=== PATIENT | female | born 1950 | race African-American/Black ===

== ENCOUNTER 2020-10-25 10:56 | Emergency (ER) | payer MEDICARE, MEDICAID, SELFPAY ==
[2020-10-25] VITALS (7 sets, daily range): BP systolic 139–184; BP diastolic 58–75; PULSE 72–81; RESP 14–18; TEMP 36.5–36.6; O2SAT 95–100; BMI 31.1; BMI 24.6
--- NOTE | 2020-10-25 | ECG_ITS ---
Test Reason : WEAKNESS Blood Pressure : / mmHG Vent. Rate : 073 BPM Atrial Rate : 073 BPM P-R Int : 150 ms QRS Dur : 092 ms QT Int : 372 ms P-R-T Axes : 080 041 055 degrees QTc Int : 409 ms Normal sinus rhythm Normal ECG When compared with ECG of 15-NOV-2019 16:32, No significant change was found Referred By: Leanne Lira Electronically Signed By:OCTAVIANO MANZO
--- NOTE | 2020-10-25 11:16 | XR_ITS ---
EXAMINATION: XR CHEST CLINICAL INFORMATION: Syncope. COMPARISON: None TECHNIQUE: Frontal view of the chest was obtained. FINDINGS: No significant abnormality is noted involving the heart, lungs, mediastinum, bony thorax or soft tissues. XR/XR chest 1V IMPRESSION: Unremarkable chest exam.
--- NOTE | 2020-10-25 11:16 | CT_ITS ---
EXAMINATION: CT HEAD WITHOUT CONTRAST CLINICAL INFORMATION: Weakness and syncope. COMPARISON: CT brain 11/25/2014 TECHNIQUE: Contiguous axial imaging was performed from the skull base to vertex without intravenous administration of contrast. This CT examination was performed using dose optimization techniques as appropriate, variously including the following: *Automated exposure control *Adjustment of mA and/or kV according to patient size (this includes techniques or standardized protocols for targeted exams where dose is matched to indication/reason for exam; i.e. extremities or head) *Use of iterative reconstruction technique DLP: 07 mGy-cm FINDINGS: There is no evidence of acute intracranial hemorrhage or territorial infarction. No abnormal mass effect or midline shift is seen. Hansen to white matter differentiation is well preserved. No extra-axial fluid collections are identified. The lateral ventricles are symmetrical but enlarged. There is diffuse periventricular hypodensity in both cerebral hemispheres. There is anterior and mid falx calcification seen. The osseous structures and soft tissues are normal. The mastoid air cells and visualized portions of the paranasal sinuses are well aerated. CT/CT head/brain wo con IMPRESSION: No acute intracranial process seen. Moderate cerebral atrophy. No major change from 11/25/2014. Diffuse chronic small vessel ischemic changes in both cerebral hemispheres.
[2020-10-25 11:19] LABS: Glucose, Whole Blood 70 mg/dL (60-115)
--- NOTE | 2020-10-25 11:19 | ED.NEUROSD ---
HPI - Neuro Symptoms/Deficit General Chief Complaint: Stroke Stated Complaint: weakness,unresponsive 10 mins,facial droop Time Seen by Provider: 10/25/20 11:16 History of Present Illness HPI Narrative: Patient is a 70-year-old female with a history of diabetes, multiple UTIs, femur fractures in the past presented today with having an episode of syncope. Patient was sitting in the chair. People at the adult daycare noted her the passed out. Unknown as to what exactly transpired. No coughing or congestion or upper respiratory symptoms no diaphoresis. Patient unable to give detailed history. Only follow simple commands. Patient was unresponsive for about 10 minutes. Subsequently had left-sided facial droop. That has resolved on arrival by EMS. No history of similar septa Aviles the past. Related Data Home Medications Medication Instructions Recorded Confirmed ascorbic acid (vitamin C) [Vitamin 500 mg PO BID 10/25/20 10/25/20 C] atorvastatin 10 mg PO BEDTIME 10/25/20 10/25/20 cholecalciferol (vitamin D3) 25 mcg PO DAILY 10/25/20 10/25/20 cyanocobalamin (vitamin B-12) 1,000 mcg PO DAILY 10/25/20 10/25/20 [Vitamin B-12] ferrous sulfate 325 mg PO BID 10/25/20 10/25/20 insulin aspart U-100 [Novolog See Rx Instructions .ROUTE .COMPLEX 10/25/20 10/25/20 U-100 Insulin aspart] insulin detemir U-100 [Levemir 22 unit SUBCUT DAILY 10/25/20 10/25/20 U-100 Insulin] latanoprost 1 drp OPHTHALMIC (EYE) BEDTIME 10/25/20 10/25/20 lisinopril 40 mg PO BID 10/25/20 10/25/20 sennosides [Jaylin-kate] 1 tab PO BEDTIME PRN 10/25/20 10/25/20 Previous Rx's Medication Instructions Recorded levothyroxine 150 mcg tablet 150 mcg PO QAM #30 cap 09/13/20 Allergies Allergy/AdvReac Type Severity Reaction Status Date / Time No Known Allergies Allergy Verified 08/09/20 09:17 Review of Systems Review of Systems: Unable to obtain review systems secondary to patient's dementia Yes Unobtainable due to mental condition PMFSH Past Medical History Surgical History History of ankle surgery History of hemiarthroplasty of left hip S/P KULDIP-[id number] (total abdominal hysterectomy and bilateral salpingo-oophorectomy) Family History Family History Father Diabetes Hypertension Mother Hypertension Stroke Social History Social History Alcohol intake: never Smoking Status: Never smoker Use of substances other than those prescribed or required for medical reasons: No Advance Directives: No Advance Directives Information Provided: No Physical Exam Vital Signs: Vital Signs: Last Vital Signs Temp 97.9 F 10/25/20 15:44 Pulse 74 10/25/20 15:44 Resp 14 10/25/20 15:44 BP 171/75 H 10/25/20 15:44 Pulse Ox 100 10/25/20 15:44 Body Mass Index 24.6 Appearance: Alert. Oriented X1. No acute distress. Eyes: Pupils equal, round and reactive to light. ENT: Pharynx normal. Neck: Normal inspection. Neck supple. No lymph nodes noted. No crepitus CVS: Normal heart rate and rhythm. Pulses normal. Normal S1 and S2 Respiratory: No respiratory distress. Breath sounds normal. No Wheezing. No rales Abdomen: Soft and nontender. No rigidity. No distention. good BS x4 Skin: Skin warm and dry. Normal skin color. Normal skin turgor. Extremities: No lower extremity edema. Neurovascular intact to all extremities. No Lacerations. No Rash Neuro: Oriented X 1. No motor deficit. No sensory deficit. Moving all extermities. No slurred speech MDM - Neuro Symptoms/Deficit MDM Narrative Medical decision making narrative: On arrival patient became awake alert oriented x2 which is baseline. There is no focal weakness noted. Patient's electrolytes consistent with some mild dehydration. Urine showed no evidence of infection. Chest x-ray was negative for pneumonia. CT scan of the head was negative for bleed. No mass noted. Patient and family offered admission for observation as patient has syncopal episode. Cannot be sure what the etiology of the syncopal episode was. Family wants patient to go home. Patient wants to go home. Understood the risks. Understood that we did not know the details of why she passed out. Should be sent home. Currently in stable condition. Lab Data Result diagrams: 10/25/20 11:56 10/25/20 11:56 Labs: Lab Results 10/25/20 10/25/20 10/25/20 Range/Units 11:09 11:56 11:56 WBC 4.5 L (4.8-10.8) X10*3/uL RBC 4.00 L (4.20-5.50) X10*6/uL Hgb 11.5 L (12.0-16.0) g/dl Hct 37.2 (37-47) % MCV 93.0 (80-98) fL MCH 28.8 (27.0-33.0) pg MCHC 30.9 L (31.0-35.0) g/dl RDW 13.6 (11.0-16.0) % Plt Count 211 (160-400) X10*3/uL MPV 11.1 (9.4-12.3) fL Immature Gran % (Auto) 0.2 (0.0-0.4) % Neut % (Auto) 59.4 (45-73) % Lymph % (Auto) 31.9 (20-40) % [place] % (Auto) 7.1 (2-11) % Eos % (Auto) 0.7 (0-4) % Baso % (Auto) 0.7 (0-2) % Lymph # (Auto) 1.4 (1.2-4.9) X10*3/uL [place] # (Auto) 0.3 (0.1-1.2) X10*3/uL Eos # (Auto) 0.0 (0.0-0.4) X10*3/uL Baso # (Auto) 0.0 (0.0-0.2) X10*3/uL Abs Immat Gran (auto) 0.01 (0.00-0.03) X10*3/uL Absolute Neuts (auto) 2.7 (2.0-8.3) X10*3/uL Absolute Nucleated RBC 0.000 (0.0-0.012) X10*3/uL Nucleated RBC % (auto) 0.0 (0.0-0.2) /100WBC PT (10.8-13.0) SEC INR (0.9-1.1) Sodium 140 (135-145) mmol/L Potassium 4.8 (3.3-5.1) mmol/l Chloride 103 (96-108) mmol/L Carbon Dioxide 30 H (22-29) mmol/L Anion Gap 12 (12-20) BUN 31 H (9-16) mg/dL Creatinine 0.80 (0.5-1.4) mg/dL Estim Creat Clear Calc 79.4 Estimated GFR > 60 POC Glucose 70 (60-115) mg/dL Random Glucose 81 (60-115) mg/dL Calcium 9.1 (8.4-10.2) mg/dL Troponin I High Sens (<3.5-17.0) ng/L Hold Red Top Urine Color Urine Appearance Urine pH (5.0-8.0) Ur Specific [place] (1.005-1.025) Urine Protein (NEG-TRACE) MG/DL Urine Glucose (UA) (NEG) MG/DL Urine Ketones (NEG) MG/DL Urine Blood (NEG) Urine Nitrite (NEG) Ur Leukocyte Esterase (NEG) Urine RBC (0) /HPF Urine WBC (0-4) /HPF Ur Squamous Epith Cells /LPF Urine Bacteria /LPF Urine Mucus /LPF COVID-19 (TAMARA) (Negative) COVID-19 Clin Com 10/25/20 10/25/20 10/25/20 Range/Units 11:56 11:56 13:27 WBC (4.8-10.8) X10*3/uL RBC (4.20-5.50) X10*6/uL Hgb (12.0-16.0) g/dl Hct (37-47) % MCV (80-98) fL MCH (27.0-33.0) pg MCHC (31.0-35.0) g/dl RDW (11.0-16.0) % Plt Count (160-400) X10*3/uL MPV (9.4-12.3) fL Immature Gran % (Auto) (0.0-0.4) % Neut % (Auto) (45-73) % Lymph % (Auto) (20-40) % [place] % (Auto) (2-11) % Eos % (Auto) (0-4) % Baso % (Auto) (0-2) % Lymph # (Auto) (1.2-4.9) X10*3/uL [place] # (Auto) (0.1-1.2) X10*3/uL Eos # (Auto) (0.0-0.4) X10*3/uL Baso # (Auto) (0.0-0.2) X10*3/uL Abs Immat Gran (auto) (0.00-0.03) X10*3/uL Absolute Neuts (auto) (2.0-8.3) X10*3/uL Absolute Nucleated RBC (0.0-0.012) X10*3/uL Nucleated RBC % (auto) (0.0-0.2) /100WBC PT (10.8-13.0) SEC INR (0.9-1.1) Sodium (135-145) mmol/L Potassium (3.3-5.1) mmol/l Chloride (96-108) mmol/L Carbon Dioxide (22-29) mmol/L Anion Gap (12-20) BUN (9-16) mg/dL Creatinine (0.5-1.4) mg/dL Estim Creat Clear Calc Estimated GFR POC Glucose 51 L* (60-115) mg/dL Random Glucose (60-115) mg/dL Calcium (8.4-10.2) mg/dL Troponin I High Sens < 3.5 (<3.5-17.0) ng/L Hold Red Top See Note Urine Color Urine Appearance Urine pH (5.0-8.0) Ur Specific [place] (1.005-1.025) Urine Protein (NEG-TRACE) MG/DL Urine Glucose (UA) (NEG) MG/DL Urine Ketones (NEG) MG/DL Urine Blood (NEG) Urine Nitrite (NEG) Ur Leukocyte Esterase (NEG) Urine RBC (0) /HPF Urine WBC (0-4) /HPF Ur Squamous Epith Cells /LPF Urine Bacteria /LPF Urine Mucus /LPF COVID-19 (T[facility]ARA) (Negative) COVID-19 Clin Com 10/25/20 10/25/20 10/25/20 Range/Units 13:31 13:32 13:46 WBC (4.8-10.8) X10*3/uL RBC (4.20-5.50) X10*6/uL Hgb (12.0-16.0) g/dl Hct (37-47) % MCV (80-98) fL MCH (27.0-33.0) pg MCHC (31.0-35.0) g/dl RDW (11.0-16.0) % Plt Count (160-400) X10*3/uL MPV (9.4-12.3) fL Immature Gran % (Auto) (0.0-0.4) % Neut % (Auto) (45-73) % Lymph % (Auto) (20-40) % [place] % (Auto) (2-11) % Eos % (Auto) (0-4) % Baso % (Auto) (0-2) % Lymph # (Auto) (1.2-4.9) X10*3/uL [place] # (Auto) (0.1-1.2) X10*3/uL Eos # (Auto) (0.0-0.4) X10*3/uL Baso # (Auto) (0.0-0.2) X10*3/uL Abs Immat Gran (auto) (0.00-0.03) X10*3/uL Absolute Neuts (auto) (2.0-8.3) X10*3/uL Absolute Nucleated RBC (0.0-0.012) X10*3/uL Nucleated RBC % (auto) (0.0-0.2) /100WBC PT 11.6 (10.8-13.0) SEC INR 1.0 (0.9-1.1) Sodium (135-145) mmol/L Potassium (3.3-5.1) mmol/l Chloride (96-108) mmol/L Carbon Dioxide (22-29) mmol/L Anion Gap (12-20) BUN (9-16) mg/dL Creatinine (0.5-1.4) mg/dL Estim Creat Clear Calc Estimated GFR POC Glucose (60-115) mg/dL Random Glucose (60-115) mg/dL Calcium (8.4-10.2) mg/dL Troponin I High Sens (<3.5-17.0) ng/L Hold Red Top Urine Color YELLOW Urine Appearance HAZY Urine pH 6.0 (5.0-8.0) Ur Specific [place] 1.020 (1.005-1.025) Urine Protein NEG (NEG-TRACE) MG/DL Urine Glucose (UA) NEG (NEG) MG/DL Urine Ketones NEG (NEG) MG/DL Urine Blood NEG (NEG) Urine Nitrite NEG (NEG) Ur Leukocyte Esterase TRACE H (NEG) Urine RBC 0 (0) /HPF Urine WBC 1-4 (0-4) /HPF Ur Squamous Epith Cells 1+ /LPF Urine Bacteria NONE /LPF Urine Mucus TRACE /LPF COVID-19 (TAMARA) Negative (Negative) COVID-19 Clin Com See Note ECG Data Attestation: I personally reviewed and interpreted this ECG as follows: Interpretation: Sinus heart rate is 75 CO QRS QT within normal limits is no acute ST segment elevation noted. NIH Stroke Scale Internal: Initial- Upon Arrival Level of Consciousness: Alert Level of Consciousness Questions: Answers both questions correctly Level of Consciousness Commands: Performs both tasks correctly Best Gaze: Normal Visual: No visual loss Facial Palsy: Normal Motor Arm (Right): No drift Motor Arm (Left): No drift Motor Leg (Right): No drift Motor Leg (Left): No drift Limb Ataxia: Absent Sensory: Normal Best Language: No aphasia Dysarthia: Normal Extinction and Inattention: No abnormality Score: 0 Discharge Plan Discharge Clinical Impression: Syncope Patient Disposition: Home, Self-Care Instructions: Syncope (ED) Prescriptions: No Action levothyroxine 150 mcg tablet 150 mcg PO QAM Qty: 30 RF: 12 latanoprost 0.005 % drops 1 drp ophthalmic (eye) BEDTIME RF: 0 sennosides [Jaylin-kate] 8.6 mg tablet 1 tab PO BEDTIME PRN (Reason: constipation) RF: 0 cyanocobalamin (vitamin B-12) [Vitamin B-12] 1,000 mcg tablet 1,000 mcg PO DAILY RF: 0 ascorbic acid (vitamin C) [Vitamin C] 500 mg tablet 500 mg PO BID RF: 0 insulin aspart U-100 [Novolog U-100 Insulin aspart] 100 unit/mL solution See Rx Instructions .ROUTE .COMPLEX RF: 0 ferrous sulfate 325 mg (65 mg iron) tablet 325 mg PO BID RF: 0 lisinopril 40 mg tablet 40 mg PO BID RF: 0 Levemir U-100 Insulin 100 unit/mL solution 22 unit subcut DAILY RF: 0 cholecalciferol (vitamin D3) 25 mcg (1,000 unit) tablet 25 mcg PO DAILY RF: 0 atorvastatin 10 mg tablet 10 mg PO BEDTIME RF: 0 Referrals: Edouard Amaro MD [Primary Care Provider] - 2 days
[2020-10-25 12:06] LABS: Basophils Percent Auto 0.7 % (0-2); Eosinophils Percent Auto 0.7 % (0-4); Hematocrit 37.2 % (37-47); Hemoglobin 11.5 g/dl (12.0-16.0); Imm Gran Abs Auto 0.01 X10*3/uL (0.00-0.03); Imm Gran Pct Auto 0.2 % (0.0-0.4); Lymphocytes Absolute Auto 1.4 X10*3/uL (1.2-4.9); Lymphocytes Percent Auto 31.9 % (20-40); Mean Corpuscular HGB Conc 30.9 g/dl (31.0-35.0); Mean Corpuscular Hemoglobin 28.8 pg (27.0-33.0); Mean Platelet Volume 11.1 fL (9.4-12.3); Monocytes Absolute Auto 0.3 X10*3/uL (0.1-1.2); Monocytes Percent Auto 7.1 % (2-11); Neutrophils Absolute Auto 2.7 X10*3/uL (2.0-8.3); Neutrophils Percent Auto 59.4 % (45-73); Platelet Count 211 X10*3/uL (160-400); Red Cell Distribution Width 13.6 % (11.0-16.0); White Blood Count 4.5 X10*3/uL (4.8-10.8)
[2020-10-25 12:08] LABS: MANUAL DIFF FLAG NO
[2020-10-25 12:37] LABS: Anion Gap 12 (12-20); Blood Urea Nitrogen 31 mg/dL (9-16); Calcium 9.1 mg/dL (8.4-10.2); Carbon Dioxide 30 mmol/L (22-29); Chloride 103 mmol/L (96-108); Creatinine Clr Calc Pharmacy 79.4; Estimated Glomerular Filt Rate > 60; Glucose Random 81 mg/dL (60-115); Potassium 4.8 mmol/l (3.3-5.1); Sodium 140 mmol/L (135-145)
[2020-10-25 12:44] LABS: Troponin-I High Sensitivity < 3.5 ng/L (<3.5-17.0)
[2020-10-25 13:47] LABS: Prothrombin Time 11.6 SEC (10.8-13.0)
[2020-10-25 13:49] LABS: Stroke Lab Use COMPLETE
[2020-10-25 13:57] LABS: COVID-19 Test Negative (Negative)
[2020-10-25 14:17] LABS: Glucose, Whole Blood 51 mg/dL (60-115)
[2020-10-25 14:31] LABS: Glucose Urine UA NEG (NEG); Leukocyte Esterase Urine TRACE (NEG); Nitrite Urine NEG (NEG); Urine Blood NEG (NEG); Urine Ketones NEG (NEG); Urine Protein NEG (NEG-TRACE)
[2020-10-25 14:35] LABS: Appearance Urine HAZY; Color Urine YELLOW
[2020-10-25 14:51] LABS: Mucus Urine TRACE /LPF; RBC Urine 0 /HPF (0); Squamous Epithelial Cell Urine 1+ /LPF
[2020-10-25 15:57] LABS: Glucose, Whole Blood 169 mg/dL (60-115)
== END 2020-10-25 17:10 | disposition home or self-care (01) ==
PROVIDERS: Emergency Provider Emergency Medicine Emergency Medical Services; PCP Internal Medicine
DX: R55 Syncope and collapse (principal); Z79.899 Other long term (current) drug therapy; Z20.828 Contact with and (suspected) exposure to other viral communicable diseases
CPT/HCPCS: 36415; 70450; 71045; 80048; 81001; 82947; 84484; 85025; 85610; 87086; 87635; 93005; 99284

== ENCOUNTER 2020-11-12 12:37 | Emergency (ER) | payer MEDICARE, MEDICAID, SELFPAY ==
[2020-11-12 12:50] VITALS: BP 186/81; PULSE 71; RESP 20; TEMP 36.6; O2SAT 100; BMI 27.8
--- NOTE | 2020-11-12 12:55 | XR_ITS ---
EXAMINATION: LEFT FOOT AND LEFT FEMUR. CLINICAL INFORMATION: Fall, pain. COMPARISON: None TECHNIQUE: 3 views left foot. 2 views left femur. FINDINGS: LEFT FOOT: There is no visible acute fracture, dislocation or subluxation. The ankle mortise and subtalar joints are normal. There is dorsal talonavicular spurring. There are 2 radiopaque wires visualized medial and lateral aspect of mid foot region. No lytic or sclerotic process seen. There is a small calcaneal heel spur. Left femur: There is a bipolar left femoral prosthesis with no evidence of prosthetic loosening. No fracture or dislocation seen. Rest of the left femur is grossly unremarkable. XR/XR femur LT 2V IMPRESSION: Degenerative spurring talonavicular joint. No acute fracture or dislocation. 2 thin metallic wires are seen along the soft tissues of medial and lateral midfoot. Bipolar left hip prosthesis without dislocation. No prosthetic loosening seen. No gross bony abnormality.
--- NOTE | 2020-11-12 12:55 | XR_ITS ---
EXAMINATION: LEFT FOOT AND LEFT FEMUR. CLINICAL INFORMATION: Fall, pain. COMPARISON: None TECHNIQUE: 3 views left foot. 2 views left femur. FINDINGS: LEFT FOOT: There is no visible acute fracture, dislocation or subluxation. The ankle mortise and subtalar joints are normal. There is dorsal talonavicular spurring. There are 2 radiopaque wires visualized medial and lateral aspect of mid foot region. No lytic or sclerotic process seen. There is a small calcaneal heel spur. Left femur: There is a bipolar left femoral prosthesis with no evidence of prosthetic loosening. No fracture or dislocation seen. Rest of the left femur is grossly unremarkable. XR/XR foot LT 2V IMPRESSION: Degenerative spurring talonavicular joint. No acute fracture or dislocation. 2 thin metallic wires are seen along the soft tissues of medial and lateral midfoot. Bipolar left hip prosthesis without dislocation. No prosthetic loosening seen. No gross bony abnormality.
--- NOTE | 2020-11-12 13:03 | ED.FALL ---
HPI - Fall General Chief Complaint: Fall Stated Complaint: FALL W/L HIP PAIN Time Seen by Provider: 11/12/20 12:55 Source: family and EMS Mode of arrival: EMS Limitations: no limitations History of Present Illness HPI Narrative: 70 yo female with past medical history of dementia, IDDM, HTN, HLD, hypothyroidism here with left hip/ankle and foot pain s/p fall. Daughter was in the other room and heard a thud. Found patient sitting on her bottom. Patient told her she slipped out of a chair landing on her bottom. Denies hitting her head or LOC. Daughter attempted to get her up and she was unable to bear weight on the left leg. Patient tells me she went to get up and her foot slipped causing her to fall on her bottom. MD complaint: fall Onset (ago): minute(s) Fall from: chair Fall witnessed: no Place fall occurred: home Loss of consciousness: none Prolonged down time: no Symptoms prior to fall: none Context: tripped/slipped Location of injury - extremities: left: thigh Severity: mild Associated symptoms (after fall): denies Related Data Home Medications Medication Instructions Recorded Confirmed atorvastatin 10 mg PO BEDTIME 10/25/20 10/25/20 cholecalciferol (vitamin D3) 25 mcg PO DAILY 10/25/20 10/25/20 cyanocobalamin (vitamin B-12) 1,000 mcg PO DAILY 10/25/20 10/25/20 [Vitamin B-12] ferrous sulfate 325 mg PO BID 10/25/20 10/25/20 insulin aspart U-100 [Novolog See Rx Instructions .ROUTE .COMPLEX 10/25/20 10/25/20 U-100 Insulin aspart] insulin detemir U-100 [Levemir 22 unit SUBCUT DAILY 10/25/20 10/25/20 U-100 Insulin] latanoprost 1 drp OPHTHALMIC (EYE) BEDTIME 10/25/20 10/25/20 lisinopril 40 mg PO BID 10/25/20 10/25/20 sennosides [Jaylin-kate] 1 tab PO BEDTIME PRN 10/25/20 10/25/20 aspirin 81 mg tablet,delayed 81 mg PO DAILY 11/09/20 release Previous Rx's Medication Instructions Recorded levothyroxine 150 mcg tablet 150 mcg PO QAM #30 cap 09/13/20 ascorbic acid (vitamin C) 500 mg 500 mg PO BID #60 cap 10/31/20 tablet Allergies Allergy/AdvReac Type Severity Reaction Status Date / Time No Known Allergies Allergy Verified 11/10/20 01:12 Review of Systems Review of Systems: Yes all other systems are reviewed and are negative Constitutional: Constitutional: Reports no additional constitutional complaints, Denies body ache(s), Denies chills, Denies fever(s), Denies headache(s) and Denies weakness Eyes: Eyes: Reports no additional eye complaints and Denies change in vision ENT: Reports system reviewed and no additional complaints, except as documented, Denies dizziness, Denies headache(s), Denies nasal congestion, Denies nasal discharge and Denies neck pain Cardiovascular: Cardiovascular: Reports no additional cardiovascular complaints, Denies chest pain, Denies leg edema and Denies dyspnea Respiratory: Respiratory: Reports no additional respiratory complaints, Denies cough and Denies dyspnea Gastrointestinal: Gastrointestinal: Reports no additional gastrointestinal complaints, Denies abdominal pain, Denies diarrhea, Denies nausea and Denies vomiting Genitourinary: Genitourinary: Reports no additional female genitourinary complaints and Denies urinary incontinence Musculoskeletal: Musculoskeletal: Reports no additional musculoskeletal complaints, Denies back pain, Reports arthralgias, Reports joint swelling, Denies neck pain, Denies numbness and Denies tingling Integumentary/Breasts: Skin/Breast: Reports system reviewed and no additional complaints, except as docu and Denies rash Neurologic: Reports system reviewed and no additional complaints, except as documented, Denies Abnormal speech present, Denies dizziness, Denies headache(s), Denies numbness, Denies tingling and Denies weakness [facility] Past Medical History Attestation statement: The following information was validated with the patient. Source: old records reviewed and nursing notes reviewed Medical History Dementia Diabetes High cholesterol Hypertension Hypothyroidism Syncope Surgical History History of ankle surgery History of hemiarthroplasty of left hip S/P KULDIP-[id number] (total abdominal hysterectomy and bilateral salpingo-oophorectomy) Family History Family History Father Diabetes Hypertension Mother Hypertension Stroke Social History Social History Alcohol intake: never Smoking Status: Never smoker Advance Directives: No Advance Directives Information Provided: Yes Physical Exam Vital Signs: Vital Signs: Last Vital Signs Temp 97.9 F 11/12/20 12:50 Pulse 68 11/12/20 14:29 Resp 20 11/12/20 12:50 BP 164/78 H 11/12/20 14:29 Pulse Ox 100 11/12/20 12:50 Body Mass Index 27.8 Const: General: cooperative, healthy appearing, comfortable and no acute distress Orientation/consciousness: patient oriented x3 Limitations: no limitations HENMT: Head: Yes normal to inspection Ears: hearing grossly normal bilaterally General nose exam: Normal external nose present Face and sinus: Yes normal facial exam Mouth: Normal oral and palatal mucosa present Throat: Yes posterior oropharynx normal Eyes: General: appearance normal, both eyes and all related structures Pupils: Equal, round and reactive pupils present Neck: Neck: Yes normal visual inspection Chest: Chest palpation & inspection: normal inspection of the chest Resp: Effort & Inspection: normal respiratory effort Auscultation: clear to auscultation bilaterally Cardio: Rate: regular rate Rhythm: regular rhythm Peripheral pulses: Peripheral pulses 2+ throughout GI: Inspection: Yes normal to inspection Palpation (GI): Soft to palpation and nontender Auscultation: normal bowel sounds Back/Spine/Pelvis: Thoracic/Lumbar Spine: thoracic and lumbar spine normal to inspection Skin: General skin exam: no rashes or lesions noted Neuro: General: patient oriented x3, no focal motor deficits and normal sensation to monofilament Cranial nerves: Yes Equal, round and reactive pupils present Cognition (Neuro): normal cognition Speech: No Abnormal speech present Gait exam (Neuro): Normal gait present Motor exam (neuro): 5/5 motor strength present throughout Extrem: Other: Tenderness over mid thigh and lateral left hip, mild. No obvious deformity/rotation or shortening. Tenderness over lateral left ankle and base of 5th metatarsal with mild swelling. No deformity, ecchymosis. Palpable pulses. FROM. General: Yes normal to inspection Course Course Course Narrative: Left hip/thigh/foot/ankle pain s/p mechanical fall at home. No head injury, at baseline per family. 1430-X-rays unremarkable. Likely contusion. Plan for ambulation trial prior to discharge home. Able a ambulate with walker with a steady gait. Reviewed worrisome signs/symptoms with patient and when to return to ED. Comfortable with discharge home. MDM - Fall Medical Records Attestation: I reviewed the patient's medical records. Lab Data Attestation: I reviewed the patient's lab results. Imaging Data femur xray: Attestation: I personally reviewed and interpreted this imaging study as follows: Radiologist's impression: Left femur: There is a bipolar left femoral prosthesis with no evidence of prosthetic loosening. No fracture or dislocation seen. Rest of the left femur is grossly unremarkable. foot xray: Attestation: I personally reviewed and interpreted this imaging study as follows: Radiologist's impression: LEFT FOOT: There is no visible acute fracture, dislocation or subluxation. The ankle mortise and subtalar joints are normal. There is dorsal talonavicular spurring. There are 2 radiopaque wires visualized medial and lateral aspect of mid foot region. No lytic or sclerotic process seen. There is a small calcaneal heel spur. Discharge Plan Discharge Clinical Impression: Contusion Qualifiers: Encounter type: initial encounter Contusion area: hip Laterality: left Qualified Code(s): S70.02XA - Contusion of left hip, initial encounter Patient Disposition: Home, Self-Care Instructions: Contusion in Adults (ED) Additional Instructions: Change positions slowly Use walker at all times Prescriptions: No Action levothyroxine 150 mcg tablet 150 mcg PO QAM Qty: 30 RF: 12 ascorbic acid (vitamin C) [Vitamin C] 500 mg tablet 500 mg PO BID Qty: 60 RF: 5 latanoprost 0.005 % drops 1 drp ophthalmic (eye) BEDTIME RF: 0 sennosides [Jaylin-kate] 8.6 mg tablet 1 tab PO BEDTIME PRN (Reason: constipation) RF: 0 cyanocobalamin (vitamin B-12) [Vitamin B-12] 1,000 mcg tablet 1,000 mcg PO DAILY RF: 0 insulin aspart U-100 [Novolog U-100 Insulin aspart] 100 unit/mL solution See Rx Instructions .ROUTE .COMPLEX RF: 0 ferrous sulfate 325 mg (65 mg iron) tablet 325 mg PO BID RF: 0 lisinopril 40 mg tablet 40 mg PO BID RF: 0 Levemir U-100 Insulin 100 unit/mL solution 22 unit subcut DAILY RF: 0 cholecalciferol (vitamin D3) 25 mcg (1,000 unit) tablet 25 mcg PO DAILY RF: 0 atorvastatin 10 mg tablet 10 mg PO BEDTIME RF: 0 aspirin 81 mg tablet,delayed release (DR/EC) 81 mg PO DAILY RF: 0 Interventions: ED Discharge Assessment Last Done: 11/12/20 15:31
[2020-11-12 14:02] VITALS: BP 189/74; PULSE 67
[2020-11-12 14:29] VITALS: BP 164/78; PULSE 68
--- NOTE | 2020-11-12 15:30 | PC.NURSE ---
patient able to abmbulate household distance with a walker. denied any pain.
== END 2020-11-12 16:09 | disposition home or self-care (01) ==
PROVIDERS: Emergency Provider Emergency Medicine
DX: S70.02XA Contusion of left hip, initial encounter (principal); W07.XXXA Fall from chair, initial encounter; E11.9 Type 2 diabetes mellitus without complications; I10 Essential (primary) hypertension; F03.90 Unspecified dementia, unspecified severity, without behavioral disturbance, psychotic disturbance, mood disturbance, and anxiety; Y93.9 Activity, unspecified; Y92.013 Bedroom of single-family (private) house as the place of occurrence of the external cause; Y99.9 Unspecified external cause status
CPT/HCPCS: 73552; 73620; 99283

== ENCOUNTER → 2020-11-14 09:54 | Outpatient (BNVA) | payer MEDICARE, MEDICAID, SELFPAY | PROVIDERS: PCP Internal Medicine; Visit Provider Internal Medicine Cardiovascular Disease | DX: R55 Syncope and collapse (principal); I95.1 Orthostatic hypotension; I10 Essential (primary) hypertension; E11.9 Type 2 diabetes mellitus without complications | CPT/HCPCS: 99202 ==

== ENCOUNTER → 2020-11-19 08:18 | Outpatient (REF) | payer MEDICARE, MEDICAID, SELFPAY ==
--- NOTE | 2020-11-19 | NM_ITS ---
Myocardial perfusion study Indication: Syncope to evaluate for myocardial ischemia Technique: The patient was brought in for a Lexiscan perfusion study on 11/19/2020. Patient performed low-level exercise and was injected 0.4 mg of Lexiscan intravenously. Within a minute of injection, 25 mCi of sestamibi was given intravenously. Images were obtained using the SPECT gamma camera interlaced with the gating device. Images were obtained in supine position. Resting perfusion study was performed on 11/20/2020. Patient was administered 25 mCi of sestamibi intravenously at rest. Images were then obtained in supine position. Images obtained with and without CT attenuation. Total DLP 129 mGy-cm. Images were processed with the software and compared side to side in short axis, horizontal long axis and vertical long axis views. Findings: Both stress and rest images were performed with comments in side of the body position as patient could not raise her arms The stress perfusion study showed non attenuated images show moderately to severely reduced uptake in the inferolateral as well as moderately reduced uptake in the lateral wall of the LV myocardium. Is also moderately reduced uptake in the basal inferior wall of the LV myocardium. Attenuation corrected images show moderately reduced uptake in the inferolateral and basal lateral as well as basal inferior wall of the LV myocardium.. The gated study shows visually normal LV systolic function with visually estimated LVEF of greater than 50%. LV cavity is normal in size. The gated study shows normal systolic wall thickening and contraction of segments. Resting study shows improved uptake in the inferolateral, basal lateral and basal inferior wall of the LV myocardium.. Gating at rest reveals normal systolic wall motion with visually estimated ejection fraction at greater than 50 %. The findings are consistent with moderate area of moderate to severe intensity inferolateral, basal lateral and inferior wall ischemia.. NM/NM aleksey perf SPECT rest & str Impression: 1. Myocardial perfusion imaging study shows moderate area all moderate intensity basal lateral and inferior and inferolateral ischemia in circumflex territory 2. Gated LVEF is greater than 50% 3. Transient ischemic dilatation not present EKG is nondiagnostic for ischemia
--- NOTE | 2020-11-19 08:23 | CA_ITS ---
Acquisition Time: 2020-11-19 08:29:06 Total Exercise Time: 00:02:00 Test Indications: Syncope Medications: ASA ATORVASTATIN INSULIN LISINOPRIL LEVOTHYROXINE Protocol: LEXISCAN Max HR: 096 BPM 64% of Pred: 149 BPM Max BP: 140/072 mmHG Max Work Load: 1.0 METS Pharmacological stress test with Lexiscan injection, while sitting and kicking her legs, without anginal symptoms, without arrythmia, with normotensive response to injection, with nondiagnostic EKG for ischemia. Nuclear images pending. Test reviewed with Dr Martinez. Referred By: Lucio Stokes Overread By: PREM SLATER
== END ==
LOC: HO.CARD 08:18
PROVIDERS: PCP Internal Medicine; Visit Provider Internal Medicine Cardiovascular Disease
DX: R55 Syncope and collapse (principal); I10 Essential (primary) hypertension; E11.9 Type 2 diabetes mellitus without complications
CPT/HCPCS: 78452; 93017; A9500; J0280; J2785

== ENCOUNTER 2020-12-11 11:05 | Outpatient (REF) | payer MEDICARE, MEDICAID, SELFPAY ==
[2020-12-11 12:08] LABS: Anion Gap 10 (12-20); Blood Urea Nitrogen 21 mg/dL (9-16); Calcium 8.6 mg/dL (8.4-10.2); Carbon Dioxide 32 mmol/L (22-29); Chloride 105 mmol/L (96-108); Estimated Glomerular Filt Rate > 60; Glucose Random 161 mg/dL (60-115); Potassium 4.3 mmol/L (3.3-5.1); Sodium 143 mmol/L (135-145)
== END 2020-12-11 11:06 | disposition home or self-care (01) ==
LOC: HO.LAB 11:05
PROVIDERS: PCP Internal Medicine; Visit Provider Internal Medicine Cardiovascular Disease
DX: I95.1 Orthostatic hypotension (principal); E11.9 Type 2 diabetes mellitus without complications; I10 Essential (primary) hypertension; R55 Syncope and collapse
CPT/HCPCS: 36415; 80048

== ENCOUNTER → 2020-12-12 12:52 | Outpatient (REF) | payer MEDICARE, MEDICAID, SELFPAY ==
--- NOTE | 2020-12-12 12:56 | CA_ITS ---
Transthoracic Echocardiogram Patient (Last, First, Middle): Elsa Preciado, Gender: Female Date of : 1950 Age: 70 Procedure Date: 12/12/2020 Procedure Type: Transthoracic Echocardiogram Location: OP Height: 175.26 cm Weight: 85.73 kg BSA: 2.02 m2 Heart Rate: bpm BP: 143 / 78 mmHg Clinical Science Consultant: ETHEL Spann MD: Lucio Stokes MD Email Campaign Manager: Lucio Stokes MD Symptoms: R55 - Syncope and collapse Study Quality: Fair ECG Rhythm: Sinus Conclusions: - 1. Normal LV systolic function grade 1 diastolic dysfunction 2. Normal cardiac valvular Doppler 3. No pericardial effusion Findings Left Ventricle Normal left ventricular size, thickness, and systolic function. The visually estimated ejection fraction is between 60-65%. Spectral Doppler is indicative of an impaired relaxation filling pattern. E/E prime ratio is <8, consistent with normal filling pressures. Right Ventricle Normal right ventricular cavity size and systolic function. Atria Both atria are normal in size. Aortic Valve There is mild calcification of the aortic valve. There is no aortic valve stenosis. There is no aortic valve regurgitation. Mitral Valve Normal mitral valve structure and function. There is mild mitral annular calcification. There is trace mitral valve regurgitation. There is no mitral valve stenosis. Pulmonic Valve The pulmonic valve was not well visualized. Tricuspid Valve Likely normal tricuspid valve structure and function. Tricuspid regurgitation envelope is inadequate for calculation of right ventricular systolic pressure. Great Vessels All visible segments of the aorta are normal in size. Venous The inferior vena cava is normal in size and collapses greater than 50% with inspiration. Pericardium/Pleural There is no evidence of pericardial effusion. Prior Study Comparison No prior study available for comparison. Measurements 2D Linear Measurements IVSd: 1.05 0.6-0.9/0.6-1.0 cm LVIDd: 3.49 3.9-5.3/4.2-5.9 cm LVIDd Index: 1.73 2.4-3.2/2.2-3.1 cm/m2 LVIDs: 2.39 2.0-3.6 cm LVPWd: 1.06 0.7-1.1 cm Ao Root: 3.30 2.1-3.5 cm LA Diam: 3.30 2.7-3.8/3.0-4.0 cm LAIDs Index: 1.63 1.5-2.3 cm/m2 LV Mass: 138.43 67-162/88-224 g LV Mass Index: 68.53 43-95/49-115 g/m2 LVOT Diam: 2.20 3.0+(-)1.3 cm Mitral Valve MV Pk E: 0.56 MV PK A: 0.96 MV Decel Time: 236.00 E/A: 0.60 E'Lateral: 6.64 E'Medial: 4.79 E/E' Med: 11.60 E/E' Lat: 8.40 PHT: 69.00 MVA PHT: 3.19 Decel Pierce: 2.36 Aortic Valve AoV Pk Cornelius: 1.18 AoV Mn Cornelius: 0.71 AoV VTI: 0.26 AoV Pk Grad: 6.00 Aov Mn Grad: 2.00 MARIA Cont.VTI: 3.01 LVOT LVOT Pk Cornelius: 0.80 LVOT Mn Cornelius: 0.52 LVOT VTI: 0.21 LVOT Pk Grad: 3.00 LVOT Mn Grad: 1.00 LVOT Diam: 2.20 LVOT Area: 3.80 Diastolic Function MV Pk E: 0.56 MV Pk A: 0.96 E/A: 0.60 E'Medial: 4.79 E/E' Med: 11.60 E' Laterial: 6.64 E/E' Lat: 8.40 Great Vessels Aorta Ao Root-2D: 3.30 2.0-3.7 cm Ao Asc: 3.50 2.1-3.4 cm Ao Arch: 2.10 Updated in Other Vendor System with Status of Final Lucio Stokes MD electronically signed on 12/12/2020 3:04:34 PM with status of Final
== END ==
LOC: HO.CARD 12:52
PROVIDERS: Visit Provider Internal Medicine Cardiovascular Disease
DX: I10 Essential (primary) hypertension (principal); I95.1 Orthostatic hypotension
CPT/HCPCS: 93306

== ENCOUNTER → 2020-12-20 10:01 | Outpatient (BNVA) | payer MEDICARE, MEDICAID, SELFPAY | PROVIDERS: PCP Internal Medicine; Visit Provider Nurse Practitioner Family | DX: R55 Syncope and collapse (principal); R94.39 Abnormal result of other cardiovascular function study; I95.1 Orthostatic hypotension; I10 Essential (primary) hypertension | CPT/HCPCS: 99212 ==

== ENCOUNTER → 2021-01-03 09:53 | Outpatient (REF) | payer MEDICARE, MEDICAID, SELFPAY ==
--- NOTE | 2021-01-03 15:30 | ECG_ITS ---
Hook-up date: 2021-01-03 11:00:00 Duration: 11:37:00 Test Indications: Syncope and collapse Medications: 84364 QRS complexes 12 Ventricular ectopics which represent <1 % of total QRS comp. 3 Supraventricular ectopics which represent <1 % of total QRS comp. * Paced QRS complexs which represent % of total QRS comp. VENTRICULAR ECTOPY 12 Isolated 0 Bigeminal Cycles 0 Couplets 0 Runs 0 Beats in Runs * Beats LONGEST at * BPM at :: -- * Beats FASTEST at * BPM at :: -- SUPRAVENTRICULAR ECTOPY 3 Isolated 0 Couplets 0 Runs 0 Beats in Runs * Beats LONGEST at * BPM at :: -- * Beats FASTEST at * BPM at :: -- HEART RATES 64 MIN at 14:34:15 2021-01-03 75 AVG 93 MAX at 20:48:29 2021-01-03 LONGEST RR 0.9280 secs at 14:34:12 2021-01-03 S-T LEVELS Channel 1 - 128 mm at 11:00:00 2021-01-03 - 128 mm at 11:00:00 2021-01-03 Channel 2 - 128 mm at 11:00:00 2021-01-03 - 128 mm at 11:00:00 2021-01-03 Channel 3 - 128 mm at 03:01:91 -- - 128 mm at 03:01:91 Underlying rhythm is sinus; Average ventricular rate 75/min; range 64-93/min; No episodes of tachycardia or bradycardia; Rare supraventricular and ventricular ectopy; Patient did not return diary Referred By: Lucio Stokes Overread By: OCTAVIANO MANZO
== END ==
LOC: HO.CARD 09:53
PROVIDERS: PCP Internal Medicine; Visit Provider Nurse Practitioner Family
DX: R55 Syncope and collapse (principal)
CPT/HCPCS: 93226

== ENCOUNTER → 2021-01-25 10:12 | Outpatient (BNVA) | payer MEDICARE, MEDICAID, SELFPAY | PROVIDERS: PCP Internal Medicine; Visit Provider Nurse Practitioner Family | DX: R55 Syncope and collapse (principal); R94.39 Abnormal result of other cardiovascular function study; I95.1 Orthostatic hypotension; I10 Essential (primary) hypertension; I25.10 Atherosclerotic heart disease of native coronary artery without angina pectoris | CPT/HCPCS: Q3014 ==

== ENCOUNTER → 2021-04-08 14:33 | Outpatient (BNVA) | payer MEDICARE, MEDICAID, SELFPAY | PROVIDERS: PCP Internal Medicine; Referring Provider Internal Medicine; Visit Provider Internal Medicine Cardiovascular Disease | DX: R55 Syncope and collapse (principal); I25.10 Atherosclerotic heart disease of native coronary artery without angina pectoris; Z79.899 Other long term (current) drug therapy | CPT/HCPCS: 99212 ==

== ENCOUNTER 2021-11-13 11:28 | Outpatient (REF) | payer MEDICARE, MEDICAID, SELFPAY ==
[2021-11-13 11:42] LABS: Appearance Urine CLEAR; Color Urine YELLOW; Glucose Urine UA >=1000 MG/DL (NEG); Leukocyte Esterase Urine NEG (NEG); Nitrite Urine NEG (NEG); Specific Gravity - Urine >= 1.030 (1.005-1.025); Urine Blood NEG (NEG); Urine Ketones NEG (NEG); Urine Protein TRACE MG/DL (NEG-TRACE)
[2021-11-13 12:25] LABS: Bacteria Urine TRACE /LPF; RBC Urine 0 /HPF (0); Squamous Epithelial Cell Urine 1+ /LPF; WBC Urine 0-2 /HPF (0-4)
== END 2021-11-13 11:29 | disposition home or self-care (01) ==
LOC: HO.LNP 11:28
PROVIDERS: Visit Provider Internal Medicine
DX: Z13.89 Encounter for screening for other disorder (principal)
CPT/HCPCS: 81001

== ENCOUNTER 2021-11-15 15:14 | Inpatient (IN) | payer MEDICARE, MEDICAID, SELFPAY ==
--- NOTE | ~2021-11-15 | CT_ITS ---
EXAMINATION: CT CHEST WITHOUT CONTRAST CLINICAL INFORMATION: Covid positive with shortness of breath with altered mental status COMPARISON: Chest radiograph earlier today and CT chest dated 11/20/2008 TECHNIQUE: Multidetector volumetric CT imaging of the chest was done. Axial MIP volume rendering provided. Sagittal and coronal reformatted images were obtained. This CT examination was performed using dose optimization techniques as appropriate, variously including the following: *Automated exposure control *Adjustment of mA and/or kV according to patient size (this includes techniques or standardized protocols for targeted exams where dose is matched to indication/reason for exam; i.e. extremities or head) *Use of iterative reconstruction technique DLP: 395 mGy-cm FINDINGS: LUNGS: The lungs are unremarkable with no evidence of inflammation, infiltrates or nodules. Some minimal subpleural reticulation is noted posteriorly in the right lung. MEDIASTINUM: Mild cardiomegaly is present. No mediastinal or hilar lymphadenopathy is seen although without IV contrast diagnosis is limited. Coronary artery calcium is present. PLEURA: There is no pleural effusion. No pleural mass or thickening. AXILLA: No lymphadenopathy. UPPER ABDOMEN: Unremarkable. OSSEOUS STRUCTURES: Mild degenerative changes are present in the spine CT/CT chest wo con IMPRESSION: No acute intrathoracic disease. No findings are seen to suggest Covid pulmonary involvement. Incidental findings as described above Fleischner guidelines were followed.
--- NOTE | ~2021-11-15 | CT_ITS ---
EXAMINATION: CT HEAD WITHOUT CONTRAST CLINICAL INFORMATION: Altered mental status COMPARISON: CT head 10/25/2020 TECHNIQUE: Contiguous axial imaging was performed from the skull base to vertex without intravenous administration of contrast. Coronal and sagittal reformatted images are performed at the CT scanner. [This CT examination was performed using dose optimization techniques as appropriate, variously including the following: *Automated exposure control *Adjustment of mA and/or kV according to patient size (this includes techniques or standardized protocols for targeted exams where dose is matched to indication/reason for exam; i.e. extremities or head) *Use of iterative reconstruction technique] DLP: 662 mGy-cm. FINDINGS: There is no evidence of acute intracranial hemorrhage or territorial infarction. No abnormal mass-effect or midline shift is seen. Hansen to white matter differentiation is well preserved. No extra-axial fluid collections are identified. There is generalized global volume loss. There is moderate prominence of the ventricles and the sulci . There is mild hypodensity of the periventricular white matter due to chronic small vessel ischemic disease. There are vascular calcifications of the internal carotid arteries bilaterally. There is no osseous abnormality. Sinus mucosal thickening in the right frontal sinus. This extends into the right frontal ethmoid sinus. Mucosal thickening with air-fluid levels opacifying the maxillary sinuses bilateral. Small aerosolized mucous at the dependent right sphenoid sinus. CT/CT head/brain wo con IMPRESSION: No acute intracranial pathology.
--- NOTE | ~2021-11-15 | XR_ITS ---
EXAMINATION: XR CHEST CLINICAL INFORMATION: Weakness COMPARISON: Previous chest x-ray September 2020 TECHNIQUE: 2 views of the chest were obtained. FINDINGS: The cardiac and mediastinal contours are stable. The lungs are clear. There is no pleural effusion or pneumothorax. There are degenerative changes of the spine. XR/XR chest 2V IMPRESSION: Unremarkable examination.
[2021-11-15 15:14] VITALS: BP 180/59; BP 181/76; PULSE 47; PULSE 48; RESP 16; O2SAT 99; BMI 27.4
--- NOTE | 2021-11-15 15:45 | PC.NURSE ---
Sister HCP Araceli [phone]
--- NOTE | 2021-11-15 15:47 | PC.NURSE ---
Spoke to sister (HCP) Araceli who states since Thursday AMS including difficulty ambulating, having spaced out episodes and speech is been difficult to understand.
--- NOTE | 2021-11-15 15:54 | ECG_ITS ---
Test Reason : AMS Blood Pressure : / mmHG Vent. Rate : 047 BPM Atrial Rate : 047 BPM P-R Int : 174 ms QRS Dur : 098 ms QT Int : 476 ms P-R-T Axes : 029 037 026 degrees QTc Int : 421 ms Sinus bradycardia normal ecg When compared with ECG of 25-OCT-2020 11:12, Vent. rate has decreased BY 26 BPM Referred By: Poonam Duran Electronically Signed By:Wesley Martinez
--- NOTE | 2021-11-15 17:04 | ED_ITS ---
HPI - Altered Mental Status General Chief Complaint: Altered Mental Status Stated Complaint: AMS (increase confusion from baseline) Time Seen by Provider: 11/15/21 15:44 Source: patient Mode of arrival: EMS Limitations: altered mental status History of Present Illness HPI narrative: Patient is a 71-year-old female with past medical history of hypothyroidism, hypertension, constipation, dementia, diabetes, GERD without esophagitis, hypercholesterolemia, iron deficiency anemia, syncope, vitamin B12 deficiency, vitamin D deficiency. Patient is coming from home, she resides there with Araceli, her sister. There is concern about altered mental status for the past 2 days. The patient has confusion at baseline but they were concerned that her speech is less clear. She has been having difficulty with getting out of bed and moving about the room around the house. In addition, she has been having ?spacing out episodes?. She has a history of urinary tract infections. They brought her to see her primary care provider and she had a urinalysis done this week, which was reportedly negative. On exam, patient is oriented to person and place but not to time. Mostly responding yes and no to questions but seemingly not appropriate responses. MD complaint: altered mental status, confusion and weakness Onset (ago): day(s) Timing confirmed by: family member (sister) Consistency of symptoms: constant Related Data Home Medications Medication Instructions Recorded Confirmed latanoprost 0.005 % eye drops 1 drp OPHTHALMIC (EYE) BEDTIME 10/25/20 04/08/21 aspirin 81 mg tablet,delayed 81 mg PO DAILY 11/09/20 04/08/21 release Previous Rx's Medication Instructions Recorded ascorbic acid (vitamin C) 500 mg 500 mg PO BID #60 cap 10/31/20 tablet (Vitamin C) ferrous sulfate 325 mg (65 mg 325 mg PO BID #60 cap 01/07/21 iron) tablet sennosides 8.6 mg tablet (senna) 8.6 mg PO BEDTIME PRN #30 cap 01/07/21 cholecalciferol (vitamin D3) 25 25 mcg PO DAILY #30 cap 01/18/21 mcg (1,000 unit) tablet cyanocobalamin (vitamin B-12) 1,000 mcg PO DAILY #30 cap 01/23/21 1,000 mcg tablet (Vitamin B-12) carbamide peroxide 6.5 % ear drops 5 drp OTIC (EARS) DAILY 10 Days 02/07/21 (Debrox) #30 ml walker #1 ea 02/28/21 Novolog U-100 Insulin aspart 100 2 - 12 unit (0.02 - 0.12 mL) 03/28/21 unit/mL subcutaneous solution SUBCUT QID #40 cap NS (insulin aspart U-100) insulin detemir U-100 100 unit/mL 22 unit (0.22 mL) SUBCUT DAILY #20 03/28/21 subcutaneous solution (Levemir cap U-100 Insulin) blood sugar diagnostic (Accu-Chek 1 strip MISCELLANEOUS QID #400 06/07/21 Carmen Plus test strp) strip atorvastatin 40 mg tablet 40 mg PO BEDTIME #30 tab 07/15/21 metoprolol succinate 25 mg 25 mg PO DAILY #30 tab 07/15/21 tablet,extended release 24 hr levothyroxine 150 mcg tablet 150 mcg PO QAM #30 tab 10/14/21 insulin syringe-needle U-100 0.3 See Rx Instructions MISCELLANEOUS 11/13/21 mL 30 gauge x 1/2 (BD Insulin QID #120 ea Syringe Ultra-Fine) lisinopril 20 mg tablet 20 mg PO BID #60 cap 11/15/21 Allergies Allergy/AdvReac Type Severity Reaction Status Date / Time No Known Allergies Allergy Verified 02/07/21 09:39 Review of Systems Review of Systems: Obtained minimally from the patient mostly with sister, patient with altered mental status Constitutional: + weakness. No fevers, chills, weight loss Skin: No rash or itching. Cardiovascular: No clutching of the chest, reports of chest pain. No pedal edema Respiratory: No increased work of breathing, cough, or sputum production. Gastrointestinal: No anorexia, vomiting ,constipation or diarrhea. No blood in stool. Genitourinary: Urinary incontinence Musculoskeletal: Decrease in mobility. Hematologic: No bleeding or bruising.. [facility] Past Medical History Attestation statement: The following information was validated with the patient. Source: old records reviewed and obtained from family Medical History Acquired hypothyroidism Benign essential hypertension Constipation Dementia Diabetes Diabetes mellitus GERD without esophagitis High cholesterol Hypertension Hypothyroidism Impacted cerumen of both ears Iron deficiency anemia Overweight (BMI 25.0-29.9) Pure hypercholesterolemia Syncope Vitamin B12 deficiency Vitamin D deficiency Surgical History History of ankle surgery History of hemiarthroplasty of left hip S/P [id number] (total abdominal hysterectomy and bilateral salpingo-oophorectomy) Family History Family History Father Diabetes Hypertension Mother Hypertension Stroke Social History Social History Alcohol intake: never Patient Tobacco Use Status: Tobacco use Unknown Use of substances other than those prescribed or required for medical reasons: No Advance Directives: No Advance Directives Information Provided: Yes Physical Exam Vital Signs: Vital Signs: Last Vital Signs Pulse 47 L 11/15/21 15:14 Resp 16 11/15/21 15:14 BP 180/59 H 11/15/21 15:14 Pulse Ox 99 11/15/21 15:14 BMI result Body Mass Index 27.4 Vital signs have been reviewed and appeared to be correct. Blood pressure elevated 180/59. Bradycardia, 47.? Respiration rate normal. Temperature normal 97.9.? Oxygen saturation normal. Appearance: Alert.?Oriented to person, place but not to time. No acute distress.? Eyes: Pupils equal, round and reactive to light.? ENT: Pharynx normal.?? Neck: Normal inspection.? Neck supple.?? CVS: Heart sounds normal. Sinus Bradycardia, hypertensive.? Pulses normal.?? Respiratory: No respiratory distress.? Lung sounds diminished bilaterally due to inability to follow commands for deep inspiration Abdomen: Soft and non-tender. Normoactive bowel sounds. No pulsatile mass.?? Skin: Skin warm and dry.? Normal skin color.? Normal skin turgor.?? Extremities: No lower extremity edema.? No calf ttp? Neuro: Unable to perform neurological exam is patient is unable to follow commands. Course Course Course Narrative: Patient is a 71-year-old female presenting to the emergency department for evaluation of altered mental status and weakness of 2 day duration. Patient has history of dementia and is confused at baseline, history obtained with the assistance of her sister. CBC, CMP, CPK, troponin, lactic acid, blood cultures, venous blood gas, ammonia, urinalysis via straight cath, chest x-ray, head CT without contrast, and EKG to be obtained. Disposition pending results. Reevaluation(s) Reevaluation #1: Patient noted to be COVID-19 positive, will obtain Chest CT to exclude pneumonia. BUN is elevated at 21 with a normal creatinine 0.8 suspect this is likely due to dehydration. Mildly elevated liver function tests, AST 32 ALT 38. Alkaline phosphatase elevated at 163, noted to be elevated in the past as well. Troponin is negative. Pancytopenia WBC 2.8, RBC 4.11, platelet 140. Mild anemia hemoglobin 11.5 hematocrit 37.5. Lactic acid normal 1.3 Ammonia normal 21. Urinalysis is pending. Patient signed out to Dre SMITH pending CT head and CT chest radiologist impression, and urinalysis for disposition. Time: 17:45 MDM - Altered Mental Status Medical Records Attestation: I reviewed the patient's medical records. Lab Data Attestation: I reviewed the patient's lab results. Result diagrams: 11/15/21 16:59 11/15/21 16:59 Labs: Lab Results 11/15/21 11/15/21 11/15/21 Range/Units 16:58 16:58 16:59 WBC (4.8-10.8) X10*3/uL RBC (4.20-5.50) X10*6/uL Hgb (12.0-16.0) g/dl Hct (37.0-47.0) % MCV (80.0-98.0) fL MCH (27.0-33.0) pg MCHC (31.0-35.0) g/dl RDW (11.0-16.0) % Plt Count (160-400) X10*3/uL MPV (9.4-12.3) fL Immature Gran % (Auto) (0.0-0.4) % Neut % (Auto) (45-73) % Lymph % (Auto) (20-40) % [place] % (Auto) (2-11) % Eos % (Auto) (0-4) % Baso % (Auto) (0-2) % Lymph # (Auto) (1.2-4.9) X10*3/uL [place] # (Auto) (0.1-1.2) X10*3/uL Eos # (Auto) (0.0-0.4) X10*3/uL Baso # (Auto) (0.0-0.2) X10*3/uL Abs Immat Gran (auto) (0.00-0.03) X10*3/uL Absolute Neuts (auto) (2.0-8.3) x10*3/uL Absolute Nucleated RBC (0.0-0.012) X10*3/uL Nucleated RBC % (auto) (0.0-0.2) /100WBC VBG pH (7.32-7.43) VBG pCO2 mmHg VBG pO2 mmHg VBG HCO3 (22-26) mmol/L VBG O2 Saturation % VBG Base Excess mmol/L Sodium 141 (135-145) mmol/L Potassium 3.7 (3.3-5.1) mmol/L Chloride 103 (96-108) mmol/L Carbon Dioxide 32 H (22-29) mmol/L Anion Gap 10 L (12-20) BUN 21 H (9-16) mg/dL Creatinine 0.80 (0.5-1.4) mg/dL Estim Creat Clear Calc 71.3 Estimated GFR > 60 Random Glucose 93 (60-115) mg/dL Lactic Acid 1.3 (0.5-2.0) mmol/L Calcium 8.9 (8.4-10.2) mg/dL Total Bilirubin < 0.2 (0.0-1.0) mg/dL AST 32 H (5-31) U/L ALT 38 H (0-31) U/L Alkaline Phosphatase 163 H (39-117) U/L Ammonia 21 (13-55) umol/L Total Creatine Kinase 125 (26-140) U/L Troponin I High Sens (<3.5-17.0) ng/L Total Protein 7.3 (6.5-8.0) g/dL Albumin 3.5 (3.5-5.0) g/dL Urine Color Urine Appearance Urine pH (5.0-8.0) Ur Specific Raymond (1.005-1.025) Urine Protein (NEG-TRACE) MG/DL Urine Glucose (UA) (NEG) MG/DL Urine Ketones (NEG) MG/DL Urine Blood (NEG) Urine Nitrite (NEG) Ur Leukocyte Esterase (NEG) Urine RBC (0) /HPF Urine WBC (0-4) /HPF Ur Squamous Epith Cells /LPF Urine Bacteria /LPF Urine Mucus /LPF COVID-19 (TAMARA) (Negative) COVID-19 Clin Com 11/15/21 11/15/21 11/15/21 Range/Units 16:59 16:59 16:59 WBC 2.8 L (4.8-10.8) X10*3/uL RBC 4.11 L (4.20-5.50) X10*6/uL Hgb 11.5 L (12.0-16.0) g/dl Hct 37.5 (37.0-47.0) % MCV 91.2 (80.0-98.0) fL MCH 28.0 (27.0-33.0) pg MCHC 30.7 L (31.0-35.0) g/dl RDW 15.2 (11.0-16.0) % Plt Count 140 L (160-400) X10*3/uL MPV 12.2 (9.4-12.3) fL Immature Gran % (Auto) 0.4 (0.0-0.4) % Neut % (Auto) 44.7 L (45-73) % Lymph % (Auto) 47.0 H (20-40) % [place] % (Auto) 6.8 (2-11) % Eos % (Auto) 0.7 (0-4) % Baso % (Auto) 0.4 (0-2) % Lymph # (Auto) 1.3 (1.2-4.9) X10*3/uL [place] # (Auto) 0.2 (0.1-1.2) X10*3/uL Eos # (Auto) 0.0 (0.0-0.4) X10*3/uL Baso # (Auto) 0.0 (0.0-0.2) X10*3/uL Abs Immat Gran (auto) 0.01 (0.00-0.03) X10*3/uL Absolute Neuts (auto) 1.3 L (2.0-8.3) x10*3/uL Absolute Nucleated RBC 0.020 H (0.0-0.012) X10*3/uL Nucleated RBC % (auto) 0.7 H (0.0-0.2) /100WBC VBG pH (7.32-7.43) VBG pCO2 mmHg VBG pO2 mmHg VBG HCO3 (22-26) mmol/L VBG O2 Saturation % VBG Base Excess mmol/L Sodium (135-145) mmol/L Potassium (3.3-5.1) mmol/L Chloride (96-108) mmol/L Carbon Dioxide (22-29) mmol/L Anion Gap (12-20) BUN (9-16) mg/dL Creatinine (0.5-1.4) mg/dL Estim Creat Clear Calc Estimated GFR Random Glucose (60-115) mg/dL Lactic Acid (0.5-2.0) mmol/L Calcium (8.4-10.2) mg/dL Total Bilirubin (0.0-1.0) mg/dL AST (5-31) U/L ALT (0-31) U/L Alkaline Phosphatase (39-117) U/L Ammonia (13-55) umol/L Total Creatine Kinase (26-140) U/L Troponin I High Sens < 3.5 (<3.5-17.0) ng/L Total Protein (6.5-8.0) g/dL Albumin (3.5-5.0) g/dL Urine Color Urine Appearance Urine pH (5.0-8.0) Ur Specific Raymond (1.005-1.025) Urine Protein (NEG-TRACE) MG/DL Urine Glucose (UA) (NEG) MG/DL Urine Ketones (NEG) MG/DL Urine Blood (NEG) Urine Nitrite (NEG) Ur Leukocyte Esterase (NEG) Urine RBC (0) /HPF Urine WBC (0-4) /HPF Ur Squamous Epith Cells /LPF Urine Bacteria /LPF Urine Mucus /LPF COVID-19 (TAMARA) Positive A (Negative) COVID-19 Clin Com See Note 11/15/21 11/15/21 Range/Units 17:06 17:27 WBC (4.8-10.8) X10*3/uL RBC (4.20-5.50) X10*6/uL Hgb (12.0-16.0) g/dl Hct (37.0-47.0) % MCV (80.0-98.0) fL MCH (27.0-33.0) pg MCHC (31.0-35.0) g/dl RDW (11.0-16.0) % Plt Count (160-400) X10*3/uL MPV (9.4-12.3) fL Immature Gran % (Auto) (0.0-0.4) % Neut % (Auto) (45-73) % Lymph % (Auto) (20-40) % [place] % (Auto) (2-11) % Eos % (Auto) (0-4) % Baso % (Auto) (0-2) % Lymph # (Auto) (1.2-4.9) X10*3/uL [place] # (Auto) (0.1-1.2) X10*3/uL Eos # (Auto) (0.0-0.4) X10*3/uL Baso # (Auto) (0.0-0.2) X10*3/uL Abs Immat Gran (auto) (0.00-0.03) X10*3/uL Absolute Neuts (auto) (2.0-8.3) x10*3/uL Absolute Nucleated RBC (0.0-0.012) X10*3/uL Nucleated RBC % (auto) (0.0-0.2) /100WBC VBG pH 7.36 (7.32-7.43) VBG pCO2 64 mmHg VBG pO2 41 mmHg VBG HCO3 36 H (22-26) mmol/L VBG O2 Saturation 62.0 % VBG Base Excess 8.8 mmol/L Sodium (135-145) mmol/L Potassium (3.3-5.1) mmol/L Chloride (96-108) mmol/L Carbon Dioxide (22-29) mmol/L Anion Gap (12-20) BUN (9-16) mg/dL Creatinine (0.5-1.4) mg/dL Estim Creat Clear Calc Estimated GFR Random Glucose (60-115) mg/dL Lactic Acid (0.5-2.0) mmol/L Calcium (8.4-10.2) mg/dL Total Bilirubin (0.0-1.0) mg/dL AST (5-31) U/L ALT (0-31) U/L Alkaline Phosphatase (39-117) U/L Ammonia (13-55) umol/L Total Creatine Kinase (26-140) U/L Troponin I High Sens (<3.5-17.0) ng/L Total Protein (6.5-8.0) g/dL Albumin (3.5-5.0) g/dL Urine Color YELLOW Urine Appearance CLEAR Urine pH 6.0 (5.0-8.0) Ur Specific Raymond 1.025 (1.005-1.025) Urine Protein 1+ H (NEG-TRACE) MG/DL Urine Glucose (UA) >=1000 H (NEG) MG/DL Urine Ketones NEG (NEG) MG/DL Urine Blood NEG (NEG) Urine Nitrite NEG (NEG) Ur Leukocyte Esterase NEG (NEG) Urine RBC 0-2 (0) /HPF Urine WBC 0-2 (0-4) /HPF Ur Squamous Epith Cells TRACE /LPF Urine Bacteria TRACE /LPF Urine Mucus TRACE /LPF COVID-19 (TAMARA) (Negative) COVID-19 Clin Com Imaging Data Chest x-ray: Attestation: I personally reviewed and interpreted this imaging study as follows: Radiologist's impression: IMPRESSION: Unremarkable examination. CT scan - head: Attestation: I personally reviewed and interpreted this imaging study as follows: Radiologist's impression: IMPRESSION: No acute intracranial pathology. Critical Care Time Critical Care Time Critical Care Time: No Discharge Plan Discharge Clinical Impression: COVID-19, Altered mental status Patient Disposition: Still a Patient Prescriptions: No Action ascorbic acid (vitamin C) [Vitamin C] 500 mg tablet 500 mg PO BID Qty: 60 RF: 5 ferrous sulfate 325 mg (65 mg iron) tablet 325 mg PO BID Qty: 60 RF: 11 sennosides [senna] 8.6 mg tablet 8.6 mg PO BEDTIME PRN (Reason: for constipation) Qty: 30 RF: 11 cholecalciferol (vitamin D3) 25 mcg (1,000 unit) tablet 25 mcg PO DAILY Qty: 30 RF: 11 cyanocobalamin (vitamin B-12) [Vitamin B-12] 1,000 mcg tablet 1,000 mcg PO DAILY Qty: 30 RF: 11 (DME) walker Misc See Rx Instructions .ROUTE .MEDSUPPLY Qty: 1 RF: 0 insulin detemir U-100 [Levemir U-100 Insulin] 100 unit/mL solution 22 unit subcut DAILY Qty: 20 RF: 3 insulin aspart U-100 [Novolog U-100 Insulin aspart] 100 unit/mL solution 2 - 12 unit subcut QID Qty: 40 RF: 11 Accu-Chek Carmen Plus test strp Strip 1 strip miscellaneous QID Qty: 400 RF: 3 atorvastatin 40 mg tablet 40 mg PO BEDTIME Qty: 30 RF: 5 metoprolol succinate 25 mg tablet extended release 24 hr 25 mg PO DAILY Qty: 30 RF: 5 levothyroxine 150 mcg tablet 150 mcg PO QAM Qty: 30 RF: 12 insulin syringe-needle U-100 [BD Insulin Syringe Ultra-Fine] 0.3 mL 30 gauge x 1/2 syringe See Rx Instructions miscellaneous QID Qty: 120 RF: 5 lisinopril 20 mg tablet 20 mg PO BID Qty: 60 RF: 3 latanoprost 0.005 % drops 1 drp ophthalmic (eye) BEDTIME RF: 0 aspirin 81 mg tablet,delayed release (DR/EC) 81 mg PO DAILY RF: 0 carbamide peroxide [Debrox] 6.5 % drops 5 drp otic (ears) DAILY 10 Days Qty: 30 RF: 5
[2021-11-15 17:10] LABS: MANUAL DIFF FLAG NO
[2021-11-15 17:11] LABS: Venous Blood Gas Refer to POC result
[2021-11-15 17:12] LABS: VBG Base Excess 8.8 mmol/L; VBG HCO3 36 mmol/L (22-26); VBG pCO2 64 mmHg; VBG pH 7.36 (7.32-7.43); VBG pO2 41 mmHg
[2021-11-15 17:19] LABS: Basophils Percent Auto 0.4 % (0-2); Eosinophils Percent Auto 0.7 % (0-4); Hematocrit 37.5 % (37.0-47.0); Hemoglobin 11.5 g/dl (12.0-16.0); Imm Gran Abs Auto 0.01 X10*3/uL (0.00-0.03); Imm Gran Pct Auto 0.4 % (0.0-0.4); Lymphocytes Absolute Auto 1.3 X10*3/uL (1.2-4.9); Mean Corpuscular HGB Conc 30.7 g/dl (31.0-35.0); Mean Corpuscular Volume 91.2 fL (80.0-98.0); Mean Platelet Volume 12.2 fL (9.4-12.3); Monocytes Absolute Auto 0.2 X10*3/uL (0.1-1.2); Monocytes Percent Auto 6.8 % (2-11); NRBC Pct Auto 0.7 /100WBC (0.0-0.2); Neutrophils Absolute Auto 1.3 x10*3/uL (2.0-8.3); Neutrophils Percent Auto 44.7 % (45-73); Platelet Count 140 X10*3/uL (160-400); Red Blood Count 4.11 X10*6/uL (4.20-5.50); Red Cell Distribution Width 15.2 % (11.0-16.0); White Blood Count 2.8 X10*3/uL (4.8-10.8)
[2021-11-15 17:23] LABS: Lactic Acid 1.3 mmol/L (0.5-2.0)
[2021-11-15 17:25] LABS: Ammonia 21 umol/L (13-55)
[2021-11-15 17:28] LABS: COVID-19 Test Positive (Negative); IDNOW Serial# 55D5AD1C
[2021-11-15 17:30] LABS: Alanine Aminotransferase 38 U/L (0-31); Albumin Level 3.5 g/dL (3.5-5.0); Alkaline Phosphatase 163 U/L (39-117); Anion Gap 10 (12-20); Aspartate Amino Transferase 32 U/L (5-31); Bilirubin Total < 0.2 mg/dL (0.0-1.0); Blood Urea Nitrogen 21 mg/dL (9-16); Calcium 8.9 mg/dL (8.4-10.2); Carbon Dioxide 32 mmol/L (22-29); Chloride 103 mmol/L (96-108); Creatinine Clr Calc Pharmacy 71.3; Estimated Glomerular Filt Rate > 60; Glucose Random 93 mg/dL (60-115); Potassium 3.7 mmol/L (3.3-5.1); Sodium 141 mmol/L (135-145); Total Protein 7.3 g/dL (6.5-8.0)
[2021-11-15 17:34] LABS: Troponin-I High Sensitivity < 3.5 ng/L (<3.5-17.0)
[2021-11-15 17:39] LABS: Appearance Urine CLEAR; Color Urine YELLOW; Glucose Urine UA >=1000 MG/DL (NEG); Leukocyte Esterase Urine NEG (NEG); Nitrite Urine NEG (NEG); Specific Gravity - Urine 1.025 (1.005-1.025); UACC Culture Trigger NO; Urine Blood NEG (NEG); Urine Ketones NEG (NEG); Urine Protein 1+ MG/DL (NEG-TRACE)
[2021-11-15 18:07] LABS: Bacteria Urine TRACE /LPF; Mucus Urine TRACE /LPF; RBC Urine 0-2 /HPF (0); Squamous Epithelial Cell Urine TRACE /LPF; WBC Urine 0-2 /HPF (0-4)
[2021-11-15 20:00] VITALS: BP 177/93; PULSE 50; RESP 11; TEMP 33.2; O2SAT 99
[2021-11-15 20:49] LABS: Free T4 (Free Thyroxine) 1.09 ng/dL (0.71-1.85)
[2021-11-15] MEDS: 0.9 % Sodium Chloride 1,000 ML 999 ML IV ×2 (22:00→23:00)
--- NOTE | 2021-11-15 22:36 | P.HPHOSP_ITS ---
History of Present Illness Date of Service: 11/15/21 Chief Complaint: confusion 71-year-old female with a past medical history of hypertension, hyperlipidemia, diabetes, hypothyroidism, question dementia; sent from home with a chief complaint of confusion. Patient is alert and awake, moves all extremities equally, breathing comfortably, lying on the bed with a Radha Hugger on- any question I asked patient replies i'm good most of the history obtained from the ER staff and pt's HCP- araceli-sister of ptBuzz Charles mentions that since last Thursday patient has been more confused than her baseline. Intermittently she does not respond to the questions but alert and awake. Today she ate her lunch but minimal trying to talk to her she is still only appeared to be frozen and not answering the questions. Subsequently sent to the hospital for further evaluation. Denies patient having any nausea vomiting diarrhea. Denies patient having any urinary complaints. Denies patient complaining of any chest pain or palpitations. Denies any cough or sputum production. Review of all other systems is limited. ER course: Per ER team patient's exam was benign; no obvious signs of infection, chest x- ray negative urinalysis negative. But noted to have COVID-19 positive. On vitals patient noted to have hypothermia to 91? F; EKG showed no acute findings. Patient was placed on Radha Hugger with gradual improvement in temperature to 93.6. Admitted to the hospital for further management. [facility] Medical History Acquired hypothyroidism Benign essential hypertension Constipation Dementia Diabetes Diabetes mellitus GERD without esophagitis High cholesterol Hypertension Hypothyroidism Impacted cerumen of both ears Iron deficiency anemia Overweight (BMI 25.0-29.9) Pure hypercholesterolemia Syncope Vitamin B12 deficiency Vitamin D deficiency Family History Father Diabetes Hypertension Mother Hypertension Stroke Pertinent family history: as above Surgical History History of ankle surgery History of hemiarthroplasty of left hip S/P [id number] (total abdominal hysterectomy and bilateral salpingo-oophorectomy) Social History Alcohol intake: never Patient Tobacco Use Status: Tobacco use Unknown Use of substances other than those prescribed or required for medical reasons: No Advance Directives: No Advance Directives Information Provided: Yes Meds Allergies Allergy/AdvReac Type Severity Reaction Status Date / Time No Known Allergies Allergy Verified 02/07/21 09:39 Active Medications: Current Medications Acetaminophen (Acetaminophen 325 Mg Tablet) 650 mg PO Q6H PRN PRN Reason: Pain, Mild (Pain Scale 1-3) Dextrose (Dextrose 50 % 25 Gm/50 Ml Syringe) 25 gm IVPUSH Q15M PRN; Protocol PRN Reason: per Hypoglycemia Standing Ord. Enoxaparin Sodium (Enoxaparin Sodium 40 Mg/0.4 Ml Syringe) 40 mg SUBCUT Q24H GINA Glucose (Glucose Gel 15 Gm Gel..Gram.) 15 gm PO Q15M PRN; Protocol PRN Reason: per Hypoglycemia Standing Ord. Insulin Human Lispro (Insulin Lispro 100 Unit/Ml 3 Ml Vial) 0 unit SUBCUT QIDACHS GINA; Protocol Melatonin (Melatonin 3 Mg Tablet) 6 mg PO BEDTIME PRN PRN Reason: Insomnia Morphine Sulfate (Morphine Sulfate 4 Mg/Ml Cartridge) 4 mg IVPUSH Q4H PRN; Protocol PRN Reason: Pain, Severe (Pain Scale 7-10) Senna (Sennosides 8.6 Mg Tablet) 17.2 mg PO BEDTIME PRN PRN Reason: Constipation Sodium Chloride (0.9 % Sodium Chloride Flush 3 Ml Syringe) 3 ml IVFLUSH QSHIFT GINA Home Medications Medication Instructions Recorded Confirmed Last Taken Type latanoprost 0.005 1 drp OPHTHALMIC 10/25/20 11/15/21 10/25/20 History % eye drops (EYE) BEDTIME carbamide 5 drp OTIC 11/15/21 11/15/21 Unknown History peroxide 6.5 % (EARS) DAILY ear drops (Ear Drops (carbamide peroxide)) insulin detemir 22 unit SUBCUT 11/15/21 11/15/21 Unknown History U-100 100 unit/mL DAILY subcutaneous solution (Levemir U-100 Insulin) Physical Exam Verdana 4l Vital Signs and Narrative: Verdana 4d Verdana 4d Vital Signs: Verdana 4d Verdana 4Bd Last Vital Signs Verdana 4d Trombone Sl[employer] Assembler New 4d Trombone Slide Assembler New 4d Temp 91.7 F L 11/15/21 20:00 Trombone Slide Assembler New 4d Pulse 50 11/15/21 20:00 Trombone Slide Assemblerezra Rosario 4d Resp 11 L 11/15/21 20:00 BP 177/93 H 11/15/21 20:00 Pulse Ox 99 11/15/21 20:00 BMI result Body Mass Index 27.4 Gen: Appears be in no acute distress HEENT: NCAT, Moist mucosa. Pulmonary: Vesicular breath sounds, fair air entry CVS: Normal S1-S2 Abdomen: BS+, Soft, Nontender Extremities: Warm well perfused Neuro: Alert and awake. grossly nonfocal. Oriented times 1-2 Results Labs CBC and Chem 7: 11/15/21 16:59 11/15/21 16:59 Labs: Laboratory Results - last 24 hr 11/15/21 11/15/21 11/15/21 16:58 16:58 16:59 MCV MCH MCHC RDW Plt Count MPV Immature Gran % (Auto) Neut % (Auto) Lymph % (Auto) Dixie % (Auto) Eos % (Auto) Baso % (Auto) Lymph # (Auto) Dixie # (Auto) Eos # (Auto) Baso # (Auto) Abs Immat Gran (auto) Absolute Neuts (auto) Absolute Nucleated RBC Nucleated RBC % (auto) VBG pH VBG pCO2 VBG pO2 VBG HCO3 VBG O2 Saturation VBG Base Excess Anion Gap 10 L Estim Creat Clear Calc 71.3 Estimated GFR > 60 Random Glucose 93 Lactic Acid 1.3 Calcium 8.9 Total Bilirubin < 0.2 AST 32 H ALT 38 H Alkaline Phosphatase 163 H Ammonia 21 Total Creatine Kinase 125 Troponin I High Sens Total Protein 7.3 Albumin 3.5 TSH 1.10 Free T4 1.09 Urine Color Urine Appearance Urine pH Ur Specific [place] Urine Protein Urine Glucose (UA) Urine Ketones Urine Blood Urine Nitrite Ur Leukocyte Esterase Urine RBC Urine WBC Ur Squamous Epith Cells Urine Bacteria Urine Mucus COVID-19 (TAMARA) COVID-19 Clin Com 11/15/21 11/15/21 11/15/21 16:59 16:59 16:59 MCV 91.2 MCH 28.0 MCHC 30.7 L RDW 15.2 Plt Count 140 L MPV 12.2 Immature Gran % (Auto) 0.4 Neut % (Auto) 44.7 L Lymph % (Auto) 47.0 H Dixie % (Auto) 6.8 Eos % (Auto) 0.7 Baso % (Auto) 0.4 Lymph # (Auto) 1.3 Dixie # (Auto) 0.2 Eos # (Auto) 0.0 Baso # (Auto) 0.0 Abs Immat Gran (auto) 0.01 Absolute Neuts (auto) 1.3 L Absolute Nucleated RBC 0.020 H Nucleated RBC % (auto) 0.7 H VBG pH VBG pCO2 VBG pO2 VBG HCO3 VBG O2 Saturation VBG Base Excess Anion Gap Estim Creat Clear Calc Estimated GFR Random Glucose Lactic Acid Calcium Total Bilirubin AST ALT Alkaline Phosphatase Ammonia Total Creatine Kinase Troponin I High Sens < 3.5 Total Protein Albumin TSH Free T4 Urine Color Urine Appearance Urine pH Ur Specific [place] Urine Protein Urine Glucose (UA) Urine Ketones Urine Blood Urine Nitrite Ur Leukocyte Esterase Urine RBC Urine WBC Ur Squamous Epith Cells Urine Bacteria Urine Mucus COVID-19 (TAMARA) Positive A COVID-19 Clin Com See Note 11/15/21 11/15/21 17:06 17:27 MCV MCH MCHC RDW Plt Count MPV Immature Gran % (Auto) Neut % (Auto) Lymph % (Auto) Dixie % (Auto) Eos % (Auto) Baso % (Auto) Lymph # (Auto) Dixie # (Auto) Eos # (Auto) Baso # (Auto) Abs Immat Gran (auto) Absolute Neuts (auto) Absolute Nucleated RBC Nucleated RBC % (auto) VBG pH 7.36 VBG pCO2 64 VBG pO2 41 VBG HCO3 36 H VBG O2 Saturation 62.0 VBG Base Excess 8.8 Anion Gap Estim Creat Clear Calc Estimated GFR Random Glucose Lactic Acid Calcium Total Bilirubin AST ALT Alkaline Phosphatase Ammonia Total Creatine Kinase Troponin I High Sens Total Protein Albumin TSH Free T4 Urine Color YELLOW Urine Appearance CLEAR Urine pH 6.0 Ur Specific [place] 1.025 Urine Protein 1+ H Urine Glucose (UA) >=1000 H Urine Ketones NEG Urine Blood NEG Urine Nitrite NEG Ur Leukocyte Esterase NEG Urine RBC 0-2 Urine WBC 0-2 Ur Squamous Epith Cells TRACE Urine Bacteria TRACE Urine Mucus TRACE COVID-19 (TAMARA) COVID-19 Clin Com Imaging Radiologist's Impressions: Impressions Chest X-Ray 11/15/21 16:13 IMPRESSION: Unremarkable examination. Head CT 11/15/21 17:56 IMPRESSION: No acute intracranial pathology. Chest CT 11/15/21 19:38 IMPRESSION: No acute intrathoracic disease. No findings are seen to suggest Covid pulmonary involvement. Incidental findings as described above Fleischner guidelines were followed. Assessment and Plan (1) COVID-19: Status: Acute (2) Altered mental status: Status: Acute (3) Hypothermia: Status: Acute (4) Diabetes mellitus: Status: Acute 71-year-old female with a past medical history of hypertension, hyperlipidemia, diabetes, hypothyroidism, dementia; sent from home with a chief complaint of confusion. Altered mental status: pt has baseline dementia; bute more confused than baseline per family. Likely toxic metabolic encephalopathy. Labs essentially benign. CT head negative; Chest x-ray negative. Urinalysis negative. COVID-19 positive. Supportive care. Dysphagia screen. COVID-19 positive: Chest x-ray showed no acute findings. Patient saturating well on room air. Supportive care. Covid vaccination: january 2021. J&J vaccine. Hypothermia: Unclear etiology. Patient on Radha Hugger. Patient temperature currently improved from 91-93.6 f. Will continue Radha Hugger. History of diabetes: Insulin sliding scale. History of hypertension /hyperlipidemia: Continue home medications. For all other chronic conditions, home medications will be continued once med rec is done. DVT prophylaxis: Lovenox Code status: Full code. confirmed with Sister Araceli, QUINTON. Quality Stroke Does the patient have a stroke diagnosis?: No VTE Prior VTE?: No VTE Risk Level:: Medical - moderate - high VTE Device Contraindication: Treatment Not Indicated VTE Drug Contraindication: N/A - Med Ordered
--- NOTE | 2021-11-15 22:48 | PC.NURSE ---
Patient placed on bear hugger due to rectal temperature of 90.7. [employer] notified on patient's core temp and bear hugger and warm fluid via rapid infuser. Patient also had a temperature sensing way catheter placed to monitor core temperature. Current temp on patient is 93.8
[2021-11-16] VITALS (10 sets, daily range): BP systolic 119–147; BP diastolic 44–63; PULSE 57–78; RESP 10–14; TEMP 35.7–37.6; O2SAT 97–100
[2021-11-16 03:03] LABS: Glucose, Whole Blood 68 mg/dL (60-115)
--- NOTE | 2021-11-16 03:54 | PC.NURSE ---
Patient's core temp after fluids and bear hugger is 98.7. Patient's blood sugar 68 and patient given pudding and gingerrale. Blood sugar to be rechecked.
--- NOTE | 2021-11-16 03:59 | PC.NURSE ---
The patient was talking and interacting with this staff member. Patient wont open her eyes but will answer questions.
[2021-11-16 04:35] LABS: Glucose, Whole Blood 126 mg/dL (60-115)
[2021-11-16 07:17] LABS: Hematocrit 33.4 % (37.0-47.0); Hemoglobin 10.3 g/dl (12.0-16.0); Mean Corpuscular HGB Conc 30.8 g/dl (31.0-35.0); Mean Corpuscular Hemoglobin 27.9 pg (27.0-33.0); Mean Corpuscular Volume 90.5 fL (80.0-98.0); Mean Platelet Volume 12.6 fL (9.4-12.3); NRBC Pct Auto 0.8 /100WBC (0.0-0.2); Platelet Count 120 X10*3/uL (160-400); Red Blood Count 3.69 X10*6/uL (4.20-5.50)
[2021-11-16 07:32] LABS: Anion Gap 9 (12-20); Blood Urea Nitrogen 20 mg/dL (9-16); Calcium 8.1 mg/dL (8.4-10.2); Carbon Dioxide 30 mmol/L (22-29); Chloride 106 mmol/L (96-108); Creatinine Clr Calc Pharmacy 64.9; Estimated Glomerular Filt Rate > 60; Glucose Random 144 mg/dL (60-115); Sodium 141 mmol/L (135-145)
--- NOTE | 2021-11-16 07:36 | PHA.MEDREC ---
Pharmacy Consult ? Medication Reconciliation RN completed med rec, pharmacy reviewed
[2021-11-16 07:40] LABS: Glucose, Whole Blood 133 mg/dL (60-115)
[2021-11-16 07:52] LABS: WBC ABN SCTR FOR CBC 1
[2021-11-16 08:10] LABS: Band Neutrophils Percent 6 % (3-5); Lymphocytes Percent Manual 24 % (20-40); Monocytes Percent Manual 13 % (2-11); Neutrophils Percent Manual 57 % (45-73); Nucleated Red Blood Cells 2 /100WBC (0-0)
[2021-11-16 08:12] LABS: Hypochromasia 1+ (5-14) /OIF; Ovalocytes 1+ (5-14) /OIF; RBC Morphology NOTED
[2021-11-16 08:13] LABS: Platelet Estimate DECREASED (NORMAL); Platelet Morphology Comment NORMAL; Schistocytes 1+ (0-2) /OIF
[2021-11-16 08:23] LABS: Lymphocytes Absolute Manual 0.9 X10*3/uL (1.2-4.9); Monocytes Absolute Manual 0.5 X10*3/uL (0.1-1.2); Neutrophils Absolute Manual 2.4 X10*3/uL (2.0-8.3); White Blood Count 3.8 X10*3/uL (4.8-10.8)
[2021-11-16] MEDS: Ascorbic Acid 500 MG TABLET PO ×2 (08:38→21:42)
[2021-11-16] MEDS: Levothyroxine Sodium 150 MCG TABLET PO (08:38)
[2021-11-16] MEDS: Ferrous Sulfate 324 MG TABLET.DR PO ×2 (08:38→21:43)
[2021-11-16] MEDS: Metoprolol Succinate ER 25 MG TAB.ER.24H PO (08:38)
[2021-11-16] MEDS: 0.9 % Sodium Chloride Flush 3 ML SYRINGE IVFLUSH ×2 (08:39→16:17)
[2021-11-16 10:04] LABS: Cortisol Random 4.8 ug/dL
--- NOTE | 2021-11-16 11:49 | P.PNIM_ITS ---
Subjective Subjective Date of Service: 11/16/21 Interval History: cc: hypothermia interval history: feels fine, poor insight Cardiovascular Cardiovascular: Reports no additional cardiovascular complaints Respiratory Respiratory: Reports no additional respiratory complaints Physical Exam Vital Signs: Vital Signs: Last Vital Signs Temp 97.7 F 11/16/21 10:41 Pulse 60 11/16/21 10:41 Resp 10 L 11/16/21 10:41 BP 147/63 H 11/16/21 10:41 Pulse Ox 100 11/16/21 10:41 BMI result Body Mass Index 27.4 General: Alert, oriented to name only Resp: CTA bilateral, no accessory muscles used CVS: S1,S2,RRR GI: soft, non tender, non distended Neuro: motor grossly intact, alert Psych: appropriate affect, impaired insight Objective Data Active Medications Acetaminophen (Acetaminophen 325 Mg Tablet) 650 mg PO Q6H PRN PRN Reason: Pain, Mild (Pain Scale 1-3) Ascorbic Acid (Ascorbic Acid 500 Mg Tablet) 500 mg PO BID [facility] Last Admin: 11/16/21 08:38 Dose: 500 mg Documented by: JEFFREY Atorvastatin Calcium (Atorvastatin Calcium 40 Mg Tablet) 40 mg PO BEDTIME [facility] Dextrose (Dextrose 50 % 25 Gm/50 Ml Syringe) 25 gm IVPUSH Q15M PRN; Protocol PRN Reason: per Hypoglycemia Standing Ord. Enoxaparin Sodium (Enoxaparin Sodium 40 Mg/0.4 Ml Syringe) 40 mg SUBCUT Q24H [facility] Last Admin: 11/15/21 23:56 Dose: Not Given Documented by: BRIAN Non-Admin Reason: Patient Refused Ferrous Sulfate (Ferrous Sulfate 324 Mg Lauren.) 324 mg PO BID [facility] Last Admin: 11/16/21 08:38 Dose: 324 mg Documented by: JEFFREY Glucose (Glucose Gel 15 Gm Gel..Gram.) 15 gm PO Q15M PRN; Protocol PRN Reason: per Hypoglycemia Standing Ord. Insulin Human Lispro (Insulin Lispro 100 Unit/Ml 3 Ml Vial) 0 unit SUBCUT QIDACHS [facility]; Protocol Last Admin: 11/16/21 07:48 Dose: Not Given Documented by: JEFFREY Non-Admin Reason: No Insulin Coverage Latanoprost (Latanoprost 0.005 % Ophth Sharon 2.5 Ml Drops) 1 drop EYE-BOTH BEDTIME [facility] Levothyroxine Sodium (Levothyroxine Sodium 150 Mcg Tablet) 150 mcg PO DAILY@0600 [facility] Last Admin: 11/16/21 08:38 Dose: 150 mcg Documented by: JEFFREY Melatonin (Melatonin 3 Mg Tablet) 6 mg PO BEDTIME PRN PRN Reason: Insomnia Metoprolol Succinate (Metoprolol Succinate Er 25 Mg Tab.Er.24h) 25 mg PO DAILY [facility]; Protocol Last Admin: 11/16/21 08:38 Dose: 25 mg Documented by: JEFFREY Morphine Sulfate (Morphine Sulfate 4 Mg/Ml Cartridge) 4 mg IVPUSH Q4H PRN; Protocol PRN Reason: Pain, Severe (Pain Scale 7-10) Senna (Sennosides 8.6 Mg Tablet) 17.2 mg PO BEDTIME PRN PRN Reason: Constipation Senna (Sennosides 8.6 Mg Tablet) 8.6 mg PO BEDTIME PRN PRN Reason: for constipation Sodium Chloride (0.9 % Sodium Chloride Flush 3 Ml Syringe) 3 ml IVFLUSH QSHIFT [facility] Last Admin: 11/16/21 08:39 Dose: 3 ml Documented by: JEFFREY Labs CBC & Chem 7: 11/16/21 06:55 11/16/21 06:55 Labs: Laboratory Results - last 24 hr 11/15/21 11/15/21 11/15/21 16:58 16:58 16:59 MCV MCH MCHC RDW Plt Count MPV Immature Gran % (Auto) Neut % (Auto) Lymph % (Auto) Tillman % (Auto) Eos % (Auto) Baso % (Auto) Lymph # (Auto) Tillman # (Auto) Eos # (Auto) Baso # (Auto) Abs Immat Gran (auto) Absolute Neuts (auto) Absolute Nucleated RBC Nucleated RBC % (auto) Neutrophils % (Manual) Band Neutrophils % Lymphocytes % (Manual) Monocytes % (Manual) Abs Neuts (Manual) Lymphocytes # (Manual) Monocytes # (Manual) Nucleated RBCs Platelet Estimate Plt Morphology Comment RBC Morphology Hypochromasia Ovalocytes Schistocytes VBG pH VBG pCO2 VBG pO2 VBG HCO3 VBG O2 Saturation VBG Base Excess Anion Gap 10 L Estim Creat Clear Calc 71.3 Estimated GFR > 60 POC Glucose Random Glucose 93 Lactic Acid 1.3 Calcium 8.9 Total Bilirubin < 0.2 AST 32 H ALT 38 H Alkaline Phosphatase 163 H Ammonia 21 Total Creatine Kinase 125 Troponin I High Sens Total Protein 7.3 Albumin 3.5 TSH 1.10 Free T4 1.09 Random Cortisol Urine Color Urine Appearance Urine pH Ur Specific [place] Urine Protein Urine Glucose (UA) Urine Ketones Urine Blood Urine Nitrite Ur Leukocyte Esterase Urine RBC Urine WBC Ur Squamous Epith Cells Urine Bacteria Urine Mucus COVID-19 (TAMARA) COVID-19 True Pivot 11/15/21 11/15/21 11/15/21 16:59 16:59 16:59 MCV 91.2 MCH 28.0 MCHC 30.7 L RDW 15.2 Plt Count 140 L MPV 12.2 Immature Gran % (Auto) 0.4 Neut % (Auto) 44.7 L Lymph % (Auto) 47.0 H Tillman % (Auto) 6.8 Eos % (Auto) 0.7 Baso % (Auto) 0.4 Lymph # (Auto) 1.3 Tillman # (Auto) 0.2 Eos # (Auto) 0.0 Baso # (Auto) 0.0 Abs Immat Gran (auto) 0.01 Absolute Neuts (auto) 1.3 L Absolute Nucleated RBC 0.020 H Nucleated RBC % (auto) 0.7 H Neutrophils % (Manual) Band Neutrophils % Lymphocytes % (Manual) Monocytes % (Manual) Abs Neuts (Manual) Lymphocytes # (Manual) Monocytes # (Manual) Nucleated RBCs Platelet Estimate Plt Morphology Comment RBC Morphology Hypochromasia Ovalocytes Schistocytes VBG pH VBG pCO2 VBG pO2 VBG HCO3 VBG O2 Saturation VBG Base Excess Anion Gap Estim Creat Clear Calc Estimated GFR POC Glucose Random Glucose Lactic Acid Calcium Total Bilirubin AST ALT Alkaline Phosphatase Ammonia Total Creatine Kinase Troponin I High Sens < 3.5 Total Protein Albumin TSH Free T4 Random Cortisol Urine Color Urine Appearance Urine pH Ur Specific [place] Urine Protein Urine Glucose (UA) Urine Ketones Urine Blood Urine Nitrite Ur Leukocyte Esterase Urine RBC Urine WBC Ur Squamous Epith Cells Urine Bacteria Urine Mucus COVID-19 (TAMARA) Positive A COVID-19 [facility] Com See Note 11/15/21 11/15/21 11/16/21 17:06 17:27 02:58 MCV MCH MCHC RDW Plt Count MPV Immature Gran % (Auto) Neut % (Auto) Lymph % (Auto) Tillman % (Auto) Eos % (Auto) Baso % (Auto) Lymph # (Auto) Tillman # (Auto) Eos # (Auto) Baso # (Auto) Abs Immat Gran (auto) Absolute Neuts (auto) Absolute Nucleated RBC Nucleated RBC % (auto) Neutrophils % (Manual) Band Neutrophils % Lymphocytes % (Manual) Monocytes % (Manual) Abs Neuts (Manual) Lymphocytes # (Manual) Monocytes # (Manual) Nucleated RBCs Platelet Estimate Plt Morphology Comment RBC Morphology Hypochromasia Ovalocytes Schistocytes VBG pH 7.36 VBG pCO2 64 VBG pO2 41 VBG HCO3 36 H VBG O2 Saturation 62.0 VBG Base Excess 8.8 Anion Gap Estim Creat Clear Calc Estimated GFR POC Glucose 68 Random Glucose Lactic Acid Calcium Total Bilirubin AST ALT Alkaline Phosphatase Ammonia Total Creatine Kinase Troponin I High Sens Total Protein Albumin TSH Free T4 Random Cortisol Urine Color YELLOW Urine Appearance CLEAR Urine pH 6.0 Ur Specific [place] 1.025 Urine Protein 1+ H Urine Glucose (UA) >=1000 H Urine Ketones NEG Urine Blood NEG Urine Nitrite NEG Ur Leukocyte Esterase NEG Urine RBC 0-2 Urine WBC 0-2 Ur Squamous Epith Cells TRACE Urine Bacteria TRACE Urine Mucus TRACE COVID-19 (TAMARA) COVID-19 Clin Com 11/16/21 11/16/21 11/16/21 04:30 06:55 06:55 MCV 90.5 MCH 27.9 MCHC 30.8 L RDW 15.0 Plt Count 120 L MPV 12.6 H Immature Gran % (Auto) Cancelled Neut % (Auto) Cancelled Lymph % (Auto) Cancelled Tillman % (Auto) Cancelled Eos % (Auto) Cancelled Baso % (Auto) Cancelled Lymph # (Auto) Cancelled Tillman # (Auto) Cancelled Eos # (Auto) Cancelled Baso # (Auto) Cancelled Abs Immat Gran (auto) Cancelled Absolute Neuts (auto) Cancelled Absolute Nucleated RBC 0.030 H Nucleated RBC % (auto) 0.8 H Neutrophils % (Manual) 57 Band Neutrophils % 6 H Lymphocytes % (Manual) 24 Monocytes % (Manual) 13 H Abs Neuts (Manual) 2.4 Lymphocytes # (Manual) 0.9 L Monocytes # (Manual) 0.5 Nucleated RBCs 2 H Platelet Estimate DECREASED Plt Morphology Comment NORMAL RBC Morphology NOTED Hypochromasia 1+ (5-14) Ovalocytes 1+ (5-14) Schistocytes 1+ (0-2) VBG pH VBG pCO2 VBG pO2 VBG HCO3 VBG O2 Saturation VBG Base Excess Anion Gap 9 L Estim Creat Clear Calc 64.9 Estimated GFR > 60 POC Glucose 126 H Random Glucose 144 H Lactic Acid Calcium 8.1 L D Total Bilirubin AST ALT Alkaline Phosphatase Ammonia Total Creatine Kinase Troponin I High Sens Total Protein Albumin TSH Free T4 Random Cortisol Urine Color Urine Appearance Urine pH Ur Specific [place] Urine Protein Urine Glucose (UA) Urine Ketones Urine Blood Urine Nitrite Ur Leukocyte Esterase Urine RBC Urine WBC Ur Squamous Epith Cells Urine Bacteria Urine Mucus COVID-19 (TAMARA) COVID-19 Clin Com 11/16/21 11/16/21 06:55 07:33 MCV MCH MCHC RDW Plt Count MPV Immature Gran % (Auto) Neut % (Auto) Lymph % (Auto) Tillman % (Auto) Eos % (Auto) Baso % (Auto) Lymph # (Auto) Tillman # (Auto) Eos # (Auto) Baso # (Auto) Abs Immat Gran (auto) Absolute Neuts (auto) Absolute Nucleated RBC Nucleated RBC % (auto) Neutrophils % (Manual) Band Neutrophils % Lymphocytes % (Manual) Monocytes % (Manual) Abs Neuts (Manual) Lymphocytes # (Manual) Monocytes # (Manual) Nucleated RBCs Platelet Estimate Plt Morphology Comment RBC Morphology Hypochromasia Ovalocytes Schistocytes VBG pH VBG pCO2 VBG pO2 VBG HCO3 VBG O2 Saturation VBG Base Excess Anion Gap Estim Creat Clear Calc Estimated GFR POC Glucose 133 H Random Glucose Lactic Acid Calcium Total Bilirubin AST ALT Alkaline Phosphatase Ammonia Total Creatine Kinase Troponin I High Sens Total Protein Albumin TSH Free T4 Random Cortisol 4.8 Urine Color Urine Appearance Urine pH Ur Specific [place] Urine Protein Urine Glucose (UA) Urine Ketones Urine Blood Urine Nitrite Ur Leukocyte Esterase Urine RBC Urine WBC Ur Squamous Epith Cells Urine Bacteria Urine Mucus COVID-19 (TAMARA) COVID-19 Clin Com Assessment and Plan (1) COVID-19: Status: Acute Assessment and Plan: 71-year-old female with a past medical history of hypertension, hyperlipidemia, diabetes, hypothyroidism, dementia; sent from home with a chief complaint of confusion.? Metabolic encephalopathy pt has baseline dementia; bute more confused than baseline per family. Likely toxic metabolic encephalopathy.? Labs essentially benign.? CT head negative; Chest x-ray negative.? Urinalysis negative.? COVID-19 positive.? Supportive care.? Dysphagia screen. hypothermia ? due to covid resolved, monitor, check cortisol covid no hypoxia, monitor insulin hypothyroid synthroid DVT prophylaxis:? Lovenox Code status:? Full code. confirmed with Sister Araceli, HCP. Quality Stroke Does the patient have a stroke diagnosis?: No VTE Prior VTE?: No VTE Risk Level:: Medical - moderate - high VTE Device Contraindication: Treatment Not Indicated VTE Drug Contraindication: N/A - Med Ordered
--- NOTE | 2021-11-16 12:41 | MHC.CM.PN ---
Pt pleasantly confused: call placed to sister and HCP, Araceli with whom pt resides. Pt has 24/ care provided by family and attends a day program 2x weekly. She has no barriers to care: uses a walker and is able to complete her ADL's with minimal set up. HCP on file: [facility] x3: MD Dr. Amaro. IMM on in chart. D/C plan is for a return to home with family support and transport.
[2021-11-16 12:48] LABS: Glucose, Whole Blood 163 mg/dL (60-115)
[2021-11-16] MEDS: Insulin Lispro 100 UNIT/ML 3 ML VIAL SUBCUT (13:02)
--- NOTE | 2021-11-16 15:01 | PC.NURSE ---
[facility], report to Kaylah KEARNEY.
[2021-11-16 18:04] LABS: Glucose, Whole Blood 68 mg/dL (60-115)
--- NOTE | 2021-11-16 20:04 | PC.NURSE ---
Assumed care of pt at 1900. Pt resting in bed, in NAD, call light at hand, denies needs. Attached to equipment monitor phototypesetting. Awaiting inpatient bed assignment
[2021-11-16] MEDS: Atorvastatin Calcium 40 MG TABLET PO (21:43)
[2021-11-16] MEDS: Melatonin 3 MG TABLET 6 MG PO (21:43)
--- NOTE | 2021-11-16 21:51 | PC.NURSE ---
Pt noted to be attempting to get OOB, bed alarm dysfunctional, pt not redirecatble. Camera placed in room for continuous observation
[2021-11-17 00:13] VITALS: BP 129/71; PULSE 67; RESP 14; O2SAT 100
[2021-11-17] MEDS: Enoxaparin Sodium 40 MG/0.4 ML SYRINGE SUBCUT (00:14)
[2021-11-17 07:00] VITALS: BP 119/77; PULSE 70; RESP 14; O2SAT 97
--- NOTE | 2021-11-17 07:45 | PC.NURSE ---
pt has dementia, is very confused and continues to pull off lead wires, pt is being observed via camera room for safety
[2021-11-17 08:01] LABS: Glucose, Whole Blood 121 mg/dL (60-115)
[2021-11-17 08:01] LABS: Glucose, Whole Blood 145 mg/dL (60-115)
[2021-11-17 09:27] VITALS: BP 131/53; PULSE 66; RESP 17; TEMP 36.3; O2SAT 98
[2021-11-17 09:29] LABS: Glucose, Whole Blood 324 mg/dL (60-115)
[2021-11-17] MEDS: Ferrous Sulfate 324 MG TABLET.DR PO (09:53)
[2021-11-17] MEDS: Ascorbic Acid 500 MG TABLET PO (09:53)
[2021-11-17] MEDS: Levothyroxine Sodium 150 MCG TABLET PO (09:53)
[2021-11-17] MEDS: Metoprolol Succinate ER 25 MG TAB.ER.24H PO (09:55)
[2021-11-17] MEDS: Insulin Lispro 100 UNIT/ML 3 ML VIAL SUBCUT (10:00)
--- NOTE | 2021-11-17 11:18 | P.DS_ITS ---
DS: Providers Provider Date of Service: 11/17/21 Date of admission: 11/15/21 22:31 Primary care physician: Unknown Physician DS: Diagnosis Discharge Diagnosis (1) COVID-19: Status: Acute DS: Summary Hospital Course Hospital Course: from hpi: 71-year-old female with a past medical history of hypertension, hyperlipidemia, diabetes, hypothyroidism, question dementia; sent from home with a chief complaint of confusion.? Patient is alert and awake, moves all extremities equally, breathing comfortably, lying on the bed with a Radha Hugger on- any question I asked patient? replies i'm good ?most of the history obtained from the ER staff and pt's HCP- araceli-sister of juni carrion. ?Araceli mentions that since last Thursday patient has been more confused than her baseline.? Intermittently she does not respond to the questions but alert and awake.? Today she ate her lunch but minimal trying to talk to her she is still only appeared to be frozen and not answering the questions.? Subsequently sent to the hospital for further evaluation.? Denies patient having any nausea vomit ing diarrhea.? Denies patient having any urinary complaints. ? Denies patient complaining of any chest pain or palpitations.? Denies any cough or sputum production.? Review of all other systems is limited.? ER course: Per ER team patient's exam was benign; no obvious signs of infection, chest x- ray negative urinalysis negative.? But noted to have COVID-19 positive.? On vitals patient noted to have hypothermia to 91? F; EKG showed no acute findings.? Patient was placed on Radha Hugger with gradual improvement in temperature to 93.6.? Admitted to the hospital for further management. hospital course: Patient was admitted for metabolic encephalopathy due to hypothermia due to COVID. She was treated with a warmer and temperature returned to normal and is now maintaining without the warmer Cortisol level was normal Cultures negative Patient's mental status returned to baseline she never required oxygen therapy and is saturating 97% on room air she will be discharged back home with sister. Time Spent with Patient Time attestation: Total time spent providing and/or coordinating discharge services: Discharge coordination time: Greater than 30 minutes Quality: Stroke Does the patient have a stroke diagnosis?: No Physical Exam Vital Signs: Vital Signs: Last Vital Signs Temp 97.4 F 11/17/21 09:27 Pulse 66 11/17/21 09:27 Resp 17 11/17/21 09:27 BP 131/53 L 11/17/21 09:27 Pulse Ox 98 11/17/21 09:27 BMI result Body Mass Index 27.4 General: Alert, oriented to name only Resp:? CTA bilateral, no accessory muscles used CVS: S1,S2,RRR GI: soft, non tender, non distended Neuro:? motor grossly intact, alert Psych: appropriate affect, impaired insight? DS: Data Data Completed and Pending Labs on day of discharge: Laboratory Results - last 24 hr 11/16/21 11/16/21 11/16/21 12:41 17:54 18:59 POC Glucose 163 H 68 121 H 11/16/21 11/17/21 21:35 09:15 POC Glucose 145 H 324 H Preliminary micro results at discharge 11/15/21 16:57 Blood Culture - Preliminary Blood - Venous No growth after 24 hours. 11/15/21 16:55 Blood Culture - Preliminary Blood - Venous No growth after 24 hours. Discharge Plan Discharge Patient Disposition: Home, Self-Care Discharge Diagnosis: covid Referrals: Physician,Unknown J [Primary Care Provider] - 1 Week Discharge Medications: Continued ascorbic acid (vitamin C) [Vitamin C] 500 mg tablet 500 mg PO BID Qty: 60 RF: 5 ferrous sulfate 325 mg (65 mg iron) tablet 325 mg PO BID Qty: 60 RF: 11 sennosides [senna] 8.6 mg tablet 8.6 mg PO BEDTIME PRN (Reason: for constipation) Qty: 30 RF: 11 cholecalciferol (vitamin D3) 25 mcg (1,000 unit) tablet 25 mcg PO DAILY Qty: 30 RF: 11 cyanocobalamin (vitamin B-12) [Vitamin B-12] 1,000 mcg tablet 1,000 mcg PO DAILY Qty: 30 RF: 11 (KP) linsey Misc See Rx Instructions .ROUTE .MEDSUPPLY Qty: 1 RF: 0 insulin aspart U-100 [Novolog U-100 Insulin aspart] 100 unit/mL solution 2 - 12 unit subcut QID Qty: 40 RF: 11 atorvastatin 40 mg tablet 40 mg PO BEDTIME Qty: 30 RF: 5 metoprolol succinate 25 mg tablet extended release 24 hr 25 mg PO DAILY Qty: 30 RF: 5 levothyroxine 150 mcg tablet 150 mcg PO QAM Qty: 30 RF: 12 insulin syringe-needle U-100 [BD Insulin Syringe Ultra-Fine] 0.3 mL 30 gauge x 1/2 syringe See Rx Instructions miscellaneous QID Qty: 120 RF: 5 lisinopril 20 mg tablet 20 mg PO BID Qty: 60 RF: 3 latanoprost 0.005 % drops 1 drp ophthalmic (eye) BEDTIME RF: 0 Ear Drops (carbamide peroxide) 6.5 % drops 5 drp otic (ears) DAILY RF: 0 Levemir U-100 Insulin 100 unit/mL solution 22 unit subcut DAILY RF: 0 Discharge Orders: Discharge Order (Routine); Ordered 11/17/21 Ordered By: Apolinar Watkins Diet: advance to usual diet Activity on Discharge: As tolerated Stand Alone Forms: Patient Portal Discharge page Care Plan Goals: recovery Health Concerns: covid Plan of Treatment: no specific treatemnt, monitor for worsneing symptoms - aletered mentals status, hypothermia, low oxygen Assessment: see above
--- NOTE | 2021-11-17 11:41 | MHC.CM.PN ---
CM SPOKE TO PTS SISTER, ROSIO [phone], WHO REPORTS SHE IS AWARE THE PT WAS DISCHARGING TODAY BUT WAS UNABLE TO COME PICK HER UP. SHE REPORTS HER NIECE HAS AGREED TO PROVIDE TRANSPORTATION FOR PT HOWEVER WILL NOT BE ABLE TO GET HERE FOR A WHILE SHE IS WITH HER SON AT HIS [employer]AME SHE REPORTS THE PT WAS BROUGHT IN WEARING HER PAJAMAS SO SHE IS PACKING SOME CLOTHES FOR HER NIECE TO BRING FOR THE PT TO WEAR HOME SHE WAS INSTRUCTED TO HAVE HER NIECE BRING THE CLOTHES TO THE MAIN LOBBY SO THAT THEY CAN CALL THE FLOOR WHEN SHE ARRIVES PT WILL DC HOME TODAY WITH RESUMPTION OF FAMILY CARE FAMILY WILL TRANSPORT
== END 2021-11-17 15:38 | disposition home or self-care (01) | DRG 177 ==
LOC: HO.ED 23:37 → HO.EDOVER 23:42
PROVIDERS: Nurse Practitioner Family; Physician Assistant; Admitting Provider Hospitalist; Emergency Provider Emergency Medicine Emergency Medical Services; Visit Provider Internal Medicine
DX: U07.1 COVID-19 (principal); G93.41 Metabolic encephalopathy; F03.90 Unspecified dementia, unspecified severity, without behavioral disturbance, psychotic disturbance, mood disturbance, and anxiety; E03.9 Hypothyroidism, unspecified; E78.5 Hyperlipidemia, unspecified; K59.00 Constipation, unspecified; R68.0 Hypothermia, not associated with low environmental temperature; K21.9 Gastro-esophageal reflux disease without esophagitis; E11.9 Type 2 diabetes mellitus without complications; Z96.642 Presence of left artificial hip joint; Z79.4 Long term (current) use of insulin; Z79.890 Hormone replacement therapy; Z79.899 Other long term (current) drug therapy
CPT/HCPCS: 36415; 70450; 71046; 71250; 80048; 80053; 81001; 82140; 82533; 82550; 82803; 82947; 83605; 84439; 84443; 84484; 85007; 85025; 85027; 87040; 87635; 93005; 96360; 99285; J1650

== ENCOUNTER 2021-12-11 02:16 | Inpatient (IN) | payer MEDICARE, MEDICAID, SELFPAY ==
[2021-12-11] VITALS (65 sets, daily range): BP systolic 66–199; BP diastolic 30–131; PULSE 44–111; RESP 7–16; TEMP 28.5–37.3; O2SAT 64–100; BMI 30.7; BMI 30.4
--- NOTE | 2021-12-11 | EEG_ITS ---
This is a 16-channel EEG with an EKG lead. Background EEG rhythm is low amplitude slow with normal background not noted and occasional theta to delta range activity. No definite sharp waves or spikes or asymmetry noted. Cardiac lead did not reveal any significant abnormality. IMPRESSION: Generalized slowing with no seizure-type activity on this EEG. MD JAY Coyle/AMIE / [phone]
--- NOTE | ~2021-12-11 | CT_ITS ---
EXAMINATION: CT CHEST WITHOUT CONTRAST CLINICAL INFORMATION: Left lung atelectasis. Question pneumonia. COMPARISON: X-ray 12/11/2021. CT chest 11/15/2021 TECHNIQUE: Multidetector volumetric CT imaging of the chest was done. Axial MIP volume rendering provided. Sagittal and coronal reformatted images were obtained. This CT examination was performed using dose optimization techniques as appropriate, variously including the following: *Automated exposure control *Adjustment of mA and/or kV according to patient size (this includes techniques or standardized protocols for targeted exams where dose is matched to indication/reason for exam; i.e. extremities or head) *Use of iterative reconstruction technique DLP: 350 mGy-cm FINDINGS: LUNGS: Trachea and central airway are patent. Airspace opacities in the posterior aspect of bilateral lungs, with reticular interstitial prominence in the posterior aspect of bilateral lungs. No dense consolidation is otherwise seen. MEDIASTINUM: Stable mild cardiomegaly. No pericardial effusion. Evaluation of the mediastinum is limited without intravenous contrast. No obvious mediastinal or hilar lymphadenopathy seen. Subcentimeter short axis mediastinal lymph nodes. Coronary artery calcification present. Normal caliber aorta. Scattered atherosclerotic vascular calcification.. PLEURA: Probable small bilateral pleural effusions. No pneumothorax. AXILLA: No axillary lymphadenopathy. UPPER ABDOMEN: Unremarkable. OSSEOUS STRUCTURES: Mild degenerative changes in the spine. CT/CT chest wo con IMPRESSION: Airspace opacities along the posterior aspect of bilateral lungs, which could relate to atelectasis, infectious/inflammatory process, sequela of aspiration in the appropriate clinical circumstance. Probable small bilateral pleural effusions. Fleischner guidelines were followed.
--- NOTE | ~2021-12-11 | CT_ITS ---
EXAMINATION: CT HEAD WITHOUT CONTRAST CLINICAL INFORMATION: New onset seizures COMPARISON: 11/15/2021 TECHNIQUE: Contiguous axial imaging was performed from the skull base to vertex without intravenous administration of contrast. This CT examination was performed using dose optimization techniques as appropriate, variously including the following: *Automated exposure control *Adjustment of mA and/or kV according to patient size (this includes techniques or standardized protocols for targeted exams where dose is matched to indication/reason for exam; i.e. extremities or head) *Use of iterative reconstruction technique DLP: 684 mGy-cm FINDINGS: There is no evidence of acute intracranial hemorrhage or territorial infarction. No abnormal mass effect or midline shift is seen. Hansen to white matter differentiation is well preserved. No extra-axial fluid collections are identified. Mild generalized brain parenchymal volume loss. No disproportionate ventriculomegaly suggesting complicated hydrocephalus. Mild patchy subcortical and periventricular white matter low-attenuation changes redemonstrated, statistically related to chronic white matter small vessel ischemic disease. Old bilateral cerebellar infarcts. The osseous structures and soft tissues are normal. Secretions present within the bilateral maxillary sinuses. Mastoid air cells are clear. CT/CT head/brain wo con IMPRESSION: No acute intracranial pathology. No intracranial mass. Chronic findings as above.
--- NOTE | ~2021-12-11 | XR_ITS ---
EXAMINATION: XR CHEST CLINICAL INFORMATION: Line placement COMPARISON: December 11, 2021 and November 15, 2021 TECHNIQUE: AP portable view of the chest was obtained. FINDINGS: A left subclavian central venous catheter is seen with tip at the region of the caval atrial junction. No pneumothorax is evident. No significant pleural effusion. The cardiopericardial silhouette appears to be mildly enlarged. No evidence of pulmonary edema. There is some mild right lower lobe disease likely related to atelectasis. No definite confluent pneumonitis identified. XR/XR chest 1V IMPRESSION: Left subclavian central venous catheter in place with tip at the caval atrial junction and no pneumothorax.
--- NOTE | ~2021-12-11 | MR_ITS ---
MRI OF THE BRAIN WITHOUT IV CONTRAST INDICATION: Seizures. COMPARISON: Head CT 12/11/2021. TECHNIQUE: Multiplanar multisequence MR imaging of the brain was obtained without IV contrast. FINDINGS: Partially nondiagnostic MRI of the brain secondary to significant motion artifact. There is global cerebral volume loss and there is moderate chronic microangiopathy. There is no hydrocephalus, extra-axial surface collection, or herniation. Nondiagnostic assessment of the residual temporal lobes. The major flow voids at the skull base are preserved. There is no acute infarct on diffusion-weighted imaging. There is no intracranial hemorrhage on the gradient recalled echo acquisition. The cerebellar tonsils are normally positioned. Bandlike T2 signal changes, volume loss, and chronic hemosiderin staining within the cerebellar hemispheres bilaterally. The craniocervical junction is normal. Osseous marrow signal intensity is homogenous. The visualized soft tissues are unremarkable. Sinus mucosal disease. MR/MR head/brain wo con IMPRESSION: - This is a very limited and partially nondiagnostic MRI of the brain secondary to significant motion artifact. There is global cerebral volume loss and there is moderate chronic microangiopathy. Given the reported history of seizure, a repeat study with sedation would be helpful in further assessment given the significant limitations of this exam. - Bandlike T2 signal changes, volume loss, and chronic hemosiderin staining within the cerebellar hemispheres bilaterally.
--- NOTE | ~2021-12-11 | XR_ITS ---
EXAMINATION: XR CHEST CLINICAL INFORMATION: Altered mental status COMPARISON: 11/15/2021 TECHNIQUE: Frontal view of the chest was obtained. FINDINGS: Low lung volumes and portable technique exaggerate prominence of bronchovascular markings. No parenchymal consolidation. Left basilar subsegmental atelectasis. No pleural effusion. No pneumothorax. Cardiomediastinal silhouette and pulmonary vascularity are within normal limits. Aorta atherosclerotic. No acute osseous abnormalities. XR/XR chest 1V IMPRESSION: No acute findings.
[2021-12-11] MEDS: LORazepam 2 MG/ML VIAL 4 MG IM (02:25)
--- NOTE | 2021-12-11 02:28 | ECG_ITS ---
Test Reason : TRAUMA Blood Pressure : / mmHG Vent. Rate : 048 BPM Atrial Rate : 048 BPM P-R Int : 182 ms QRS Dur : 118 ms QT Int : 542 ms P-R-T Axes : 074 055 -12 degrees QTc Int : 484 ms Sinus bradycardia with occasional Premature ventricular complexes Minimal voltage criteria for LVH, may be normal variant ( Fabian product ) Nonspecific ST abnormality Abnormal QRS-T angle, consider primary T wave abnormality Abnormal ECG When compared with ECG of 15-NOV-2021 19:05, Premature ventricular complexes are now Present Referred By: Jessie Martinez Electronically Signed By:JEREL NANCE MD
[2021-12-11 02:32] LABS: Glucose, Whole Blood 313 mg/dL (60-115)
[2021-12-11 03:29] LABS: Hemoglobin 11.8 g/dl (12.0-16.0); Mean Corpuscular HGB Conc 30.2 g/dl (31.0-35.0); Mean Corpuscular Hemoglobin 27.9 pg (27.0-33.0); Mean Corpuscular Volume 92.4 fL (80.0-98.0); Mean Platelet Volume 11.6 fL (9.4-12.3); NRBC Pct Auto 0.9 /100WBC (0.0-0.2); Platelet Count 147 X10*3/uL (160-400); Red Blood Count 4.23 X10*6/uL (4.20-5.50); Red Cell Distribution Width 16.1 % (11.0-16.0); WBC ABN SCTR FOR CBC 1
[2021-12-11] MEDS: 0.9 % Sodium Chloride 1,000 ML 999 ML IVCONT (03:30)
[2021-12-11 03:31] LABS: Hematocrit 39.1 % (37.0-47.0); White Blood Count 4.3 X10*3/uL (4.8-10.8)
--- NOTE | 2021-12-11 03:32 | ED_ITS ---
HPI - General Adult General Chief complaint: Altered Mental Status Stated complaint: Unresponsive Time Seen by Provider: 12/11/21 02:27 Source: EMS Mode of arrival: EMS Limitations: altered mental status History of Present Illness HPI narrative: Patient comes to the emergency room unresponsive. Patient was last seen by patient's family within normal limits around 23:30. When patient arrived to the emergency room, and was being bagged. According to EMS, the patient's oxygen saturation was in the low 90s. Family suspects that patient had a seizure. Reviewing patient's notes, the patient was discharged on November 17, patient was diagnosed with COVID, hypothermia, encephalopathy, and it was noted that shania murray has had multiple intermittent staring episodes. On arrival to the emergency room, patient had a seizure, 4 mg of IM Ativan were given. Patient has no history of seizures. Also, on arrival to ED, patient's rectal temperature could not be obtained due to severe hypothermia, patient's temperatu re with a Armstrong catheter showed temperature of 85.6F Related Data Home Medications Medication Instructions Recorded Confirmed latanoprost 0.005 % eye drops 1 drp OPHTHALMIC (EYE) BEDTIME 10/25/20 11/15/21 carbamide peroxide 6.5 % ear drops 5 drp OTIC (EARS) DAILY 11/15/21 11/15/21 (Ear Drops (carbamide peroxide)) insulin detemir U-100 100 unit/mL 22 unit SUBCUT DAILY 11/15/21 11/15/21 subcutaneous solution (Levemir U-100 Insulin) Previous Rx's Medication Instructions Recorded ascorbic acid (vitamin C) 500 mg 500 mg PO BID #60 cap 10/31/20 tablet (Vitamin C) ferrous sulfate 325 mg (65 mg 325 mg PO BID #60 cap 01/07/21 iron) tablet sennosides 8.6 mg tablet (senna) 8.6 mg PO BEDTIME PRN #30 cap 01/07/21 cholecalciferol (vitamin D3) 25 25 mcg PO DAILY #30 cap 01/18/21 mcg (1,000 unit) tablet cyanocobalamin (vitamin B-12) 1,000 mcg PO DAILY #30 cap 01/23/21 1,000 mcg tablet (Vitamin B-12) linsey #1 ea 02/28/21 Novolog U-100 Insulin aspart 100 2 - 12 unit (0.02 - 0.12 mL) 03/28/21 unit/mL subcutaneous solution SUBCUT QID #40 cap NS (insulin aspart U-100) atorvastatin 40 mg tablet 40 mg PO BEDTIME #30 tab 07/15/21 metoprolol succinate 25 mg 25 mg PO DAILY #30 tab 07/15/21 tablet,extended release 24 hr levothyroxine 150 mcg tablet 150 mcg PO QAM #30 tab 10/14/21 insulin syringe-needle U-100 0.3 See Rx Instructions MISCELLANEOUS 11/13/21 mL 30 gauge x 1/2 (BD Insulin QID #120 ea Syringe Ultra-Fine) lisinopril 20 mg tablet 20 mg PO BID #60 cap 11/15/21 Allergies Allergy/AdvReac Type Severity Reaction Status Date / Time No Known Allergies Allergy Verified 02/07/21 09:39 Review of Systems Review of Systems: Yes Unobtainable due to mental condition PMFSH Past Medical History Medical History Acquired hypothyroidism Benign essential hypertension Constipation Dementia Diabetes Diabetes mellitus GERD without esophagitis High cholesterol Hypertension Hypothyroidism Impacted cerumen of both ears Iron deficiency anemia Overweight (BMI 25.0-29.9) Pure hypercholesterolemia Syncope Vitamin B12 deficiency Vitamin D deficiency Surgical History History of ankle surgery History of hemiarthroplasty of left hip S/P [id number] (total abdominal hysterectomy and bilateral salpingo-oophorectomy) Family History Family History Father Diabetes Hypertension Mother Hypertension Stroke Social History Social History Alcohol intake: never Patient Tobacco Use Status: Tobacco use Unknown Advance Directives: No service: No Current occupational status: disabled Physical Exam ED Vital Signs: Vital Signs - 24 hr 12/11/21 03:28 12/11/21 03:33 12/11/21 03:38 Temperature 86.5 F L 86.5 F L 86.5 F L Pulse Rate 46 L 49 L 47 L Respiratory Rate 12 10 L 9 L Blood Pressure 141/60 H 161/68 H 135/64 Pulse Oximetry 100 100 100 12/11/21 03:43 12/11/21 03:48 12/11/21 03:53 Temperature 86.5 F L 86.7 F L 86.7 F L Pulse Rate 48 L 50 49 L Respiratory Rate 8 L 10 L 9 L Blood Pressure 132/57 L 134/62 122/54 L Pulse Oximetry 100 100 100 12/11/21 03:58 12/11/21 04:03 12/11/21 04:08 Temperature 86.7 F L 86.7 F L 86.9 F L Pulse Rate 49 L 49 L 50 Respiratory Rate 9 L 8 L 8 L Blood Pressure 133/58 L 115/61 124/51 L Pulse Oximetry 100 100 100 12/11/21 04:13 12/11/21 04:18 12/11/21 04:23 Temperature 86.9 F L 86.9 F L 86.9 F L Pulse Rate 51 50 49 L Respiratory Rate 9 L 9 L 9 L Blood Pressure 118/47 L 101/48 L 95/49 L Pulse Oximetry 100 98 99 12/11/21 04:48 12/11/21 04:53 12/11/21 05:04 Temperature 87.3 F L 87.3 F L 87.4 F L Pulse Rate 49 L 50 52 Respiratory Rate 9 L 10 L 11 L Blood Pressure 90/42 L 102/49 L 100/45 L Pulse Oximetry 96 97 97 12/11/21 05:14 12/11/21 05:17 12/11/21 05:21 Temperature 87.4 F L 87.4 F L 87.6 F L Pulse Rate 52 51 53 Respiratory Rate 10 L 10 L 11 L Blood Pressure 85/40 L 85/47 L 94/47 L Pulse Oximetry 96 97 96 12/11/21 05:27 12/11/21 05:32 12/11/21 05:37 Temperature 87.8 F L 87.8 F L 87.8 F L Pulse Rate 52 52 52 Respiratory Rate 10 L 10 L 10 L Blood Pressure 91/45 L 96/45 L 90/45 L Pulse Oximetry 96 96 96 12/11/21 05:42 12/11/21 05:47 Temperature 88.0 F L 88.0 F L Pulse Rate 52 52 Respiratory Rate 10 L 10 L Blood Pressure 86/43 L 90/44 L Pulse Oximetry 96 96 BMI result Body Mass Index 30.7 Const Other: Appearance: Somnolent. Seems confused, likely postictal Eyes: Pupils equal, round and reactive to light. ENT: Pharynx normal. Neck: Normal inspection. Neck supple. No lymph nodes noted. No crepitus CVS: Normal heart rate and rhythm. Pulses normal. Normal S1 and S2 Respiratory: No respiratory distress. Breath sounds normal. No Wheezing. No rales Abdomen: Soft and nontender. No rigidity. No distention. Skin: Skin warm and dry. Normal skin color. Normal skin turgor. Extremities: Skin is Very cold to touch Neuro: Unable to participate in cranial nerve evaluation, patient postictal Course Course Course Narrative: I attempted inserting a central line in the right IJ and also in the left IJ. However, I got good blood return and bilaterally but in both sides, the guidewire could not be advanced. Patient's nurses were able to get access in the patient's hand. Central line was attempted mostly for access, patient has a size 22 catheter in the right index finger On arrival to the emergency room, patient started waking up, moving all extremities, trying to sit up. Shortly after she developed a seizure which she received 4 mg IM Ativan Patient has had previous episodes of severe hypothermia, but never this low. Patient is known to have history of hypothyroidism, patient received 100 mg of hydrocortisone IV, labs pending. Patient is also getting warmed with a Radha Hugger, warm packs, and warmed IV fluids 03:45 patient's white blood cell count is 4.3, at baseline since September of 2020 chemistry pending, lactic acid pending. At this time, sepsis is not suspected. Patient has had multiple episodes of hypothermia in the past. Head CT pending Patient's blood pressure dropped to 85 systolic which occurred after having 4 mg of Ativan. At this time, blood pressure dropped likely secondary to medications rather than sepsis. At this time, patient has no clear source of infection. Patient has had hypothermia in the past. Lactic acid elevation is secondary to multiple seizures, sepsis not suspected. CTA shows no acute findings, only chronic changes. Chest x-rays show no acute pathologies. UA shows no signs of UTI TSH is elevated, FT4 is decreased. Although the TSH and free T4 levels are not impressive, patient has most symptoms of myxedema coma. Patient is lethargic, hypothermic, hypertension, bradycardic. Pt given 100 mcg IV levothyroxine . So far patient has had to low blood pressures, patient given 1 dose of 0.5 mg of phenylephrine. Hypotension likely secondary to a combination of medications and hypothyroidism. Sepsis not suspected I discussed the patient with Dr. Moore, patient is being admitted to intensive care unit Medical Decision Making Lab Data Result diagrams: 12/11/21 03:22 12/11/21 06:07 Labs: Lab Results 12/11/21 12/11/21 12/11/21 Range/Units 02:18 03:22 03:22 WBC 4.3 L (4.8-10.8) X10*3/uL RBC 4.23 (4.20-5.50) X10*6/uL Hgb 11.8 L (12.0-16.0) g/dl Hct 39.1 (37.0-47.0) % MCV 92.4 (80.0-98.0) fL MCH 27.9 (27.0-33.0) pg MCHC 30.2 L (31.0-35.0) g/dl RDW 16.1 H (11.0-16.0) % Plt Count 147 L (160-400) X10*3/uL MPV 11.6 (9.4-12.3) fL Immature Gran % (Auto) Cancelled Neut % (Auto) Cancelled Lymph % (Auto) Cancelled Haakon % (Auto) Cancelled Eos % (Auto) Cancelled Baso % (Auto) Cancelled Lymph # (Auto) Cancelled Haakon # (Auto) Cancelled Eos # (Auto) Cancelled Baso # (Auto) Cancelled Abs Immat Gran (auto) Cancelled Absolute Neuts (auto) Cancelled Absolute Nucleated RBC 0.040 H (0.0-0.012) X10*3/uL Nucleated RBC % (auto) 0.9 H (0.0-0.2) /100WBC Neutrophils % (Manual) 45 (45-73) % Band Neutrophils % 3 (3-5) % Lymphocytes % (Manual) 43 H (20-40) % Monocytes % (Manual) 7 (2-11) % Eosinophils % (Manual) 1 (0-4) % Metamyelocytes % 1 % Abs Neuts (Manual) 2.1 (2.0-8.3) X10*3/uL Lymphocytes # (Manual) 1.8 (1.2-4.9) X10*3/uL Monocytes # (Manual) 0.3 (0.1-1.2) X10*3/uL Nucleated RBCs 3 H (0-0) /100WBC Smudge Cells PRESENT Toxic Vacuolation PRESENT Platelet Estimate SLIGHTLY DECREASED (NORMAL) Plt Morphology Comment NORMAL RBC Morphology NOTED Laura Cells 2+ (3-5) /OIF Acanthocytes (Spur) 2+ (3-5) /OIF PT 10.3 (9.9-13.0) SEC INR 0.9 (0.9-1.1) VBG pH (7.32-7.43) VBG pCO2 mmHg VBG pO2 mmHg VBG HCO3 (22-26) mmol/L VBG O2 Saturation % VBG Base Excess mmol/L Sodium (135-145) mmol/L Potassium (3.3-5.1) mmol/L Chloride (96-108) mmol/L Carbon Dioxide (22-29) mmol/L Anion Gap (12-20) BUN (9-16) mg/dL Creatinine (0.5-1.4) mg/dL Estim Creat Clear Calc Estimated GFR POC Glucose 313 H (60-115) mg/dL Random Glucose (60-115) mg/dL Lactic Acid (0.5-2.0) mmol/L Calcium (8.4-10.2) mg/dL Magnesium (1.6-2.6) mg/dL Total Bilirubin (0.0-1.0) mg/dL Direct Bilirubin (0.0-0.5) mg/dL AST (5-31) U/L ALT (0-31) U/L Alkaline Phosphatase (39-117) U/L Ammonia (13-55) umol/L Total Creatine Kinase (26-140) U/L Troponin I High Sens (<3.5-17.0) ng/L Total Protein (6.5-8.0) g/dL Albumin (3.5-5.0) g/dL TSH (0.32-4.0) uIU/mL Free T4 (0.71-1.85) ng/dL Urine Color Urine Appearance Urine pH (5.0-8.0) Ur Specific Canvas (1.005-1.025) Urine Protein (NEG-TRACE) MG/DL Urine Glucose (UA) (NEG) MG/DL Urine Ketones (NEG) MG/DL Urine Blood (NEG) Urine Nitrite (NEG) Ur Leukocyte Esterase (NEG) Urine RBC (0) /HPF Urine WBC (0-4) /HPF Ur Squamous Epith Cells /LPF Urine Bacteria /LPF Urine Mucus /LPF Urine Opiates Screen (Not Detect) Urine Fentanyl Screen (Not Detect) Ur Barbiturates Screen (Not Detect) Ur Phencyclidine Scrn (Not Detect) Ur Amphetamines Screen (Not Detect) U Benzodiazepines Scrn (Not Detect) Urine Cocaine Screen (Not Detect) U Marijuana (THC) Screen (Not Detect) Ethyl Alcohol mg/dL Acetone, Qual (Negative) COVID-19 (TAMARA) (Negative) COVID-19 Clin Com 12/11/21 12/11/21 12/11/21 Range/Units 03:22 03:22 03:22 WBC (4.8-10.8) X10*3/uL RBC (4.20-5.50) X10*6/uL Hgb (12.0-16.0) g/dl Hct (37.0-47.0) % MCV (80.0-98.0) fL MCH (27.0-33.0) pg MCHC (31.0-35.0) g/dl RDW (11.0-16.0) % Plt Count (160-400) X10*3/uL MPV (9.4-12.3) fL Immature Gran % (Auto) Neut % (Auto) Lymph % (Auto) Haakon % (Auto) Eos % (Auto) Baso % (Auto) Lymph # (Auto) Haakon # (Auto) Eos # (Auto) Baso # (Auto) Abs Immat Gran (auto) Absolute Neuts (auto) Absolute Nucleated RBC (0.0-0.012) X10*3/uL Nucleated RBC % (auto) (0.0-0.2) /100WBC Neutrophils % (Manual) (45-73) % Band Neutrophils % (3-5) % Lymphocytes % (Manual) (20-40) % Monocytes % (Manual) (2-11) % Eosinophils % (Manual) (0-4) % Metamyelocytes % % Abs Neuts (Manual) (2.0-8.3) X10*3/uL Lymphocytes # (Manual) (1.2-4.9) X10*3/uL Monocytes # (Manual) (0.1-1.2) X10*3/uL Nucleated RBCs (0-0) /100WBC Smudge Cells Toxic Vacuolation Platelet Estimate (NORMAL) Plt Morphology Comment RBC Morphology Warner Cells /OIF Acanthocytes (Spur) /OIF PT (9.9-13.0) SEC INR (0.9-1.1) VBG pH (7.32-7.43) VBG pCO2 mmHg VBG pO2 mmHg VBG HCO3 (22-26) mmol/L VBG O2 Saturation % VBG Base Excess mmol/L Sodium 137 (135-145) mmol/L Potassium 4.2 (3.3-5.1) mmol/L Chloride 102 (96-108) mmol/L Carbon Dioxide 21 L (22-29) mmol/L Anion Gap 18 (12-20) BUN 31 H D (9-16) mg/dL Creatinine 1.04 (0.5-1.4) mg/dL Estim Creat Clear Calc 54.1 Estimated GFR 52 POC Glucose (60-115) mg/dL Random Glucose 345 H (60-115) mg/dL Lactic Acid (0.5-2.0) mmol/L Calcium 8.5 (8.4-10.2) mg/dL Magnesium 2.1 (1.6-2.6) mg/dL Total Bilirubin < 0.2 (0.0-1.0) mg/dL Direct Bilirubin < 0.2 (0.0-0.5) mg/dL AST 50 H D (5-31) U/L ALT 66 H (0-31) U/L Alkaline Phosphatase 255 H D (39-117) U/L Ammonia 44 (13-55) umol/L Total Creatine Kinase (26-140) U/L Troponin I High Sens < 3.5 (<3.5-17.0) ng/L Total Protein 6.7 (6.5-8.0) g/dL Albumin 3.3 L (3.5-5.0) g/dL TSH 9.16 H (0.32-4.0) uIU/mL Free T4 0.65 L (0.71-1.85) ng/dL Urine Color Urine Appearance Urine pH (5.0-8.0) Ur Specific Canvas (1.005-1.025) Urine Protein (NEG-TRACE) MG/DL Urine Glucose (UA) (NEG) MG/DL Urine Ketones (NEG) MG/DL Urine Blood (NEG) Urine Nitrite (NEG) Ur Leukocyte Esterase (NEG) Urine RBC (0) /HPF Urine WBC (0-4) /HPF Ur Squamous Epith Cells /LPF Urine Bacteria /LPF Urine Mucus /LPF Urine Opiates Screen (Not Detect) Urine Fentanyl Screen (Not Detect) Ur Barbiturates Screen (Not Detect) Ur Phencyclidine Scrn (Not Detect) Ur Amphetamines Screen (Not Detect) U Benzodiazepines Scrn (Not Detect) Urine Cocaine Screen (Not Detect) U Marijuana (THC) Screen (Not Detect) Ethyl Alcohol mg/dL Acetone, Qual (Negative) COVID-19 (TAMARA) (Negative) COVID-19 Clin Com 12/11/21 12/11/21 12/11/21 Range/Units 03:22 03:22 03:32 WBC (4.8-10.8) X10*3/uL RBC (4.20-5.50) X10*6/uL Hgb (12.0-16.0) g/dl Hct (37.0-47.0) % MCV (80.0-98.0) fL MCH (27.0-33.0) pg MCHC (31.0-35.0) g/dl RDW (11.0-16.0) % Plt Count (160-400) X10*3/uL MPV (9.4-12.3) fL Immature Gran % (Auto) Neut % (Auto) Lymph % (Auto) Haakon % (Auto) Eos % (Auto) Baso % (Auto) Lymph # (Auto) Haakon # (Auto) Eos # (Auto) Baso # (Auto) Abs Immat Gran (auto) Absolute Neuts (auto) Absolute Nucleated RBC (0.0-0.012) X10*3/uL Nucleated RBC % (auto) (0.0-0.2) /100WBC Neutrophils % (Manual) (45-73) % Band Neutrophils % (3-5) % Lymphocytes % (Manual) (20-40) % Monocytes % (Manual) (2-11) % Eosinophils % (Manual) (0-4) % Metamyelocytes % % Abs Neuts (Manual) (2.0-8.3) X10*3/uL Lymphocytes # (Manual) (1.2-4.9) X10*3/uL Monocytes # (Manual) (0.1-1.2) X10*3/uL Nucleated RBCs (0-0) /100WBC Smudge Cells Toxic Vacuolation Platelet Estimate (NORMAL) Plt Morphology Comment RBC Morphology Warner Cells /OIF Acanthocytes (Spur) /OIF PT (9.9-13.0) SEC INR (0.9-1.1) VBG pH (7.32-7.43) VBG pCO2 mmHg VBG pO2 mmHg VBG HCO3 (22-26) mmol/L VBG O2 Saturation % VBG Base Excess mmol/L Sodium (135-145) mmol/L Potassium (3.3-5.1) mmol/L Chloride (96-108) mmol/L Carbon Dioxide (22-29) mmol/L Anion Gap (12-20) BUN (9-16) mg/dL Creatinine (0.5-1.4) mg/dL Estim Creat Clear Calc Estimated GFR POC Glucose (60-115) mg/dL Random Glucose (60-115) mg/dL Lactic Acid (0.5-2.0) mmol/L Calcium (8.4-10.2) mg/dL Magnesium (1.6-2.6) mg/dL Total Bilirubin (0.0-1.0) mg/dL Direct Bilirubin (0.0-0.5) mg/dL AST (5-31) U/L ALT (0-31) U/L Alkaline Phosphatase (39-117) U/L Ammonia (13-55) umol/L Total Creatine Kinase 198 H D (26-140) U/L Troponin I High Sens (<3.5-17.0) ng/L Total Protein (6.5-8.0) g/dL Albumin (3.5-5.0) g/dL TSH (0.32-4.0) uIU/mL Free T4 (0.71-1.85) ng/dL Urine Color Urine Appearance Urine pH (5.0-8.0) Ur Specific Canvas (1.005-1.025) Urine Protein (NEG-TRACE) MG/DL Urine Glucose (UA) (NEG) MG/DL Urine Ketones (NEG) MG/DL Urine Blood (NEG) Urine Nitrite (NEG) Ur Leukocyte Esterase (NEG) Urine RBC (0) /HPF Urine WBC (0-4) /HPF Ur Squamous Epith Cells /LPF Urine Bacteria /LPF Urine Mucus /LPF Urine Opiates Screen (Not Detect) Urine Fentanyl Screen (Not Detect) Ur Barbiturates Screen (Not Detect) Ur Phencyclidine Scrn (Not Detect) Ur Amphetamines Screen (Not Detect) U Benzodiazepines Scrn (Not Detect) Urine Cocaine Screen (Not Detect) U Marijuana (THC) Screen (Not Detect) Ethyl Alcohol < 10 mg/dL Acetone, Qual Negative (Negative) COVID-19 (TAMARA) Positive A (Negative) COVID-19 Clin Com See Note 12/11/21 12/11/21 12/11/21 Range/Units 03:33 03:33 04:53 WBC (4.8-10.8) X10*3/uL RBC (4.20-5.50) X10*6/uL Hgb (12.0-16.0) g/dl Hct (37.0-47.0) % MCV (80.0-98.0) fL MCH (27.0-33.0) pg MCHC (31.0-35.0) g/dl RDW (11.0-16.0) % Plt Count (160-400) X10*3/uL MPV (9.4-12.3) fL Immature Gran % (Auto) Neut % (Auto) Lymph % (Auto) Haakon % (Auto) Eos % (Auto) Baso % (Auto) Lymph # (Auto) Haakon # (Auto) Eos # (Auto) Baso # (Auto) Abs Immat Gran (auto) Absolute Neuts (auto) Absolute Nucleated RBC (0.0-0.012) X10*3/uL Nucleated RBC % (auto) (0.0-0.2) /100WBC Neutrophils % (Manual) (45-73) % Band Neutrophils % (3-5) % Lymphocytes % (Manual) (20-40) % Monocytes % (Manual) (2-11) % Eosinophils % (Manual) (0-4) % Metamyelocytes % % Abs Neuts (Manual) (2.0-8.3) X10*3/uL Lymphocytes # (Manual) (1.2-4.9) X10*3/uL Monocytes # (Manual) (0.1-1.2) X10*3/uL Nucleated RBCs (0-0) /100WBC Smudge Cells Toxic Vacuolation Platelet Estimate (NORMAL) Plt Morphology Comment RBC Morphology Laura Cells /OIF Acanthocytes (Spur) /OIF PT (9.9-13.0) SEC INR (0.9-1.1) VBG pH 7.24 L (7.32-7.43) VBG pCO2 41 mmHg VBG pO2 123 mmHg VBG HCO3 18 L (22-26) mmol/L VBG O2 Saturation 97.0 % VBG Base Excess -8.7 mmol/L Sodium (135-145) mmol/L Potassium (3.3-5.1) mmol/L Chloride (96-108) mmol/L Carbon Dioxide (22-29) mmol/L Anion Gap (12-20) BUN (9-16) mg/dL Creatinine (0.5-1.4) mg/dL Estim Creat Clear Calc Estimated GFR POC Glucose (60-115) mg/dL Random Glucose (60-115) mg/dL Lactic Acid 8.7 H* (0.5-2.0) mmol/L Calcium (8.4-10.2) mg/dL Magnesium (1.6-2.6) mg/dL Total Bilirubin (0.0-1.0) mg/dL Direct Bilirubin (0.0-0.5) mg/dL AST (5-31) U/L ALT (0-31) U/L Alkaline Phosphatase (39-117) U/L Ammonia (13-55) umol/L Total Creatine Kinase (26-140) U/L Troponin I High Sens (<3.5-17.0) ng/L Total Protein (6.5-8.0) g/dL Albumin (3.5-5.0) g/dL TSH (0.32-4.0) uIU/mL Free T4 (0.71-1.85) ng/dL Urine Color YELLOW Urine Appearance HAZY Urine pH 5.0 (5.0-8.0) Ur Specific Canvas >= 1.030 H (1.005-1.025) Urine Protein 1+ H (NEG-TRACE) MG/DL Urine Glucose (UA) >=1000 H (NEG) MG/DL Urine Ketones 5 (NEG) MG/DL Urine Blood 3+ H (NEG) Urine Nitrite NEG (NEG) Ur Leukocyte Esterase NEG (NEG) Urine RBC 5-9 H (0) /HPF Urine WBC 0 (0-4) /HPF Ur Squamous Epith Cells 2+ /LPF Urine Bacteria NONE /LPF Urine Mucus 2+ /LPF Urine Opiates Screen (Not Detect) Urine Fentanyl Screen (Not Detect) Ur Barbiturates Screen (Not Detect) Ur Phencyclidine Scrn (Not Detect) Ur Amphetamines Screen (Not Detect) U Benzodiazepines Scrn (Not Detect) Urine Cocaine Screen (Not Detect) U Marijuana (THC) Screen (Not Detect) Ethyl Alcohol mg/dL Acetone, Qual (Negative) COVID-19 (TAAMRA) (Negative) COVID-19 Clin Com 12/11/21 Range/Units 04:53 WBC (4.8-10.8) X10*3/uL RBC (4.20-5.50) X10*6/uL Hgb (12.0-16.0) g/dl Hct (37.0-47.0) % MCV (80.0-98.0) fL MCH (27.0-33.0) pg MCHC (31.0-35.0) g/dl RDW (11.0-16.0) % Plt Count (160-400) X10*3/uL MPV (9.4-12.3) fL Immature Gran % (Auto) Neut % (Auto) Lymph % (Auto) Haakon % (Auto) Eos % (Auto) Baso % (Auto) Lymph # (Auto) Haakon # (Auto) Eos # (Auto) Baso # (Auto) Abs Immat Gran (auto) Absolute Neuts (auto) Absolute Nucleated RBC (0.0-0.012) X10*3/uL Nucleated RBC % (auto) (0.0-0.2) /100WBC Neutrophils % (Manual) (45-73) % Band Neutrophils % (3-5) % Lymphocytes % (Manual) (20-40) % Monocytes % (Manual) (2-11) % Eosinophils % (Manual) (0-4) % Metamyelocytes % % Abs Neuts (Manual) (2.0-8.3) X10*3/uL Lymphocytes # (Manual) (1.2-4.9) X10*3/uL Monocytes # (Manual) (0.1-1.2) X10*3/uL Nucleated RBCs (0-0) /100WBC Smudge Cells Toxic Vacuolation Platelet Estimate (NORMAL) Plt Morphology Comment RBC Morphology Laura Cells /OIF Acanthocytes (Spur) /OIF PT (9.9-13.0) SEC INR (0.9-1.1) VBG pH (7.32-7.43) VBG pCO2 mmHg VBG pO2 mmHg VBG HCO3 (22-26) mmol/L VBG O2 Saturation % VBG Base Excess mmol/L Sodium (135-145) mmol/L Potassium (3.3-5.1) mmol/L Chloride (96-108) mmol/L Carbon Dioxide (22-29) mmol/L Anion Gap (12-20) BUN (9-16) mg/dL Creatinine (0.5-1.4) mg/dL Estim Creat Clear Calc Estimated GFR POC Glucose (60-115) mg/dL Random Glucose (60-115) mg/dL Lactic Acid (0.5-2.0) mmol/L Calcium (8.4-10.2) mg/dL Magnesium (1.6-2.6) mg/dL Total Bilirubin (0.0-1.0) mg/dL Direct Bilirubin (0.0-0.5) mg/dL AST (5-31) U/L ALT (0-31) U/L Alkaline Phosphatase (39-117) U/L Ammonia (13-55) umol/L Total Creatine Kinase (26-140) U/L Troponin I High Sens (<3.5-17.0) ng/L Total Protein (6.5-8.0) g/dL Albumin (3.5-5.0) g/dL TSH (0.32-4.0) uIU/mL Free T4 (0.71-1.85) ng/dL Urine Color Urine Appearance Urine pH (5.0-8.0) Ur Specific Canvas (1.005-1.025) Urine Protein (NEG-TRACE) MG/DL Urine Glucose (UA) (NEG) MG/DL Urine Ketones (NEG) MG/DL Urine Blood (NEG) Urine Nitrite (NEG) Ur Leukocyte Esterase (NEG) Urine RBC (0) /HPF Urine WBC (0-4) /HPF Ur Squamous Epith Cells /LPF Urine Bacteria /LPF Urine Mucus /LPF Urine Opiates Screen Not Detected (Not Detect) Urine Fentanyl Screen Not Detected (Not Detect) Ur Barbiturates Screen Not Detected (Not Detect) Ur Phencyclidine Scrn Not Detected (Not Detect) Ur Amphetamines Screen Not Detected (Not Detect) U Benzodiazepines Scrn Not Detected (Not Detect) Urine Cocaine Screen Not Detected (Not Detect) U Marijuana (THC) Screen Not Detected (Not Detect) Ethyl Alcohol mg/dL Acetone, Qual (Negative) COVID-19 (TAMARA) (Negative) COVID-19 Clin Com Imaging Data Head CT: Radiologist's impression: FINDINGS: There is no evidence of acute intracranial hemorrhage or territorial infarction. No abnormal mass effect or midline shift is seen. Hansen to white matter differentiation is well preserved. No extra-axial fluid collections are identified. Mild generalized brain parenchymal volume loss. No disproportionate ventriculomegaly suggesting complicated hydrocephalus. Mild patchy subcortical and periventricular white matter low-attenuation changes redemonstrated, statistically related to chronic white matter small vessel ischemic disease. Old bilateral cerebellar infarcts. The osseous structures and soft tissues are normal. Secretions present within the bilateral maxillary sinuses. Mastoid air cells are clear. ? CT/CT head/brain wo con IMPRESSION: No acute intracranial pathology. No intracranial mass. Chronic findings as above. Critical Care Time Critical Care Time Critical Care Time: Yes Total Critical Care Time: 90 Attestation: 90 minutes were spent in direct patient care, stabilization, consults Discharge Plan Discharge Clinical Impression: Encephalopathy, Hypothyroidism, New onset seizure Patient Disposition: Admitted As Inpatient
[2021-12-11 03:33] LABS: Ammonia 44 umol/L (13-55)
[2021-12-11 03:35] LABS: INTERNATIONAL NORM RATIO 0.9 (0.9-1.1); Prothrombin Time 10.3 SEC (9.9-13.0)
[2021-12-11 03:41] LABS: Venous Blood Gas Refer to POC result
[2021-12-11 03:43] LABS: Acetone, serum QL Negative (Negative)
[2021-12-11 03:43] LABS: VBG Base Excess -8.7 mmol/L; VBG HCO3 18 mmol/L (22-26); VBG pCO2 41 mmHg; VBG pH 7.24 (7.32-7.43); VBG pO2 123 mmHg
[2021-12-11 03:48] LABS: COVID-19 Test Positive (Negative)
[2021-12-11 03:48] LABS: Ethanol < 10 mg/dL
[2021-12-11 03:48] LABS: Lactic Acid 8.7 mmol/L (0.5-2.0)
[2021-12-11 03:50] LABS: Troponin-I High Sensitivity < 3.5 ng/L (<3.5-17.0)
[2021-12-11] MEDS: Hydrocortisone Sod Succ/PF 100 MG VIAL IVPUSH (03:53)
[2021-12-11] MEDS: levETIRAcetam in NaCl (iso-os) 1,500 MG/100 ML PIGGYBACK 400 MG IV (03:53)
[2021-12-11 03:54] LABS: Alanine Aminotransferase 66 U/L (0-31); Albumin Level 3.3 g/dL (3.5-5.0); Alkaline Phosphatase 255 U/L (39-117); Anion Gap 18 (12-20); Aspartate Amino Transferase 50 U/L (5-31); Bilirubin Direct < 0.2 mg/dL (0.0-0.5); Bilirubin Total < 0.2 mg/dL (0.0-1.0); Blood Urea Nitrogen 31 mg/dL (9-16); Calcium 8.5 mg/dL (8.4-10.2); Carbon Dioxide 21 mmol/L (22-29); Chloride 102 mmol/L (96-108); Creatinine Clr Calc Pharmacy 54.1; Estimated Glomerular Filt Rate 52; Glucose Random 345 mg/dL (60-115); Magnesium 2.1 mg/dL (1.6-2.6); Potassium 4.2 mmol/L (3.3-5.1); Sodium 137 mmol/L (135-145); Total Protein 6.7 g/dL (6.5-8.0)
[2021-12-11 04:02] LABS: Acanthocytes 2+ (3-5) /OIF; Band Neutrophils Percent 3 % (3-5); Burr Cells 2+ (3-5) /OIF; Eosinophils Percent Manual 1 % (0-4); Lymphocytes Absolute Manual 1.8 X10*3/uL (1.2-4.9); Lymphocytes Percent Manual 43 % (20-40); Metamyelocytes Percent 1 %; Monocytes Absolute Manual 0.3 X10*3/uL (0.1-1.2); Monocytes Percent Manual 7 % (2-11); Neutrophils Absolute Manual 2.1 X10*3/uL (2.0-8.3); Neutrophils Percent Manual 45 % (45-73); Nucleated Red Blood Cells 3 /100WBC (0-0); Platelet Estimate SLIGHTLY DECREASED (NORMAL); Platelet Morphology Comment NORMAL; RBC Morphology NOTED
[2021-12-11 04:03] LABS: Smudge Cells PRESENT; Toxic Vacuolation PRESENT
[2021-12-11 04:12] LABS: TSH reflex Free T4 9.16 uIU/mL (0.32-4.0)
[2021-12-11] MEDS: 0.9 % Sodium Chloride 1,000 ML 999 ML IV ×2 (04:16→05:35)
[2021-12-11 04:45] LABS: Free T4 (Free Thyroxine) 0.65 ng/dL (0.71-1.85)
[2021-12-11 04:59] LABS: Appearance Urine HAZY; Color Urine YELLOW; Glucose Urine UA >=1000 MG/DL (NEG); Leukocyte Esterase Urine NEG (NEG); Nitrite Urine NEG (NEG); Specific Gravity - Urine >= 1.030 (1.005-1.025); UACC Culture Trigger NO; Urine Blood 3+ (NEG); Urine Ketones 5 MG/DL (NEG); Urine Protein 1+ MG/DL (NEG-TRACE)
[2021-12-11 05:04] LABS: Mucus Urine 2+ /LPF; Squamous Epithelial Cell Urine 2+ /LPF
[2021-12-11 05:05] LABS: WBC Urine 0 /HPF (0-4)
[2021-12-11 05:13] LABS: Amphetamine Screen Urine Not Detected (Not Detect); Barbiturates, Urine Not Detected (Not Detect); Benzodiazepines Screen Urine Not Detected (Not Detect); Cannabinoid Screen Urine Not Detected (Not Detect); Cocaine Screen Urine Not Detected (Not Detect); Fentanyl, urine Not Detected (Not Detect); Opiate Screen Urine Not Detected (Not Detect); Phencyclidine Screen Urine Not Detected (Not Detect)
--- NOTE | 2021-12-11 05:22 | PC.NURSE ---
This RN assumed care upon patient arrival at 214. Patient unresponsive, being bagged at that time. At 222, patient had seizure, nonrebreather applied at 15L given 4mg IM Ativan at 225. Armstrong inserted at 232. 22g IV in right index finger. At the time of writing this note, patient received 3L of NS. Sister at bedside. Medicated per DEC.
[2021-12-11 05:33] LABS: Reflex Lactate? Lactic Acid Added
[2021-12-11] MEDS: Phenylephrine HCL 10 MG/ML VIAL IVPUSH (05:54)
[2021-12-11] MEDS: Levothyroxine Sodium 100 MCG/5 ML VIAL 200 MCG IVPUSH ×2 (06:11→08:06)
[2021-12-11 06:29] LABS: Anion Gap 11 (12-20); Blood Urea Nitrogen 29 mg/dL (9-16); Calcium 7.5 mg/dL (8.4-10.2); Carbon Dioxide 22 mmol/L (22-29); Chloride 108 mmol/L (96-108); Estimated Glomerular Filt Rate > 60; Glucose Random 307 mg/dL (60-115); Sodium 137 mmol/L (135-145)
--- NOTE | 2021-12-11 06:35 | HE.PHANOTE ---
Addendum entered by Delroy Davis RPh 12/11/21 08:02: Discussed with Dr Moore and Stacey in ICU. Dose changed to 200mcg for total dose of 400mcg Original Note: RE LEVOTHYROXINE DOSE Called ICU environmental permitting specialist Manjit recommending total loading dose of 200-400mcg for myxedema coma. Patient received 200 mcg in ED already. Per Manjit, he wants total dose of 500 mcg due to severe presentation. Thanks Delroy Davis
--- NOTE | 2021-12-11 06:41 | P.HPCC_ITS ---
History of Present Illness Date of Service: 12/11/21 Attending physician on admission: Francisco Moore Chief Complaint: Encephalopathy, seizures, myxedema, LYNNE HPI: ?71-year-old female with underlying history of hypertension, diabetes, iron deficiency, vitamin-D deficiency, hyperlipidemia, hypothyroid, dementia, obesity, syncopal episodes, vitamin B12 deficiency; diagnosed with COVID-19 infection on November 17. Patient was found unresponsive by family members, last seen well around 11 30 last night.? Patient was given respiratory support via Ambu bagged by EMS even though her O2 sat was in the 90s.? It was reported family suspect the patient might have had a seizure. ?Given her intermittent staring episodes but no reported tonic-clonic activity was noted by them. ?In the ER the patient did have a seizure and she was given 4 mg Ativan x1 and Keppra. ?Her workup reveal overall stable vital signs however the patient was significantly hypothermic with Armstrong catheter temperature of 85.6.? Rectal temperature could not be obtained. Laboratory data showed a white count 4.3, H&H of 11.8 and 39.1 respectively, platelets 147, the CBC differential does show 3% band neutrophils, Smudge Cells and Toxic Vacuolation. Blood gas shows pH of 7.24 with pCO2 41, HC03 of 18.? Chemistry shows no electrolyte abnormality however there is a BUN of 29 creatinine 0.84, glucose 313, lactic acid 8.7, normal anion gap and there is no acetone noted.? Ammonia 44. ?TSH 9.16 with a free T4 of 0.65. Apparently patient got treated with 2.5 L of IV fluids, at even, initial dose of 200 mg of IV levothyroxine. ?So far no antibiotics were given as there is no evidence of underlying infection unless it is an occult process; patient's blood pressure is stable. ROS:? Unable to obtain Past Medical History:? As above Past Surgical History: Ankle surgery Left hip cee arthroplasty Total abdominal hysterectomy and salpingo-oophorectomy Family history:? Noncontributory Social History:? unknown, code is full. CODE STATUS: FULL CODE Allergies: NKDA Home Medications: See Med Rec PHYSICAL EXAM: VS: ?Blood pressure 161/68, heart rate 49, respirations 10, O2 sat 100% on an aerosol mask, temperature 86.5 General:? Alert unable to determine orientation. ?Following minor basic commands Skin:? Intact, no lesions, edema, erythema, clubbing or cyanosis.? No ulcers. HEENT:? Head is normocephalic, atraumatic, pupils equal round reactive to light accommodation bilaterally.? Extraocular movements appear intact.? Buccal mucosa is dry, Neck is supple without lymphadenopathy. Cardiac:? bradycardic, Clear S1-S2, no murmurs rubs or gallops. Pulmonary:? Clear to auscultation, no wheezes, rales or rhonchi. Abdomen:? Protuberant, positive bowel sounds in all 4 quadrants.? Soft, nontender, no rebound or guarding.? Musculoskeletal:? Moving all 4 extremities upon request a major joints, there is no crepitus or tenderness.? The strength is 5/5 bilaterally and throughout all 4 extremities.? There is no leg edema , no calf tenderness , no leg asymmetry.? Gait not assessed at this point. Neurologic:? As above, otherwise nonfocal Vascular:? 2+ pulses upper and lower extremities distally. SIGNIFICANT LABORATORY DATA:? As above REVIEW OF IMAGES: ? Chest x-ray no acute findings Head CT FINDINGS: There is no evidence of acute intracranial hemorrhage or territorial infarction. No abnormal mass effect or midline shift is seen. Hansen to white matter differentiation is well preserved. No extra-axial fluid collections are identified. Mild generalized brain parenchymal volume loss. No disproportionate ventriculomegaly suggesting complicated hydrocephalus. Mild patchy subcortical and periventricular white matter low-attenuation changes redemonstrated, statistically related to chronic white matter small vessel ischemic disease. Old bilateral cerebellar infarcts. The osseous structures and soft tissues are normal. Secretions present within the bilateral maxillary sinuses. Mastoid air cells are clear. ? IMPRESSION: No acute intracranial pathology. No intracranial mass. Chronic findings as above. EKG REVIEW: ?Sinus bradycardia with PVCs, 48 beats per minute, there is no ST elevations or depressions, my 9 ST segment changes in the anterior lateral leads are likely due to the bradycardia. ?QTC 484.? Left axis.? No comparison. ? ? ASSESSMENT AND PLAN: 1. Severe metabolic encephalopathy likely due to mixedema coma 2. Profound hypothyroidism likely myxedema coma 3. Seizure activity of unknown etiology, unlikely but possible related to myxedema, underlying infection ( so far no evidence of and drug related issues, hypocalcemia, hyponatremia, brain lesions, stroke or trauma) 4. Hypothermia 5. Bradycardia likely due to hypothermia 6. Suspected underlying occult infection and SIRS 7. Lactic acidosis likely due seizures, tissue hypoxia and all the above including mild renal failure, will R/o Sepsis and occult infection 8. Uncontrolled diabetes mellitus type 2 9. Hypoalbuminemia 10. Leukopenia and thrombocytopenia of unknown etiology rule out infectious process 11. Subacute COVID 19 infection without evidence of respiratory distress or compromise 12. Acute kidney injury with BUN to creatinine ratio of 35 13. Pseudo hypocalcemia with corrected calcium level of 8.86 14. Mild hypoalbuminemia Even though the patient is hemodynamically stable, she appears very ill and has multiple acute processes, the patient will be transferred to the ICU, seizure precautions, start IV thyroid, place her on a Radha Hugger and placement assistant warm fluid, monitor heart rate, will order CT of the chest to rule out underlying pneumonia particularly given the atelectasis noted on the left lung, repeat labs including lactic acid, insulin sliding scale. will make sure that the patient gets broad-spectrum antibiotics like vancomycin and Zosyn, will need a central line. Patient may need vasopressors as I suspect that her blood pressure will decrease quickly as she gets really warmed and her temperature increases GI PROPHYLAXIS:? IV ppi DVT PROPHYLAXIS:? Lovenox subQ Critical care time used for critical evaluation of this patient, diagnosis, treatment and coordination of care, review her records and documentation TOTAL CRITICAL CARE TIME 120 MIN . Patient's care was discussed in detail with Dr. Moore.? He is aware of all the above as well as the plan of care for this patient, will came in to place a central line and evaluate the patient. Chronic findings as above. [facility] Past Medical History Medical History Acquired hypothyroidism Benign essential hypertension Constipation Dementia Diabetes Diabetes mellitus GERD without esophagitis High cholesterol Hypertension Hypothyroidism Impacted cerumen of both ears Iron deficiency anemia Overweight (BMI 25.0-29.9) Pure hypercholesterolemia Syncope Vitamin B12 deficiency Vitamin D deficiency Family History Family History Father Diabetes Hypertension Mother Hypertension Stroke Surgical History Surgical History History of ankle surgery History of hemiarthroplasty of left hip S/P [id number] (total abdominal hysterectomy and bilateral salpingo-oophorectomy) Social History Social History Household Members: Family Housing: House Do you presently have visiting nurse or other home services: No Alcohol intake: never Patient Tobacco Use Status: Tobacco use Unknown Use of substances other than those prescribed or required for medical reasons: No Advance Directives: No Recently lost weight without trying: No Eating poorly because of decreased appetite: No Nutrition Risks: On aspiration precautions Patient : No : No Poor oral hygiene: No service: No Current occupational status: disabled [employer] Allergies Allergy/AdvReac Type Severity Reaction Status Date / Time No Known Allergies Allergy Verified 02/07/21 09:39 Active Medications: Current Medications Dextrose (Dextrose 50 % 25 Gm/50 Ml Syringe) 25 gm IVPUSH Q30M PRN PRN Reason: Nursing Actions in Insulin Infusion Protocol Dextrose (Dextrose 50 % 25 Gm/50 Ml Syringe) 25 gm IVPUSH Q15M PRN; Protocol PRN Reason: per Hypoglycemia Standing Ord. Enoxaparin Sodium (Enoxaparin Sodium 40 Mg/0.4 Ml Syringe) 40 mg SUBCUT DAILY ONE Stop: 12/11/21 09:01 Glucose (Glucose Gel 15 Gm Gel..Gram.) 15 gm PO Q15M PRN; Protocol PRN Reason: per Hypoglycemia Standing Ord. Sodium Chloride (Ns) 1,000 mls @ 999 mls/hr IV .Q1H1M GINA Stop: 12/11/21 06:45 Last Admin: 12/11/21 05:35 Dose: 999 mls/hr Documented by: Insulin Human Regular (Myxredlin) 100 unit in 100 mls @ 0 mls/hr IVCONT .Q0M GINA; Protocol Insulin Human Lispro (Insulin Lispro 100 Unit/Ml 3 Ml Vial) 0 unit SUBCUT Q6H [facility]; Protocol Pantoprazole Sodium (Pantoprazole Sodium 40 Mg/10 Ml Vial) 40 mg IVPUSH DAILY@0630 [facility] Home Medications Medication Instructions Recorded Confirmed Last Taken Type latanoprost 0.005 % eye drops 1 drp OPHTHALMIC (EYE) BEDTIME 10/25/20 12/11/21 10/25/20 History insulin detemir U-100 100 unit/mL 22 unit SUBCUT DAILY 11/15/21 12/11/21 Unknown History subcutaneous solution (Levemir U-100 Insulin) Physical Exam Vital Signs: Vital Signs: Last Vital Signs Temp 88.0 F L 12/11/21 05:47 Pulse 52 12/11/21 05:47 Resp 10 L 12/11/21 05:47 BP 90/44 L 12/11/21 05:47 Pulse Ox 96 12/11/21 05:47 BMI result Body Mass Index 30.7 Results Labs CBC and Chem 7: 12/11/21 15:25 12/11/21 09:05 Labs: Laboratory Results - last 24 hr 12/11/21 12/11/21 12/11/21 02:18 03:22 03:22 MCV 92.4 MCH 27.9 MCHC 30.2 L RDW 16.1 H Plt Count 147 L MPV 11.6 Immature Gran % (Auto) Cancelled Neut % (Auto) Cancelled Lymph % (Auto) Cancelled [place] % (Auto) Cancelled Eos % (Auto) Cancelled Baso % (Auto) Cancelled Lymph # (Auto) Cancelled [place] # (Auto) Cancelled Eos # (Auto) Cancelled Baso # (Auto) Cancelled Abs Immat Gran (auto) Cancelled Absolute Neuts (auto) Cancelled Absolute Nucleated RBC 0.040 H Nucleated RBC % (auto) 0.9 H Neutrophils % (Manual) 45 Band Neutrophils % 3 Lymphocytes % (Manual) 43 H Monocytes % (Manual) 7 Eosinophils % (Manual) 1 Metamyelocytes % 1 Abs Neuts (Manual) 2.1 Lymphocytes # (Manual) 1.8 Monocytes # (Manual) 0.3 Nucleated RBCs 3 H Smudge Cells PRESENT Toxic Vacuolation PRESENT Platelet Estimate SLIGHTLY DECREASED Plt Morphology Comment NORMAL RBC Morphology NOTED [place] Cells 2+ (3-5) Acanthocytes (Spur) 2+ (3-5) PT 10.3 INR 0.9 VBG pH VBG pCO2 VBG pO2 VBG HCO3 VBG O2 Saturation VBG Base Excess Anion Gap Estim Creat Clear Calc Estimated GFR POC Glucose 313 H Random Glucose Lactic Acid Calcium Magnesium Total Bilirubin Direct Bilirubin AST ALT Alkaline Phosphatase Ammonia Total Creatine Kinase Total Protein Albumin TSH Free T4 Urine Color Urine Appearance Urine pH Ur Specific [place] Urine Protein Urine Glucose (UA) Urine Ketones Urine Blood Urine Nitrite Ur Leukocyte Esterase Urine RBC Urine WBC Ur Squamous Epith Cells Urine Bacteria Urine Mucus Urine Opiates Screen Urine Fentanyl Screen Ur Barbiturates Screen Ur Phencyclidine Scrn Ur Amphetamines Screen U Benzodiazepines Scrn Urine Cocaine Screen U Marijuana (THC) Screen Ethyl Alcohol Acetone, Qual COVID-19 (TAMARA) COVID-19 [facility] 12/11/21 12/11/21 12/11/21 03:22 03:22 03:22 MCV MCH MCHC RDW Plt Count MPV Immature Gran % (Auto) Neut % (Auto) Lymph % (Auto) [place] % (Auto) Eos % (Auto) Baso % (Auto) Lymph # (Auto) [place] # (Auto) Eos # (Auto) Baso # (Auto) Abs Immat Gran (auto) Absolute Neuts (auto) Absolute Nucleated RBC Nucleated RBC % (auto) Neutrophils % (Manual) Band Neutrophils % Lymphocytes % (Manual) Monocytes % (Manual) Eosinophils % (Manual) Metamyelocytes % Abs Neuts (Manual) Lymphocytes # (Manual) Monocytes # (Manual) Nucleated RBCs Smudge Cells Toxic Vacuolation Platelet Estimate Plt Morphology Comment RBC Morphology [place] Cells Acanthocytes (Spur) PT INR VBG pH VBG pCO2 VBG pO2 VBG HCO3 VBG O2 Saturation VBG Base Excess Anion Gap 18 Estim Creat Clear Calc 54.1 Estimated GFR 52 POC Glucose Random Glucose 345 H Lactic Acid Calcium 8.5 Magnesium 2.1 Total Bilirubin < 0.2 Direct Bilirubin < 0.2 AST 50 H D ALT 66 H Alkaline Phosphatase 255 H D Ammonia 44 Total Creatine Kinase Total Protein 6.7 Albumin 3.3 L TSH 9.16 H Free T4 0.65 L Urine Color Urine Appearance Urine pH Ur Specific [place] Urine Protein Urine Glucose (UA) Urine Ketones Urine Blood Urine Nitrite Ur Leukocyte Esterase Urine RBC Urine WBC Ur Squamous Epith Cells Urine Bacteria Urine Mucus Urine Opiates Screen Urine Fentanyl Screen Ur Barbiturates Screen Ur Phencyclidine Scrn Ur Amphetamines Screen U Benzodiazepines Scrn Urine Cocaine Screen U Marijuana (THC) Screen Ethyl Alcohol < 10 Acetone, Qual COVID-19 (TAMARA) COVID-19 [place] Com 12/11/21 12/11/21 12/11/21 03:22 03:32 03:33 MCV MCH MCHC RDW Plt Count MPV Immature Gran % (Auto) Neut % (Auto) Lymph % (Auto) [place] % (Auto) Eos % (Auto) Baso % (Auto) Lymph # (Auto) [place] # (Auto) Eos # (Auto) Baso # (Auto) Abs Immat Gran (auto) Absolute Neuts (auto) Absolute Nucleated RBC Nucleated RBC % (auto) Neutrophils % (Manual) Band Neutrophils % Lymphocytes % (Manual) Monocytes % (Manual) Eosinophils % (Manual) Metamyelocytes % Abs Neuts (Manual) Lymphocytes # (Manual) Monocytes # (Manual) Nucleated RBCs Smudge Cells Toxic Vacuolation Platelet Estimate Plt Morphology Comment RBC Morphology [place] Cells Acanthocytes (Spur) PT INR VBG pH VBG pCO2 VBG pO2 VBG HCO3 VBG O2 Saturation VBG Base Excess Anion Gap Estim Creat Clear Calc Estimated GFR POC Glucose Random Glucose Lactic Acid 8.7 H* Calcium Magnesium Total Bilirubin Direct Bilirubin AST ALT Alkaline Phosphatase Ammonia Total Creatine Kinase 198 H D Total Protein Albumin TSH Free T4 Urine Color Urine Appearance Urine pH Ur Specific [place] Urine Protein Urine Glucose (UA) Urine Ketones Urine Blood Urine Nitrite Ur Leukocyte Esterase Urine RBC Urine WBC Ur Squamous Epith Cells Urine Bacteria Urine Mucus Urine Opiates Screen Urine Fentanyl Screen Ur Barbiturates Screen Ur Phencyclidine Scrn Ur Amphetamines Screen U Benzodiazepines Scrn Urine Cocaine Screen U Marijuana (THC) Screen Ethyl Alcohol Acetone, Qual Negative COVID-19 (TAMARA) Positive A COVID-19 Clin Com See Note 12/11/21 12/11/21 12/11/21 03:33 04:53 04:53 MCV MCH MCHC RDW Plt Count MPV Immature Gran % (Auto) Neut % (Auto) Lymph % (Auto) [place] % (Auto) Eos % (Auto) Baso % (Auto) Lymph # (Auto) [place] # (Auto) Eos # (Auto) Baso # (Auto) Abs Immat Gran (auto) Absolute Neuts (auto) Absolute Nucleated RBC Nucleated RBC % (auto) Neutrophils % (Manual) Band Neutrophils % Lymphocytes % (Manual) Monocytes % (Manual) Eosinophils % (Manual) Metamyelocytes % Abs Neuts (Manual) Lymphocytes # (Manual) Monocytes # (Manual) Nucleated RBCs Smudge Cells Toxic Vacuolation Platelet Estimate Plt Morphology Comment RBC Morphology [place] Cells Acanthocytes (Spur) PT INR VBG pH 7.24 L VBG pCO2 41 VBG pO2 123 VBG HCO3 18 L VBG O2 Saturation 97.0 VBG Base Excess -8.7 Anion Gap Estim Creat Clear Calc Estimated GFR POC Glucose Random Glucose Lactic Acid Calcium Magnesium Total Bilirubin Direct Bilirubin AST ALT Alkaline Phosphatase Ammonia Total Creatine Kinase Total Protein Albumin TSH Free T4 Urine Color YELLOW Urine Appearance HAZY Urine pH 5.0 Ur Specific [place] >= 1.030 H Urine Protein 1+ H Urine Glucose (UA) >=1000 H Urine Ketones 5 Urine Blood 3+ H Urine Nitrite NEG Ur Leukocyte Esterase NEG Urine RBC 5-9 H Urine WBC 0 Ur Squamous Epith Cells 2+ Urine Bacteria NONE Urine Mucus 2+ Urine Opiates Screen Not Detected Urine Fentanyl Screen Not Detected Ur Barbiturates Screen Not Detected Ur Phencyclidine Scrn Not Detected Ur Amphetamines Screen Not Detected U Benzodiazepines Scrn Not Detected Urine Cocaine Screen Not Detected U Marijuana (THC) Screen Not Detected Ethyl Alcohol Acetone, Qual COVID-19 (TAMARA) COVID-19 [place] Com 12/11/21 12/11/21 06:07 06:07 MCV MCH MCHC RDW Plt Count MPV Immature Gran % (Auto) Neut % (Auto) Lymph % (Auto) [place] % (Auto) Eos % (Auto) Baso % (Auto) Lymph # (Auto) [place] # (Auto) Eos # (Auto) Baso # (Auto) Abs Immat Gran (auto) Absolute Neuts (auto) Absolute Nucleated RBC Nucleated RBC % (auto) Neutrophils % (Manual) Band Neutrophils % Lymphocytes % (Manual) Monocytes % (Manual) Eosinophils % (Manual) Metamyelocytes % Abs Neuts (Manual) Lymphocytes # (Manual) Monocytes # (Manual) Nucleated RBCs Smudge Cells Toxic Vacuolation Platelet Estimate Plt Morphology Comment RBC Morphology [place] Cells Acanthocytes (Spur) PT INR VBG pH VBG pCO2 VBG pO2 VBG HCO3 VBG O2 Saturation VBG Base Excess Anion Gap 11 L Estim Creat Clear Calc 67.0 Estimated GFR > 60 POC Glucose Random Glucose 307 H Lactic Acid 4.0 H* Calcium 7.5 L D Magnesium Total Bilirubin Direct Bilirubin AST ALT Alkaline Phosphatase Ammonia Total Creatine Kinase Total Protein Albumin TSH Free T4 Urine Color Urine Appearance Urine pH Ur Specific [place] Urine Protein Urine Glucose (UA) Urine Ketones Urine Blood Urine Nitrite Ur Leukocyte Esterase Urine RBC Urine WBC Ur Squamous Epith Cells Urine Bacteria Urine Mucus Urine Opiates Screen Urine Fentanyl Screen Ur Barbiturates Screen Ur Phencyclidine Scrn Ur Amphetamines Screen U Benzodiazepines Scrn Urine Cocaine Screen U Marijuana (THC) Screen Ethyl Alcohol Acetone, Qual COVID-19 (TAMARA) COVID-19 Clin Com Imaging Radiologist's Impressions: Impressions Chest X-Ray 12/11/21 04:20 IMPRESSION: No acute findings. Head CT 12/11/21 04:40
[2021-12-11 07:45] LABS: Glucose, Whole Blood 264 mg/dL (60-115)
[2021-12-11] MEDS: Insulin Lispro 100 UNIT/ML 3 ML VIAL SUBCUT (07:55)
[2021-12-11] MEDS: Pantoprazole Sodium 40 MG/10 ML VIAL IVPUSH ×2 (07:55→07:56)
[2021-12-11] MEDS: Piperacillin Sodium/Tazobactam 4.5 GM in 0.9 % Sodium Chloride 100 ML IV ×3 (08:06→21:03)
[2021-12-11 08:10] LABS: Reflex Lactate? Lactic Acid Added
[2021-12-11] MEDS: vancomycin HCL 1,250 MG in 0.9 % Sodium Chloride 250 ML 166.67 MG IV (08:45)
[2021-12-11] MEDS: Enoxaparin Sodium 40 MG/0.4 ML SYRINGE SUBCUT (08:46)
--- NOTE | 2021-12-11 09:06 | W.PM.CCHP ---
Procedures Date of Service Date of Service: 12/11/21 Central Line Placement Left SC: Central Line Comments: PROCEDURE:? Insertion left subclavian central venous line. INDICATION:? Shock, lack of IV adequate access. ANESTHESIA:? Local. PROCEDURE:? Vascular ultrasound was used to examine the left side.? A medium sized compressible infraclavic left subclavian vein was noted.? Vascular ultrasound in the supraclavic fossa failed to find an adequate vein. The left subclavian, supraclavicular, and left neck areas were widely prepped and draped in full sterile fashion.?? The infraclavic subclavian vein was located by US.? Local anesthesia was applied to the entrance site with the US probe oriented longitudinally.? Cannulation of the vein was attempted 4 times under direct ultrasound guidance.? Despite the needle seeming to enter the vein, no blood was aspirated.? That approach was abandoned.? Local anesthesia was applied to the more medial and cranial traditional non-ultrasound guided entrance site for subclavian cannulation.? The subclavian vein was cannulated on the 1st pass of the 18 gauge thin wall.? The wire was threaded without incident.? A 7 [place] by 20 cm triple-lumen catheter was advanced into the vein up to about 18 cm via the Seldinger technique without incident.? There was good blood return x3.? The catheter was sutured x3 and a Biopatch and dry sterile dressing were applied. Postop chest x-ray showed the line in perfect position with no pneumothorax.? The patient tolerated the procedure well w no complications. Consent for Procedure: Emergent-no informed consent obtained
[2021-12-11 09:13] LABS: VBG Base Excess -3.7 mmol/L; VBG HCO3 22 mmol/L (22-26); VBG pCO2 47 mmHg; VBG pH 7.28 (7.32-7.43); VBG pO2 49 mmHg
--- NOTE | 2021-12-11 09:22 | PHA.PROG ---
Admission Date/Time: December 11, 2021 05:51 Indication: Bacteremia Weight in k.74 kg Adjusted body weight in Kg: [place] body weight in Kg: Obesity Dosing Indication % IBW: Serum Creatinine - Last 168 Hours 12/11/21 12/11/21 03:22 06:07 Creatinine 1.04 0.84 Estimated CrCl and GFR - Last 168 Hours 12/11/21 12/11/21 03:22 06:07 Estim Creat Clear Calc 54.1 67.0 Estimated GFR 52 > 60 Vancomycin Loading Dose: 1250 mg x 1 Current Vancomycin Dosing Regimen: 1250 mg q24h Vancomycin Monitoring using AUC goal of 400 - 600 range with trough as surrogate marker: Predicted AUC of 488 and Trough of 12.6 with a 8% toxicity. Date and Time for next Vancomycin Level to be drawn: 12/13 @ 0700 Pharmacist Comments on Vancomycin Plan: Patients renal function is good, will continue to monitor the trend. Based on AUC model, Patient will be within goal after 36 hours. Vancomycin dosing will take advantage of [employer] as a clinical decision support tool that uses Bayesian modeling to calculate individual patient's pharmacokinetic parameters and forecast the patient's drug concentration time course with the target goal AUC 24 range of 400 - 600 mg/L/hr.
[2021-12-11 09:47] LABS: Mean Corpuscular HGB Conc 30.8 g/dl (31.0-35.0); Mean Corpuscular Hemoglobin 27.9 pg (27.0-33.0); Mean Corpuscular Volume 90.5 fL (80.0-98.0); Mean Platelet Volume 12.8 fL (9.4-12.3); NRBC Pct Auto 0.6 /100WBC (0.0-0.2); Platelet Count 115 X10*3/uL (160-400); Red Blood Count 3.05 X10*6/uL (4.20-5.50); Red Cell Distribution Width 15.9 % (11.0-16.0); White Blood Count 3.1 X10*3/uL (4.8-10.8)
[2021-12-11 09:57] LABS: Anion Gap 7 (12-20); Blood Urea Nitrogen 27 mg/dL (9-16); Calcium 6.9 mg/dL (8.4-10.2); Carbon Dioxide 25 mmol/L (22-29); Chloride 111 mmol/L (96-108); Creatinine Clr Calc Pharmacy 74.7; Estimated Glomerular Filt Rate > 60; Glucose Random 257 mg/dL (60-115); Potassium 3.9 mmol/L (3.3-5.1); Sodium 139 mmol/L (135-145)
[2021-12-11 10:04] LABS: Hematocrit 27.6 % (37.0-47.0); Hemoglobin 8.5 g/dl (12.0-16.0)
--- NOTE | 2021-12-11 10:50 | HE.PHANOTE ---
Verified patient weight with ICU nurse on 12/11/21. Patient weight reported as 85.74kg, which was used for all weight base medications.
[2021-12-11] MEDS: Atropine Sulfate 1 MG/10 ML SYRINGE 0.5 MG IVPUSH ×2 (10:55→11:02)
[2021-12-11 11:19] LABS: Cancel Lactic Acid Canceled
[2021-12-11] MEDS: DOPamine HCL/D5W 400 MG/250 ML PLAST..BAG 16.08 MG IVCONT (11:22)
[2021-12-11 12:37] LABS: Glucose, Whole Blood 131 mg/dL (60-115)
--- NOTE | 2021-12-11 12:45 | P.PNCC_ITS ---
Subjective Subjective Date of Service: 12/11/21 Interval History: Mrs. Preciado was admitted to ICU this morning with seizures, hypothermia, hypothyroidism, and neutropenia. Etiology of seizures not clear.? She was treated with Ativan and Keppra in the ED. Etiology of the hypothermia not clear.? She is definitely hypothyroid, and has a history of hypothyroidism for which she is on Synthroid.? She is also neutropenic. We?ve treated her with intravenous thyroid.? We did blood cultures and started her on empiric antibiotics, pending cultures. In the ICU, HR was 50s, she was hypotensive in the 60s, Temp in the high 80?s.? She is breathing easy on room air, Sat 98%.? Unresponsive.? Grimaces to pain.? Occ moves her extrem spontaneously. My bedside ECHO:? ECHOCARDIOGRAM for hemodynamic monitoring:? Image quality:? Good.? Findings: 1. At least mild LVH, indra the septum. 2. LV cavity size is normal, with normal contractility and no RWMA.? EF at least 60-70%. 3. RV normal size and fxn. 4. Normal AV with no AI. 5. Normal MV, w trace MR by color garth. 6. Normal TV, with trace TR by color garth.? No CWD jet 7. IVC about 1.6cm, with minimal insp collapse.? Estimated CVP therefore 10cm.? RVSP indeterminate. HR no response to atropine.? Started dopamine, and got her HR above 80, but BP still low, so added Levophed. By 2pm, temp up to 96.8.? She?s on Dopam 7.5ug, and Levophed 0.5ug.? Last BP 127/49. EEG is done, results pending.? For now my plan is MRI tomorrow if she doesn?t wake up.? (She could be postictal now, +/- effects of the Ativan.? Examined her at the bedside w Dr. Flower. Critical care time:? 45 min. Critical Care Time (minutes): 45 Physical Exam Vital Signs: Vital Signs: Last Vital Signs Temp 94.1 F L 12/11/21 12:00 Pulse 77 12/11/21 12:00 Resp 10 L 12/11/21 12:00 BP 147/65 H 12/11/21 12:43 Pulse Ox 98 02/16/22 12:00 BMI result Body Mass Index 30.4 Objective Data Labs CBC & Chem 7: 12/11/21 09:05 12/11/21 09:05 Labs: Laboratory Results - last 24 hr 12/11/21 12/11/21 12/11/21 02:18 03:22 03:22 WBC 4.3 L RBC 4.23 Hgb 11.8 L Hct 39.1 MCV 92.4 MCH 27.9 MCHC 30.2 L RDW 16.1 H Plt Count 147 L MPV 11.6 Immature Gran % (Auto) Cancelled Neut % (Auto) Cancelled Lymph % (Auto) Cancelled Roberts % (Auto) Cancelled Eos % (Auto) Cancelled Baso % (Auto) Cancelled Lymph # (Auto) Cancelled Roberts # (Auto) Cancelled Eos # (Auto) Cancelled Baso # (Auto) Cancelled Abs Immat Gran (auto) Cancelled Absolute Neuts (auto) Cancelled Absolute Nucleated RBC 0.040 H Nucleated RBC % (auto) 0.9 H Neutrophils % (Manual) 45 Band Neutrophils % 3 Lymphocytes % (Manual) 43 H Monocytes % (Manual) 7 Eosinophils % (Manual) 1 Metamyelocytes % 1 Abs Neuts (Manual) 2.1 Lymphocytes # (Manual) 1.8 Monocytes # (Manual) 0.3 Nucleated RBCs 3 H Smudge Cells PRESENT Toxic Vacuolation PRESENT Platelet Estimate SLIGHTLY DECREASED Plt Morphology Comment NORMAL RBC Morphology NOTED Warner Cells 2+ (3-5) Acanthocytes (Spur) 2+ (3-5) PT 10.3 INR 0.9 VBG pH VBG pCO2 VBG pO2 VBG HCO3 VBG O2 Saturation VBG Base Excess Sodium Potassium Chloride Carbon Dioxide Anion Gap BUN Creatinine Estim Creat Clear Calc Estimated GFR POC Glucose 313 H Random Glucose Lactic Acid Lactic Acid F/U @ 2Hr Calcium Magnesium Total Bilirubin Direct Bilirubin AST ALT Alkaline Phosphatase Ammonia Total Creatine Kinase Troponin I High Sens Total Protein Albumin TSH Free T4 Urine Color Urine Appearance Urine pH Ur Specific [place] Urine Protein Urine Glucose (UA) Urine Ketones Urine Blood Urine Nitrite Ur Leukocyte Esterase Urine RBC Urine WBC Ur Squamous Epith Cells Urine Bacteria Urine Mucus Ur Random Sodium Urine Opiates Screen Urine Fentanyl Screen Ur Barbiturates Screen Ur Phencyclidine Scrn Ur Amphetamines Screen U Benzodiazepines Scrn Urine Cocaine Screen U Marijuana (THC) Screen Ethyl Alcohol Acetone, Qual COVID-19 (TAMARA) COVID-19 Innovacene 12/11/21 12/11/21 12/11/21 03:22 03:22 03:22 WBC RBC Hgb Hct MCV MCH MCHC RDW Plt Count MPV Immature Gran % (Auto) Neut % (Auto) Lymph % (Auto) Roberts % (Auto) Eos % (Auto) Baso % (Auto) Lymph # (Auto) Roberts # (Auto) Eos # (Auto) Baso # (Auto) Abs Immat Gran (auto) Absolute Neuts (auto) Absolute Nucleated RBC Nucleated RBC % (auto) Neutrophils % (Manual) Band Neutrophils % Lymphocytes % (Manual) Monocytes % (Manual) Eosinophils % (Manual) Metamyelocytes % Abs Neuts (Manual) Lymphocytes # (Manual) Monocytes # (Manual) Nucleated RBCs Smudge Cells Toxic Vacuolation Platelet Estimate Plt Morphology Comment RBC Morphology [place] Cells Acanthocytes (Spur) PT INR VBG pH VBG pCO2 VBG pO2 VBG HCO3 VBG O2 Saturation VBG Base Excess Sodium 137 Potassium 4.2 Chloride 102 Carbon Dioxide 21 L Anion Gap 18 BUN 31 H D Creatinine 1.04 Estim Creat Clear Calc 54.1 Estimated GFR 52 POC Glucose Random Glucose 345 H Lactic Acid Lactic Acid F/U @ 2Hr Calcium 8.5 Magnesium 2.1 Total Bilirubin < 0.2 Direct Bilirubin < 0.2 AST 50 H D ALT 66 H Alkaline Phosphatase 255 H D Ammonia 44 Total Creatine Kinase Troponin I High Sens < 3.5 Total Protein 6.7 Albumin 3.3 L TSH 9.16 H Free T4 0.65 L Urine Color Urine Appearance Urine pH Ur Specific [place] Urine Protein Urine Glucose (UA) Urine Ketones Urine Blood Urine Nitrite Ur Leukocyte Esterase Urine RBC Urine WBC Ur Squamous Epith Cells Urine Bacteria Urine Mucus Ur Random Sodium Urine Opiates Screen Urine Fentanyl Screen Ur Barbiturates Screen Ur Phencyclidine Scrn Ur Amphetamines Screen U Benzodiazepines Scrn Urine Cocaine Screen U Marijuana (THC) Screen Ethyl Alcohol Acetone, Qual COVID-19 (TAMARA) COVID-19 Innovacene 12/11/21 12/11/21 02 03:22 03:22 03:32 WBC RBC Hgb Hct MCV MCH MCHC RDW Plt Count MPV Immature Gran % (Auto) Neut % (Auto) Lymph % (Auto) Roberts % (Auto) Eos % (Auto) Baso % (Auto) Lymph # (Auto) Roberts # (Auto) Eos # (Auto) Baso # (Auto) Abs Immat Gran (auto) Absolute Neuts (auto) Absolute Nucleated RBC Nucleated RBC % (auto) Neutrophils % (Manual) Band Neutrophils % Lymphocytes % (Manual) Monocytes % (Manual) Eosinophils % (Manual) Metamyelocytes % Abs Neuts (Manual) Lymphocytes # (Manual) Monocytes # (Manual) Nucleated RBCs Smudge Cells Toxic Vacuolation Platelet Estimate Plt Morphology Comment RBC Morphology [place] Cells Acanthocytes (Spur) PT INR VBG pH VBG pCO2 VBG pO2 VBG HCO3 VBG O2 Saturation VBG Base Excess Sodium Potassium Chloride Carbon Dioxide Anion Gap BUN Creatinine Estim Creat Clear Calc Estimated GFR POC Glucose Random Glucose Lactic Acid Lactic Acid F/U @ 2Hr Calcium Magnesium Total Bilirubin Direct Bilirubin AST ALT Alkaline Phosphatase Ammonia Total Creatine Kinase 198 H D Troponin I High Sens Total Protein Albumin TSH Free T4 Urine Color Urine Appearance Urine pH Ur Specific [place] Urine Protein Urine Glucose (UA) Urine Ketones Urine Blood Urine Nitrite Ur Leukocyte Esterase Urine RBC Urine WBC Ur Squamous Epith Cells Urine Bacteria Urine Mucus Ur Random Sodium Urine Opiates Screen Urine Fentanyl Screen Ur Barbiturates Screen Ur Phencyclidine Scrn Ur Amphetamines Screen U Benzodiazepines Scrn Urine Cocaine Screen U Marijuana (THC) Screen Ethyl Alcohol < 10 Acetone, Qual Negative COVID-19 (TAMARA) Positive A COVID-19 Clin Com See Note 12/11/21 12/11/21 12/11/21 03:33 03:33 04:53 WBC RBC Hgb Hct MCV MCH MCHC RDW Plt Count MPV Immature Gran % (Auto) Neut % (Auto) Lymph % (Auto) Roberts % (Auto) Eos % (Auto) Baso % (Auto) Lymph # (Auto) Roberts # (Auto) Eos # (Auto) Baso # (Auto) Abs Immat Gran (auto) Absolute Neuts (auto) Absolute Nucleated RBC Nucleated RBC % (auto) Neutrophils % (Manual) Band Neutrophils % Lymphocytes % (Manual) Monocytes % (Manual) Eosinophils % (Manual) Metamyelocytes % Abs Neuts (Manual) Lymphocytes # (Manual) Monocytes # (Manual) Nucleated RBCs Smudge Cells Toxic Vacuolation Platelet Estimate Plt Morphology Comment RBC Morphology [place] Cells Acanthocytes (Spur) PT INR VBG pH 7.24 L VBG pCO2 41 VBG pO2 123 VBG HCO3 18 L VBG O2 Saturation 97.0 VBG Base Excess -8.7 Sodium Potassium Chloride Carbon Dioxide Anion Gap BUN Creatinine Estim Creat Clear Calc Estimated GFR POC Glucose Random Glucose Lactic Acid 8.7 H* Lactic Acid F/U @ 2Hr Calcium Magnesium Total Bilirubin Direct Bilirubin AST ALT Alkaline Phosphatase Ammonia Total Creatine Kinase Troponin I High Sens Total Protein Albumin TSH Free T4 Urine Color YELLOW Urine Appearance HAZY Urine pH 5.0 Ur Specific [place] >= 1.030 H Urine Protein 1+ H Urine Glucose (UA) >=1000 H Urine Ketones 5 Urine Blood 3+ H Urine Nitrite NEG Ur Leukocyte Esterase NEG Urine RBC 5-9 H Urine WBC 0 Ur Squamous Epith Cells 2+ Urine Bacteria NONE Urine Mucus 2+ Ur Random Sodium Urine Opiates Screen Urine Fentanyl Screen Ur Barbiturates Screen Ur Phencyclidine Scrn Ur Amphetamines Screen U Benzodiazepines Scrn Urine Cocaine Screen U Marijuana (THC) Screen Ethyl Alcohol Acetone, Qual COVID-19 (TAMARA) COVID-19 Clin Com 12/11/21 12/11/21 12/11/21 04:53 06:07 06:07 WBC RBC Hgb Hct MCV MCH MCHC RDW Plt Count MPV Immature Gran % (Auto) Neut % (Auto) Lymph % (Auto) Roberts % (Auto) Eos % (Auto) Baso % (Auto) Lymph # (Auto) Roberts # (Auto) Eos # (Auto) Baso # (Auto) Abs Immat Gran (auto) Absolute Neuts (auto) Absolute Nucleated RBC Nucleated RBC % (auto) Neutrophils % (Manual) Band Neutrophils % Lymphocytes % (Manual) Monocytes % (Manual) Eosinophils % (Manual) Metamyelocytes % Abs Neuts (Manual) Lymphocytes # (Manual) Monocytes # (Manual) Nucleated RBCs Smudge Cells Toxic Vacuolation Platelet Estimate Plt Morphology Comment RBC Morphology [place] Cells Acanthocytes (Spur) PT INR VBG pH VBG pCO2 VBG pO2 VBG HCO3 VBG O2 Saturation VBG Base Excess Sodium 137 Potassium 4.0 Chloride 108 Carbon Dioxide 22 Anion Gap 11 L BUN 29 H Creatinine 0.84 Estim Creat Clear Calc 67.0 Estimated GFR > 60 POC Glucose Random Glucose 307 H Lactic Acid 4.0 H* Lactic Acid F/U @ 2Hr Calcium 7.5 L D Magnesium Total Bilirubin Direct Bilirubin AST ALT Alkaline Phosphatase Ammonia Total Creatine Kinase Troponin I High Sens Total Protein Albumin TSH Free T4 Urine Color Urine Appearance Urine pH Ur Specific [place] Urine Protein Urine Glucose (UA) Urine Ketones Urine Blood Urine Nitrite Ur Leukocyte Esterase Urine RBC Urine WBC Ur Squamous Epith Cells Urine Bacteria Urine Mucus Ur Random Sodium Urine Opiates Screen Not Detected Urine Fentanyl Screen Not Detected Ur Barbiturates Screen Not Detected Ur Phencyclidine Scrn Not Detected Ur Amphetamines Screen Not Detected U Benzodiazepines Scrn Not Detected Urine Cocaine Screen Not Detected U Marijuana (THC) Screen Not Detected Ethyl Alcohol Acetone, Qual COVID-19 (TAMARA) COVID-19 Clin Com 12/11/21 12/11/21 12/11/21 07:40 09:05 09:05 WBC 3.1 L RBC 3.05 L D Hgb 8.5 L D Hct 27.6 L D MCV 90.5 MCH 27.9 MCHC 30.8 L RDW 15.9 Plt Count 115 L MPV 12.8 H Immature Gran % (Auto) Neut % (Auto) Lymph % (Auto) Roberts % (Auto) Eos % (Auto) Baso % (Auto) Lymph # (Auto) Roberts # (Auto) Eos # (Auto) Baso # (Auto) Abs Immat Gran (auto) Absolute Neuts (auto) Absolute Nucleated RBC 0.020 H Nucleated RBC % (auto) 0.6 H Neutrophils % (Manual) Band Neutrophils % Lymphocytes % (Manual) Monocytes % (Manual) Eosinophils % (Manual) Metamyelocytes % Abs Neuts (Manual) Lymphocytes # (Manual) Monocytes # (Manual) Nucleated RBCs Smudge Cells Toxic Vacuolation Platelet Estimate Plt Morphology Comment RBC Morphology [place] Cells Acanthocytes (Spur) PT INR VBG pH VBG pCO2 VBG pO2 VBG HCO3 VBG O2 Saturation VBG Base Excess Sodium 139 Potassium 3.9 Chloride 111 H Carbon Dioxide 25 Anion Gap 7 L BUN 27 H Creatinine 0.75 Estim Creat Clear Calc 74.7 Estimated GFR > 60 POC Glucose 264 H Random Glucose 257 H Lactic Acid Lactic Acid F/U @ 2Hr Calcium 6.9 L D Magnesium Total Bilirubin Direct Bilirubin AST ALT Alkaline Phosphatase Ammonia Total Creatine Kinase Troponin I High Sens Total Protein Albumin TSH Free T4 Urine Color Urine Appearance Urine pH Ur Specific [place] Urine Protein Urine Glucose (UA) Urine Ketones Urine Blood Urine Nitrite Ur Leukocyte Esterase Urine RBC Urine WBC Ur Squamous Epith Cells Urine Bacteria Urine Mucus Ur Random Sodium Urine Opiates Screen Urine Fentanyl Screen Ur Barbiturates Screen Ur Phencyclidine Scrn Ur Amphetamines Screen U Benzodiazepines Scrn Urine Cocaine Screen U Marijuana (THC) Screen Ethyl Alcohol Acetone, Qual COVID-19 (TAMARA) COVID-19 Clin Com 12/11/21 12/11/21 12/11/21 09:05 09:06 10:13 WBC RBC Hgb Hct MCV MCH MCHC RDW Plt Count MPV Immature Gran % (Auto) Neut % (Auto) Lymph % (Auto) Roberts % (Auto) Eos % (Auto) Baso % (Auto) Lymph # (Auto) Roberts # (Auto) Eos # (Auto) Baso # (Auto) Abs Immat Gran (auto) Absolute Neuts (auto) Absolute Nucleated RBC Nucleated RBC % (auto) Neutrophils % (Manual) Band Neutrophils % Lymphocytes % (Manual) Monocytes % (Manual) Eosinophils % (Manual) Metamyelocytes % Abs Neuts (Manual) Lymphocytes # (Manual) Monocytes # (Manual) Nucleated RBCs Smudge Cells Toxic Vacuolation Platelet Estimate Plt Morphology Comment RBC Morphology [place] Cells Acanthocytes (Spur) PT INR VBG pH 7.28 L VBG pCO2 47 VBG pO2 49 VBG HCO3 22 VBG O2 Saturation 71.0 VBG Base Excess -3.7 Sodium Potassium Chloride Carbon Dioxide Anion Gap BUN Creatinine Estim Creat Clear Calc Estimated GFR POC Glucose Random Glucose Lactic Acid Lactic Acid F/U @ 2Hr Cancelled Calcium Magnesium Total Bilirubin Direct Bilirubin AST ALT Alkaline Phosphatase Ammonia Total Creatine Kinase Troponin I High Sens Total Protein Albumin TSH Free T4 Urine Color Urine Appearance Urine pH Ur Specific [place] Urine Protein Urine Glucose (UA) Urine Ketones Urine Blood Urine Nitrite Ur Leukocyte Esterase Urine RBC Urine WBC Ur Squamous Epith Cells Urine Bacteria Urine Mucus Ur Random Sodium 94.0 Urine Opiates Screen Urine Fentanyl Screen Ur Barbiturates Screen Ur Phencyclidine Scrn Ur Amphetamines Screen U Benzodiazepines Scrn Urine Cocaine Screen U Marijuana (THC) Screen Ethyl Alcohol Acetone, Qual COVID-19 (TAMARA) COVID-19 Clin Com 12/11/21 12:33 WBC RBC Hgb Hct MCV MCH MCHC RDW Plt Count MPV Immature Gran % (Auto) Neut % (Auto) Lymph % (Auto) Roberts % (Auto) Eos % (Auto) Baso % (Auto) Lymph # (Auto) Roberts # (Auto) Eos # (Auto) Baso # (Auto) Abs Immat Gran (auto) Absolute Neuts (auto) Absolute Nucleated RBC Nucleated RBC % (auto) Neutrophils % (Manual) Band Neutrophils % Lymphocytes % (Manual) Monocytes % (Manual) Eosinophils % (Manual) Metamyelocytes % Abs Neuts (Manual) Lymphocytes # (Manual) Monocytes # (Manual) Nucleated RBCs Smudge Cells Toxic Vacuolation Platelet Estimate Plt Morphology Comment RBC Morphology [place] Cells Acanthocytes (Spur) PT INR VBG pH VBG pCO2 VBG pO2 VBG HCO3 VBG O2 Saturation VBG Base Excess Sodium Potassium Chloride Carbon Dioxide Anion Gap BUN Creatinine Estim Creat Clear Calc Estimated GFR POC Glucose 131 H Random Glucose Lactic Acid Lactic Acid F/U @ 2Hr Calcium Magnesium Total Bilirubin Direct Bilirubin AST ALT Alkaline Phosphatase Ammonia Total Creatine Kinase Troponin I High Sens Total Protein Albumin TSH Free T4 Urine Color Urine Appearance Urine pH Ur Specific [place] Urine Protein Urine Glucose (UA) Urine Ketones Urine Blood Urine Nitrite Ur Leukocyte Esterase Urine RBC Urine WBC Ur Squamous Epith Cells Urine Bacteria Urine Mucus Ur Random Sodium Urine Opiates Screen Urine Fentanyl Screen Ur Barbiturates Screen Ur Phencyclidine Scrn Ur Amphetamines Screen U Benzodiazepines Scrn Urine Cocaine Screen U Marijuana (THC) Screen Ethyl Alcohol Acetone, Qual COVID-19 (TAMARA) COVID-19 Clin Com Quality Stroke Does the patient have a stroke diagnosis?: No VTE Prior VTE?: No VTE Risk Level:: Medical - moderate - high VTE Device Contraindication: N/A - Device Ordered VTE Drug Contraindication: N/A - Med Ordered Critical Care Time Critical Care Time (minutes): 60
--- NOTE | 2021-12-11 12:54 | MHC.CM.PN ---
Pt in ICU and unable to participate in CM assessment d/t medical condition: information obtained from phone call to sister Araceli. Per Araceli, pt resides with her and her other sister, Carla who provide 18/05 care. Pt uses a walker and attends an adult day program which her sisters transport her to. Pt has been VAXed x2 but had breakthrough COVID recently (October 2021). Araceli states pt will return to home when she is medically stable. VNA services offered but declined at this time by Araceli. Transportation will be provided by Araceli or Carla. IMM and HCP in chart. CM to follow.
[2021-12-11 13:39] LABS: Cortisol Random 14.4 ug/dL
--- NOTE | 2021-12-11 13:40 | PM.NEUROCN ---
History of Present Illness Data of Consult Service Date: 12/11/21 Primary Care Provider: Unknown Physician HPI Reason for consult: Seizure this 71 years old woman who was brought to hospital after she was found unresponsive and apparently had a seizure-like episode in emergency room and was treated with Keppra. I saw her in emergency room when she was somewhat sedated. She had received 4 mg of lorazepam this morning. In emergency room she was hypothermic and a seizure was treated with lorazepam after which Keppra was given. Review of Systems Review of Systems: Could not be done [facility] Past Medical History Medical History Acquired hypothyroidism Benign essential hypertension Constipation Dementia Diabetes Diabetes mellitus GERD without esophagitis High cholesterol Hypertension Hypothyroidism Impacted cerumen of both ears Iron deficiency anemia Overweight (BMI 25.0-29.9) Pure hypercholesterolemia Syncope Vitamin B12 deficiency Vitamin D deficiency Family History Family History Father Diabetes Hypertension Mother Hypertension Stroke Surgical History Surgical History History of ankle surgery History of hemiarthroplasty of left hip S/P [id number] (total abdominal hysterectomy and bilateral salpingo-oophorectomy) Social History Social History Household Members: Family Housing: House Do you presently have visiting nurse or other home services: No Alcohol intake: never Patient Tobacco Use Status: Tobacco use Unknown Use of substances other than those prescribed or required for medical reasons: No Advance Directives: No Recently lost weight without trying: No Eating poorly because of decreased appetite: No Nutrition Risks: On aspiration precautions Patient : No : No Poor oral hygiene: No service: No Current occupational status: disabled Meds Allergies Allergy/AdvReac Type Severity Reaction Status Date / Time No Known Allergies Allergy Verified 02/07/21 09:39 Active Medications: Current Medications Atropine Sulfate (Atropine Sulfate 1 Mg/10 Ml Syringe) 0.5 mg IVPUSH ONCE PRN PRN Reason: HR < 70 Last Admin: 12/11/21 11:02 Dose: 0.5 mg Documented by: Piperacillin Sod/Tazobactam (Sod 4.5 gm/ Sodium Chloride) 100 mls @ 200 mls/hr IV Q6H GINA Vancomycin HCl 1,250 mg/ (Sodium Chloride) 250 mls @ 166.667 mls/hr IV Q24H [facility]INA Norepinephrine Bitartrate (Levophed) 8 mg in 250 mls @ 0 mls/hr IVCONT .Q0M GINA; Protocol Last Titration: 12/11/21 11:23 Dose: 0 mcg/kg/min, 0 mls/hr Documented by: Dopamine HCl/Dextrose () 400 mg in 250 mls @ 0 mls/hr IVCONT .Q0M PRN; Protocol PRN Reason: HR < 70 Last Titration: 12/11/21 12:50 Dose: 7.5 mcg/kg/min, 24.11 mls/hr Documented by: Levetiracetam 750 mg/ Sodium (Chloride) 107.5 mls @ 430 mls/hr IV Q12H GINA Insulin Human Lispro (Insulin Lispro 100 Unit/Ml 3 Ml Vial) 0 unit SUBCUT Q6H [facility]; Protocol Last Admin: 12/11/21 12:34 Dose: Not Given Documented by: Levothyroxine Sodium (Levothyroxine Sodium 50 Mcg Tablet) 150 mcg PO DAILY@0600 [facility] Pantoprazole Sodium (Pantoprazole Sodium 40 Mg/10 Ml Vial) 40 mg IVPUSH DAILY@0630 [facility] Last Admin: 12/11/21 07:56 Dose: 40 mg Documented by: Pharmacy Consult (Consult Rx Vancomycin Dosing) 1 each MISCELLANE DAILY PRN PRN Reason: Consult order Home Medications Medication Instructions Recorded Confirmed Last Taken Type latanoprost 0.005 % eye drops 1 drp OPHTHALMIC (EYE) BEDTIME 10/25/20 12/11/21 10/25/20 History insulin detemir U-100 100 unit/mL 22 unit SUBCUT DAILY 11/15/21 12/11/21 Unknown History subcutaneous solution (Levemir U-100 Insulin) Physical Exam Vital Signs: Vital Signs: Last Vital Signs Temp 95.5 F L 12/11/21 13:00 Pulse 98 12/11/21 13:00 Resp 10 L 12/11/21 13:00 BP 114/54 L 12/11/21 13:00 Pulse Ox 97 12/11/21 13:00 BMI result Body Mass Index 30.4 Neuro: Other: Not responsive to verbal stimuli and barely to painful stimuli. She was resisting eye opening. There was no eye deviation or jerking. There was no body jerking or tremor. Face was symmetrical. There was no abnormal body posturing. Deep tendon reflexes are absent with flat plantars. Results Labs CBC & Chem 7: 12/11/21 09:05 12/11/21 09:05 Labs: Short CBC 12/11/21 12/11/21 Range/Units 03:22 09:05 WBC 4.3 L 3.1 L (4.8-10.8) X10*3/uL Hgb 11.8 L 8.5 L D (12.0-16.0) g/dl Hct 39.1 27.6 L D (37.0-47.0) % Plt Count 147 L 115 L (160-400) X10*3/uL BMP 12/11/21 12/11/21 12/11/21 03:22 06:07 09:05 Sodium 137 137 139 Potassium 4.2 4.0 3.9 Chloride 102 108 111 H Carbon Dioxide 21 L 22 25 BUN 31 H D 29 H 27 H Creatinine 1.04 0.84 0.75 Calcium 8.5 7.5 L D 6.9 L D Cardiac Enzymes 12/11/21 Range/Units 03:22 Total Creatine Kinase 198 H D (26-140) U/L Liver Function 12/11/21 Range/Units 03:22 Total Bilirubin < 0.2 (0.0-1.0) mg/dL Direct Bilirubin < 0.2 (0.0-0.5) mg/dL AST 50 H D (5-31) U/L ALT 66 H (0-31) U/L Alkaline Phosphatase 255 H D (39-117) U/L Albumin 3.3 L (3.5-5.0) g/dL Urine 12/11/21 Range/Units 04:53 Urine Color YELLOW Urine Appearance HAZY Urine pH 5.0 (5.0-8.0) Ur Specific [place] >= 1.030 H (1.005-1.025) Urine Protein 1+ H (NEG-TRACE) MG/DL Urine Glucose (UA) >=1000 H (NEG) MG/DL Noncontrast head CT revealed moderately severe atrophy and moderately severe microvascular ischemic changes. An EEG did not reveal any epileptic tendency. It was generally very slow. Assessment and Plan (1) New onset seizure: Status: Acute 71 years old woman with new onset of seizure disorder based upon description in emergency room. At this time she was sedated and unable to provide any history. Her EEG did not reveal any epileptic tendency. CT scan of brain did not reveal any acute lesion. At this time my recommendation is to avoid further sedation, and continue levetiracetam 500 mg twice a day Procedures Date of Service Date of Service: 12/11/21
[2021-12-11 15:48] LABS: Lactic Acid 1.1 mmol/L (0.5-2.0)
[2021-12-11 15:52] LABS: Lactate Dehydrogenase 276 U/L (122-220); Phosphorus 3.2 mg/dL (2.7-4.5)
[2021-12-11 16:02] LABS: Hematocrit 33.8 % (37.0-47.0); Hemoglobin 10.8 g/dl (12.0-16.0); Mean Corpuscular Hemoglobin 28.2 pg (27.0-33.0); Mean Corpuscular Volume 88.3 fL (80.0-98.0); Platelet Count 193 X10*3/uL (160-400); Red Blood Count 3.83 X10*6/uL (4.20-5.50); Red Cell Distribution Width 16.3 % (11.0-16.0); White Blood Count 5.7 X10*3/uL (4.8-10.8)
[2021-12-11 16:03] LABS: Mean Platelet Volume 12.6 fL (9.4-12.3); NRBC Pct Auto 0.7 /100WBC (0.0-0.2)
[2021-12-11 16:14] LABS: Ferritin 488 ng/mL (10-250)
[2021-12-11] MEDS: levETIRAcetam 750 MG in 0.9 % Sodium Chloride 100 ML 430 MG IV (16:20)
[2021-12-11 16:23] LABS: Procalcitonin 0.03 ng/mL
[2021-12-11 17:02] LABS: D Dimer High Sensitivity 511 NG/ML
--- NOTE | 2021-12-11 17:32 | PC.NURSE ---
ADMISSION FROM ED AT START OF SHIFT. HAS REMAINED LETHARGIC THE ENTIRE SHIFT. SNORING. MINIMAL RESPONSE TO DEEP PAIN. TLC TO LEFT SUBCLAVIAN PLACED BY MD. CORE TEMP AT START OF SHIFT 89.6*F. REMAINS ON BEAR HUGGER - CURRENT CORE TEMP 98.1. BEAR HUGGER ON LOW SETTING AT THIS TIME. ATROPINE 1MG (TOTAL) ADMINISTERED FOR HR 50S. NO RESPONSE. STARTED ON DOPAMINE GTT FOR TARGET HR > 70 PER MD. SEE EMAR. LEVOPHED GTT STARTED FOR SBP 70S. SEE EMAR. DOPPLAR USED FOR PULSES - FAINT. DIEGO OUTPUT WNL. BM X 1. BATHED, Q2HR REPO, PILLOWS UTILIZED. FAMILY UPDATED THROUGHOUT SHIFT.
[2021-12-11 18:00] LABS: Glucose, Whole Blood 96 mg/dL (60-115)
[2021-12-11] MEDS: DOPamine HCL/D5W 400 MG/250 ML PLAST..BAG 24.11 MG IVCONT (21:03)
[2021-12-12] VITALS (31 sets, daily range): BP systolic 74–180; BP diastolic 29–102; PULSE 57–112; RESP 6–20; TEMP 35.9–37.4; O2SAT 95–99; BMI 30.4
[2021-12-12 00:17] LABS: Glucose, Whole Blood 119 mg/dL (60-115)
[2021-12-12] MEDS: Piperacillin Sodium/Tazobactam 4.5 GM in 0.9 % Sodium Chloride 100 ML IV ×2 (02:10→07:13)
[2021-12-12] MEDS: levETIRAcetam 750 MG in 0.9 % Sodium Chloride 100 ML 430 MG IV (03:52)
--- NOTE | 2021-12-12 04:20 | PC.NURSE ---
CARE ASSUMED 23:15...INITIALY LETHARGIC....NON-VERBAL...WITHDREW EXTREMETIES TO PAIN AND OCCASSIONAL SPONTANEOUS WEAK MOVEMENT OF EXTREMETIES BUT NOT TO COMMAND..RESPIRATIONS EASY..NO DISTRESS ON ROOM AIR..NSR..NO ECTOPY...WARMING BLANKET REMAINS OFF...DOPAMINE DRIP TITRATED TO MAINTAIN HR >70..LEVOPHED DRIP FOR BP PER DEC..DIEGO DRAINING YELLOW URINE..PIPE OR STEAM FITTER FURNACE INSTALLER MENTATION OVERNIGHT...REPOSITIONED IN BED Q2H..STATED SAMI AFTER POSITIONING...WEAKLY MOVING EXTREMETIES SPONTANEOUSLY...STATED NO WHEN QUESTIONED IF HAVING PAIN.
[2021-12-12] MEDS: DOPamine HCL/D5W 400 MG/250 ML PLAST..BAG 22.51 MG IVCONT (04:56)
[2021-12-12] MEDS: Levothyroxine Sodium 100 MCG/5 ML VIAL IVPUSH (05:02)
[2021-12-12] MEDS: Pantoprazole Sodium 40 MG/10 ML VIAL IVPUSH (05:02)
[2021-12-12 05:33] LABS: MANUAL DIFF FLAG NO
[2021-12-12 05:38] LABS: Eosinophils Percent Auto 0.1 % (0-4); Hematocrit 30.9 % (37.0-47.0); Hemoglobin 9.7 g/dl (12.0-16.0); Imm Gran Abs Auto 0.02 X10*3/uL (0.00-0.03); Imm Gran Pct Auto 0.3 % (0.0-0.4); Lymphocytes Percent Auto 14.3 % (20-40); Mean Corpuscular HGB Conc 31.4 g/dl (31.0-35.0); Mean Corpuscular Hemoglobin 27.7 pg (27.0-33.0); Mean Corpuscular Volume 88.3 fL (80.0-98.0); Mean Platelet Volume 12.3 fL (9.4-12.3); Monocytes Absolute Auto 0.6 X10*3/uL (0.1-1.2); Monocytes Percent Auto 9.1 % (2-11); Neutrophils Absolute Auto 5.1 x10*3/uL (2.0-8.3); Neutrophils Percent Auto 76.2 % (45-73); Platelet Count 146 X10*3/uL (160-400); Red Cell Distribution Width 16.5 % (11.0-16.0); White Blood Count 6.7 X10*3/uL (4.8-10.8)
[2021-12-12 05:58] LABS: Alanine Aminotransferase 49 U/L (0-31); Albumin Level 2.8 g/dL (3.5-5.0); Alkaline Phosphatase 113 U/L (39-117); Anion Gap 11 (12-20); Aspartate Amino Transferase 38 U/L (5-31); Bilirubin Total 0.4 mg/dL (0.0-1.0); Blood Urea Nitrogen 23 mg/dL (9-16); C Reactive Protein 3.44 mg/dL (< or = 0.50); Calcium 7.5 mg/dL (8.4-10.2); Carbon Dioxide 26 mmol/L (22-29); Chloride 111 mmol/L (96-108); Creatinine Clr Calc Pharmacy 46.6; Estimated Glomerular Filt Rate 44; Glucose Random 144 mg/dL (60-115); Potassium 3.9 mmol/L (3.3-5.1); Sodium 144 mmol/L (135-145); Total Protein 5.7 g/dL (6.5-8.0)
[2021-12-12 07:09] LABS: Glucose, Whole Blood 123 mg/dL (60-115)
[2021-12-12] MEDS: vancomycin HCL 750 MG in 0.9 % Sodium Chloride 250 ML 265 MG IV (08:53)
[2021-12-12] MEDS: Hydrocortisone Sod Succ/PF 100 MG VIAL IVPUSH (14:59)
[2021-12-12] MEDS: Albumin Human 25 % 100 ML 200 ML IV ×2 (15:02→15:54)
[2021-12-12] MEDS: levETIRAcetam in NaCl (iso-os) 500 MG/100 ML PIGGYBACK 400 MG IV (15:03)
--- NOTE | 2021-12-12 16:28 | PM.CCPN ---
Subjective Subjective Date of Service: 12/12/21 Interval History: Mrs. Preciado was admitted to ICU yesterday morning with seizures, hypothermia, hypothyroidism, and neutropenia. 71-year-old female with underlying history of hypertension, diabetes, hyperlipidemia, hypothyroid, dementia, obesity, syncopal episodes, iron deficiency, vitamin-D deficiency, and vitamin B12 deficiency.? The patient lives at home with her sister Araceli. The patient was brought to the hospital on November 15 after 2 days of confusion.? In the ED, vital signs were normal, breathing easy with sat 99% on room air, but her temperature was 91 degrees. ?She tested COVID positive.? She was pancytopenic.? She was admitted to Medicine for further workup and management.? Ultimately, her mental status returned to normal with just supportive care.? She was discharged back home on November 17. Found unresponsive at home early Dec 11.? Family thought she might have had a seizures.? EMS was called.? SpO2 low 90?s at the scene.? She was BIBA, with ambu-bag ventilation ongoing for unclear reasons. On arrival to the ED, the patient started waking up, moving all extrems, trying to sit up.? Vital signs were notable for marked hypothermia and marked bradycardia, with heart rate down to 46. ?Rectal temp unobtainable.? Digital way cath temp was 85.6?? Shortly after, she had a witnessed generalized sz.? She was given 4 mg Ativan x1, Keppra, and HC 100mg.? A few hours later, her room air Sat was 98-99%. Labs notable for pancytopenia (unchanged), BuN/creat 31/1.0, gluc 345, mild transaminase elevation, albumin 3.3, TSH 9.1, free T4 0.65.? Random cortisol was 14.? The patient was given fluids, empiric antibiotics, intravenous thyroid, and admitted to ICU. In the ICU, while she was being warmed, she initially required dopamine to get her heart rate into the 70s, and low-dose Levophed to maintain her blood pressure.? Echo was fairly normal, as noted in my note from yesterday.? Empiric antibiotics were continued for 24 hours, and then stopped today after the cultures were negative.? She slept all day yesterday, and started waking up this morning.? EEG yesterday showed no sz focus. This afternoon, the patient is sluggish, but easily arousable.? She is able to tell me that she is at [facility].? She is able to tell me that she lives with her sister Araceli.? HR 68, SR.? BP 116/50 off all meds.? Temp normothermic today.? Breathing easy with Sat 99% on room air.? No JVD at 30?.? No signif edema.? On neuro testing, she?s a bit slow, but motor exam seems to be very slightly week c/w age, with no focality.? She does have a noticeable right facial droop that I did not see yesterday.? Tongue protrudes in the midline, and other housing property manager are grossly intact. LABORATORY DATA:? Below. IMPRESSION: 1. Baseline dementia.? Accord to family, she needs help with ADLs and walks with a walker.? She feeds herself. 2. Hypothyroidism.? Notably, her TSH at last admission on Nov 15 was 1.1.? Unclear what happened in the intervening three weeks. 3. Hypothermia.? Presumably due to hypothyroidism, bec no other source found.? She?s not septic.? But if so, why was she hypothermic at the last admission, when her TSH was normal? 4. Neuro:? Etiology of seizure is unclear.? EEG negative.? The fact that it took her about 24 hrs to wake up after the sz and after 4mg Ativan is not all that surprising, given that she has a bad brain to start with.? Not clear if the right facial droop is a new finding.? We?ll do an MRI to further define her anatomy. 5. Pancytopenia.? Etiology unclear.? Blood cultures negative.? Looking back in her records, she?s had intermittent neutropenia dating back to 2013. 6. DM.? SS insulin. Stable for transfer to [facility] [place] Will sign out to hospitalists. Time: [id number]. Critical Care Time (minutes): 0 Physical Exam Vital Signs: Vital Signs: Last Vital Signs Temp 96.8 F 12/12/21 15:55 Pulse 68 12/12/21 15:55 Resp 13 12/12/21 15:55 BP 137/60 12/12/21 16:01 Pulse Ox 99 12/12/21 15:55 BMI result Body Mass Index 30.4 Objective Data Labs CBC & Chem 7: 12/12/21 05:20 12/12/21 05:20 Labs: Laboratory Results - last 24 hr 12/11/21 12/11/21 12/12/21 15:25 17:53 00:01 WBC RBC Hgb Hct MCV MCH MCHC RDW Plt Count MPV Immature Gran % (Auto) Neut % (Auto) Lymph % (Auto) [place] % (Auto) Eos % (Auto) Baso % (Auto) Lymph # (Auto) [place] # (Auto) Eos # (Auto) Baso # (Auto) Abs Immat Gran (auto) Absolute Neuts (auto) Absolute Nucleated RBC Nucleated RBC % (auto) D-Dimer High Sensitivty 511 Sodium Potassium Chloride Carbon Dioxide Anion Gap BUN Creatinine Estim Creat Clear Calc Estimated GFR POC Glucose 96 119 H Random Glucose Calcium Total Bilirubin AST ALT Alkaline Phosphatase C-Reactive Protein Total Protein Albumin 12/12/21 12/12/21 12/12/21 05:20 05:20 05:23 WBC 6.7 RBC 3.50 L Hgb 9.7 L Hct 30.9 L MCV 88.3 MCH 27.7 MCHC 31.4 RDW 16.5 H Plt Count 146 L MPV 12.3 Immature Gran % (Auto) 0.3 Neut % (Auto) 76.2 H Lymph % (Auto) 14.3 L Ell[place] % (Auto) 9.1 Eos % (Auto) 0.1 Baso % (Auto) 0.0 Lymph # (Auto) 1.0 L Ell[place] # (Auto) 0.6 Eos # (Auto) 0.0 Baso # (Auto) 0.0 Abs Immat Gran (auto) 0.02 Absolute Neuts (auto) 5.1 Absolute Nucleated RBC 0.070 H Nucleated RBC % (auto) 1.0 H D-Dimer High Sensitivty Sodium 144 Potassium 3.9 Chloride 111 H Carbon Dioxide 26 Anion Gap 11 L BUN 23 H Creatinine 1.20 Estim Creat Clear Calc 46.6 Estimated GFR 44 POC Glucose 123 H Random Glucose 144 H Calcium 7.5 L D Total Bilirubin 0.4 AST 38 H ALT 49 H Alkaline Phosphatase 113 D C-Reactive Protein 3.44 H Total Protein 5.7 L Albumin 2.8 L Microbiology Microbiology Results: Microbiology 12/11/21 03:36 Blood - Venous Blood Culture - Preliminary No growth after 24 hours. 12/11/21 03:36 Blood - Venous Blood Culture - Preliminary No growth after 24 hours. Quality Stroke Does the patient have a stroke diagnosis?: No VTE Prior VTE?: No VTE Risk Level:: Medical - moderate - high VTE Device Contraindication: N/A - Device Ordered VTE Drug Contraindication: N/A - Med Ordered
[2021-12-12 17:57] LABS: Glucose, Whole Blood 127 mg/dL (60-115)
[2021-12-12 17:57] LABS: Glucose, Whole Blood 120 mg/dL (60-115)
--- NOTE | 2021-12-12 22:16 | P.EN_ITS ---
Event Note Date of Service: 12/12/21 Event Note: Patient is doing well, patient is doing well, but it signs are stable as follows blood pressure 111/75, heart rate 75, respirations 16, temperature 97.5 degrees, O2 sat 97% room air. No further seizure activity. ?Please refer to full note done by Dr. Moore for de tailed in-hospital course. Patient had an MRI this evening. MRI IMPRESSION: - This is a very limited and partially nondiagnostic MRI of the brain secondary to significant motion artifact. There is global cerebral volume loss and there is moderate chronic microangiopathy. Given the reported history of seizure, a repeat study with sedation would be helpful in further assessment given the significant limitations of this exam. ? - Bandlike T2 signal changes, volume loss, and chronic hemosiderin staining within the cerebellar hemispheres bilaterally. Patient is stable, she is more than adequate to be transferred to next level of care (telemetry) case was discussed in detail with Dr. Moore who agrees. [id number] case sign out to the hospitalist Dr. Lane, Who is aware that further evaluation with neurology as necessary
[2021-12-13] VITALS (10 sets, daily range): BP systolic 114–147; BP diastolic 50–67; PULSE 60–89; RESP 12–20; TEMP 36.1–36.7; O2SAT 94–100; BMI 31.1
[2021-12-13 00:51] LABS: Glucose, Whole Blood 159 mg/dL (60-115)
[2021-12-13] MEDS: levETIRAcetam in NaCl (iso-os) 500 MG/100 ML PIGGYBACK 400 MG IV ×2 (04:06→16:16)
[2021-12-13] MEDS: Levothyroxine Sodium 100 MCG/5 ML VIAL 75 MCG IVPUSH (05:48)
[2021-12-13 05:51] LABS: Eosinophils Percent Auto 0.5 % (0-4); Hematocrit 24.4 % (37.0-47.0); Hemoglobin 7.7 g/dl (12.0-16.0); Imm Gran Abs Auto 0.01 X10*3/uL (0.00-0.03); Imm Gran Pct Auto 0.2 % (0.0-0.4); Lymphocytes Absolute Auto 1.5 X10*3/uL (1.2-4.9); Lymphocytes Percent Auto 27.6 % (20-40); Mean Corpuscular HGB Conc 31.6 g/dl (31.0-35.0); Mean Corpuscular Hemoglobin 28.5 pg (27.0-33.0); Mean Corpuscular Volume 90.4 fL (80.0-98.0); Mean Platelet Volume 12.6 fL (9.4-12.3); Monocytes Absolute Auto 0.5 X10*3/uL (0.1-1.2); Monocytes Percent Auto 8.6 % (2-11); NRBC Pct Auto 0.9 /100WBC (0.0-0.2); Neutrophils Absolute Auto 3.5 x10*3/uL (2.0-8.3); Neutrophils Percent Auto 63.1 % (45-73); Red Cell Distribution Width 17.1 % (11.0-16.0); White Blood Count 5.5 X10*3/uL (4.8-10.8)
[2021-12-13 05:58] LABS: MANUAL DIFF FLAG SCAN; Platelet Count 86 X10*3/uL (160-400)
[2021-12-13 06:09] LABS: Anion Gap 10 (12-20); Blood Urea Nitrogen 17 mg/dL (9-16); Carbon Dioxide 26 mmol/L (22-29); Chloride 111 mmol/L (96-108); Creatinine Clr Calc Pharmacy 57.8; Estimated Glomerular Filt Rate 56; Glucose Random 173 mg/dL (60-115); Magnesium 1.9 mg/dL (1.6-2.6); Phosphorus 2.9 mg/dL (2.7-4.5); Potassium 3.5 mmol/L (3.3-5.1); Sodium 143 mmol/L (135-145)
[2021-12-13 06:23] LABS: SLIDE REVIEW VERIFIED
[2021-12-13 08:53] LABS: Estimated Average Glucose 189 mg/dL; Hemoglobin A1c % 8.2 %
[2021-12-13 09:06] LABS: Procalcitonin 0.07 ng/mL
--- NOTE | 2021-12-13 10:14 | MHC.SL.SWA ---
Speech Pathologist Impression: Oral Phase Dysphagia Risk of Aspiration Due to: Neurological Condition Dysphasia Diet Status: Upgrade Liquid Consistency and Strategies for Safe Swallow: Liquid Intake Recommendation: Thin Liquid Intake Strategies: Small Sips Solid Food Consistency: Dietary Recommendations: Pureed (NDD1) Additional Modifications to Solid Foods: Oral Medication Intake: Whole with Puree Compensatory Strategies and Precautions to be Taken for Safe Swallow: Sitting Upright (90 deg) Liquids from Cup Small Bites and Sips Rate of Ingestion Change Supervision While Eating and Drinking for Safe Swallow: Total Assistance Foods to Avoid: dry sticky hard to chew items Swallowing Recommended Treatments: Recommendation for Speech: Inpatient Speech Therapy Comment: to be followed for toleration and upgrade to mechanical soft/ground Frequency/Duration: while in the hospital Date Range for Service Req: Timeline to reassess: Financial Services Education Consultant Clinican/Clinical Fellow: No Supervisory Statement: I have reviewed and agree with the student/clinical fellow's documentation: N/A Speech Language Pathologist: Ayana Ch M.A., CCC-ERP PM
[2021-12-13 11:14] LABS: Glucose, Whole Blood 157 mg/dL (60-115)
[2021-12-13 12:15] LABS: Iron 63 mcg/dL (30-160); Lactate Dehydrogenase 210 U/L (122-220); Percent Iron Saturation 38 % (15-50); Total Iron Binding Capacity 167 mcg/dL (228-428); Unsaturated Iron Binding 104 ug/dL
[2021-12-13 12:32] LABS: Retic HGB Equivalent 31.9 pg (30.0-35.0); Reticulocyte Percent 1.6 % (0.5-1.8); Reticulocytes Absolute 0.044 X10*6/uL (0.026-0.095); SCAN SMEAR FLAG 1
[2021-12-13 12:34] LABS: Ferritin 354 ng/mL (10-250)
[2021-12-13] MEDS: Insulin Lispro 100 UNIT/ML 3 ML VIAL SUBCUT ×3 (13:12→20:41)
[2021-12-13 13:25] LABS: Folate 4.7 ng/mL (> or = 4.0); Vitamin B12 > 2000 pg/mL (200-900)
--- NOTE | 2021-12-13 15:44 | MHC.CM.PN ---
Female 71 DX Encephalopathy She was transfered from ICU this am. DP home with 18/05 family assist. Sister Araceli will provide transportation home.
--- NOTE | 2021-12-13 16:09 | PC.NURSE ---
way removed at 1600. dtv#1 at [address].
[2021-12-13 16:16] LABS: Glucose, Whole Blood 195 mg/dL (60-115)
--- NOTE | 2021-12-13 16:31 | HO.PM.IMPN ---
Subjective Subjective Date of Service: 12/13/21 Interval History: Feels well. No complaints. Mildly confused which is her baseline. Normotheric. Seen by TICKET CHOPPER ASSEMBLER, recommended pureed solids. Review of Systems Review of Systems: Yes all other systems are reviewed and are negative Physical Exam Vital Signs: Vital Signs: Last Vital Signs Temp 98.0 F 12/13/21 15:26 Pulse 60 12/13/21 15:26 Resp 20 12/13/21 15:26 BP 132/58 L 12/13/21 15:26 Pulse Ox 100 12/13/21 15:26 BMI result Body Mass Index 31.1 Gen: in no acute distress HEENT: sclera anicteric, moist mucus membranes Neck: supple Lungs: clear to auscultation bilaterally Heart: regular rate and rhythm, no murmurs Abd: soft, non-tender, non-distended, obese Ext: no edema Skin: warm/well-perfused Neuro: alert and oriented to self, ?mild R facial droop Psych: appropriate affect Objective Data Active Medications Atorvastatin Calcium (Atorvastatin Calcium 40 Mg Tablet) 40 mg PO BEDTIME [facility] Cyanocobalamin (Cyanocobalamin (Vitamin B-12) 1,000 Mcg Tablet) 1,000 mcg PO DAILY [facility] Levetiracetam (Keppra) 500 mg in 100 mls @ 400 mls/hr IV Q12H [facility] Last Admin: 12/13/21 16:16 Dose: 400 mls/hr Documented by: LEXII Insulin Human Lispro (Insulin Lispro 100 Unit/Ml 3 Ml Vial) 0 unit SUBCUT QIDACHS [facility]; Protocol Latanoprost (Latanoprost 0.005 % Ophth Sharon 2.5 Ml Drops) 1 drop EYE-BOTH BEDTIME [facility] Levothyroxine Sodium (Levothyroxine Sodium 150 Mcg Tablet) 150 mcg PO QAM [facility] Metoprolol Succinate (Metoprolol Succinate Er 25 Mg Tab.Er.24h) 25 mg PO DAILY [facility]; Protocol Non-Formulary Medication (Ferrous Sulfate) 325 mg PO BID [facility] Pharmacy Consult (Consult Rx Vancomycin Dosing) 1 each MISCELLANE DAILY PRN PRN Reason: Consult order Senna (Sennosides 8.6 Mg Tablet) 8.6 mg PO BEDTIME PRN PRN Reason: for constipation Vitamin D (Cholecalciferol (Vitamin D3) 25 Mcg Tablet) 25 mcg PO DAILY [facility] Labs CBC & Chem 7: 12/13/21 05:25 12/13/21 05:25 Labs: Laboratory Results - last 24 hr 12/12/21 12/12/21 12/13/21 12:03 17:51 00:48 MCV MCH MCHC RDW Plt Count MPV Immature Gran % (Auto) Neut % (Auto) Lymph % (Auto) [place] % (Auto) Eos % (Auto) Baso % (Auto) Lymph # (Auto) [place] # (Auto) Eos # (Auto) Baso # (Auto) Abs Immat Gran (auto) Absolute Neuts (auto) Absolute Nucleated RBC Nucleated RBC % (auto) Smear Tech's Comments Absolute Retic Percent Retic Immature Retic Fraction Retic Hgb Equivalent Anion Gap Estim Creat Clear Calc Estimated GFR POC Glucose 120 H 127 H 159 H Random Glucose Estimat Average Glucose Hemoglobin A1c % Calcium Phosphorus Magnesium Iron TIBC % Saturation Unsat Iron Binding Ferritin Lactate Dehydrogenase Vitamin B12 Folate Procalcitonin 12/13/21 12/13/21 12/13/21 05:25 05:25 05:25 MCV 90.4 MCH 28.5 MCHC 31.6 RDW 17.1 H Plt Count 86 L D MPV 12.6 H Immature Gran % (Auto) 0.2 Neut % (Auto) 63.1 Lymph % (Auto) 27.6 [place]pkins % (Auto) 8.6 Eos % (Auto) 0.5 Baso % (Auto) 0.0 Lymph # (Auto) 1.5 [place]kins # (Auto) 0.5 Eos # (Auto) 0.0 Baso # (Auto) 0.0 Abs Immat Gran (auto) 0.01 Absolute Neuts (auto) 3.5 Absolute Nucleated RBC 0.050 H Nucleated RBC % (auto) 0.9 H Smear Tech's Comments VERIFIED Absolute Retic 0.044 Percent Retic 1.6 Immature Retic Fraction 9.0 Retic Hgb Equivalent 31.9 Anion Gap 10 L Estim Creat Clear Calc 57.8 Estimated GFR 56 POC Glucose Random Glucose 173 H Estimat Average Glucose Hemoglobin A1c % Calcium 8.0 L D Phosphorus 2.9 Magnesium 1.9 Iron 63 TIBC 167 L % Saturation 38 Unsat Iron Binding 104 Ferritin 354 H Lactate Dehydrogenase 210 Vitamin B12 Folate Procalcitonin 0.07 12/13/21 12/13/21 12/13/21 05:25 05:25 11:10 MCV MCH MCHC RDW Plt Count MPV Immature Gran % (Auto) Neut % (Auto) Lymph % (Auto) [place] % (Auto) Eos % (Auto) Baso % (Auto) Lymph # (Auto) [place] # (Auto) Eos # (Auto) Baso # (Auto) Abs Immat Gran (auto) Absolute Neuts (auto) Absolute Nucleated RBC Nucleated RBC % (auto) Smear Tech's Comments Absolute Retic Percent Retic Immature Retic Fraction Retic Hgb Equivalent Anion Gap Estim Creat Clear Calc Estimated GFR POC Glucose 157 H Random Glucose Estimat Average Glucose 189 Hemoglobin A1c % 8.2 Calcium Phosphorus Magnesium Iron TIBC % Saturation Unsat Iron Binding Ferritin Lactate Dehydrogenase Vitamin B12 > 2000 H Folate 4.7 Procalcitonin 12/13/21 16:12 MCV MCH MCHC RDW Plt Count MPV Immature Gran % (Auto) Neut % (Auto) Lymph % (Auto) [place] % (Auto) Eos % (Auto) Baso % (Auto) Lymph # (Auto) [place] # (Auto) Eos # (Auto) Baso # (Auto) Abs Immat Gran (auto) Absolute Neuts (auto) Absolute Nucleated RBC Nucleated RBC % (auto) Smear Tech's Comments Absolute Retic Percent Retic Immature Retic Fraction Retic Hgb Equivalent Anion Gap Estim Creat Clear Calc Estimated GFR POC Glucose 195 H Random Glucose Estimat Average Glucose Hemoglobin A1c % Calcium Phosphorus Magnesium Iron TIBC % Saturation Unsat Iron Binding Ferritin Lactate Dehydrogenase Vitamin B12 Folate Procalcitonin Impressions Brain MRI 12/12/21 19:25 IMPRESSION: - This is a very limited and partially nondiagnostic MRI of the brain secondary to significant motion artifact. There is global cerebral volume loss and there is moderate chronic microangiopathy. Given the reported history of seizure, a repeat study with sedation would be helpful in further assessment given the significant limitations of this exam. - Bandlike T2 signal changes, volume loss, and chronic hemosiderin staining within the cerebellar hemispheres bilaterally. Microbiology Microbiology Results: Microbiology 12/11/21 03:36 Blood Culture - Preliminary Blood - Venous No growth after 48 hours. 12/11/21 03:36 Blood Culture - Preliminary Blood - Venous No growth after 48 hours. Assessment and Plan (1) Encephalopathy: Status: Acute (2) Hypothyroidism: Status: Acute (3) New onset seizure: Status: Acute Plan hospital d#3 71yo F with HTN, HLD, DM2, hypothyroidism, dementia, obesity, C[place], vit D deficiency, B12 deficiency admitted 11/15-11/17/21 with hypothermia, Covid-19 infection treated supportively found unreponsive at home 12/11, presented hypothermic + bradycardic and had witnessed generalized seizure admitted to ICU for pressor support- dopamine for bradycardia, norepi for hypotension got empiric antibiotics- stopped after cultures negative stepped down to [facility] 12/12/21 # new-onset sz - EEG negative. Mehran. Neuro consulted. discuss repeating MRI? # hypothermia - unclear cause- ?Covid-19. ?hypothyroidism- though was also hypothermic prior admission when TSH was normal. # hypothyroidism - IV->PO LT4 # HTN - metoprolol; resume lisinopril if needed # HLD - atorvastatin # DM2, A1c 8.2 - correction-dose lispro # pancytopenia - mild- check LDH, ELANA, HIV. ?Covid-19 # CARR[place] - iron replacement # vit D deficiency - D3 replacement # vit B12 deficiency - B12 replacement # VTE ppx - SCDs # dispo - PT eval done, LTC recommended Quality Stroke Does the patient have a stroke diagnosis?: No VTE Prior VTE?: No VTE Risk Level:: Medical - moderate - high VTE Device Contraindication: N/A - Device Ordered VTE Drug Contraindication: N/A - Med Ordered
[2021-12-13 20:11] LABS: Glucose, Whole Blood 222 mg/dL (60-115)
[2021-12-13] MEDS: Atorvastatin Calcium 40 MG TABLET PO (20:41)
[2021-12-13] MEDS: Ferrous Sulfate 324 MG TABLET.DR PO (20:41)
[2021-12-14] VITALS (7 sets, daily range): BP systolic 137–172; BP diastolic 52–87; PULSE 49–80; RESP 16–20; TEMP 35.4–36.9; O2SAT 98–100
[2021-12-14] MEDS: levETIRAcetam in NaCl (iso-os) 500 MG/100 ML PIGGYBACK 400 MG IV ×2 (03:45→16:38)
[2021-12-14] MEDS: Levothyroxine Sodium 150 MCG TABLET PO (06:21)
[2021-12-14 07:15] LABS: Anion Gap 12 (12-20); Blood Urea Nitrogen 23 mg/dL (9-16); Calcium 8.6 mg/dL (8.4-10.2); Carbon Dioxide 26 mmol/L (22-29); Chloride 113 mmol/L (96-108); Estimated Glomerular Filt Rate > 60; Glucose Random 41 mg/dL (60-115); Lactate Dehydrogenase 337 U/L (122-220); Potassium 3.8 mmol/L (3.3-5.1); Sodium 147 mmol/L (135-145)
[2021-12-14 07:39] LABS: Glucose, Whole Blood 66 mg/dL (60-115)
[2021-12-14 08:03] LABS: Glucose, Whole Blood 123 mg/dL (60-115)
[2021-12-14 08:25] LABS: Glucose, Whole Blood 148 mg/dL (60-115)
[2021-12-14 09:23] LABS: Hematocrit 27.5 % (37.0-47.0); Hemoglobin 8.5 g/dl (12.0-16.0); Mean Corpuscular HGB Conc 30.9 g/dl (31.0-35.0); Mean Corpuscular Hemoglobin 28.1 pg (27.0-33.0); Mean Corpuscular Volume 90.8 fL (80.0-98.0); Mean Platelet Volume 12.3 fL (9.4-12.3); NRBC Pct Auto 0.6 /100WBC (0.0-0.2); Red Blood Count 3.03 X10*6/uL (4.20-5.50); Red Cell Distribution Width 17.1 % (11.0-16.0); White Blood Count 5.2 X10*3/uL (4.8-10.8)
[2021-12-14 09:25] LABS: Platelet Count 98 X10*3/uL (160-400)
[2021-12-14] MEDS: Cyanocobalamin (Vitamin B-12) 1,000 MCG TABLET 1000 MCG PO (09:39)
[2021-12-14] MEDS: Cholecalciferol (Vitamin D3) 25 MCG TABLET PO (09:39)
[2021-12-14] MEDS: Metoprolol Succinate ER 25 MG TAB.ER.24H PO (09:39)
[2021-12-14] MEDS: Ferrous Sulfate 324 MG TABLET.DR PO ×2 (09:39→22:08)
[2021-12-14 11:36] LABS: Glucose, Whole Blood 306 mg/dL (60-115)
[2021-12-14] MEDS: Insulin Lispro 100 UNIT/ML 3 ML VIAL SUBCUT ×3 (12:18→21:37)
--- NOTE | 2021-12-14 14:17 | P.PNIM_ITS ---
Subjective Subjective Date of Service: 12/14/21 Interval History: Hypoglycemic to 40s this am; resolved with POs + D50 No further seizures Review of Systems Review of Systems: Yes all other systems are reviewed and are negative Physical Exam Vital Signs: Vital Signs: Last Vital Signs Temp 95.8 F L 12/14/21 12:00 Pulse 55 12/14/21 12:00 Resp 16 12/14/21 12:00 BP 166/65 H 12/14/21 12:00 Pulse Ox 98 12/14/21 12:00 BMI result Body Mass Index 31.1 Gen: in no acute distress HEENT: sclera anicteric, moist mucus membranes Neck: supple Lungs: clear to auscultation bilaterally Heart: regular rate and rhythm, no murmurs Abd: soft, non-tender, non-distended, obese Ext: no edema Skin: warm/well-perfused Neuro: alert and oriented to self, ?mild R facial droop Psych: appropriate affect Objective Data Active Medications Atorvastatin Calcium (Atorvastatin Calcium 40 Mg Tablet) 40 mg PO BEDTIME [facility] Last Admin: 12/13/21 20:41 Dose: 40 mg Documented by: CAROLA Cyanocobalamin (Cyanocobalamin (Vitamin B-12) 1,000 Mcg Tablet) 1,000 mcg PO DAILY [facility] Last Admin: 12/14/21 09:39 Dose: 1,000 mcg Documented by: GEOVANNA Dextrose (Dextrose 50 % 25 Gm/50 Ml Syringe) 25 gm IVPUSH Q15M PRN; Protocol PRN Reason: per Hypoglycemia Standing Ord. Ferrous Sulfate (Ferrous Sulfate 324 Mg ) 324 mg PO BID [facility] Last Admin: 12/14/21 09:39 Dose: 324 mg Documented by: GEOVANNA Glucose (Glucose Gel 15 Gm Gel..Gram.) 15 gm PO Q15M PRN; Protocol PRN Reason: per Hypoglycemia Standing Ord. Levetiracetam (Keppra) 500 mg in 100 mls @ 400 mls/hr IV Q12H [facility] Last Infusion: 12/14/21 04:01 Dose: 0 mls/hr Documented by: CAROLA Insulin Human Lispro (Insulin Lispro 100 Unit/Ml 3 Ml Vial) 0 unit SUBCUT QIDACHS [facility]; Protocol Last Admin: 12/14/21 12:18 Dose: 8 unit Documented by: GEOVANNA Latanoprost (Latanoprost 0.005 % Ophth Sharon 2.5 Ml Drops) 1 drop EYE-BOTH BEDTIME [facility] Last Admin: 12/13/21 20:43 Dose: Not Given Documented by: CAROLA Non-Admin Reason: Med Not Available Levothyroxine Sodium (Levothyroxine Sodium 150 Mcg Tablet) 150 mcg PO DAILY@0630 [facility] Last Admin: 12/14/21 06:21 Dose: 150 mcg Documented by: CAROLA Metoprolol Succinate (Metoprolol Succinate Er 25 Mg Tab.Er.24h) 25 mg PO DAILY [facility]; Protocol Last Admin: 12/14/21 09:39 Dose: 25 mg Documented by: GEOVANNA Pharmacy Consult (Consult Rx Vancomycin Dosing) 1 each MISCELLANE DAILY PRN PRN Reason: Consult order Senna (Sennosides 8.6 Mg Tablet) 8.6 mg PO BEDTIME PRN PRN Reason: for constipation Vitamin D (Cholecalciferol (Vitamin D3) 25 Mcg Tablet) 25 mcg PO DAILY [facility] Last Admin: 12/14/21 09:39 Dose: 25 mcg Documented by: GEOVANNA Labs CBC & Chem 7: 12/14/21 08:48 12/14/21 06:37 Labs: Laboratory Results - last 24 hr 12/13/21 12/13/21 12/14/21 16:12 20:07 06:37 MCV MCH MCHC RDW Plt Count MPV Absolute Nucleated RBC Nucleated RBC % (auto) Anion Gap Estim Creat Clear Calc Estimated GFR POC Glucose 195 H 222 H Random Glucose Calcium Lactate Dehydrogenase Blood Type O Positive Antibody Screen NEGATIVE 12/14/21 12/14/21 12/14/21 06:37 07:35 07:58 MCV MCH MCHC RDW Plt Count MPV Absolute Nucleated RBC Nucleated RBC % (auto) Anion Gap 12 Estim Creat Clear Calc 69.0 Estimated GFR > 60 POC Glucose 66 123 H Random Glucose 41 L* Calcium 8.6 D Lactate Dehydrogenase 337 H Blood Type Antibody Screen 12/14/21 12/14/21 12/14/21 08:20 08:48 11:22 MCV 90.8 MCH 28.1 MCHC 30.9 L RDW 17.1 H Plt Count 98 L MPV 12.3 Absolute Nucleated RBC 0.030 H Nucleated RBC % (auto) 0.6 H Anion Gap Estim Creat Clear Calc Estimated GFR POC Glucose 148 H 306 H Random Glucose Calcium Lactate Dehydrogenase Blood Type Antibody Screen Assessment and Plan (1) Encephalopathy: Status: Acute (2) Hypothyroidism: Status: Acute (3) New onset seizure: Status: Acute Plan hospital d#4 71yo F with HTN, HLD, DM2, hypothyroidism, dementia, obesity, [place], vit D deficiency, B12 deficiency admitted 11/15-11/17/21 with hypothermia, Covid-19 infection (diagnosed 11/15/21) treated supportively found unreponsive at home 12/11, presented hypothermic + bradycardic and had witnessed generalized seizure admitted to ICU for pressor support- dopamine for bradycardia, norepi for hypotension got empiric antibiotics- stopped after cultures negative stepped down to [facility] 12/12/21 # new-onset sz - EEG negative. Mehran. Neuro consulted. discuss repeating MRI- last one degraded by motion artifact. ?facial droop likely due to edentulous state # hypoglycemia - prn D50, glucose gel. decrease correction scale lispro # hypothermia - unclear cause- ?Covid-19. ?hypothyroidism- though was also hypothermic prior admission when TSH was normal. # hypothyroidism - IV changed to PO LT4 # hyperNa - mild; encourage free water intake; recheck BMP in am # HTN - metoprolol; resume lisinopril # HLD - atorvastatin # DM2, A1c 8.2 - correction-dose lispro # pancytopenia - mild, suspect due to recent Covid # [place] - iron replacement # vit D deficiency - D3 replacement # vit B12 deficiency - B12 replacement # VTE ppx - SCDs # dispo - PT eval done, LTC recommended, CM aware Quality Stroke Does the patient have a stroke diagnosis?: No VTE Prior VTE?: No VTE Risk Level:: Medical - moderate - high VTE Device Contraindication: N/A - Device Ordered VTE Drug Contraindication: N/A - Med Ordered
[2021-12-14 16:08] LABS: Glucose, Whole Blood 357 mg/dL (60-115)
[2021-12-14] MEDS: lisinopriL 10 MG TABLET PO (16:39)
[2021-12-14 21:03] LABS: Glucose, Whole Blood 256 mg/dL (60-115)
[2021-12-14] MEDS: Atorvastatin Calcium 40 MG TABLET PO (21:38)
[2021-12-14] MEDS: Latanoprost 0.005 % Ophth Sol 2.5 ML DROPS 1 DROP EYE-BOTH (21:38)
[2021-12-15 02:54] VITALS: BP 166/72; PULSE 57; RESP 20; TEMP 36.7; O2SAT 100
[2021-12-15] MEDS: levETIRAcetam in NaCl (iso-os) 500 MG/100 ML PIGGYBACK 400 MG IV ×2 (05:12→15:55)
[2021-12-15] MEDS: Levothyroxine Sodium 150 MCG TABLET PO (05:12)
[2021-12-15 06:00] VITALS: BMI 31.9
--- NOTE | 2021-12-15 06:00 | MHC.PIE ---
P.LOW BLOOD SUGAR I.PT NOTED TO BE SLEEPY THIS MORNING.AWAKENED EASILY.DRANK SOME OJ AT BEDSIDE.RANDOM POC CHECKED,NOTED TO 16 ON GLUCOMETER.GIVEN AMP OF D50.PT REMAINED EASILY AWAKENED.DRANK SECOND CUP OF OJ. NOTIFIED.REPEAT POC CHECKED 195 .PT REMAINS AWAKE ALERT AND STATES, I FEEL GOOD . UPDATED.ORDER FOR GLUCOSE PANEL ENTERED PER MD.NEXT SHIFT UPDATED. E.CONT TO MONITOR.
[2021-12-15] MEDS: Dextrose 50 % 25 GM/50 ML SYRINGE IVPUSH (06:19)
[2021-12-15 06:20] LABS: Glucose, Whole Blood 16 mg/dL (60-115)
--- NOTE | 2021-12-15 06:41 | PM.EVENT ---
Event Note Date of Service: 12/15/21 Event Note: Hypoglycemia: Patient had couple of episodes of hypoglycemia Currently patient is alert and awake. Following commands. This morning patient's glucose levels noted to be 16. Asymptomatic. Ordered hyperglycemia panel
[2021-12-15 06:47] LABS: Glucose, Whole Blood 195 mg/dL (60-115)
[2021-12-15 07:30] LABS: Glucose, Whole Blood 207 mg/dL (60-115)
[2021-12-15 07:33] LABS: Anion Gap 11 (12-20); Blood Urea Nitrogen 22 mg/dL (9-16); Calcium 8.5 mg/dL (8.4-10.2); Carbon Dioxide 26 mmol/L (22-29); Chloride 108 mmol/L (96-108); Creatinine Clr Calc Pharmacy 67.4; Estimated Glomerular Filt Rate > 60; Glucose Random 215 mg/dL (60-115); Hematocrit 27.8 % (37.0-47.0); Hemoglobin 8.7 g/dl (12.0-16.0); Mean Corpuscular HGB Conc 31.3 g/dl (31.0-35.0); Mean Corpuscular Hemoglobin 28.2 pg (27.0-33.0); Mean Platelet Volume 12.9 fL (9.4-12.3); NRBC Pct Auto 0.7 /100WBC (0.0-0.2); Platelet Count 107 X10*3/uL (160-400); Red Blood Count 3.09 X10*6/uL (4.20-5.50); Red Cell Distribution Width 16.4 % (11.0-16.0); Sodium 141 mmol/L (135-145); White Blood Count 4.2 X10*3/uL (4.8-10.8)
[2021-12-15 07:57] VITALS: BP 165/79; PULSE 50; RESP 16; TEMP 35.4; O2SAT 100
[2021-12-15] MEDS: lisinopriL 10 MG TABLET PO (08:17)
[2021-12-15] MEDS: Cholecalciferol (Vitamin D3) 25 MCG TABLET PO (08:17)
[2021-12-15] MEDS: Insulin Lispro 100 UNIT/ML 3 ML VIAL SUBCUT ×3 (08:17→17:43)
[2021-12-15] MEDS: Ferrous Sulfate 324 MG TABLET.DR PO ×2 (08:18→21:05)
[2021-12-15] MEDS: Cyanocobalamin (Vitamin B-12) 1,000 MCG TABLET 1000 MCG PO (08:18)
[2021-12-15 11:25] LABS: Glucose, Whole Blood 283 mg/dL (60-115)
[2021-12-15 12:00] VITALS: BP 159/80; PULSE 49; RESP 16; TEMP 35.6; O2SAT 100
--- NOTE | 2021-12-15 14:46 | HO.PM.IMPN ---
Subjective Subjective Date of Service: 12/15/21 Interval History: Hypoglycemic this am; resolved with POs + D50 No further seizures Review of Systems Confused; unable to obtain Physical Exam Vital Signs: Vital Signs: Last Vital Signs Temp 96.0 F L 12/15/21 12:00 Pulse 49 L 12/15/21 12:00 Resp 16 12/15/21 12:00 BP 159/80 H 12/15/21 12:00 Pulse Ox 100 12/15/21 12:00 BMI result Body Mass Index 31.9 Const: Other: Awake alert; oriented to self. No acute distress Resp: Other: Clear to auscultation bilaterally. No rales rhonchi wheezes Cardio: Other: No S4; positive S1-S2; no S3 murmurs or gallops GI: Other: Soft nontender nondistended with normoactive bowel sounds Extrem: Other: No edema bilaterally Objective Data Active Medications Atorvastatin Calcium (Atorvastatin Calcium 40 Mg Tablet) 40 mg PO BEDTIME [facility] Last Admin: 12/14/21 21:38 Dose: 40 mg Documented by: CAROLA Cyanocobalamin (Cyanocobalamin (Vitamin B-12) 1,000 Mcg Tablet) 1,000 mcg PO DAILY [facility] Last Admin: 12/15/21 08:18 Dose: 1,000 mcg Documented by: GEOVANNA Dextrose (Dextrose 50 % 25 Gm/50 Ml Syringe) 25 gm IVPUSH Q15M PRN; Protocol PRN Reason: per Hypoglycemia Standing Ord. Last Admin: 12/15/21 06:19 Dose: 25 gm Documented by: BEULAH Ferrous Sulfate (Ferrous Sulfate 324 Mg Lauren.) 324 mg PO BID [facility] Last Admin: 12/15/21 08:18 Dose: 324 mg Documented by: GEOVANNA Glucose (Glucose Gel 15 Gm Gel..Gram.) 15 gm PO Q15M PRN; Protocol PRN Reason: per Hypoglycemia Standing Ord. Levetiracetam (Keppra) 500 mg in 100 mls @ 400 mls/hr IV Q12H [facility] Last Infusion: 12/15/21 05:57 Dose: 0 mls/hr Documented by: BEULAH Insulin Human Lispro (Insulin Lispro 100 Unit/Ml 3 Ml Vial) 0 unit SUBCUT QIDACHS [facility]; Protocol Last Admin: 12/15/21 12:30 Dose: 6 unit Documented by: GEOVANNA Latanoprost (Latanoprost 0.005 % Ophth Sharon 2.5 Ml Drops) 1 drop EYE-BOTH BEDTIME [facility] Last Admin: 12/14/21 21:38 Dose: 1 drop Documented by: CAROLA Levothyroxine Sodium (Levothyroxine Sodium 150 Mcg Tablet) 150 mcg PO DAILY@0630 [facility] Last Admin: 12/15/21 05:12 Dose: 150 mcg Documented by: BEULAH Lisinopril (Lisinopril 10 Mg Tablet) 10 mg PO DAILY [facility]; Protocol Last Admin: 12/15/21 08:17 Dose: 10 mg Documented by: GEOVANNA Metoprolol Succinate (Metoprolol Succinate Er 25 Mg Tab.Er.24h) 25 mg PO DAILY [facility]; Protocol Last Admin: 12/15/21 08:18 Dose: Not Given Documented by: GEOVANNA Non-Admin Reason: HR 52 bpm Pharmacy Consult (Consult Rx Vancomycin Dosing) 1 each MISCELLANE DAILY PRN PRN Reason: Consult order Senna (Sennosides 8.6 Mg Tablet) 8.6 mg PO BEDTIME PRN PRN Reason: for constipation Vitamin D (Cholecalciferol (Vitamin D3) 25 Mcg Tablet) 25 mcg PO DAILY [facility] Last Admin: 12/15/21 08:17 Dose: 25 mcg Documented by: GEOVANNA Labs CBC & Chem 7: 12/15/21 07:03 12/15/21 07:03 Labs: Laboratory Results - last 24 hr 12/14/21 12/14/21 12/15/21 16:04 20:59 06:15 MCV MCH MCHC RDW Plt Count MPV Absolute Nucleated RBC Nucleated RBC % (auto) Anion Gap Estim Creat Clear Calc Estimated GFR POC Glucose 357 H* 256 H 16 L* Random Glucose Calcium 12/15/21 12/15/21 12/15/21 06:40 07:03 07:03 MCV 90.0 MCH 28.2 MCHC 31.3 RDW 16.4 H Plt Count 107 L MPV 12.9 H Absolute Nucleated RBC 0.030 H Nucleated RBC % (auto) 0.7 H Anion Gap 11 L Estim Creat Clear Calc 67.4 Estimated GFR > 60 POC Glucose 195 H Random Glucose 215 H Calcium 8.5 12/15/21 12/15/21 07:25 11:15 MCV MCH MCHC RDW Plt Count MPV Absolute Nucleated RBC Nucleated RBC % (auto) Anion Gap Estim Creat Clear Calc Estimated GFR POC Glucose 207 H 283 H Random Glucose Calcium Assessment and Plan (1) New onset seizure: Status: Acute (2) Diabetes mellitus: Status: Acute (3) Hypothyroidism: Status: Acute (4) Benign essential hypertension: Status: Acute Plan 71yo F with HTN, HLD, DM2, hypothyroidism, dementia, obesity, [place], vit D deficiency, B12 deficiency;admitted 11/15-11/17/21 with hypothermia, Covid-19 infection (diagnosed 11/15/21) treated supportively.Found unreponsive at home 12/11, presented hypothermic + bradycardic and had witnessed generalized seizure ......admitted to ICU for pressor support- dopamine for bradycardia, norepi for hypotension. 1.New-onset seizures - EEG negative. No further seizures since admission - continue Keppra. -further workup as dictated by clinical course/Neuro input 2.Hypoglycemia -am occurance..PM sugars high -will DC HS coverage and follow response 3. Hypothyroid -stable on current dosing -adjust as clinicall indicated 4.HTN -acceptable control on current therapies - metoprolol/ lisinopril Full Code Sequentials Quality Stroke Does the patient have a stroke diagnosis?: No VTE Prior VTE?: No VTE Risk Level:: Medical - moderate - high VTE Device Contraindication: N/A - Device Ordered VTE Drug Contraindication: N/A - Med Ordered
[2021-12-15 15:35] VITALS: BP 165/66; PULSE 51; RESP 14; TEMP 35.8; O2SAT 99
[2021-12-15 16:21] LABS: Glucose, Whole Blood 266 mg/dL (60-115)
[2021-12-15 19:06] VITALS: BP 101/84; PULSE 51; RESP 14; TEMP 35.7; O2SAT 100
[2021-12-15 19:45] LABS: Glucose, Whole Blood 253 mg/dL (60-115)
[2021-12-15] MEDS: Atorvastatin Calcium 40 MG TABLET PO (21:05)
[2021-12-15] MEDS: Latanoprost 0.005 % Ophth Sol 2.5 ML DROPS 1 DROP EYE-BOTH (21:06)
[2021-12-15 23:47] VITALS: BP 146/67; PULSE 53; RESP 17; TEMP 36.1; O2SAT 100
[2021-12-16 03:36] VITALS: BP 155/76; PULSE 61; RESP 18; TEMP 35.7; O2SAT 100
[2021-12-16] MEDS: levETIRAcetam in NaCl (iso-os) 500 MG/100 ML PIGGYBACK 400 MG IV ×2 (04:42→16:03)
[2021-12-16] MEDS: Levothyroxine Sodium 150 MCG TABLET PO (04:44)
[2021-12-16 05:06] VITALS: BMI 32.3
[2021-12-16 06:24] LABS: Glucose, Whole Blood 198 mg/dL (60-115)
[2021-12-16 06:30] LABS: MANUAL DIFF FLAG NO
[2021-12-16 06:52] LABS: Basophils Percent Auto 0.3 % (0-2); Eosinophils Absolute Auto 0.1 X10*3/uL (0.0-0.4); Eosinophils Percent Auto 2.8 % (0-4); Hematocrit 27.4 % (37.0-47.0); Hemoglobin 8.6 g/dl (12.0-16.0); Imm Gran Abs Auto 0.02 X10*3/uL (0.00-0.03); Imm Gran Pct Auto 0.6 % (0.0-0.4); Lymphocytes Absolute Auto 1.6 X10*3/uL (1.2-4.9); Lymphocytes Percent Auto 50.5 % (20-40); Mean Corpuscular HGB Conc 31.4 g/dl (31.0-35.0); Mean Corpuscular Hemoglobin 28.1 pg (27.0-33.0); Mean Corpuscular Volume 89.5 fL (80.0-98.0); Mean Platelet Volume 13.2 fL (9.4-12.3); Monocytes Absolute Auto 0.3 X10*3/uL (0.1-1.2); Monocytes Percent Auto 7.8 % (2-11); NRBC Pct Auto 0.6 /100WBC (0.0-0.2); Neutrophils Absolute Auto 1.2 x10*3/uL (2.0-8.3); Platelet Count 108 X10*3/uL (160-400); Red Blood Count 3.06 X10*6/uL (4.20-5.50); Red Cell Distribution Width 16.5 % (11.0-16.0); White Blood Count 3.2 X10*3/uL (4.8-10.8)
[2021-12-16 07:02] LABS: Alanine Aminotransferase 25 U/L (0-31); Albumin Level 2.7 g/dL (3.5-5.0); Alkaline Phosphatase 119 U/L (39-117); Anion Gap 8 (12-20); Aspartate Amino Transferase 22 U/L (5-31); Bilirubin Total 0.4 mg/dL (0.0-1.0); Blood Urea Nitrogen 18 mg/dL (9-16); Calcium 8.3 mg/dL (8.4-10.2); Carbon Dioxide 31 mmol/L (22-29); Chloride 104 mmol/L (96-108); Creatinine Clr Calc Pharmacy 71.1; Estimated Glomerular Filt Rate > 60; Glucose Fasting 225 mg/dL (60-99); Potassium 4.3 mmol/L (3.3-5.1); Sodium 139 mmol/L (135-145); Total Protein 5.2 g/dL (6.5-8.0)
[2021-12-16] MEDS: Cyanocobalamin (Vitamin B-12) 1,000 MCG TABLET 1000 MCG PO (07:46)
[2021-12-16] MEDS: Cholecalciferol (Vitamin D3) 25 MCG TABLET PO (07:46)
[2021-12-16] MEDS: Ferrous Sulfate 324 MG TABLET.DR PO ×2 (07:46→21:00)
[2021-12-16 07:54] VITALS: BP 167/73; PULSE 53; RESP 20; TEMP 36.2; O2SAT 100
[2021-12-16] MEDS: lisinopriL 10 MG TABLET PO (08:05)
[2021-12-16 08:06] LABS: Glucose, Whole Blood 236 mg/dL (60-115)
[2021-12-16 08:15] LABS: HIV AB/AG Nonreactive (Nonreactive); HIV Num 1 0.06 S/CO (0.00-0.99)
[2021-12-16] MEDS: Insulin Lispro 100 UNIT/ML 3 ML VIAL SUBCUT ×3 (08:28→16:02)
--- NOTE | 2021-12-16 10:58 | MHC.SL.SWA ---
Speech Pathologist Impression: Oral Phase Dysphagia Risk of Aspiration Due to: Neurological Condition Dysphasia Diet Status: No Change Liquid Consistency and Strategies for Safe Swallow: Liquid Intake Recommendation: Thin Liquid Intake Strategies: Small Sips Solid Food Consistency: Dietary Recommendations: Pureed (NDD1) Additional Modifications to Solid Foods: Oral Medication Intake: Whole with Puree Compensatory Strategies and Precautions to be Taken for Safe Swallow: Sitting Upright (90 deg) Small Bites and Sips Alternate Liquids/Solids Rate of Ingestion Change Oral Check Supervision While Eating and Drinking for Safe Swallow: Total Assistance Foods to Avoid: dry sticky hard to chew items Swallowing Recommended Treatments: Compens. Strategy Educat. Recommendation for Speech: Inpatient Speech Therapy Comment: to be followed for toleration and upgrade to mechanical soft/ground Frequency/Duration: while in the hospital : Associate Dentist Clinican/Clinical Fellow: No Supervisory Statement: I have reviewed and agree with the student/clinical fellow's documentation: N/A Speech Language Pathologist: Tayler Mathur M.A., CCC-[employer]ILRO[employer]KE REPA[employer]ER
[2021-12-16 11:22] LABS: Glucose, Whole Blood 327 mg/dL (60-115)
[2021-12-16 11:26] VITALS: BP 164/66; PULSE 55; RESP 20; TEMP 36.2; O2SAT 100
[2021-12-16 15:34] VITALS: BP 164/73; PULSE 54; RESP 18; TEMP 37.1; O2SAT 100
--- NOTE | 2021-12-16 15:45 | HO.PM.IMPN ---
Subjective Subjective Date of Service: 12/16/21 Interval History: Hypoglycemic this am; resolved with POs + D50 No further seizures Review of Systems Confused; unable to obtain Physical Exam Vital Signs: Vital Signs: Last Vital Signs Temp 98.7 F 12/16/21 15:34 Pulse 54 12/16/21 15:34 Resp 18 12/16/21 15:34 BP 164/73 H 12/16/21 15:34 Pulse Ox 100 12/16/21 15:34 BMI result Body Mass Index 32.3 Const: Other: Awake alert; oriented to self. No acute distress Resp: Other: Clear to auscultation bilaterally. No rales rhonchi wheezes Cardio: Other: No S4; positive S1-S2; no S3 murmurs or gallops GI: Other: Soft nontender nondistended with normoactive bowel sounds Extrem: Other: No edema bilaterally Objective Data Active Medications Atorvastatin Calcium (Atorvastatin Calcium 40 Mg Tablet) 40 mg PO BEDTIME [facility] Last Admin: 12/15/21 21:05 Dose: 40 mg Documented by: YUDI Cyanocobalamin (Cyanocobalamin (Vitamin B-12) 1,000 Mcg Tablet) 1,000 mcg PO DAILY [facility] Last Admin: 12/16/21 07:46 Dose: 1,000 mcg Documented by: GEOVANNA Dextrose (Dextrose 50 % 25 Gm/50 Ml Syringe) 25 gm IVPUSH Q15M PRN; Protocol PRN Reason: per Hypoglycemia Standing Ord. Last Admin: 12/15/21 06:19 Dose: 25 gm Documented by: BEULAH Ferrous Sulfate (Ferrous Sulfate 324 Mg Tablet.) 324 mg PO BID [facility] Last Admin: 12/16/21 07:46 Dose: 324 mg Documented by: GEOVANNA Glucose (Glucose Gel 15 Gm Gel..Gram.) 15 gm PO Q15M PRN; Protocol PRN Reason: per Hypoglycemia Standing Ord. Levetiracetam (Keppra) 500 mg in 100 mls @ 400 mls/hr IV Q12H [facility] Last Infusion: 12/16/21 05:07 Dose: 0 mls/hr Documented by: LYNDON Insulin Human Lispro (Insulin Lispro 100 Unit/Ml 3 Ml Vial) 0 unit SUBCUT QIDACHS [facility]; Protocol Last Admin: 12/16/21 12:08 Dose: 8 unit Documented by: GEOVANNA Latanoprost (Latanoprost 0.005 % Ophth Sharon 2.5 Ml Drops) 1 drop EYE-BOTH BEDTIME [facility] Last Admin: 12/15/21 21:06 Dose: 1 drop Documented by: YUDI Levothyroxine Sodium (Levothyroxine Sodium 150 Mcg Tablet) 150 mcg PO DAILY@0630 [facility] Last Admin: 12/16/21 04:44 Dose: 150 mcg Documented by: LYNDON Lisinopril (Lisinopril 10 Mg Tablet) 10 mg PO DAILY [facility]; Protocol Last Admin: 12/16/21 08:05 Dose: 10 mg Documented by: GEOVANNA Metoprolol Succinate (Metoprolol Succinate Er 25 Mg Tab.Er.24h) 25 mg PO DAILY [facility]; Protocol Last Admin: 12/16/21 09:51 Dose: Not Given Documented by: GEOVANNA Non-Admin Reason: HR <60 bpm Pharmacy Consult (Consult Rx Vancomycin Dosing) 1 each MISCELLANE DAILY PRN PRN Reason: Consult order Senna (Sennosides 8.6 Mg Tablet) 8.6 mg PO BEDTIME PRN PRN Reason: for constipation Vitamin D (Cholecalciferol (Vitamin D3) 25 Mcg Tablet) 25 mcg PO DAILY [facility] Last Admin: 12/16/21 07:46 Dose: 25 mcg Documented by: GEOVANNA Labs CBC & Chem 7: 12/16/21 06:00 12/16/21 06:00 Labs: Laboratory Results - last 24 hr 12/14/21 12/15/21 12/15/21 06:37 16:10 19:08 MCV MCH MCHC RDW Plt Count MPV Immature Gran % (Auto) Neut % (Auto) Lymph % (Auto) [place] % (Auto) Eos % (Auto) Baso % (Auto) Lymph # (Auto) [place] # (Auto) Eos # (Auto) Baso # (Auto) Abs Immat Gran (auto) Absolute Neuts (auto) Absolute Nucleated RBC Nucleated RBC % (auto) Anion Gap Estim Creat Clear Calc Estimated GFR POC Glucose 266 H 253 H Fasting Glucose Calcium Total Bilirubin AST ALT Alkaline Phosphatase Total Protein Albumin HIV 1&2 Ab/P24 Ag 4thGn Nonreactive 12/16/21 12/16/21 12/16/21 06:00 06:00 06:15 MCV 89.5 MCH 28.1 MCHC 31.4 RDW 16.5 H Plt Count 108 L MPV 13.2 H Immature Gran % (Auto) 0.6 H Neut % (Auto) 38.0 L Lymph % (Auto) 50.5 H [place] % (Auto) 7.8 Eos % (Auto) 2.8 Baso % (Auto) 0.3 Lymph # (Auto) 1.6 [place] # (Auto) 0.3 Eos # (Auto) 0.1 Baso # (Auto) 0.0 Abs Immat Gran (auto) 0.02 Absolute Neuts (auto) 1.2 L Absolute Nucleated RBC 0.020 H Nucleated RBC % (auto) 0.6 H Anion Gap 8 L Estim Creat Clear Calc 71.1 Estimated GFR > 60 POC Glucose 198 H Fasting Glucose 225 H Calcium 8.3 L Total Bilirubin 0.4 AST 22 D ALT 25 Alkaline Phosphatase 119 H Total Protein 5.2 L Albumin 2.7 L HIV 1&2 Ab/P24 Ag 4thGn 12/16/21 12/16/21 07:54 11:14 MCV MCH MCHC RDW Plt Count MPV Immature Gran % (Auto) Neut % (Auto) Lymph % (Auto) [place] % (Auto) Eos % (Auto) Baso % (Auto) Lymph # (Auto) [place] # (Auto) Eos # (Auto) Baso # (Auto) Abs Immat Gran (auto) Absolute Neuts (auto) Absolute Nucleated RBC Nucleated RBC % (auto) Anion Gap Estim Creat Clear Calc Estimated GFR POC Glucose 236 H 327 H Fasting Glucose Calcium Total Bilirubin AST ALT Alkaline Phosphatase Total Protein Albumin HIV 1&2 Ab/P24 Ag 4thGn Microbiology Microbiology Results: Microbiology 12/11/21 03:36 Blood Culture - Final Blood - Venous No growth after 5 days. 12/11/21 03:36 Blood Culture - Final Blood - Venous No growth after 5 days. Assessment and Plan (1) New onset seizure: Status: Acute (2) Hypothyroidism: Status: Acute Plan 71yo F with HTN, HLD, DM2, hypothyroidism, dementia, obesity, [place], vit D deficiency, B12 deficiency;admitted 11/15-11/17/21 with hypothermia, Covid-19 infection (diagnosed 11/15/21) treated supportively.Found unreponsive at home 12/11, presented hypothermic + bradycardic and had witnessed generalized seizure ......admitted to ICU for pressor support- dopamine for bradycardia, norepi for hypotension. 1.New-onset seizures - EEG negative. No further seizures since admission - continue Keppra. -no further workup ...continue Keppra BID 2.Hypoglycemia -am occurance..PM sugars high -will DC HS coverage and follow response 3. Hypothyroid -stable on current dosing -adjust as clinicall indicated 4.HTN -acceptable control on current therapies - metoprolol/ lisinopril Full Code Sequentials Quality Stroke Does the patient have a stroke diagnosis?: No VTE Prior VTE?: No VTE Risk Level:: Medical - moderate - high VTE Device Contraindication: N/A - Device Ordered VTE Drug Contraindication: N/A - Med Ordered
[2021-12-16 15:46] LABS: Glucose, Whole Blood 234 mg/dL (60-115)
[2021-12-16 20:00] VITALS: BP 167/74; PULSE 54; RESP 18; TEMP 37.1; O2SAT 99
[2021-12-16 20:42] LABS: Glucose, Whole Blood 42 mg/dL (60-115)
[2021-12-16] MEDS: Atorvastatin Calcium 40 MG TABLET PO (21:00)
[2021-12-16] MEDS: Dextrose 50 % 25 GM/50 ML SYRINGE IVPUSH ×2 (21:01→23:07)
[2021-12-16] MEDS: Latanoprost 0.005 % Ophth Sol 2.5 ML DROPS 1 DROP EYE-BOTH (21:12)
[2021-12-16 21:25] LABS: Glucose, Whole Blood 156 mg/dL (60-115)
--- NOTE | 2021-12-16 21:50 | PC.NURSE ---
pt's blood sugar tonight was 42.I gave her prn IV dextrose 25 grams and repeat blood sugar was 156. was notified.
[2021-12-16 22:57] LABS: Glucose, Whole Blood 88 mg/dL (60-115)
--- NOTE | 2021-12-16 23:48 | PC.NURSE ---
2300 blood sugar 88. notified ordered another amp 25grams of dextrose IV and blood sugar to be repeated in one hour.
[2021-12-17] VITALS (7 sets, daily range): BP systolic 129–182; BP diastolic 64–114; PULSE 56–70; RESP 16–18; TEMP 36.3–37.1; O2SAT 98–100
--- NOTE | 2021-12-17 00:17 | PC.NURSE ---
repeat blood sugar 1 hour after IV dextrose is 146. notified.
[2021-12-17 00:18] LABS: Glucose, Whole Blood 146 mg/dL (60-115)
[2021-12-17] MEDS: levETIRAcetam in NaCl (iso-os) 500 MG/100 ML PIGGYBACK 400 MG IV ×2 (04:32→15:04)
[2021-12-17] MEDS: Levothyroxine Sodium 150 MCG TABLET PO (06:12)
[2021-12-17 06:52] LABS: Basophils Percent Auto 0.3 % (0-2); Eosinophils Absolute Auto 0.1 X10*3/uL (0.0-0.4); Hemoglobin 9.3 g/dl (12.0-16.0); Monocytes Absolute Auto 0.4 X10*3/uL (0.1-1.2); NRBC Pct Auto 0.8 /100WBC (0.0-0.2); SCAN SMEAR FLAG 1
[2021-12-17 06:54] LABS: Eosinophils Percent Auto 3.2 % (0-4); Hematocrit 29.5 % (37.0-47.0); Imm Gran Abs Auto 0.02 X10*3/uL (0.00-0.03); Imm Gran Pct Auto 0.5 % (0.0-0.4); Lymphocytes Absolute Auto 1.8 X10*3/uL (1.2-4.9); Lymphocytes Percent Auto 49.5 % (20-40); MANUAL DIFF FLAG SCAN; Mean Corpuscular HGB Conc 31.5 g/dl (31.0-35.0); Mean Corpuscular Volume 88.9 fL (80.0-98.0); Monocytes Percent Auto 9.9 % (2-11); Neutrophils Absolute Auto 1.4 x10*3/uL (2.0-8.3); Neutrophils Percent Auto 36.6 % (45-73); Red Blood Count 3.32 X10*6/uL (4.20-5.50); Red Cell Distribution Width 16.2 % (11.0-16.0)
[2021-12-17 06:57] LABS: PLT ABN DIST 1
[2021-12-17 06:58] LABS: Platelet Count 126 X10*3/uL (160-400); White Blood Count 3.7 X10*3/uL (4.8-10.8)
[2021-12-17 07:04] LABS: Alanine Aminotransferase 21 U/L (0-31); Albumin Level 2.9 g/dL (3.5-5.0); Alkaline Phosphatase 106 U/L (39-117); Anion Gap 9 (12-20); Aspartate Amino Transferase 20 U/L (5-31); Bilirubin Total 0.5 mg/dL (0.0-1.0); Blood Urea Nitrogen 13 mg/dL (9-16); Calcium 8.4 mg/dL (8.4-10.2); Carbon Dioxide 34 mmol/L (22-29); Chloride 104 mmol/L (96-108); Creatinine Clr Calc Pharmacy 70.3; Estimated Glomerular Filt Rate > 60; Glucose Fasting 135 mg/dL (60-99); Potassium 4.2 mmol/L (3.3-5.1); Sodium 143 mmol/L (135-145); Total Protein 5.5 g/dL (6.5-8.0)
[2021-12-17 07:21] LABS: SLIDE REVIEW VERIFIED
[2021-12-17 07:49] LABS: Glucose, Whole Blood 168 mg/dL (60-115)
[2021-12-17] MEDS: Metoprolol Succinate ER 25 MG TAB.ER.24H PO (09:18)
[2021-12-17] MEDS: Cyanocobalamin (Vitamin B-12) 1,000 MCG TABLET 1000 MCG PO (09:18)
[2021-12-17] MEDS: Cholecalciferol (Vitamin D3) 25 MCG TABLET PO (09:18)
[2021-12-17] MEDS: Ferrous Sulfate 324 MG TABLET.DR PO ×2 (09:18→20:39)
[2021-12-17] MEDS: lisinopriL 10 MG TABLET PO (09:18)
[2021-12-17 11:10] LABS: Glucose, Whole Blood 416 mg/dL (60-115)
[2021-12-17] MEDS: Insulin Lispro 100 UNIT/ML 3 ML VIAL SUBCUT ×3 (11:32→20:40)
--- NOTE | 2021-12-17 11:49 | MHC.SL.SWA ---
Speech Pathologist Impression: Oral Phase Dysphagia Risk of Aspiration Due to: Neurological Condition Dysphasia Diet Status: Upgrade Liquid Consistency and Strategies for Safe Swallow: Liquid Intake Recommendation: Thin Liquid Intake Strategies: Small Sips Solid Food Consistency: Dietary Recommendations: Grnd/Mech Altered (NDD2) Additional Modifications to Solid Foods: Avoid overly sticky or hard to chew textures. Oral Medication Intake: Please contact the pharmacy regarding appropriate crushable or liquid drug formulations that are available if modifications to medication delivery is recommended. Whole with Puree Compensatory Strategies and Precautions to be Taken for Safe Swallow: Sitting Upright (90 deg) Small Bites and Sips Alternate Liquids/Solids Supervision While Eating and Drinking for Safe Swallow: Total Assistance Foods to Avoid: dry sticky hard to chew items Swallowing Recommended Treatments: Compens. Strategy Educat. Recommendation for Speech: Inpatient Speech Therapy Comment: Pt awake and alert this morning, pleasantly responsive. Pt was observed taking sips of thin liquid from cup and from straw, w/good oral management, timely swallow, no clinical signs of aspiration. Pt. was given bites of SB& J sandwich, w/prolonged oral phase noted due to mastication, tongue protrusion on swallow, w/swallow timely and w/good laryngeal transit/elevation. No clinical s/s aspiration noted. Pt does have dentures at home, but does not have them with her in the hospital. Recommend UPGRADE diet to Ground Mechanical/Alt (NDD2) and continue w/ THIN liquids. MD , Medicare Insurance Specialist advised of UPGRADE recommendation by secure text, PATIENT SERVICES SPECIALIST made upgrade in orders. Frequency/Duration: while in the hospital Date Range for Service Req: Timeline to reassess: Chart Picker Clinican/Clinical Fellow: No Supervisory Statement: I have reviewed and agree with the student/clinical fellow's documentation: N/A Speech Language Pathologist: Kaylah Sanchez M.A., [facility]PATIENT SERVICES SPECIALIST
[2021-12-17 12:59] LABS: Glucose, Whole Blood 428 mg/dL (60-115)
--- NOTE | 2021-12-17 13:07 | PC.NURSE ---
Patient BS 168 this am, held morning humalog due to patient hypoglycemic episodes and labile BS last night. 1130 am poc 416. Reported to Dr Krishnan via text, gave order for 10 units of humalog to be administered according to SS. Repeat poc 1 hour later 428. Reported to Dr Krishnan via text.
--- NOTE | 2021-12-17 15:18 | HO.PM.IMPN ---
Subjective Subjective Date of Service: 12/17/21 Interval History: Sugars remain labile No further seizures Review of Systems Confused; unable to obtain Physical Exam Vital Signs: Vital Signs: Last Vital Signs Temp 97.3 F 12/17/21 11:27 Pulse 70 12/17/21 11:27 Resp 16 12/17/21 11:27 BP 129/94 H 12/17/21 11:27 Pulse Ox 100 12/17/21 11:27 BMI result Body Mass Index 32.3 Const: Other: Awake alert; oriented to self. No acute distress Resp: Other: Clear to auscultation bilaterally. No rales rhonchi wheezes Cardio: Other: No S4; positive S1-S2; no S3 murmurs or gallops GI: Other: Soft nontender nondistended with normoactive bowel sounds Extrem: Other: No edema bilaterally Objective Data Active Medications Atorvastatin Calcium (Atorvastatin Calcium 40 Mg Tablet) 40 mg PO BEDTIME [facility] Last Admin: 12/16/21 21:00 Dose: 40 mg Documented by: LAKISHA Cyanocobalamin (Cyanocobalamin (Vitamin B-12) 1,000 Mcg Tablet) 1,000 mcg PO DAILY [facility] Last Admin: 12/17/21 09:18 Dose: 1,000 mcg Documented by: PARK Dextrose (Dextrose 50 % 25 Gm/50 Ml Syringe) 25 gm IVPUSH Q15M PRN; Protocol PRN Reason: per Hypoglycemia Standing Ord. Last Admin: 12/16/21 23:07 Dose: 25 gm Documented by: LAKISHA Ferrous Sulfate (Ferrous Sulfate 324 Mg Tablet.) 324 mg PO BID [facility] Last Admin: 12/17/21 09:18 Dose: 324 mg Documented by: PARK Glucose (Glucose Gel 15 Gm Gel..Gram.) 15 gm PO Q15M PRN; Protocol PRN Reason: per Hypoglycemia Standing Ord. Levetiracetam (Keppra) 500 mg in 100 mls @ 400 mls/hr IV Q12H [facility] Last Admin: 12/17/21 15:04 Dose: 400 mls/hr Documented by: PARK Insulin Human Lispro (Insulin Lispro 100 Unit/Ml 3 Ml Vial) 0 unit SUBCUT QIDACHS [facility]; Protocol Last Admin: 12/17/21 11:32 Dose: 10 unit Documented by: PARK Latanoprost (Latanoprost 0.005 % Ophth Sharon 2.5 Ml Drops) 1 drop EYE-BOTH BEDTIME [facility] Last Admin: 12/16/21 21:12 Dose: 1 drop Documented by: LAKISHA Levothyroxine Sodium (Levothyroxine Sodium 150 Mcg Tablet) 150 mcg PO DAILY@0630 [facility] Last Admin: 12/17/21 06:12 Dose: 150 mcg Documented by: LAKISHA Lisinopril (Lisinopril 10 Mg Tablet) 10 mg PO DAILY [facility]; Protocol Last Admin: 12/17/21 09:18 Dose: 10 mg Documented by: PARK Metformin HCl (Metformin Hcl 500 Mg Tablet) 500 mg PO BIDWM [facility] Metoprolol Succinate (Metoprolol Succinate Er 25 Mg Tab.Er.24h) 25 mg PO DAILY [facility]; Protocol Last Admin: 12/17/21 09:18 Dose: 25 mg Documented by: PARK Pharmacy Consult (Consult Rx Vancomycin Dosing) 1 each MISCELLANE DAILY PRN PRN Reason: Consult order Senna (Sennosides 8.6 Mg Tablet) 8.6 mg PO BEDTIME PRN PRN Reason: for constipation Vitamin D (Cholecalciferol (Vitamin D3) 25 Mcg Tablet) 25 mcg PO DAILY [facility] Last Admin: 12/17/21 09:18 Dose: 25 mcg Documented by: PARK Labs CBC & Chem 7: 12/17/21 05:55 12/17/21 05:55 Labs: Laboratory Results - last 24 hr 12/16/21 12/16/21 12/16/21 15:36 20:29 21:22 MCV MCH MCHC RDW Plt Count MPV Immature Gran % (Auto) Neut % (Auto) Lymph % (Auto) [place] % (Auto) Eos % (Auto) Baso % (Auto) Lymph # (Auto) [place] # (Auto) Eos # (Auto) Baso # (Auto) Abs Immat Gran (auto) Absolute Neuts (auto) Absolute Nucleated RBC Nucleated RBC % (auto) Smear Tech's Comments Anion Gap Estim Creat Clear Calc Estimated GFR POC Glucose 234 H 42 L* 156 H Fasting Glucose Calcium Total Bilirubin AST ALT Alkaline Phosphatase Total Protein Albumin 12/16/21 12/17/21 12/17/21 22:53 00:14 05:55 MCV 88.9 MCH 28.0 MCHC 31.5 RDW 16.2 H Plt Count 126 L MPV Not Reportable Immature Gran % (Auto) 0.5 H Neut % (Auto) 36.6 L Lymph % (Auto) 49.5 H [place] % (Auto) 9.9 Eos % (Auto) 3.2 Baso % (Auto) 0.3 Lymph # (Auto) 1.8 [place] # (Auto) 0.4 Eos # (Auto) 0.1 Baso # (Auto) 0.0 Abs Immat Gran (auto) 0.02 Absolute Neuts (auto) 1.4 L Absolute Nucleated RBC 0.030 H Nucleated RBC % (auto) 0.8 H Smear Tech's Comments VERIFIED Anion Gap Estim Creat Clear Calc Estimated GFR POC Glucose 88 146 H Fasting Glucose Calcium Total Bilirubin AST ALT Alkaline Phosphatase Total Protein Albumin 12/17/21 12/17/21 12/17/21 05:55 07:45 10:58 MCV MCH MCHC RDW Plt Count MPV Immature Gran % (Auto) Neut % (Auto) Lymph % (Auto) [place] % (Auto) Eos % (Auto) Baso % (Auto) Lymph # (Auto) [place] # (Auto) Eos # (Auto) Baso # (Auto) Abs Immat Gran (auto) Absolute Neuts (auto) Absolute Nucleated RBC Nucleated RBC % (auto) Smear Tech's Comments Anion Gap 9 L Estim Creat Clear Calc 70.3 Estimated GFR > 60 POC Glucose 168 H 416 H* Fasting Glucose 135 H Calcium 8.4 Total Bilirubin 0.5 AST 20 ALT 21 Alkaline Phosphatase 106 Total Protein 5.5 L Albumin 2.9 L 12/17/21 12:52 MCV MCH MCHC RDW Plt Count MPV Immature Gran % (Auto) Neut % (Auto) Lymph % (Auto) [place] % (Auto) Eos % (Auto) Baso % (Auto) Lymph # (Auto) [place] # (Auto) Eos # (Auto) Baso # (Auto) Abs Immat Gran (auto) Absolute Neuts (auto) Absolute Nucleated RBC Nucleated RBC % (auto) Smear Tech's Comments Anion Gap Estim Creat Clear Calc Estimated GFR POC Glucose 428 H* Fasting Glucose Calcium Total Bilirubin AST ALT Alkaline Phosphatase Total Protein Albumin Assessment and Plan (1) New onset seizure: Status: Acute (2) Diabetes mellitus: Status: Acute (3) Hypothyroidism: Status: Acute Plan 71yo F with HTN, HLD, DM2, hypothyroidism, dementia, obesity, [place], vit D deficiency, B12 deficiency;admitted 11/15-11/17/21 with hypothermia, Covid-19 infection (diagnosed 11/15/21) treated supportively.Found unreponsive at home 12/11, presented hypothermic + bradycardic and had witnessed generalized seizure ......admitted to ICU for pressor support- dopamine for bradycardia, norepi for hypotension. 1.New-onset seizures - EEG negative. No further seizures since admission - continue Keppra. -no further workup ...continue Keppra BID 2.DMII -labile with SS insulin -add Metformin..adjust as indicated 3. Hypothyroid -stable on current dosing -adjust as clinicall indicated 4.HTN -acceptable control on current therapies - metoprolol/ lisinopril Full Code Sequentials Quality Stroke Does the patient have a stroke diagnosis?: No VTE Prior VTE?: No VTE Risk Level:: Medical - moderate - high VTE Device Contraindication: N/A - Device Ordered VTE Drug Contraindication: N/A - Med Ordered
[2021-12-17 15:55] LABS: Glucose, Whole Blood 419 mg/dL (60-115)
--- NOTE | 2021-12-17 15:59 | MHC.CM.PN ---
Spoke with Patients Sister, Araceli. Araceli reported That Elsa fell 2x the day she was sent to the hospital. The family provides care 18/05. The patient was ambulatory prior to admit, with use of a walker. A PT eval has been ordered. CM will follow.
[2021-12-17] MEDS: metFORMIN HCl 500 MG TABLET PO (16:10)
--- NOTE | 2021-12-17 16:18 | PC.NURSE ---
POC 419,Dr Krishnan aware,Ok to cover with sliding scale 10 units.Patient also started on Metformin.
[2021-12-17 19:47] LABS: Glucose, Whole Blood 266 mg/dL (60-115)
[2021-12-17] MEDS: Atorvastatin Calcium 40 MG TABLET PO (20:39)
[2021-12-17] MEDS: Latanoprost 0.005 % Ophth Sol 2.5 ML DROPS 1 DROP EYE-BOTH (20:41)
[2021-12-18] MEDS: levETIRAcetam in NaCl (iso-os) 500 MG/100 ML PIGGYBACK 400 MG IV ×2 (03:35→16:52)
[2021-12-18 03:38] VITALS: BP 176/74; PULSE 61; RESP 18; TEMP 36.5; O2SAT 100
[2021-12-18 04:03] LABS: Glucose, Whole Blood 67 mg/dL (60-115)
[2021-12-18] MEDS: Levothyroxine Sodium 150 MCG TABLET PO (05:14)
[2021-12-18 05:16] VITALS: BMI 31.6
[2021-12-18 06:09] LABS: MANUAL DIFF FLAG NO
[2021-12-18 06:12] LABS: Eosinophils Absolute Auto 0.1 X10*3/uL (0.0-0.4); Eosinophils Percent Auto 2.6 % (0-4); Hematocrit 31.3 % (37.0-47.0); Hemoglobin 9.8 g/dl (12.0-16.0); Imm Gran Abs Auto 0.02 X10*3/uL (0.00-0.03); Imm Gran Pct Auto 0.4 % (0.0-0.4); Lymphocytes Absolute Auto 1.8 X10*3/uL (1.2-4.9); Lymphocytes Percent Auto 32.8 % (20-40); Mean Corpuscular HGB Conc 31.3 g/dl (31.0-35.0); Mean Corpuscular Hemoglobin 27.9 pg (27.0-33.0); Mean Corpuscular Volume 89.2 fL (80.0-98.0); Mean Platelet Volume 12.3 fL (9.4-12.3); Monocytes Absolute Auto 0.5 X10*3/uL (0.1-1.2); Monocytes Percent Auto 9.2 % (2-11); Neutrophils Absolute Auto 2.9 x10*3/uL (2.0-8.3); Platelet Count 132 X10*3/uL (160-400); Red Blood Count 3.51 X10*6/uL (4.20-5.50); Red Cell Distribution Width 16.4 % (11.0-16.0); White Blood Count 5.3 X10*3/uL (4.8-10.8)
[2021-12-18 06:32] LABS: Alanine Aminotransferase 28 U/L (0-31); Albumin Level 3.1 g/dL (3.5-5.0); Alkaline Phosphatase 121 U/L (39-117); Anion Gap 10 (12-20); Aspartate Amino Transferase 24 U/L (5-31); Bilirubin Total 0.5 mg/dL (0.0-1.0); Blood Urea Nitrogen 14 mg/dL (9-16); Calcium 8.7 mg/dL (8.4-10.2); Carbon Dioxide 35 mmol/L (22-29); Chloride 100 mmol/L (96-108); Creatinine Clr Calc Pharmacy 59.4; Estimated Glomerular Filt Rate 57; Glucose Fasting 170 mg/dL (60-99); Potassium 4.7 mmol/L (3.3-5.1); Sodium 140 mmol/L (135-145); Total Protein 5.9 g/dL (6.5-8.0)
[2021-12-18 07:31] VITALS: BP 168/74; PULSE 69; RESP 20; TEMP 36.5; O2SAT 97
[2021-12-18 07:38] LABS: Glucose, Whole Blood 223 mg/dL (60-115)
[2021-12-18] MEDS: metFORMIN HCl 500 MG TABLET PO ×2 (08:36→16:52)
[2021-12-18] MEDS: Metoprolol Succinate ER 25 MG TAB.ER.24H PO (08:37)
[2021-12-18] MEDS: lisinopriL 10 MG TABLET PO (08:37)
[2021-12-18] MEDS: Ferrous Sulfate 324 MG TABLET.DR PO ×2 (08:37→21:28)
[2021-12-18] MEDS: Insulin Lispro 100 UNIT/ML 3 ML VIAL SUBCUT ×3 (08:37→16:52)
[2021-12-18] MEDS: Cholecalciferol (Vitamin D3) 25 MCG TABLET PO (08:37)
[2021-12-18] MEDS: Cyanocobalamin (Vitamin B-12) 1,000 MCG TABLET 1000 MCG PO (08:37)
[2021-12-18 11:05] VITALS: BP 153/66; PULSE 72; RESP 20; TEMP 36.4; O2SAT 99
[2021-12-18 11:26] LABS: Glucose, Whole Blood 559 mg/dL (60-115)
--- NOTE | 2021-12-18 11:44 | MHC.SL.SWA ---
Speech Pathologist Impression: Oral Phase Dysphagia Risk of Aspiration Due to: Neurological Condition Dysphasia Diet Status: Upgrade Liquid Consistency and Strategies for Safe Swallow: Liquid Intake Recommendation: Thin Liquid Intake Strategies: Small Sips Solid Food Consistency: Dietary Recommendations: Grnd/Mech Altered (NDD2) Additional Modifications to Solid Foods: Recommend continue GROUND/MECH ALTERED (NDD2) and THIN liquids, pills WHOLE in PUREE. Continue aspiration precautions and 1:1 supervision during meals. Patient is edentulous and dentures were left at home. Per family report, this is patient's baseline. D/C speech therapy at this time. Please re-refer if there are any changes or if we can be of further assistance. Oral Medication Intake: Whole with Puree Please contact the pharmacy regarding appropriate crushable or liquid drug formulations that are available whenever modified delivery is recommended. Compensatory Strategies and Precautions to be Taken for Safe Swallow: Sitting Upright (90 deg) Small Bites and Sips Alternate Liquids/Solids Rate of Ingestion Change Oral Check Supervision While Eating and Drinking for Safe Swallow: Total Supervision (1:1) Foods to Avoid: dry sticky hard to chew items Swallowing Recommended Treatments: Compens. Strategy Educat. Recommendation for Speech: D/C Dining Room Supervisor Clinican/Clinical Fellow: No Supervisory Statement: I have reviewed and agree with the student/clinical fellow's documentation: N/A Speech Language Pathologist: Tayler Mathur M.A., CCC-[employer] COLLECTION CLERK
--- NOTE | 2021-12-18 12:07 | PC.NURSE ---
notified of POC 559, instructed to cover with slider, no additional insulin.
--- NOTE | 2021-12-18 13:51 | MHC.CM.PN ---
Addendum entered by Marie Mcghee 12/18/21 15:51: PT eval was performed today. PT REC STR. Spoke with Sister Araceli STR preferences obtained and referred. [facility] is 1st choice. CM will follow. Original Note: Female 71 DX Encephalopathy, SZ Hypothyroid. DP Home with services vs STR. Sister Araceli will provide transport vs BLS.
--- NOTE | 2021-12-18 14:13 | HO.PM.IMPN ---
Subjective Subjective Date of Service: 12/18/21 Interval History: Sugars remain labile No further seizures More alert this am Review of Systems Confused; unable to obtain Physical Exam Vital Signs: Vital Signs: Last Vital Signs Temp 97.6 F 12/18/21 11:05 Pulse 72 12/18/21 11:05 Resp 20 12/18/21 11:05 BP 153/66 H 12/18/21 11:05 Pulse Ox 99 12/18/21 11:05 BMI result Body Mass Index 31.6 Const: Other: Awake alert; oriented to self. No acute distress Resp: Other: Clear to auscultation bilaterally. No rales rhonchi wheezes Cardio: Other: No S4; positive S1-S2; no S3 murmurs or gallops GI: Other: Soft nontender nondistended with normoactive bowel sounds Extrem: Other: No edema bilaterally Objective Data Active Medications Atorvastatin Calcium (Atorvastatin Calcium 40 Mg Tablet) 40 mg PO BEDTIME [facility] Last Admin: 12/17/21 20:39 Dose: 40 mg Documented by: CAROLA Cyanocobalamin (Cyanocobalamin (Vitamin B-12) 1,000 Mcg Tablet) 1,000 mcg PO DAILY [facility] Last Admin: 12/18/21 08:37 Dose: 1,000 mcg Documented by: INDER Dextrose (Dextrose 50 % 25 Gm/50 Ml Syringe) 25 gm IVPUSH Q15M PRN; Protocol PRN Reason: per Hypoglycemia Standing Ord. Last Admin: 12/16/21 23:07 Dose: 25 gm Documented by: LAKISHA Ferrous Sulfate (Ferrous Sulfate 324 Mg Lauren.) 324 mg PO BID [facility] Last Admin: 12/18/21 08:37 Dose: 324 mg Documented by: INDER Glucose (Glucose Gel 15 Gm Gel..Gram.) 15 gm PO Q15M PRN; Protocol PRN Reason: per Hypoglycemia Standing Ord. Levetiracetam (Keppra) 500 mg in 100 mls @ 400 mls/hr IV Q12H [facility] Last Infusion: 12/18/21 03:55 Dose: 0 mls/hr Documented by: CAROLA Insulin Human Lispro (Insulin Lispro 100 Unit/Ml 3 Ml Vial) 0 unit SUBCUT QIDACHS [facility]; Protocol Last Admin: 12/18/21 12:47 Dose: 10 unit Documented by: INDER Latanoprost (Latanoprost 0.005 % Ophth [place] 2.5 Ml Drops) 1 drop EYE-BOTH BEDTIME [facility] Last Admin: 12/17/21 20:41 Dose: 1 drop Documented by: CAROLA Levothyroxine Sodium (Levothyroxine Sodium 150 Mcg Tablet) 150 mcg PO DAILY@0630 [facility] Last Admin: 12/18/21 05:14 Dose: 150 mcg Documented by: CAROLA Lisinopril (Lisinopril 10 Mg Tablet) 10 mg PO DAILY [facility]; Protocol Last Admin: 12/18/21 08:37 Dose: 10 mg Documented by: INDER Metformin HCl (Metformin Hcl 500 Mg Tablet) 500 mg PO BIDWM [facility] Last Admin: 12/18/21 08:36 Dose: 500 mg Documented by: INDER Metoprolol Succinate (Metoprolol Succinate Er 25 Mg Tab.Er.24h) 25 mg PO DAILY [facility]; Protocol Last Admin: 12/18/21 08:37 Dose: 25 mg Documented by: INDER Senna (Sennosides 8.6 Mg Tablet) 8.6 mg PO BEDTIME PRN PRN Reason: for constipation Vitamin D (Cholecalciferol (Vitamin D3) 25 Mcg Tablet) 25 mcg PO DAILY [facility] Last Admin: 12/18/21 08:37 Dose: 25 mcg Documented by: INDER Labs CBC & Chem 7: 12/18/21 06:02 12/18/21 06:02 Labs: Laboratory Results - last 24 hr 12/17/21 12/17/21 12/18/21 15:52 19:05 03:58 MCV MCH MCHC RDW Plt Count MPV Immature Gran % (Auto) Neut % (Auto) Lymph % (Auto) [place] % (Auto) Eos % (Auto) Baso % (Auto) Lymph # (Auto) [place] # (Auto) Eos # (Auto) Baso # (Auto) Abs Immat Gran (auto) Absolute Neuts (auto) Absolute Nucleated RBC Nucleated RBC % (auto) Anion Gap Estim Creat Clear Calc Estimated GFR POC Glucose 419 H* 266 H 67 Fasting Glucose Calcium Total Bilirubin AST ALT Alkaline Phosphatase Total Protein Albumin 12/18/21 12/18/21 12/18/21 06:02 06:02 07:30 MCV 89.2 MCH 27.9 MCHC 31.3 RDW 16.4 H Plt Count 132 L MPV 12.3 Immature Gran % (Auto) 0.4 Neut % (Auto) 55.0 Lymph % (Auto) 32.8 [place] % (Auto) 9.2 Eos % (Auto) 2.6 Baso % (Auto) 0.0 Lymph # (Auto) 1.8 [place] # (Auto) 0.5 Eos # (Auto) 0.1 Baso # (Auto) 0.0 Abs Immat Gran (auto) 0.02 Absolute Neuts (auto) 2.9 Absolute Nucleated RBC 0.000 Nucleated RBC % (auto) 0.0 Anion Gap 10 L Estim Creat Clear Calc 59.4 Estimated GFR 57 POC Glucose 223 H Fasting Glucose 170 H Calcium 8.7 Total Bilirubin 0.5 AST 24 ALT 28 Alkaline Phosphatase 121 H Total Protein 5.9 L Albumin 3.1 L 12/18/21 11:03 MCV MCH MCHC RDW Plt Count MPV Immature Gran % (Auto) Neut % (Auto) Lymph % (Auto) [place] % (Auto) Eos % (Auto) Baso % (Auto) Lymph # (Auto) [place] # (Auto) Eos # (Auto) Baso # (Auto) Abs Immat Gran (auto) Absolute Neuts (auto) Absolute Nucleated RBC Nucleated RBC % (auto) Anion Gap Estim Creat Clear Calc Estimated GFR POC Glucose 559 H* Fasting Glucose Calcium Total Bilirubin AST ALT Alkaline Phosphatase Total Protein Albumin Assessment and Plan (1) New onset seizure: Status: Acute (2) Diabetes: Status: Acute (3) Hypertension: Status: Acute Plan 71yo F with HTN, HLD, DM2, hypothyroidism, dementia, obesity, [place], vit D deficiency, B12 deficiency;admitted 11/15-11/17/21 with hypothermia, Covid-19 infection (diagnosed 11/15/21) treated supportively.Found unreponsive at home 12/11, presented hypothermic + bradycardic and had witnessed generalized seizure ......admitted to ICU for pressor support- dopamine for bradycardia, norepi for hypotension. 1.New-onset seizures - EEG negative. No further seizures since admission - continue Keppra. -no further workup ...continue Keppra BID 2.DMII -labile with SS insulin -increase Metformin to 1000mg BID 3. Hypothyroid -stable on current dosing -adjust as clinicall indicated 4.HTN -acceptable control on current therapies - metoprolol/ lisinopril Full Code Sequentials PT eval Quality Stroke Does the patient have a stroke diagnosis?: No VTE Prior VTE?: No VTE Risk Level:: Medical - moderate - high VTE Device Contraindication: N/A - Device Ordered VTE Drug Contraindication: N/A - Med Ordered
[2021-12-18 14:35] VITALS: BP 153/66; PULSE 72; O2SAT 99
[2021-12-18 16:00] VITALS: BP 160/68; PULSE 62; RESP 18; TEMP 36.6; O2SAT 98
[2021-12-18 16:47] LABS: Glucose, Whole Blood 370 mg/dL (60-115)
[2021-12-18 20:00] VITALS: BP 170/70; PULSE 66; RESP 18; TEMP 36.6; O2SAT 100
[2021-12-18 20:31] LABS: Glucose, Whole Blood 175 mg/dL (60-115)
[2021-12-18] MEDS: Atorvastatin Calcium 40 MG TABLET PO (21:28)
[2021-12-18] MEDS: Latanoprost 0.005 % Ophth Sol 2.5 ML DROPS 1 DROP EYE-BOTH (21:29)
[2021-12-19] VITALS: BP 138/63; PULSE 61; RESP 18; TEMP 37.1; O2SAT 99
[2021-12-19 04:00] VITALS: BP 181/77; PULSE 60; RESP 16; TEMP 36.3; O2SAT 98
[2021-12-19] MEDS: levETIRAcetam in NaCl (iso-os) 500 MG/100 ML PIGGYBACK 400 MG IV ×2 (05:11→15:18)
[2021-12-19] MEDS: Levothyroxine Sodium 150 MCG TABLET PO (05:17)
[2021-12-19 05:56] VITALS: BMI 29.7
[2021-12-19 07:14] LABS: Glucose, Whole Blood 217 mg/dL (60-115)
[2021-12-19 07:25] VITALS: BP 170/71; PULSE 62; RESP 18; TEMP 36.3; O2SAT 100
[2021-12-19] MEDS: lisinopriL 10 MG TABLET PO (08:49)
[2021-12-19] MEDS: Ferrous Sulfate 324 MG TABLET.DR PO (08:49)
[2021-12-19] MEDS: Metoprolol Succinate ER 25 MG TAB.ER.24H PO (08:49)
[2021-12-19] MEDS: metFORMIN HCl 500 MG TABLET PO (08:49)
[2021-12-19] MEDS: Insulin Lispro 100 UNIT/ML 3 ML VIAL SUBCUT ×2 (08:49→13:36)
[2021-12-19] MEDS: Cyanocobalamin (Vitamin B-12) 1,000 MCG TABLET 1000 MCG PO (08:49)
[2021-12-19] MEDS: Cholecalciferol (Vitamin D3) 25 MCG TABLET PO (08:49)
[2021-12-19 10:11] LABS: IgA 286 mg/dL (70-320); IgG 1288 mg/dL (600-1540); IgM 176 mg/dL (50-300)
[2021-12-19 10:49] VITALS: BP 170/71; PULSE 62; O2SAT 100
[2021-12-19 11:04] LABS: Glucose, Whole Blood 383 mg/dL (60-115)
[2021-12-19 11:17] VITALS: BP 175/74; PULSE 57; RESP 19; TEMP 36.3; O2SAT 99
--- NOTE | 2021-12-19 13:44 | P.DS_ITS ---
DS: Providers Provider Date of Service: 12/19/21 Date of admission: 12/11/21 05:51 Date of discharge: 12/19/21 Primary care physician: Edourad Amaro MD Consults: 12/11/21 09:31 Consult to Neurology Routine Consulting Provider: [facility] Reason for consultation: seizures Has provider been notified: Yes DS: Diagnosis Discharge Diagnosis (1) New onset seizure: Status: Acute (2) Diabetes: Status: Acute (3) Hypertension: Status: Acute DS: Summary Hospital Course Hospital Course: 71-year-old female with underlying history of hypertension, diabetes, iron deficiency, vitamin-D deficiency, hyperlipidemia, hypothyroid, dementia, obesity, syncopal episodes, vitamin B12 deficiency; diagnosed with COVID-19 infection on November 17. Patient was found unresponsive by family members, last seen well around 11 30 last night.? Patient was given respiratory support via Ambu bagged by EMS even though her O2 sat was in the 90s.? It was reported family suspect the patient might have had a seizure. ?Given her intermittent staring episodes but no reported tonic-clonic activity was noted by them. ?In the ER the patient did have a seizure and she was given 4 mg Ativan x1 and Keppra. ?Her workup reveal overall stable vital signs however the patient was significantly hypothermic with Armstrong catheter temperature of 85.6.? Rectal temperature could not be obtained. Laboratory data showed a white count 4.3, H&H of 11.8 and 39.1 respectively, platelets 147, the CBC differential does show 3% band neutrophils, Smudge Cells and Toxic Vacuolation. Blood gas shows pH of 7.24 with pCO2 41, HC03 of 18.? Chemistry shows no electrolyte abnormality however there is a BUN of 29 creatinine 0.84, glucose 313, lactic acid 8.7, normal anion gap and there is no acetone noted.? Ammonia 44. ?TSH 9.16 with a free T4 of 0.65. Apparently patient got treated with 2.5 L of IV fluids, at even, initial dose of 200 mg of IV levothyroxine. ?So far no antibiotics were given as there is no evidence of underlying infection unless it is an occult process; patient's blood pressure is stable. hospital course admitted to ICU; given IV levothyroxine and IV Keppra 500 Q 12. Seen by Neurology who was unclear the etiology after reviewing the data and suggested she be maintained on Keppra 500 twice daily. She was switched to oral thyroid supplements and continue to do well throughout the hospitalization. No further seizure activity was noted. she was seen by PT who felt that she was significantly deconditioned and would benefit from acute rehab. At this time she is medically stable to be transferred to SNF Time Spent with Patient Time attestation: Total time spent providing and/or coordinating discharge services: Discharge coordination time: Greater than 30 minutes Quality: Stroke Does the patient have a stroke diagnosis?: No Physical Exam Vital Signs: Vital Signs: Last Vital Signs Temp 97.3 F 12/19/21 11:17 Pulse 57 12/19/21 11:17 Resp 19 12/19/21 11:17 BP 175/74 H 12/19/21 11:17 Pulse Ox 99 12/19/21 11:17 BMI result Body Mass Index 29.7 Const: Other: Awake alert; oriented to self. No acute distress Resp: Other: Clear to auscultation bilaterally. No rales rhonchi wheezes Cardio: Other: No S4; positive S1-S2; no S3 murmurs or gallops GI: Other: Soft nontender nondistended with normoactive bowel sounds Extrem: Other: No edema bilaterally DS: Data Data Completed and Pending Labs on day of discharge: Laboratory Results - last 24 hr 12/14/21 12/18/21 12/18/21 06:37 16:43 20:28 POC Glucose 370 H* 175 H IgG Total 1288 IgA Total 286 IgM 176 ELANA Interpretation SEE NOTE 12/19/21 12/19/21 07:09 10:55 POC Glucose 217 H 383 H* IgG Total IgA Total IgM ELANA Interpretation Discharge Plan Discharge Patient Disposition: Xfer Inpatient Rehab Fac Discharge Diagnosis: mixedema coma Referrals: Physician,Unknown J [Physician] - 1 Week Discharge Medications: New metformin 500 mg Tablet 500 mg PO BIDWM Qty: 60 0RF levetiracetam [Keppra] 500 mg tablet 500 mg PO BID Qty: 60 0RF Continued ascorbic acid (vitamin C) [Vitamin C] 500 mg tablet 500 mg PO BID Qty: 60 5RF ferrous sulfate 325 mg (65 mg iron) tablet 325 mg PO BID Qty: 60 11RF sennosides [senna] 8.6 mg tablet 8.6 mg PO BEDTIME PRN (Reason: for constipation) Qty: 30 11RF cholecalciferol (vitamin D3) 25 mcg (1,000 unit) tablet 25 mcg PO DAILY Qty: 30 11RF cyanocobalamin (vitamin B-12) [Vitamin B-12] 1,000 mcg tablet 1,000 mcg PO DAILY Qty: 30 11RF (DME) walker Misc See Rx Instructions .ROUTE .MEDSUPPLY Qty: 1 0RF Rx Instructions: As directed insulin aspart U-100 [Novolog U-100 Insulin aspart] 100 unit/mL solution 2 - 12 unit subcut QID Qty: 40 11RF atorvastatin 40 mg tablet 40 mg PO BEDTIME Qty: 30 5RF metoprolol succinate 25 mg tablet extended release 24 hr 25 mg PO DAILY Qty: 30 5RF levothyroxine 150 mcg tablet 150 mcg PO QAM Qty: 30 12RF lisinopril 20 mg tablet 20 mg PO BID Qty: 60 3RF latanoprost 0.005 % drops 1 drp ophthalmic (eye) BEDTIME 0RF Rx Instructions: BOTH EYES Levemir U-100 Insulin 100 unit/mL solution 22 unit subcut DAILY 0RF Discharge Orders: Discharge Order (Routine); Ordered 12/19/21 Ordered By: Ravinder Krishnan Diet: advance to usual diet Activity on Discharge: As tolerated Stand Alone Forms: Patient Portal Discharge page Care Plan Goals: continue levothyroxine scene and Keppra as ordered. Will need follow-up with Neurology as an outpatient Health Concerns: continue metformin 500 b.i.d.. Oral dosing can be adjusted by receiving f Plan of Treatment: maintain highest level of functioning Assessment: see discharge summary
--- NOTE | 2021-12-19 13:52 | MHC.CM.PN ---
IMM 12/19/21 Female DX SZ Covid+ she is discharged today to [facility]. Her Sister Araceli has accepted the bed. She is in agreement with the DP. Transportation is booked for 4pm via BLS.
[2021-12-19 14:58] LABS: COVID-19 Test Negative (Negative); IDNOW Serial# 08D9AD1C
--- NOTE | 2021-12-19 15:07 | PC.NURSE ---
Report called to [facility].
[2021-12-19 15:16] VITALS: BP 138/70; PULSE 58; RESP 20; TEMP 36.2; O2SAT 96
--- NOTE | 2021-12-19 15:59 | PC.NURSE ---
Order to remove IJ by MD. Removed with nurse educator Galindo present. Pt tolerated well, catheter was intact when removed.
[2021-12-19 16:12] LABS: Glucose, Whole Blood 247 mg/dL (60-115)
[2021-12-25 10:31] LABS: Chlorpropamide None Detected; Glimepiride None Detected; Glipizide None Detected; Glyburide None Detected; Nateglinide None Detected; Pioglitazone None Detected; Repaglinide None Detected; Rosiglitazone None Detected; Tolazamide None Detected; Tolbutamide None Detected
== END 2021-12-19 16:20 | DRG 100 ==
LOC: HO.ED 05:58 → HO.EDOVER 06:06 → HO.ICU 06:26 → HO.IMC 12-13 06:43
PROVIDERS: Anesthesiology; Family Medicine; Hospitalist; Admitting Provider Physician Assistant Medical; Emergency Provider Emergency Medicine; PCP Internal Medicine; Visit Provider Hospitalist
DX: R56.9 Unspecified convulsions (principal); E03.5 Myxedema coma; U07.1 COVID-19; E87.2 Acidosis; N17.9 Acute kidney failure, unspecified; D61.818 Other pancytopenia; E87.0 Hyperosmolality and hypernatremia; E55.9 Vitamin D deficiency, unspecified; E03.9 Hypothyroidism, unspecified; D50.9 Iron deficiency anemia, unspecified; E11.649 Type 2 diabetes mellitus with hypoglycemia without coma; E11.65 Type 2 diabetes mellitus with hyperglycemia; E53.8 Deficiency of other specified B group vitamins; E78.5 Hyperlipidemia, unspecified; E66.9 Obesity, unspecified; Z68.29 Body mass index [BMI] 29.0-29.9, adult; F03.90 Unspecified dementia, unspecified severity, without behavioral disturbance, psychotic disturbance, mood disturbance, and anxiety; R68.0 Hypothermia, not associated with low environmental temperature; Z79.4 Long term (current) use of insulin; Z79.84 Long term (current) use of oral hypoglycemic drugs; Z79.890 Hormone replacement therapy; Z79.899 Other long term (current) drug therapy
CPT/HCPCS: 36415; 70450; 70551; 71045; 71250; 80048; 80053; 80076; 80307; 80337; 81001; 81003; 82009; 82077; 82140; 82533; 82550; 82607; 82728; 82746; 82784; 82803; 82947; 83036; 83540; 83605; 83615; 83735; 83880; 84100; 84145; 84300; 84439; 84443; 84484; 85007; 85025; 85027; 85045; 85379; 85610; 85730; 86140; 86334; 86850; 86900; 86901; 87040; 87389; 87635; 92526; 92610; 93005; 95816; 96361; 96372; 96374; 96375; 97116; 97163; 99285; 99291; J0461; J0610; J1265; J1650; J1953; J2060; J2370; J2543; J3370; P9047

== ENCOUNTER 2021-12-20 14:06 | Inpatient (IN) | payer MEDICARE, MEDICAID, SELFPAY ==
[2021-12-20 14:16] VITALS: BP 138/54; PULSE 65; RESP 16; TEMP 37.2; O2SAT 100; BMI 28.1
--- NOTE | 2021-12-20 14:16 | ED_ITS ---
HPI - General Adult General Chief complaint: Recheck/Abnormal Lab/Rx Stated complaint: Diff swallowing Time Seen by Provider: 12/20/21 14:15 Source: patient Mode of arrival: EMS Limitations: other (Patient has Alzheimer's and is a poor historian.) History of Present Illness HPI narrative: This is a 71-year-old female past medical history significant for hypothyroidism, vitamin-D deficiency, GERD, vitamin B12 deficiency, Alzheimer's, diabetes, CAD, hypertension presenting to the emergency department with abnormal labs. Patient is currently at [facility] for rehab. They told her that her potassium was high around 6.3. On report EMS reported that patient had a hard time swallowing this morning however the patient is telling me that this is not true and she has had no difficulties with swallowing. She tells me she has no complaints, she has been in good spirits. Family member at the bedside says patient appears to be her normal self. She notes no changes in her mental status. And patient appears well according to family at the bedside. Denies fevers, chills, chest pain, shortness of breath Onset (ago): day(s) Relieving factors: none Exacerbating factors: none Associated symptoms: denies other symptoms Treatments prior to arrival: none Related Data Home Medications Medication Instructions Recorded Confirmed latanoprost 0.005 % eye drops 1 drp OPHTHALMIC (EYE) BEDTIME 10/25/20 12/11/21 insulin detemir U-100 100 unit/mL 22 unit SUBCUT DAILY 11/15/21 12/11/21 subcutaneous solution (Levemir U-100 Insulin) insulin aspart U-100 100 unit/mL 2 - 12 unit SUBCUT QID 12/20/21 12/20/21 subcutaneous solution (Novolog U-100 Insulin aspart) Previous Rx's Medication Instructions Recorded ascorbic acid (vitamin C) 500 mg 500 mg PO BID #60 cap 10/31/20 tablet (Vitamin C) ferrous sulfate 325 mg (65 mg 325 mg PO BID #60 cap 01/07/21 iron) tablet sennosides 8.6 mg tablet (senna) 8.6 mg PO BEDTIME PRN #30 cap 01/07/21 cholecalciferol (vitamin D3) 25 25 mcg PO DAILY #30 cap 01/18/21 mcg (1,000 unit) tablet cyanocobalamin (vitamin B-12) 1,000 mcg PO DAILY #30 cap 01/23/21 1,000 mcg tablet (Vitamin B-12) walker #1 ea 02/28/21 Novolog U-100 Insulin aspart 100 2 - 12 unit (0.02 - 0.12 mL) 03/28/21 unit/mL subcutaneous solution SUBCUT QID #40 cap NS (insulin aspart U-100) atorvastatin 40 mg tablet 40 mg PO BEDTIME #30 tab 07/15/21 metoprolol succinate 25 mg 25 mg PO DAILY #30 tab 07/15/21 tablet,extended release 24 hr levothyroxine 150 mcg tablet 150 mcg PO QAM #30 tab 10/14/21 lisinopril 20 mg tablet 20 mg PO BID #60 cap 11/15/21 levetiracetam 500 mg tablet 500 mg PO BID #60 tab 12/19/21 (Keppra) metformin 500 mg tablet 500 mg PO BIDWM #60 tab 12/19/21 Allergies Allergy/AdvReac Type Severity Reaction Status Date / Time No Known Allergies Allergy Verified 02/07/21 09:39 Review of Systems Review of Systems: Constitutional : No Weight loss, No Fever, No Chills, + Fatigue, No Malaise ENT/Mouth : No sore throat, No Rhinorrhea Eyes: No Eye Pain, No Swelling, No Redness Cardiovascular : No Chest Pain, No SOB, No Dyspnea on Exertion, No Orthopnea, No Edema, No Palpitations Respiratory : No Cough, No Sputum, No Wheezing Gastrointestinal : No Nausea, No Vomiting, No Diarrhea, No Constipation, No abdominal Pain, No Hematochezia, No Melena Genitourinary : No Dysuria, No Urinary Frequency, No Hematuria, Musculoskeletal : No joint pain, No Myalgias, No Joint Swelling Skin : No Skin Lesions, No rash Neuro : + Weakness, No Numbness, No Dizziness, No Headache Psych : No Anxiety/Panic, No Depression All other systems reviewed and are negative Yes all other systems are reviewed and are negative [facility] Past Medical History Attestation statement: The following information was validated with the patient. Source: old records reviewed and nursing notes reviewed Medical History Acquired hypothyroidism Benign essential hypertension Constipation Dementia Diabetes Diabetes mellitus GERD without esophagitis High cholesterol Hypertension Hypothyroidism Impacted cerumen of both ears Iron deficiency anemia Overweight (BMI 25.0-29.9) Pure hypercholesterolemia Syncope Vitamin B12 deficiency Vitamin D deficiency Surgical History History of ankle surgery History of hemiarthroplasty of left hip S/P KULDIP-BSO (total abdominal hysterectomy and bilateral salpingo-oophorectomy) Family History Family History Father Diabetes Hypertension Mother Hypertension Stroke Social History Social History Household Members: Family Housing: House Do you presently have visiting nurse or other home services: No Alcohol intake: never Patient Tobacco Use Status: Tobacco use Unknown Advance Directives: No Advance Directives Information Provided: No service: No Current occupational status: disabled Physical Exam ED Vital Signs: Vital Signs - 24 hr 12/20/21 14:16 12/20/21 15:18 12/20/21 18:49 Temperature 99 F Pulse Rate 65 64 64 Respiratory Rate 16 12 11 L Blood Pressure 138/54 L 125/45 L 140/50 H Pulse Oximetry 100 98 97 BMI result Body Mass Index 28.1 VSS Appearance: Alert. Awake, oriented to person, moving all extremities. No acute distress.? Head: Normocephalic, atraumatic, no step-offs or deformities Eyes: Pupils equal, round and reactive to light.? ENT: Pharynx normal.? Neck: Normal inspection.? Neck supple.? CVS: Normal heart rate and rhythm.? Pulses normal.? Respiratory: No respiratory distress.? Breath sounds normal.? Abdomen: Soft and nontender.? Skin: Skin warm and dry.? Normal skin color.? Normal skin turgor.? Extremities: No lower extremity edema.? No calf ttp. 3/5 strength to bilateral upper and lower extremities, patient diffusely weak however, this is patient's baseline. Diffuse weakness Back: No midline tenderness, no C-spine tenderness, full range of motion, no CVA tenderness bilaterally Neuro: Awake, alert, oriented to person, not time or situation. (patients baseline per family member) No motor deficit.? No sensory deficit. CN 2-12 intact . Patient following basic commands. Course Reevaluation(s) Reevaluation #1: CBC appears to be at baseline. Patient's potassium noted to be elevated 5.6. BUN and creatinine elevated higher than usual. Glucose elevated. Troponin 825.4, this could be elevated secondary to CKD. At this time will hold on anticoagulation as patient is not experiencing chest pain. Will repeat 2nd troponin. EKG nonischemic. Discussed this case with Patient is being given 10 g of Lokelma. 5 units of insulin. Time: 16:11 Reevaluation #2: Spoke to who recommends heparin. Initially did not reach out to Cardiology as patient was not reporting chest pain. However due to this 2nd abnormal value recheck reach out to Cardiology for guidance. Patient will be admitted to the hospitalist team. Time: 19:55 Medical Decision Making MDM Narrative Medical decision making narrative: 1428 71 yo f presents with abnormal labs K 6.3 from [facility]. Patient has no complaints and tells me she feels well. To note, patient was admitted here into the hospital from December 15 December 19 with hypertension and seizures. She was then sent to a retirement facility, discharged on Keppra and metformin. At that time she was noted to have slightly elevated troponin and an LYNNE. Physical examination benign. Patients neuro appears to be at baseline. Verify this with family member who is at the bedside. Plan at this time is to obtain basic labs. I will also do a p.o. challenge to ensure that patient is swallowing well. Patient tough stick delay in obtaining labs and IV access. Medical Records Medical records reviewed: Yes I reviewed the patient's medical records. Lab Data Lab results reviewed: Yes I reviewed the patient's lab results. Result diagrams: 12/20/21 15:34 12/20/21 15:34 Labs: Lab Results 12/20/21 12/20/21 12/20/21 Range/Units 15:34 15:34 15:34 WBC 5.9 (4.8-10.8) X10*3/uL RBC 3.74 L (4.20-5.50) X10*6/uL Hgb 10.4 L (12.0-16.0) g/dl Hct 33.1 L (37.0-47.0) % MCV 88.5 (80.0-98.0) fL MCH 27.8 (27.0-33.0) pg MCHC 31.4 (31.0-35.0) g/dl RDW 16.6 H (11.0-16.0) % Plt Count 193 D (160-400) X10*3/uL MPV 12.3 (9.4-12.3) fL Immature Gran % (Auto) 0.5 H (0.0-0.4) % Neut % (Auto) 67.5 (45-73) % Lymph % (Auto) 21.3 (20-40) % [place] % (Auto) 9.8 (2-11) % Eos % (Auto) 0.7 (0-4) % Baso % (Auto) 0.2 (0-2) % Lymph # (Auto) 1.3 (1.2-4.9) X10*3/uL [place] # (Auto) 0.6 (0.1-1.2) X10*3/uL Eos # (Auto) 0.0 (0.0-0.4) X10*3/uL Baso # (Auto) 0.0 (0.0-0.2) X10*3/uL Abs Immat Gran (auto) 0.03 (0.00-0.03) X10*3/uL Absolute Neuts (auto) 4.0 (2.0-8.3) x10*3/uL Absolute Nucleated RBC 0.000 (0.0-0.012) X10*3/uL Nucleated RBC % (auto) 0.0 (0.0-0.2) /100WBC Sodium 134 L (135-145) mmol/L Potassium 5.6 H (3.3-5.1) mmol/L Chloride 95 L (96-108) mmol/L Carbon Dioxide 30 H (22-29) mmol/L Anion Gap 15 (12-20) BUN 30 H (9-16) mg/dL Creatinine 1.72 H (0.5-1.4) mg/dL Estim Creat Clear Calc 33.6 Estimated GFR 29 Random Glucose 465 H* (60-115) mg/dL Calcium 9.5 (8.4-10.2) mg/dL Magnesium 1.8 (1.6-2.6) mg/dL Total Bilirubin 0.6 (0.0-1.0) mg/dL AST 19 (5-31) U/L ALT 23 (0-31) U/L Alkaline Phosphatase 157 H (39-117) U/L Troponin I High Sens (<3.5-17.0) ng/L Total Protein 6.9 (6.5-8.0) g/dL Albumin 3.5 (3.5-5.0) g/dL COVID-19 (TAMARA) Negative (Negative) COVID-19 Clin Com See Note 12/20/21 12/20/21 Range/Units 15:34 18:16 WBC (4.8-10.8) X10*3/uL RBC (4.20-5.50) X10*6/uL Hgb (12.0-16.0) g/dl Hct (37.0-47.0) % MCV (80.0-98.0) fL MCH (27.0-33.0) pg MCHC (31.0-35.0) g/dl RDW (11.0-16.0) % Plt Count (160-400) X10*3/uL MPV (9.4-12.3) fL Immature Gran % (Auto) (0.0-0.4) % Neut % (Auto) (45-73) % Lymph % (Auto) (20-40) % [place] % (Auto) (2-11) % Eos % (Auto) (0-4) % Baso % (Auto) (0-2) % Lymph # (Auto) (1.2-4.9) X10*3/uL [place] # (Auto) (0.1-1.2) X10*3/uL Eos # (Auto) (0.0-0.4) X10*3/uL Baso # (Auto) (0.0-0.2) X10*3/uL Abs Immat Gran (auto) (0.00-0.03) X10*3/uL Absolute Neuts (auto) (2.0-8.3) x10*3/uL Absolute Nucleated RBC (0.0-0.012) X10*3/uL Nucleated RBC % (auto) (0.0-0.2) /100WBC Sodium (135-145) mmol/L Potassium (3.3-5.1) mmol/L Chloride (96-108) mmol/L Carbon Dioxide (22-29) mmol/L Anion Gap (12-20) BUN (9-16) mg/dL Creatinine (0.5-1.4) mg/dL Estim Creat Clear Calc Estimated GFR Random Glucose (60-115) mg/dL Calcium (8.4-10.2) mg/dL Magnesium (1.6-2.6) mg/dL Total Bilirubin (0.0-1.0) mg/dL AST (5-31) U/L ALT (0-31) U/L Alkaline Phosphatase (39-117) U/L Troponin I High Sens 825.4 H* D 852.4 H* (<3.5-17.0) ng/L Total Protein (6.5-8.0) g/dL Albumin (3.5-5.0) g/dL COVID-19 (TAMARA) (Negative) COVID-19 Clin Com Critical Care Time Critical Care Time Critical Care Time: Yes Total Critical Care Time: 45 Attestation: I attest to this time spent taking care of the patient obtaining history, physical, interpreting labs, imaging, starting an IV line, contacting Cardiology, speaking to my attending. Discharge Plan Discharge Clinical Impression: Acute hyperkalemia, Elevated troponin, Acute non-ST elevation myocardial infarction (NSTEMI), Physical deconditioning, LYNNE (acute kidney injury) Patient Disposition: Admitted As Inpatient
--- NOTE | 2021-12-20 14:17 | ECG_ITS ---
Test Reason : high potassium Blood Pressure : / mmHG Vent. Rate : 062 BPM Atrial Rate : 062 BPM P-R Int : 148 ms QRS Dur : 102 ms QT Int : 382 ms P-R-T Axes : 073 028 062 degrees QTc Int : 387 ms Normal sinus rhythm Normal ECG When compared with ECG of 11-DEC-2021 03:25, Premature ventricular complexes are no longer Present QRS appears slightly narrower. Referred By: Dre Jones Electronically Signed By:OCTAVIANO MANZO
[2021-12-20 15:18] VITALS: BP 125/45; PULSE 64; RESP 12; O2SAT 98
[2021-12-20 15:46] LABS: MANUAL DIFF FLAG NO
[2021-12-20 15:47] LABS: Basophils Percent Auto 0.2 % (0-2); Eosinophils Percent Auto 0.7 % (0-4); Hematocrit 33.1 % (37.0-47.0); Hemoglobin 10.4 g/dl (12.0-16.0); Imm Gran Abs Auto 0.03 X10*3/uL (0.00-0.03); Imm Gran Pct Auto 0.5 % (0.0-0.4); Lymphocytes Absolute Auto 1.3 X10*3/uL (1.2-4.9); Lymphocytes Percent Auto 21.3 % (20-40); Mean Corpuscular HGB Conc 31.4 g/dl (31.0-35.0); Mean Corpuscular Hemoglobin 27.8 pg (27.0-33.0); Mean Corpuscular Volume 88.5 fL (80.0-98.0); Mean Platelet Volume 12.3 fL (9.4-12.3); Monocytes Absolute Auto 0.6 X10*3/uL (0.1-1.2); Monocytes Percent Auto 9.8 % (2-11); Neutrophils Percent Auto 67.5 % (45-73); Platelet Count 193 X10*3/uL (160-400); Red Blood Count 3.74 X10*6/uL (4.20-5.50); Red Cell Distribution Width 16.6 % (11.0-16.0); White Blood Count 5.9 X10*3/uL (4.8-10.8)
[2021-12-20 16:06] LABS: Alanine Aminotransferase 23 U/L (0-31); Albumin Level 3.5 g/dL (3.5-5.0); Alkaline Phosphatase 157 U/L (39-117); Anion Gap 15 (12-20); Aspartate Amino Transferase 19 U/L (5-31); Bilirubin Total 0.6 mg/dL (0.0-1.0); Blood Urea Nitrogen 30 mg/dL (9-16); Calcium 9.5 mg/dL (8.4-10.2); Carbon Dioxide 30 mmol/L (22-29); Chloride 95 mmol/L (96-108); Creatinine Clr Calc Pharmacy 33.6; Estimated Glomerular Filt Rate 29; Glucose Random 465 mg/dL (60-115); Magnesium 1.8 mg/dL (1.6-2.6); Potassium 5.6 mmol/L (3.3-5.1); Sodium 134 mmol/L (135-145); Total Protein 6.9 g/dL (6.5-8.0)
[2021-12-20 16:08] LABS: Troponin-I High Sensitivity 825.4 ng/L (<3.5-17.0)
[2021-12-20 16:19] LABS: COVID-19 Test Negative (Negative); IDNOW Serial# 16C4AD1C
[2021-12-20] MEDS: Sodium Zirconium Cyclosilicate 5 GM POWD.PACK PO (17:04)
[2021-12-20] MEDS: Insulin Lispro 100 UNIT/ML 3 ML VIAL SUBCUT ×2 (17:05→19:31)
[2021-12-20 18:47] LABS: Troponin-I High Sensitivity 852.4 ng/L (<3.5-17.0)
[2021-12-20 18:49] VITALS: BP 140/50; PULSE 64; RESP 11; O2SAT 97
[2021-12-20] MEDS: 0.9 % Sodium Chloride 1,000 ML 999 ML IV (19:32)
[2021-12-20] MEDS: Calcium Gluconate/NaCl,Iso-Osm 2 GM/100 ML PLAST..BAG IV (19:32)
--- NOTE | 2021-12-20 19:37 | PC.NURSE ---
meds not given to previous nurse. assumed care of pt. pt alert, respirations easy, n/l. skin w/d. family at bedside. pt medicated as per emar.
--- NOTE | 2021-12-20 20:30 | PHA.MEDREC ---
Pharmacy Consult ? Medication Reconciliation Pharmacy has completed the medication reconciliation. Completed med rec based on dc summary from 12/19 and shelter [facility]. ANNE has lantus 22 units, per her dc summary shouldve been leroyir 22 units Marion HernandezD
[2021-12-20 21:13] VITALS: BP 130/45; PULSE 62; RESP 12; O2SAT 99
--- NOTE | 2021-12-20 21:13 | P.HPHOSP_ITS ---
History of Present Illness Date of Service: 12/20/21 Chief Complaint: abnormal labs this is a 71-year-old female with past medical history of hypertension, diabetes, iron deficiency anemia, vitamin-D deficiency, hyperlipidemia, hypothyroidism, dementia, obesity, syncopal episodes, Cesar B12, recently diagnosed COVID infection in October presents to the hospital from [facility] with abnormal labs. Patient has baseline dementia, on my interview she answers no to all my questions, unable to give much history otherwise. According to the ED PA, patient was sent in because her follow-up lab after discharge from the hospital on the showed hyperkalemia, patient was not able to Tolerate p.o. treatment and therefore sent to the ED for management. Patient denies all other review of system. On arrival to the ED patient hemodynamically stable with no significant abnormal vitals except for elevated blood pressure. Labs are significant for WBC count of 5.2, hemoglobin of 10.1, hematocrit 31.7 which is around her baseline, potassium of 5.6 in the ED, ( 6.3 on earlier labs), creatinine of 1.7 with a baseline around 0.96, glucose of 465, and troponin of 825 increase to 852. BNP of 106. EKG showed sinus rhythm, with no ST T wave changes Patient received Lokelma, calcium gluconate, cardiology consult, patient will be started on heparin drip. patient was recently discharged from the hospital on the after being managed for hypothyroidism as well as seizure. Was sent to SNF with Keppra 500 b.i.d.. Review of Systems Review of Systems: Yes all other systems are reviewed and are negative [facility] Medical History Acquired hypothyroidism Benign essential hypertension Constipation Dementia Diabetes Diabetes mellitus GERD without esophagitis High cholesterol Hypertension Hypothyroidism Impacted cerumen of both ears Iron deficiency anemia Overweight (BMI 25.0-29.9) Pure hypercholesterolemia Syncope Vitamin B12 deficiency Vitamin D deficiency Family History Father Diabetes Hypertension Mother Hypertension Stroke Surgical History History of ankle surgery History of hemiarthroplasty of left hip S/P KULDIP-BSO (total abdominal hysterectomy and bilateral salpingo-oophorectomy) Social History Household Members: Family Housing: House Do you presently have visiting nurse or other home services: No Alcohol intake: never Patient Tobacco Use Status: Tobacco use Unknown Advance Directives: No Advance Directives Information Provided: No service: No Current occupational status: disabled Meds Allergies Allergy/AdvReac Type Severity Reaction Status Date / Time No Known Allergies Allergy Verified 02/07/21 09:39 Active Medications: Current Medications Heparin Sodium (Porcine) (Heparin Sodium,Porcine 5,000 Unit/Ml Vial) 3,400 unit 40 unit/kg (3400 unit) IVPUSH PROTOCOL BOLUS PRN; Protocol PRN Reason: 40 unit/kg - Heparin Protocol Heparin Sodium (Porcine) (Heparin Sodium,Porcine 5,000 Unit/Ml Vial) 6,700 unit 80 unit/kg (6700 unit) IVPUSH PROTOCOL BOLUS PRN; Protocol PRN Reason: 80 unit/kg - Heparin Protocol Heparin Sodium/Sodium Chloride () 25,000 unit in 250 mls @ 0 mls/hr IVCONT .Q0M GINA; Protocol Home Medications Medication Instructions Recorded Confirmed Last Taken Type latanoprost 0.005 % eye drops 1 drp OPHTHALMIC (EYE) BEDTIME 10/25/20 12/20/21 10/25/20 History insulin detemir U-100 100 unit/mL 22 unit SUBCUT DAILY 11/15/21 12/20/21 Unknown History subcutaneous solution (Levemir U-100 Insulin) acetaminophen 325 mg tablet 650 mg PO Q6H PRN 12/20/21 12/20/21 Unknown History insulin aspart U-100 100 unit/mL 2 - 12 unit SUBCUT QID 12/20/21 12/20/21 Unknown History subcutaneous solution (Novolog U-100 Insulin aspart) Physical Exam 2 Vital Signs and Narrative: Vital Signs: Last Vital Signs Temp 99 F 12/20/21 14:16 Pulse 64 12/20/21 18:49 Resp 11 L 12/20/21 18:49 BP 140/50 H 12/20/21 18:49 Pulse Ox 97 12/20/21 18:49 BMI result Body Mass Index 28.1 Const: Other: patient oriented to self but not place or time, she knows that she lives with her sister, she does not know why she was brought into the hospital General: cooperative and no acute distress Eyes: General: appearance normal, both eyes and all related structures Pupils: Equal, round and reactive pupils present Resp: Effort & Inspection: normal respiratory effort Auscultation: clear to auscultation bilaterally Cardio: Rate: regular rate Rhythm: regular rhythm GI: Palpation (GI): Soft to palpation Auscultation: normal bowel sounds Skin: General skin exam: no rashes or lesions noted Neuro: Cranial nerves: Yes Equal, round and reactive pupils present Extrem: General: Yes normal to inspection and Yes no pedal edema Results Labs CBC and Chem 7: 12/20/21 15:34 12/20/21 21:32 Labs: Laboratory Results - last 24 hr 12/20/21 12/20/21 12/20/21 15:34 15:34 15:34 MCV 88.5 MCH 27.8 MCHC 31.4 RDW 16.6 H Plt Count 193 D MPV 12.3 Immature Gran % (Auto) 0.5 H Neut % (Auto) 67.5 Lymph % (Auto) 21.3 [place] % (Auto) 9.8 Eos % (Auto) 0.7 Baso % (Auto) 0.2 Lymph # (Auto) 1.3 [place] # (Auto) 0.6 Eos # (Auto) 0.0 Baso # (Auto) 0.0 Abs Immat Gran (auto) 0.03 Absolute Neuts (auto) 4.0 Absolute Nucleated RBC 0.000 Nucleated RBC % (auto) 0.0 Anion Gap 15 Estim Creat Clear Calc 33.6 Estimated GFR 29 Random Glucose 465 H* Calcium 9.5 Magnesium 1.8 Total Bilirubin 0.6 AST 19 ALT 23 Alkaline Phosphatase 157 H Total Protein 6.9 Albumin 3.5 COVID-19 (TAMARA) Negative COVID-19 Clin Com See Note Assessment and Plan (1) Acute hyperkalemia: Status: Acute (2) Acute non-ST elevation myocardial infarction (NSTEMI): Status: Acute (3) LYNNE (acute kidney injury): Status: Acute (4) Hyperglycemia: Status: Acute Plan 71-year-old female with extensive past medical history as mentioned above who presents to the hospital with abnormal labs found to have hyperkalemia. On arrival to the ED found to have an NSTEMI # hyperkalemia - acute - resolved after receiving Lokelma, calcium gluconate - follow BMP # NSTEMI - significantly elevated troponin - EKG shows no ST T-wave changes - patient started on heparin drip after discussion with Cardiology - continue high-dose statin, metoprolol, will add aspirin - echocardiogram # LYNNE - likely secondary to dehydration - treat with IV fluids - follow BMP # seizure disorder - stable - continue Keppra # hypothyroidism - normal TSH - continue levothyroxine # hyperglycemia - secondary to uncontrolled diabetes - will place on low-dose sliding scale insulin - diabetic diet - hold oral antihyperglycemics DVT prophylaxis: [employer] Quality Stroke Does the patient have a stroke diagnosis?: No VTE Prior VTE?: No VTE Risk Level:: Medical - moderate - high VTE Device Contraindication: Treatment Not Indicated VTE Drug Contraindication: N/A - Med Ordered
[2021-12-20 21:20] LABS: INTERNATIONAL NORM RATIO 0.9 (0.9-1.1); Prothrombin Time 10.7 SEC (9.9-13.0)
[2021-12-20 21:23] LABS: Partial Thromboplastin Time 32.5 SEC (24.1-38.0)
[2021-12-20] MEDS: Heparin Sodium,Porcine/1/2NS 25,000 UNIT/250 ML IV.SOLN 10 UNIT IVCONT (21:46)
[2021-12-20] MEDS: Heparin Sodium,Porcine 5,000 UNIT/ML VIAL 5000 UNIT IVPUSH (21:46)
--- NOTE | 2021-12-20 21:54 | PC.NURSE ---
labs drawn awaiting for results to hand heparin. pt denies complaints at this time.
[2021-12-20 21:58] LABS: Anion Gap 11 (12-20); Blood Urea Nitrogen 30 mg/dL (9-16); Calcium 9.5 mg/dL (8.4-10.2); Carbon Dioxide 30 mmol/L (22-29); Chloride 98 mmol/L (96-108); Creatinine Clr Calc Pharmacy 40.9; Estimated Glomerular Filt Rate 37; Glucose Random 283 mg/dL (60-115); Potassium 4.3 mmol/L (3.3-5.1); Sodium 135 mmol/L (135-145)
[2021-12-20 22:02] LABS: B Type Natriuretic Peptide 106 pg/mL (<100)
[2021-12-20 22:17] LABS: TSH reflex Free T4 3.23 uIU/mL (0.32-4.0)
--- NOTE | 2021-12-20 22:59 | PC.NURSE ---
Heparin up and running w/o difficulty. site intact. pt denies bleeding/bruising. pt alert, respirations easy, n/l. skin w/d. will continue to monitor pt.
--- NOTE | 2021-12-20 23:54 | PC.NURSE ---
unable to hang LR d/t Heparin running. pt is a very difficult stick and unable to get 2nd line.
--- NOTE | 2021-12-21 01:30 | PC.NURSE ---
REPORT GIVEN TO OVERFLOW. PT TO UNIT ON STRETCHER WITH MONITOR AND HEPARIN DRIP.
[2021-12-21 06:03] VITALS: BP 155/83; PULSE 62; RESP 16; TEMP 36.5; O2SAT 100
--- NOTE | 2021-12-21 06:22 | PC.NURSE ---
PATIENT TRANSFERRED FROM MAIN ED WITH HEPARING DRIP IN USE, STARTED IN MAIN ED AT 2150, AT 11UNITS/KG/HR, AND RATE OF 9.99ML/HR. NEXT PTT-HD DUE 0345. OVERCOIL STEPPER NOTED TO DRAW AT 0415 AND THEN APPARENTLY SPECIMEN WAS NOT ENOUGH TO TEST. TECH ON UNIT TOOK A PHONE CALL FROM THE LAB STATING WOULD NEED A REDRAW BUT CURED MEATS SUPERVISOR WAS NOT INFORMED AND WHEN CALLED BY THIS PAVING BED MAKER SHE WAS UPDATED BY HER PEERS AND CAME TO DRAW PT AT 0615, HOWEVER, PT VERY HARD STICK. HEPARIN DRIP NOT ADJUSTED NO PTT-HD RECEIVED AT THIS TIME(0635). WILL CONTINUE TO MONITOR PATIENT AND WAIT FOR RESULTS.
[2021-12-21 07:43] LABS: PTT Heparin Drip 136.7 SEC (53-77.9)
[2021-12-21 07:46] LABS: MANUAL DIFF FLAG NO
--- NOTE | 2021-12-21 07:52 | PC.NURSE ---
heparin drop stopped per order, dr redmond notified, repeat ptt to be done at 845 am
[2021-12-21 07:53] LABS: Basophils Percent Auto 0.3 % (0-2); Eosinophils Absolute Auto 0.2 X10*3/uL (0.0-0.4); Eosinophils Percent Auto 2.6 % (0-4); Hemoglobin 10.4 g/dl (12.0-16.0); Imm Gran Abs Auto 0.02 X10*3/uL (0.00-0.03); Imm Gran Pct Auto 0.3 % (0.0-0.4); Lymphocytes Absolute Auto 2.5 X10*3/uL (1.2-4.9); Lymphocytes Percent Auto 42.7 % (20-40); Mean Corpuscular HGB Conc 30.6 g/dl (31.0-35.0); Mean Corpuscular Hemoglobin 27.7 pg (27.0-33.0); Mean Corpuscular Volume 90.7 fL (80.0-98.0); Mean Platelet Volume 12.4 fL (9.4-12.3); Monocytes Absolute Auto 0.6 X10*3/uL (0.1-1.2); Monocytes Percent Auto 10.8 % (2-11); Neutrophils Absolute Auto 2.5 x10*3/uL (2.0-8.3); Neutrophils Percent Auto 43.3 % (45-73); Platelet Count 156 X10*3/uL (160-400); Red Blood Count 3.75 X10*6/uL (4.20-5.50); Red Cell Distribution Width 16.6 % (11.0-16.0); White Blood Count 5.7 X10*3/uL (4.8-10.8)
[2021-12-21] MEDS: Insulin Glargine,Hum.rec.anlog 100 UNIT/ML 10 ML VIAL 15 UNIT SUBCUT (08:22)
[2021-12-21] MEDS: Insulin Lispro 100 UNIT/ML 3 ML VIAL SUBCUT ×4 (08:23→22:12)
[2021-12-21] MEDS: levETIRAcetam 500 MG TABLET PO ×2 (08:24→20:41)
[2021-12-21] MEDS: Ferrous Sulfate 324 MG TABLET.DR PO ×2 (08:24→20:41)
[2021-12-21] MEDS: Ascorbic Acid 500 MG TABLET PO ×2 (08:24→20:41)
[2021-12-21] MEDS: Levothyroxine Sodium 150 MCG TABLET PO (08:24)
[2021-12-21] MEDS: lisinopriL 20 MG TABLET PO ×2 (08:24→20:40)
[2021-12-21] MEDS: Metoprolol Succinate ER 25 MG TAB.ER.24H PO (08:24)
[2021-12-21] MEDS: Aspirin 81 MG TAB.CHEW PO (08:24)
[2021-12-21] MEDS: Cholecalciferol (Vitamin D3) 25 MCG TABLET PO (08:25)
[2021-12-21] MEDS: 0.9 % Sodium Chloride Flush 3 ML SYRINGE IVFLUSH ×2 (08:25→20:41)
[2021-12-21] MEDS: Cyanocobalamin (Vitamin B-12) 1,000 MCG TABLET 1000 MCG PO (08:25)
[2021-12-21] MEDS: 0.9 % Sodium Chloride 1,000 ML 75 ML IVCONT (08:32)
--- NOTE | 2021-12-21 09:00 | PC.NURSE ---
phlebotomy attempting to get labs, patient is a difficult stick
[2021-12-21 09:14] LABS: Troponin-I High Sensitivity 630.8 ng/L (<3.5-17.0)
[2021-12-21 09:52] LABS: PTT Heparin Drip 78.6 SEC (53-77.9)
--- NOTE | 2021-12-21 09:56 | PC.NURSE ---
spoke with sister to update, had qu regarding K level - norm on last check, planning on coming to visit later on today.
--- NOTE | 2021-12-21 10:33 | PC.NURSE ---
pt alert, ate breakfast well - able to eat independently, medicated per provider order, vss, heparin paused pended recheck PTT, vss, restng comfortably, no SOB, IV dressing changed.
--- NOTE | 2021-12-21 10:52 | P.CONCA_ITS ---
History of Present Illness History of Present Illness Date of Service: 12/21/21 Chief complaint: NSTEMI,LYNNE, Hyperkalemia Narrative: This is a cardiology consultation regarding elevated troponins. Patient has numerous medical comorbidities including diabetes, hypertension, hyperlipidemia, dementia, recent COVID infection from October and has been sent to the hospital with abnormal labs. In this context, for unclear reasons, troponins were checked and they have been found to be high at over 800. Hence she has been diagnosed with an NSTEMI and admitted to the hospital. Patient herself is not really able to say much. She is clearly denying any chest pain or shortness of breath or in fact any cardiac symptoms whatsoever. However, questionable history as she also has dementia. Review of Systems Review of Systems: Yes all other systems are reviewed and are negative Cardiovascular: Cardiovascular: Reports as per HPI, Reports no additional car diovascular complaints, Denies acrocyanosis, Denies cool extremities, Denies chest pain, Denies diaphoresis, Denies syncope, Denies claudication, Denies leg edema, Denies lightheadedness, Denies palpitations and Denies dyspnea Respiratory: Respiratory: Denies dyspnea Neurologic: Denies syncope Endocrine: Endocrine: Denies palpitations PMFSH Past Medical History Medical History Acquired hypothyroidism Benign essential hypertension Constipation Dementia Diabetes Diabetes mellitus GERD without esophagitis High cholesterol Hypertension Hypothyroidism Impacted cerumen of both ears Iron deficiency anemia Overweight (BMI 25.0-29.9) Pure hypercholesterolemia Syncope Vitamin B12 deficiency Vitamin D deficiency Family History Family History Father Diabetes Hypertension Mother Hypertension Stroke Surgical History Surgical History History of ankle surgery History of hemiarthroplasty of left hip S/P [id number] (total abdominal hysterectomy and bilateral salpingo-oophorectomy) Social History Social History Household Members: Family Housing: House Do you presently have visiting nurse or other home services: No Alcohol intake: never Patient Tobacco Use Status: Tobacco use Unknown Advance Directives: No Advance Directives Information Provided: No service: No Current occupational status: disabled Meds Allergies Allergy/AdvReac Type Severity Reaction Status Date / Time No Known Allergies Allergy Verified 02/07/21 09:39 Active Medications: Current Medications Acetaminophen (Acetaminophen Supp 650 Mg Supp.Rect) 650 mg [place] Q6H PRN PRN Reason: Pain, Mild (Pain Scale 1-3) Ascorbic Acid (Ascorbic Acid 500 Mg Tablet) 500 mg PO BID [facility] Last Admin: 12/21/21 08:24 Dose: 500 mg Documented by: Aspirin (Aspirin 81 Mg Tab.Chew) 81 mg PO DAILY [facility] Last Admin: 12/21/21 10:05 Dose: Not Given Documented by: Atorvastatin Calcium (Atorvastatin Calcium 40 Mg Tablet) 40 mg PO BEDTIME [facility] Cyanocobalamin (Cyanocobalamin (Vitamin B-12) 1,000 Mcg Tablet) 1,000 mcg PO DAILY [facility] Last Admin: 12/21/21 08:25 Dose: 1,000 mcg Documented by: Dextrose (Dextrose 50 % 25 Gm/50 Ml Syringe) 25 gm IVPUSH Q15M PRN; Protocol PRN Reason: per Hypoglycemia Standing Ord. Docusate Sodium (Docusate Sodium 100 Mg Capsule) 100 mg PO DAILY PRN PRN Reason: Constipation Ferrous Sulfate (Ferrous Sulfate 324 Mg Tablet.Dr) 324 mg PO BID [facility] Last Admin: 12/21/21 08:24 Dose: 324 mg Documented by: Glucose (Glucose Gel 15 Gm Gel..Gram.) 15 gm PO Q15M PRN; Protocol PRN Reason: per Hypoglycemia Standing Ord. Heparin Sodium (Porcine) (Heparin Sodium,Porcine 5,000 Unit/Ml Vial) 3,400 unit 40 unit/kg (3400 unit) IVPUSH PROTOCOL BOLUS PRN; Protocol PRN Reason: 40 unit/kg - Heparin Protocol Heparin Sodium (Porcine) (Heparin Sodium,Porcine 5,000 Unit/Ml Vial) 6,700 unit 80 unit/kg (6700 unit) IVPUSH PROTOCOL BOLUS PRN; Protocol PRN Reason: 80 unit/kg - Heparin Protocol Heparin Sodium/Sodium Chloride () 25,000 unit in 250 mls @ 0 mls/hr IVCONT .Q0M [facility]; Protocol Last Titration: 12/21/21 09:59 Dose: 7.9 units/kg/hr, 6.64 mls/hr Documented by: Sodium Chloride (Ns) 1,000 mls @ 75 mls/hr IVCONT .[id number] [facility] Last Admin: 12/21/21 08:32 Dose: 75 mls/hr Documented by: Insulin Glargine (Insulin Glargine,Hum.Rec.Anlog 100 Unit/Ml 10 Ml Vial) 15 unit SUBCUT DAILY [facility] Last Admin: 12/21/21 08:22 Dose: 15 unit Documented by: Insulin Human Lispro (Insulin Lispro 100 Unit/Ml 3 Ml Vial) 0 unit SUBCUT QID ACHS [facility]; Protocol Last Admin: 12/21/21 08:23 Dose: 6 unit Documented by: Latanoprost (Latanoprost 0.005 % Ophth Sharon 2.5 Ml Drops) 1 drop EYE-BOTH BEDTIME [facility] Levetiracetam (Levetiracetam 500 Mg Tablet) 500 mg PO BID [facility] Last Admin: 12/21/21 08:24 Dose: 500 mg Documented by: Levothyroxine Sodium (Levothyroxine Sodium 150 Mcg Tablet) 150 mcg PO DAILY@0600 [facility] Last Admin: 12/21/21 08:24 Dose: 150 mcg Documented by: Lisinopril (Lisinopril 20 Mg Tablet) 20 mg PO BID [facility]; Protocol Last Admin: 12/21/21 08:24 Dose: 20 mg Documented by: Metoprolol Succinate (Metoprolol Succinate Er 25 Mg Tab.Er.24h) 25 mg PO DAILY [facility]; Protocol Last Admin: 12/21/21 08:24 Dose: 25 mg Documented by: Ondansetron HCl (Ondansetron Hcl 4 Mg/2 Ml Vial) 4 mg IVPUSH Q8H PRN PRN Reason: Nausea and Vomiting Sodium Chloride (0.9 % Sodium Chloride Flush 3 Ml Syringe) 3 ml IVFLUSH QSHIFT [facility] Last Admin: 12/21/21 08:25 Dose: 3 ml Documented by: Vitamin D (Cholecalciferol (Vitamin D3) 25 Mcg Tablet) 25 mcg PO DAILY [facility] Last Admin: 12/21/21 08:25 Dose: 25 mcg Documented by: Home Medications Medication Instructions Recorded Confirmed Last Taken Type latanoprost 0.005 % eye drops 1 drp OPHTHALMIC (EYE) BEDTIME 10/25/20 12/20/21 10/25/20 History insulin detemir U-100 100 unit/mL 22 unit SUBCUT DAILY 11/15/21 12/20/21 Unknown History subcutaneous solution (Levemir U-100 Insulin) acetaminophen 325 mg tablet 650 mg PO Q6H PRN 12/20/21 12/20/21 Unknown History insulin aspart U-100 100 unit/mL 2 - 12 unit SUBCUT QID 12/20/21 12/20/21 Unknown History subcutaneous solution (Novolog U-100 Insulin aspart) Physical Exam Vital Signs: Vital Signs: Last Vital Signs Temp 97.7 F 12/21/21 06:03 Pulse 62 12/21/21 06:03 Resp 16 12/21/21 06:03 BP 155/83 H 12/21/21 06:03 Pulse Ox 100 12/21/21 06:03 BMI result Body Mass Index 28.1 Const: General: comfortable HENMT: Other: Unremarkable Neck: Neck: Yes normal visual inspection Chest: Chest palpation & inspection: normal inspection of the chest Resp: Auscultation: clear to auscultation bilaterally Cardio: Palpation: normal PMI Heart sounds: S1 normal heart sound present, S2 normal heart sound present, no gallops, no murmurs and no rubs GI: Palpation (GI): Soft to palpation Back/Spine/Pelvis: Other: unremarkable Skin: Lesions: other Neuro: General: other Extrem: General: Yes other Psych: Mental Status: other Objective Labs and Meds Result diagrams: 12/21/21 07:40 12/20/21 21:32 Lab results: Laboratory Results - last 24 hr 12/20/21 12/20/21 12/20/21 15:34 15:34 15:34 WBC 5.9 RBC 3.74 L Hgb 10.4 L Hct 33.1 L MCV 88.5 MCH 27.8 MCHC 31.4 RDW 16.6 H Plt Count 193 D MPV 12.3 Immature Gran % (Auto) 0.5 H Neut % (Auto) 67.5 Lymph % (Auto) 21.3 [place] % (Auto) 9.8 Eos % (Auto) 0.7 Baso % (Auto) 0.2 Lymph # (Auto) 1.3 [place] # (Auto) 0.6 Eos # (Auto) 0.0 Baso # (Auto) 0.0 Abs Immat Gran (auto) 0.03 Absolute Neuts (auto) 4.0 Absolute Nucleated RBC 0.000 Nucleated RBC % (auto) 0.0 PT INR APTT aPTT Heparin Protocol Sodium 134 L Potassium 5.6 H Chloride 95 L Carbon Dioxide 30 H Anion Gap 15 BUN 30 H Creatinine 1.72 H Estim Creat Clear Calc 33.6 Estimated GFR 29 Random Glucose 465 H* Calcium 9.5 Magnesium 1.8 Total Bilirubin 0.6 AST 19 ALT 23 Alkaline Phosphatase 157 H Troponin I High Sens B-Natriuretic Peptide Total Protein 6.9 Albumin 3.5 TSH COVID-19 (TAMARA) Negative COVID-19 Clin Com See Note 12/20/21 12/20/21 12/20/21 15:34 18:16 20:54 WBC RBC Hgb Hct MCV MCH MCHC RDW Plt Count MPV Immature Gran % (Auto) Neut % (Auto) Lymph % (Auto) [place] % (Auto) Eos % (Auto) Baso % (Auto) Lymph # (Auto) [place] # (Auto) Eos # (Auto) Baso # (Auto) Abs Immat Gran (auto) Absolute Neuts (auto) Absolute Nucleated RBC Nucleated RBC % (auto) PT 10.7 INR 0.9 APTT 32.5 aPTT Heparin Protocol Sodium Potassium Chloride Carbon Dioxide Anion Gap BUN Creatinine Estim Creat Clear Calc Estimated GFR Random Glucose Calcium Magnesium Total Bilirubin AST ALT Alkaline Phosphatase Troponin I High Sens 825.4 H* D 852.4 H* B-Natriuretic Peptide Total Protein Albumin TSH COVID-19 (TAMARA) COVID-Wrapp 12/20/21 12/20/21 12/21/21 21:32 21:32 06:25 WBC RBC Hgb Hct MCV MCH MCHC RDW Plt Count MPV Immature Gran % (Auto) Neut % (Auto) Lymph % (Auto) [place] % (Auto) Eos % (Auto) Baso % (Auto) Lymph # (Auto) [place] # (Auto) Eos # (Auto) Baso # (Auto) Abs Immat Gran (auto) Absolute Neuts (auto) Absolute Nucleated RBC Nucleated RBC % (auto) PT INR APTT aPTT Heparin Protocol 136.7 H* Sodium 135 Potassium 4.3 D Chloride 98 Carbon Dioxide 30 H Anion Gap 11 L BUN 30 H Creatinine 1.41 H Estim Creat Clear Calc 40.9 Estimated GFR 37 Random Glucose 283 H Calcium 9.5 Magnesium Total Bilirubin AST ALT Alkaline Phosphatase Troponin I High Sens B-Natriuretic Peptide 106 H Total Protein Albumin TSH 3.23 COVID-19 (TAMARA) COVID-19 Clin Com 12/21/21 12/21/21 12/21/21 07:40 07:40 09:21 WBC 5.7 RBC 3.75 L Hgb 10.4 L Hct 34.0 L MCV 90.7 MCH 27.7 MCHC 30.6 L RDW 16.6 H Plt Count 156 L MPV 12.4 H Immature Gran % (Auto) 0.3 Neut % (Auto) 43.3 L Lymph % (Auto) 42.7 H [place] % (Auto) 10.8 Eos % (Auto) 2.6 Baso % (Auto) 0.3 Lymph # (Auto) 2.5 [place] # (Auto) 0.6 Eos # (Auto) 0.2 Baso # (Auto) 0.0 Abs Immat Gran (auto) 0.02 Absolute Neuts (auto) 2.5 Absolute Nucleated RBC 0.000 Nucleated RBC % (auto) 0.0 PT INR APTT aPTT Heparin Protocol 78.6 H D Sodium Potassium Chloride Carbon Dioxide Anion Gap BUN Creatinine Estim Creat Clear Calc Estimated GFR Random Glucose Calcium Magnesium Total Bilirubin AST ALT Alkaline Phosphatase Troponin I High Sens 630.8 H* B-Natriuretic Peptide Total Protein Albumin TSH COVID-19 (TAMARA) COVID-19 Clin Com ECG Interpretation: EKG today shows sinus rhythm at 62/Min; no significant ST-T changes. Assessment and Plan (1) NSTEMI (non-ST elevated myocardial infarction): Status: Acute (2) Atherosclerotic cardiovascular disease: Status: Acute Plan Cardiac studies reviewed. Myocardial perfusion imaging study shows moderate intensity basal lateral and inferior/inferolateral ischemia in the circumflex territory. She has had a coronary CTA last year that shows significant proximal circumflex stenosis; mild mixed plaque in the proximal to mid LAD; moderate stenosis in the distal RCA. Echocardiogram then with LVEF of 60-65% and otherwise unremarkable. Labs show creatinine 1.41. Baseline in the normal range. High sensitivity troponins are 825, 852 and 630. About a week ago, it was in the normal range. Overall, this appears to be demand related [place]. primary plaque rupture less likely. Can keep IV heparin for 48 hours. Aspirin and statins. Not a good candidate for cardiac catheterization. Likely conservative care only. Procedures Date of Service Date of Service: 12/21/21
--- NOTE | 2021-12-21 12:02 | PC.NURSE ---
pt arousable to name, vss, sinus xavier on monitor, repositioned, will continue to monitor.
[2021-12-21 12:07] VITALS: BP 105/46; PULSE 53; RESP 15; O2SAT 100
[2021-12-21 12:15] VITALS: BP 118/49
--- NOTE | 2021-12-21 14:05 | MHC.CM.PN ---
Patient has Dementia; CM spoke with Sister/HCP/Araceli at [phone] and addressed IMM with her, (mailing original certified mail to Araceli and placing a copy on the chart). Patient lives in an apartment with her 2 Sisters and uses a walker to assist with mobility. The goal for dc is for Patient to return to [facility] to complete her STR. CM has initiated and will follow for dc planning. Patient has just received the 1 [employer] Covid vax and her PCP is DR. Edouard Amaro.
--- NOTE | 2021-12-21 14:56 | PC.NURSE ---
pt alert and sitting with sister, provider met with sister at bedside. vss, denies pain, no sob noted, skin is dry and intact, will continue to monitor.
--- NOTE | 2021-12-21 15:43 | P.PNIM_ITS ---
Subjective Subjective Date of Service: 12/21/21 Interval History: awake alert confused. No acute distress Review of Systems unable to obtain secondary to dementia Physical Exam Vital Signs: Vital Signs: Last Vital Signs Temp 97.7 F 12/21/21 06:03 Pulse 53 12/21/21 12:07 Resp 15 12/21/21 12:07 BP 118/49 L 12/21/21 12:15 Pulse Ox 100 12/21/21 12:07 BMI result Body Mass Index 28.1 Resp: Other: clear to auscultation Cardio: Other: no S4; positive S1-S2; no S3 murmurs rubs or gallops GI: Other: soft nontender nondiste Extrem: Other: No edema bilaterally Objective Data Active Medications Acetaminophen (Acetaminophen Supp 650 Mg Supp.Rect) 650 mg [place] Q6H PRN PRN Reason: Pain, Mild (Pain Scale 1-3) Ascorbic Acid (Ascorbic Acid 500 Mg Tablet) 500 mg PO BID [facility] Last Admin: 12/21/21 08:24 Dose: 500 mg Documented by: TARIK Aspirin (Aspirin 81 Mg Tab.Chew) 81 mg PO DAILY [facility] Last Admin: 12/21/21 10:05 Dose: Not Given Documented by: ALIDA Non-Admin Reason: Previously Administered Atorvastatin Calcium (Atorvastatin Calcium 40 Mg Tablet) 40 mg PO BEDTIME [facility] Cyanocobalamin (Cyanocobalamin (Vitamin B-12) 1,000 Mcg Tablet) 1,000 mcg PO DAILY [facility] Last Admin: 12/21/21 08:25 Dose: 1,000 mcg Documented by: TARIK Dextrose (Dextrose 50 % 25 Gm/50 Ml Syringe) 25 gm IVPUSH Q15M PRN; Protocol PRN Reason: per Hypoglycemia Standing Ord. Docusate Sodium (Docusate Sodium 100 Mg Capsule) 100 mg PO DAILY PRN PRN Reason: Constipation Ferrous Sulfate (Ferrous Sulfate 324 Mg Tablet.Dr) 324 mg PO BID [facility] Last Admin: 12/21/21 08:24 Dose: 324 mg Documented by: TARIK Glucose (Glucose Gel 15 Gm Gel..Gram.) 15 gm PO Q15M PRN; Protocol PRN Reason: per Hypoglycemia Standing Ord. Heparin Sodium (Porcine) (Heparin Sodium,Porcine 5,000 Unit/Ml Vial) 3,400 unit 40 unit/kg (3400 unit) IVPUSH PROTOCOL BOLUS PRN; Protocol PRN Reason: 40 unit/kg - Heparin Protocol Heparin Sodium (Porcine) (Heparin Sodium,Porcine 5,000 Unit/Ml Vial) 6,700 unit 80 unit/kg (6700 unit) IVPUSH PROTOCOL BOLUS PRN; Protocol PRN Reason: 80 unit/kg - Heparin Protocol Heparin Sodium/Sodium Chloride () 25,000 unit in 250 mls @ 0 mls/hr IVCONT .Q0M [facility]; Protocol Last Titration: 12/21/21 09:59 Dose: 7.9 units/kg/hr, 6.64 mls/hr Documented by: TARIK Cosigned by: KINGSLEY Sodium Chloride (Ns) 1,000 mls @ 75 mls/hr IVCONT .[id number] [facility] Last Admin: 12/21/21 08:32 Dose: 75 mls/hr Documented by: TARIK Insulin Glargine (Insulin Glargine,Hum.Rec.Anlog 100 Unit/Ml 10 Ml Vial) 15 unit SUBCUT DAILY [facility] Last Admin: 12/21/21 08:22 Dose: 15 unit Documented by: TARIK Insulin Human Lispro (Insulin Lispro 100 Unit/Ml 3 Ml Vial) 0 unit SUBCUT QIDACHS [facility]; Protocol Last Admin: 12/21/21 13:40 Dose: 4 unit Documented by: TARIK Latanoprost (Latanoprost 0.005 % Ophth Sharon 2.5 Ml Drops) 1 drop EYE-BOTH BEDTIME [facility] Levetiracetam (Levetiracetam 500 Mg Tablet) 500 mg PO BID [facility] Last Admin: 12/21/21 08:24 Dose: 500 mg Documented by: TARIK Levothyroxine Sodium (Levothyroxine Sodium 150 Mcg Tablet) 150 mcg PO DAILY@0600 [facility] Last Admin: 12/21/21 08:24 Dose: 150 mcg Documented by: TARIK Lisinopril (Lisinopril 20 Mg Tablet) 20 mg PO BID [facility]; Protocol Last Admin: 12/21/21 08:24 Dose: 20 mg Documented by: TARIK Metoprolol Succinate (Metoprolol Succinate Er 25 Mg Tab.Er.24h) 25 mg PO DAILY [facility]; Protocol Last Admin: 12/21/21 08:24 Dose: 25 mg Documented by: TARIK Ondansetron HCl (Ondansetron Hcl 4 Mg/2 Ml Vial) 4 mg IVPUSH Q8H PRN PRN Reason: Nausea and Vomiting Sodium Chloride (0.9 % Sodium Chloride Flush 3 Ml Syringe) 3 ml IVFLUSH QSHIFT [facility] Last Admin: 12/21/21 14:59 Dose: Not Given Documented by: TARIK Non-Admin Reason: IV Running Vitamin D (Cholecalciferol (Vitamin D3) 25 Mcg Tablet) 25 mcg PO DAILY [facility] Last Admin: 12/21/21 08:25 Dose: 25 mcg Documented by: TARIK Labs CBC & Chem 7: 12/21/21 07:40 12/20/21 21:32 Labs: Laboratory Results - last 24 hr 12/20/21 12/20/21 12/20/21 15:34 15:34 15:34 MCV 88.5 MCH 27.8 MCHC 31.4 RDW 16.6 H Plt Count 193 D MPV 12.3 Immature Gran % (Auto) 0.5 H Neut % (Auto) 67.5 Lymph % (Auto) 21.3 [place] % (Auto) 9.8 Eos % (Auto) 0.7 Baso % (Auto) 0.2 Lymph # (Auto) 1.3 [place] # (Auto) 0.6 Eos # (Auto) 0.0 Baso # (Auto) 0.0 Abs Immat Gran (auto) 0.03 Absolute Neuts (auto) 4.0 Absolute Nucleated RBC 0.000 Nucleated RBC % (auto) 0.0 PT INR APTT aPTT Heparin Protocol Anion Gap 15 Estim Creat Clear Calc 33.6 Estimated GFR 29 Random Glucose 465 H* Calcium 9.5 Magnesium 1.8 Total Bilirubin 0.6 AST 19 ALT 23 Alkaline Phosphatase 157 H Troponin I High Sens B-Natriuretic Peptide Total Protein 6.9 Albumin 3.5 TSH COVID-19 (TAMARA) Negative COVID-19 Clin Com See Note 12/20/21 12/20/21 12/20/21 15:34 18:16 20:54 MCV MCH MCHC RDW Plt Count MPV Immature Gran % (Auto) Neut % (Auto) Lymph % (Auto) [place] % (Auto) Eos % (Auto) Baso % (Auto) Lymph # (Auto) [place] # (Auto) Eos # (Auto) Baso # (Auto) Abs Immat Gran (auto) Absolute Neuts (auto) Absolute Nucleated RBC Nucleated RBC % (auto) PT 10.7 INR 0.9 APTT 32.5 aPTT Heparin Protocol Anion Gap Estim Creat Clear Calc Estimated GFR Random Glucose Calcium Magnesium Total Bilirubin AST ALT Alkaline Phosphatase Troponin I High Sens 825.4 H* D 852.4 H* B-Natriuretic Peptide Total Protein Albumin TSH COVID-19 (TAMARA) COVID-19 [employer] Com 12/20/21 12/20/21 12/21/21 21:32 21:32 06:25 MCV MCH MCHC RDW Plt Count MPV Immature Gran % (Auto) Neut % (Auto) Lymph % (Auto) [place] % (Auto) Eos % (Auto) Baso % (Auto) Lymph # (Auto) [place] # (Auto) Eos # (Auto) Baso # (Auto) Abs Immat Gran (auto) Absolute Neuts (auto) Absolute Nucleated RBC Nucleated RBC % (auto) PT INR APTT aPTT Heparin Protocol 136.7 H* Anion Gap 11 L Estim Creat Clear Calc 40.9 Estimated GFR 37 Random Glucose 283 H Calcium 9.5 Magnesium Total Bilirubin AST ALT Alkaline Phosphatase Troponin I High Sens B-Natriuretic Peptide 106 H Total Protein Albumin TSH 3.23 COVID-19 (TAMARA) COVID-19 [email or web address] 12/21/21 12/21/21 12/21/21 07:40 07:40 09:21 MCV 90.7 MCH 27.7 MCHC 30.6 L RDW 16.6 H Plt Count 156 L MPV 12.4 H Immature Gran % (Auto) 0.3 Neut % (Auto) 43.3 L Lymph % (Auto) 42.7 H [place] % (Auto) 10.8 Eos % (Auto) 2.6 Baso % (Auto) 0.3 Lymph # (Auto) 2.5 [place] # (Auto) 0.6 Eos # (Auto) 0.2 Baso # (Auto) 0.0 Abs Immat Gran (auto) 0.02 Absolute Neuts (auto) 2.5 Absolute Nucleated RBC 0.000 Nucleated RBC % (auto) 0.0 PT INR APTT aPTT Heparin Protocol 78.6 H D Anion Gap Estim Creat Clear Calc Estimated GFR Random Glucose Calcium Magnesium Total Bilirubin AST ALT Alkaline Phosphatase Troponin I High Sens 630.8 H* B-Natriuretic Peptide Total Protein Albumin TSH COVID-19 (TAMARA) COVID-19 Clin Com Assessment and Plan (1) NSTEMI (non-ST elevated myocardial infarction): Status: Acute (2) LYNNE (acute kidney injury): Status: Acute Plan 71-year-old female with extensive past medical history as mentioned above who presents to the hospital with abnormal labs found to have hyperkalemia. On arrival to the ED found to have an NSTEMI 1. NSTEMI - patient started on heparin drip after discussion with Cardiology - continue high-dose statin, metoprolol, will add aspirin - discussed family; will trend troponins. If continues to trend downward will DC back to SNF # LYNNE - likely secondary to dehydration - treat with IV fluids - follow BMP # seizure disorder - stable - continue Keppra # hypothyroidism - normal TSH - continue levothyroxine # hyperglycemia - secondary to uncontrolled diabetes - will place on low-dose sliding scale insulin - diabetic diet - hold oral antihyperglycemics DVT prophylaxis: [employer] Stroke Does the patient have a stroke diagnosis?: No VTE Prior VTE?: No VTE Risk Level:: Medical - moderate - high VTE Device Contraindication: Treatment Not Indicated VTE Drug Contraindication: N/A - Med Ordered
[2021-12-21 16:22] LABS: PTT Heparin Drip 37.1 SEC (53-77.9)
--- NOTE | 2021-12-21 16:36 | PC.NURSE ---
pt sleeping, vss, sinus xavier, will continue to monitor.
[2021-12-21 16:43] LABS: Troponin-I High Sensitivity 363.7 ng/L (<3.5-17.0)
[2021-12-21] MEDS: Heparin Sodium,Porcine 5,000 UNIT/ML VIAL 3400 UNIT IVPUSH (16:51)
--- NOTE | 2021-12-21 17:29 | PC.NURSE ---
IV access was lost in the patient, dr. krishnan was notified via tiger text of pts PTT as well as new trop level as well as iv access being lost. Per verbal telephone order IV heparin/fluids to be stopped and no new IV access is needed per Dr. Krishnan. Patient is difficult to access and previous line was obtained by ultrasound. patient has no c/o pain or discomfort, hall monitor is sinus xavier 50s-60s, call barron within reach, will continue to monitor.
--- NOTE | 2021-12-21 18:10 | PC.NURSE ---
pt assisted with dinner, medicated per order
--- NOTE | 2021-12-21 18:23 | PC.NURSE ---
pt alert and oriented to self, vss, assisted with dinner - ok with diet as long as it is cut into v small pieces (meat, veg, etc.) otherwise will need ground diet, will continue to monitor.
[2021-12-21] MEDS: Atorvastatin Calcium 40 MG TABLET PO (20:41)
[2021-12-21 21:38] LABS: Glucose, Whole Blood 271 mg/dL (60-115)
[2021-12-22] VITALS: BP 140/58; PULSE 55; RESP 18; TEMP 36.1; O2SAT 100
[2021-12-22 03:54] VITALS: BP 133/58; PULSE 55; RESP 18; TEMP 36.6; O2SAT 99
[2021-12-22] MEDS: Levothyroxine Sodium 150 MCG TABLET PO (06:11)
[2021-12-22 07:34] VITALS: BP 170/70; PULSE 59; RESP 18; TEMP 36.8; O2SAT 100
[2021-12-22 07:42] LABS: Glucose, Whole Blood 91 mg/dL (60-115)
[2021-12-22 07:46] LABS: Alanine Aminotransferase 21 U/L (0-31); Albumin Level 3.5 g/dL (3.5-5.0); Alkaline Phosphatase 133 U/L (39-117); Anion Gap 14 (12-20); Aspartate Amino Transferase 18 U/L (5-31); Bilirubin Total 0.6 mg/dL (0.0-1.0); Blood Urea Nitrogen 24 mg/dL (9-16); Calcium 9.6 mg/dL (8.4-10.2); Carbon Dioxide 31 mmol/L (22-29); Chloride 100 mmol/L (96-108); Creatinine Clr Calc Pharmacy 62.1; Estimated Glomerular Filt Rate 59; Glucose Fasting 55 mg/dL (60-99); Sodium 140 mmol/L (135-145); Total Protein 6.9 g/dL (6.5-8.0)
[2021-12-22] MEDS: levETIRAcetam 500 MG TABLET PO (07:56)
[2021-12-22] MEDS: Cyanocobalamin (Vitamin B-12) 1,000 MCG TABLET 1000 MCG PO (07:56)
[2021-12-22] MEDS: Cholecalciferol (Vitamin D3) 25 MCG TABLET PO (07:56)
[2021-12-22] MEDS: Ascorbic Acid 500 MG TABLET PO (07:57)
[2021-12-22] MEDS: Ferrous Sulfate 324 MG TABLET.DR PO (07:57)
[2021-12-22] MEDS: lisinopriL 20 MG TABLET PO (07:57)
[2021-12-22] MEDS: Aspirin 81 MG TAB.CHEW PO (07:57)
[2021-12-22 09:07] LABS: Troponin-I High Sensitivity 198.4 ng/L (<3.5-17.0)
[2021-12-22 09:16] LABS: Glucose, Whole Blood 176 mg/dL (60-115)
[2021-12-22] MEDS: Insulin Glargine,Hum.rec.anlog 100 UNIT/ML 10 ML VIAL 15 UNIT SUBCUT (09:41)
[2021-12-22 11:13] VITALS: BP 138/61; PULSE 60; RESP 18; TEMP 36.4; O2SAT 98
[2021-12-22 11:19] LABS: Glucose, Whole Blood 268 mg/dL (60-115)
[2021-12-22] MEDS: Insulin Lispro 100 UNIT/ML 3 ML VIAL SUBCUT (11:27)
--- NOTE | 2021-12-22 11:28 | P.DS_ITS ---
DS: Providers Provider Date of Service: 12/22/21 Date of admission: 12/20/21 21:11 Date of discharge: 12/22/21 Primary care physician: Edouard Amaro MD Consults: 12/20/21 19:53 Consult to Cardiology Stat Consulting Provider: Trenton Mcclelland Reason for consultation: elevated trop 12/20/21 21:06 Consult to Cardiology Routine Consulting Provider: Trenton Mcclelland Reason for consultation: NSTEMI Has provider been notified: Yes DS: Diagnosis Discharge Diagnosis (1) NSTEMI (non-ST elevated myocardial infarction): Status: Acute (2) LYNNE (acute kidney injury): Status: Acute DS: Summary Hospital Course Hospital Course: 71-year-old female with past medical history of hypertension, diabetes, iron deficiency anemia, vitamin-D deficiency, hyperlipidemia, hypothyroidism, dementia, obesity, syncopal episodes, Cesar B12, recently diagnosed COVID infection in October presents to the hospital from custodial with abnormal labs.? Patient has baseline dementia, on my interview she answers no to all my questions, unable to give much history otherwise.? According to the ED PA, patient was sent in because her follow-up lab after discharge from the hospital on the showed hyperkalemia, patient was not able to ? Tolerate p.o. treatment and therefore sent to the ED for management. ? Patient denies all othe r review of system. ?On arrival to the ED patient hemodynamically stable with no significant abnormal vitals except for elevated blood pressure. ? Labs are significant for WBC count of 5.2, hemoglobin of 10.1, hematocrit 31.7 which is around her baseline, potassium of 5.6 in the ED, ( 6.3 on earlier labs), creatinine? of 1.7 with a baseline around 0.96, glucose of 465, and troponin of 825 increase to 852.? BNP of 106. ? EKG showed sinus rhythm, with no ST T wave changes ? Patient received Lokelma, calcium gluconate, cardiology consult, patient will be started on heparin drip. ?patient was recently discharged from the hospital on the after being managed for hypothyroidism as well as seizure.? Was sent to SNF with Keppra 500 b.i.d.. Hospital Course In ER, was able to swallow without issue. Trop drawn and found to be consistant with NSTEMI. cardiology was consulted and felt these rise in troponin was related to her previous admission secondary to seizures given her known history of coronary artery disease. Her troponins were trended and came down as appropriate; discussed with cards and patient will be returned to SNF for rehab Time Spent with Patient Time attestation: Total time spent providing and/or coordinating discharge services: Discharge coordination time: Greater than 30 minutes Quality: Stroke Does the patient have a stroke diagnosis?: No Physical Exam Vital Signs: Vital Signs: Last Vital Signs Temp 97.6 F 12/22/21 11:13 Pulse 60 12/22/21 11:13 Resp 18 12/22/21 11:13 BP 138/61 12/22/21 11:13 Pulse Ox 98 12/22/21 11:13 BMI result Body Mass Index 28.1 Resp: Other: clear to auscultation Cardio: Other: no S4; positive S1-S2; no S3 murmurs rubs or gallops GI: Other: soft nontender nondiste Extrem: Other: No edema bilaterally DS: Data Data Completed and Pending Labs on day of discharge: Laboratory Results - last 24 hr 12/21/21 12/21/21 12/21/21 15:55 15:55 21:34 aPTT Heparin Protocol 37.1 L D Sodium Potassium Chloride Carbon Dioxide Anion Gap BUN Creatinine Estim Creat Clear Calc Estimated GFR POC Glucose 271 H Fasting Glucose Calcium Total Bilirubin AST ALT Alkaline Phosphatase Troponin I High Sens 363.7 H* Total Protein Albumin 12/22/21 12/22/21 12/22/21 06:28 06:28 07:36 aPTT Heparin Protocol Sodium 140 Potassium 5.0 Chloride 100 Carbon Dioxide 31 H Anion Gap 14 BUN 24 H Creatinine 0.93 Estim Creat Clear Calc 62.1 Estimated GFR 59 POC Glucose 91 Fasting Glucose 55 L* Calcium 9.6 Total Bilirubin 0.6 AST 18 ALT 21 Alkaline Phosphatase 133 H Troponin I High Sens 198.4 H* Total Protein 6.9 Albumin 3.5 12/22/21 12/22/21 08:56 11:12 aPTT Heparin Protocol Sodium Potassium Chloride Carbon Dioxide Anion Gap BUN Creatinine Estim Creat Clear Calc Estimated GFR POC Glucose 176 H 268 H Fasting Glucose Calcium Total Bilirubin AST ALT Alkaline Phosphatase Troponin I High Sens Total Protein Albumin Discharge Plan Discharge Patient Disposition: Xfer Inpatient Rehab Fac Discharge Diagnosis: NSTEMI Referrals: Edouard Amaro MD [Primary Care Provider] - 1 Week Discharge Medications: Continued ascorbic acid (vitamin C) [Vitamin C] 500 mg tablet 500 mg PO BID Qty: 60 5RF ferrous sulfate 325 mg (65 mg iron) tablet 325 mg PO BID Qty: 60 11RF sennosides [senna] 8.6 mg tablet 8.6 mg PO BEDTIME PRN (Reason: for constipation) Qty: 30 11RF cholecalciferol (vitamin D3) 25 mcg (1,000 unit) tablet 25 mcg PO DAILY Qty: 30 11RF cyanocobalamin (vitamin B-12) [Vitamin B-12] 1,000 mcg tablet 1,000 mcg PO DAILY Qty: 30 [facility] Instructions .ROUTE .MEDSUPPLY Qty: 1 0RF Rx Instructions: As directed atorvastatin 40 mg tablet 40 mg PO BEDTIME Qty: 30 5RF metoprolol succinate 25 mg tablet extended release 24 hr 25 mg PO DAILY Qty: 30 5RF levothyroxine 150 mcg tablet 150 mcg PO QAM Qty: 30 12RF lisinopril 20 mg tablet 20 mg PO BID Qty: 60 3RF latanoprost 0.005 % drops 1 drp ophthalmic (eye) BEDTIME 0RF Rx Instructions: BOTH EYES Levemir U-100 Insulin 100 unit/mL solution 22 unit subcut DAILY 0RF insulin aspart U-100 [Novolog U-100 Insulin aspart] 100 unit/mL solution 2 - 12 unit subcut QID 0RF acetaminophen 325 mg Tablet 650 mg PO Q6H PRN (Reason: Fever Or Pain) 0RF metformin 500 mg Tablet 500 mg PO BIDWM Qty: 60 0RF levetiracetam [Keppra] 500 mg tablet 500 mg PO BID Qty: 60 0RF Discharge Orders: Discharge Order (Routine); Ordered 12/22/21 Ordered By: Ravinder Krishnan Diet: advance to usual diet Activity on Discharge: As tolerated Stand Alone Forms: Patient Portal Discharge page Care Plan Goals: transferred to short-term rehab. . . Plan as per receiving facility Health Concerns: continue current meds. No changes have been made during this hospitalization Plan of Treatment: as outlined Assessment: see discharge summary
--- NOTE | 2021-12-22 11:45 | PM.PNCARD ---
Subjective Subjective Date of Service: 12/22/21 Interval history: Feels Ok. Denies any cardiac complaints. Review of Systems Review of Systems Yes all other systems are reviewed and are negative Cardiovascular: Reports as per HPI, Reports no additional cardiovascular complaints, Denies acrocyanosis, Denies cool extremities, Denies chest pain, Denies diaphoresis, Denies syncope, Denies claudication, Denies leg edema, Denies lightheadedness, Denies palpitations and Denies dyspnea Respiratory: Denies dyspnea Denies syncope Endocrine: Denies palpitations Physical Exam Vital Signs: Last Vital Signs Temp 97.6 F 12/22/21 11:13 Pulse 60 12/22/21 11:13 Resp 18 12/22/21 11:13 BP 138/61 12/22/21 11:13 Pulse Ox 98 12/22/21 11:13 BMI result Body Mass Index 28.1 Const General: comfortable HENMT Other: Unremarkable Neck Neck: Yes normal visual inspection Chest Chest palpation & inspection: normal inspection of the chest Resp Auscultation: clear to auscultation bilaterally Cardio Palpation: normal PMI Heart sounds: S1 normal heart sound present, S2 normal heart sound present, no gallops, no murmurs and no rubs GI Palpation (GI): Soft to palpation Back/Spine/Pelvis Other: unremarkable Skin Lesions: other Neuro General: other Extrem General: Yes other Psych Mental Status: other Objective Labs and Meds Result diagrams: 12/21/21 07:40 12/22/21 06:28 Lab results: Laboratory Results - last 24 hr 12/21/21 12/21/21 12/21/21 15:55 15:55 21:34 aPTT Heparin Protocol 37.1 L D Sodium Potassium Chloride Carbon Dioxide Anion Gap BUN Creatinine Estim Creat Clear Calc Estimated GFR POC Glucose 271 H Fasting Glucose Calcium Total Bilirubin AST ALT Alkaline Phosphatase Troponin I High Sens 363.7 H* Total Protein Albumin 12/22/21 12/22/21 12/22/21 06:28 06:28 07:36 aPTT Heparin Protocol Sodium 140 Potassium 5.0 Chloride 100 Carbon Dioxide 31 H Anion Gap 14 BUN 24 H Creatinine 0.93 Estim Creat Clear Calc 62.1 Estimated GFR 59 POC Glucose 91 Fasting Glucose 55 L* Calcium 9.6 Total Bilirubin 0.6 AST 18 ALT 21 Alkaline Phosphatase 133 H Troponin I High Sens 198.4 H* Total Protein 6.9 Albumin 3.5 12/22/21 12/22/21 08:56 11:12 aPTT Heparin Protocol Sodium Potassium Chloride Carbon Dioxide Anion Gap BUN Creatinine Estim Creat Clear Calc Estimated GFR POC Glucose 176 H 268 H Fasting Glucose Calcium Total Bilirubin AST ALT Alkaline Phosphatase Troponin I High Sens Total Protein Albumin Progress Note: A&P Assessment and plan (1) NSTEMI (non-ST elevated myocardial infarction): Status: Acute (2) Atherosclerotic cardiovascular disease: Status: Acute Plan Cardiac studies reviewed. Myocardial perfusion imaging study in the past showed moderate intensity basal lateral and inferior/inferolateral ischemia in the circumflex territory. She has had a coronary CTA last year that shows significant proximal circumflex stenosis; mild mixed plaque in the proximal to mid LAD; moderate stenosis in the distal RCA. Echocardiogram then with LVEF of 60-65% and otherwise unremarkable. Labs show creatinine 1.41. Baseline in the normal range. High sensitivity troponins are 825, 852 and 630. About a week ago, it was in the normal range. Overall, this appears to be demand related GA. primary plaque rupture less likely. Received IV Heparin drip since admission. Aspirin and statins. Not a good candidate for cardiac catheterization. Likely conservative care only. She seems quite stable from cardiac standpoint. Upon DC, will arrange FU in office if she can come. Fall Risk Details Current Medications: Current Medications Acetaminophen (Acetaminophen Supp 650 Mg Supp.Rect) 650 mg SC Q6H PRN PRN Reason: Pain, Mild (Pain Scale 1-3) Ascorbic Acid (Ascorbic Acid 500 Mg Tablet) 500 mg PO BID [facility] Last Admin: 12/22/21 07:57 Dose: 500 mg Documented by: Aspirin (Aspirin 81 Mg Tab.Chew) 81 mg PO DAILY [facility] Last Admin: 12/22/21 07:57 Dose: 81 mg Documented by: Atorvastatin Calcium (Atorvastatin Calcium 40 Mg Tablet) 40 mg PO BEDTIME [facility] Last Admin: 12/21/21 20:41 Dose: 40 mg Documented by: Cyanocobalamin (Cyanocobalamin (Vitamin B-12) 1,000 Mcg Tablet) 1,000 mcg PO DAILY [facility] Last Admin: 12/22/21 07:56 Dose: 1,000 mcg Documented by: Dextrose (Dextrose 50 % 25 Gm/50 Ml Syringe) 25 gm IVPUSH Q15M PRN; Protocol PRN Reason: per Hypoglycemia Standing Ord. Docusate Sodium (Docusate Sodium 100 Mg Capsule) 100 mg PO DAILY PRN PRN Reason: Constipation Ferrous Sulfate (Ferrous Sulfate 324 Mg Tablet.Dr) 324 mg PO BID [facility] Last Admin: 12/22/21 07:57 Dose: 324 mg Documented by: Glucose (Glucose Gel 15 Gm Gel..Gram.) 15 gm PO Q15M PRN; Protocol PRN Reason: per Hypoglycemia Standing Ord. Heparin Sodium (Porcine) (Heparin Sodium,Porcine 5,000 Unit/Ml Vial) 3,400 unit 40 unit/kg (3400 unit) IVPUSH PROTOCOL BOLUS PRN; Protocol PRN Reason: 40 unit/kg - Heparin Protocol Last Admin: 12/21/21 16:51 Dose: 3,400 unit Documented by: Heparin Sodium (Porcine) (Heparin Sodium,Porcine 5,000 Unit/Ml Vial) 6,700 unit 80 unit/kg (6700 unit) IVPUSH PROTOCOL BOLUS PRN; Protocol PRN Reason: 80 unit/kg - Heparin Protocol Heparin Sodium/Sodium Chloride () 25,000 unit in 250 mls @ 0 mls/hr IVCONT .Q0M [facility]; Protocol Last Titration: 12/21/21 17:27 Dose: Infused Documented by: Sodium Chloride (Ns) 1,000 mls @ 75 mls/hr IVCONT .[id number] [facility] Last Admin: 12/22/21 11:18 Dose: Not Given Documented by: Insulin Glargine (Insulin Glargine,Hum.Rec.Anlog 100 Unit/Ml 10 Ml Vial) 15 unit SUBCUT DAILY [facility] Last Admin: 12/22/21 09:41 Dose: 15 unit Documented by: Insulin Human Lispro (Insulin Lispro 100 Unit/Ml 3 Ml Vial) 0 unit SUBCUT QIDACHS [facility]; Protocol Last Admin: 12/22/21 11:27 Dose: 6 unit Documented by: Latanoprost (Latanoprost 0.005 % Ophth Sharon 2.5 Ml Drops) 1 drop EYE-BOTH BEDTIME [facility] Last Admin: 12/21/21 20:42 Dose: Not Given Documented by: Levetiracetam (Levetiracetam 500 Mg Tablet) 500 mg PO BID [facility] Last Admin: 12/22/21 07:56 Dose: 500 mg Documented by: Levothyroxine Sodium (Levothyroxine Sodium 150 Mcg Tablet) 150 mcg PO DAILY@0600 [facility] Last Admin: 12/22/21 06:11 Dose: 150 mcg Documented by: Lisinopril (Lisinopril 20 Mg Tablet) 20 mg PO BID [facility]; Protocol Last Admin: 12/22/21 07:57 Dose: 20 mg Documented by: Metoprolol Succinate (Metoprolol Succinate Er 25 Mg Tab.Er.24h) 25 mg PO DAILY [facility]; Protocol Last Admin: 12/22/21 08:26 Dose: Not Given Documented by: Ondansetron HCl (Ondansetron Hcl 4 Mg/2 Ml Vial) 4 mg IVPUSH Q8H PRN PRN Reason: Nausea and Vomiting Sodium Chloride (0.9 % Sodium Chloride Flush 3 Ml Syringe) 3 ml IVFLUSH QSHIFT [facility] Last Admin: 12/22/21 07:58 Dose: Not Given Documented by: Vitamin D (Cholecalciferol (Vitamin D3) 25 Mcg Tablet) 25 mcg PO DAILY [facility] Last Admin: 12/22/21 07:56 Dose: 25 mcg Documented by: Time Spent With Patient Time: Total time spent is greater than 50% in coordination of care (as documented) at patient's floor/unit and/or counseling patient: Time with patient: less than 15 minutes Progress Note: Quality Stroke Does the patient have a stroke diagnosis?: No Procedures Date of Service Date of Service: 12/22/21
[2021-12-23 06:31] LABS: Glucose, Whole Blood 268 mg/dL (60-115)
[2021-12-23 06:32] LABS: Glucose, Whole Blood 284 mg/dL (60-115)
[2021-12-23 06:32] LABS: Glucose, Whole Blood 281 mg/dL (60-115)
== END 2021-12-22 15:45 | DRG 281 ==
LOC: HO.ED 19:59 → HO.EDOVER 21:17 → HO.IMC 12-21 21:01
PROVIDERS: Physician Assistant; Admitting Provider Internal Medicine; Emergency Provider Internal Medicine; PCP Internal Medicine; Visit Provider Hospitalist
DX: I21.4 Non-ST elevation (NSTEMI) myocardial infarction (principal); N17.9 Acute kidney failure, unspecified; E87.5 Hyperkalemia; E03.9 Hypothyroidism, unspecified; K21.9 Gastro-esophageal reflux disease without esophagitis; G40.909 Epilepsy, unspecified, not intractable, without status epilepticus; E11.65 Type 2 diabetes mellitus with hyperglycemia; I25.10 Atherosclerotic heart disease of native coronary artery without angina pectoris; G30.9 Alzheimer's disease, unspecified; F02.80 Dementia in other diseases classified elsewhere, unspecified severity, without behavioral disturbance, psychotic disturbance, mood disturbance, and anxiety; Z20.822 Contact with and (suspected) exposure to COVID-19; Z79.4 Long term (current) use of insulin; Z79.84 Long term (current) use of oral hypoglycemic drugs; Z79.899 Other long term (current) drug therapy
CPT/HCPCS: 36415; 80048; 80053; 82947; 83735; 83880; 84443; 84484; 85025; 85027; 85610; 85730; 87635; 93005; 99285; J0610

== ENCOUNTER 2022-01-13 00:41 | Outpatient (REF) | payer SELFPAY ==
[2022-01-13 07:24] LABS: Hematocrit 29.5 % (37.0-47.0); Hemoglobin 9.1 g/dl (12.0-16.0); Mean Corpuscular HGB Conc 30.8 g/dl (31.0-35.0); Mean Corpuscular Hemoglobin 28.5 pg (27.0-33.0); Mean Corpuscular Volume 92.5 fL (80.0-98.0); Mean Platelet Volume 11.6 fL (9.4-12.3); Platelet Count 227 X10*3/uL (160-400); Red Blood Count 3.19 X10*6/uL (4.20-5.50); Red Cell Distribution Width 15.4 % (11.0-16.0); White Blood Count 5.5 X10*3/uL (4.8-10.8)
[2022-01-13 07:50] LABS: Anion Gap 10 (12-20); Blood Urea Nitrogen 19 mg/dL (9-16); Calcium 8.3 mg/dL (8.4-10.2); Carbon Dioxide 27 mmol/L (22-29); Chloride 106 mmol/L (96-108); Estimated Glomerular Filt Rate > 60; Glucose Random 145 mg/dL (60-115); Potassium 4.5 mmol/L (3.3-5.1); Sodium 138 mmol/L (135-145)
== END 2022-01-13 00:42 | disposition home or self-care (01) ==
LOC: HO.MMNH1L 00:41
PROVIDERS: Visit Provider Family Medicine
DX: R56.9 Unspecified convulsions (principal)
CPT/HCPCS: 36415; 80048; 85027

== ENCOUNTER 2022-01-20 00:56 | Outpatient (REF) | payer SELFPAY | END 2022-01-20 00:57 | disposition home or self-care (01) | LOC: HO.MMNH1L 00:56 | PROVIDERS: Visit Provider Family Medicine | DX: Z13.89 Encounter for screening for other disorder (principal) ==

== ENCOUNTER 2022-04-20 21:30 | Inpatient (IN) | payer MEDICARE, MEDICAID, SELFPAY ==
--- NOTE | ~2022-04-20 | CT_ITS ---
EXAMINATION: CT ABDOMEN AND PELVIS WITHOUT CONTRAST CLINICAL INFORMATION: Renal failure, dyspnea. COMPARISON: None TECHNIQUE: Multidetector volumetric imaging was performed from the superior aspect of the liver through the pubic symphysis. Sagittal and coronal reformatted images were obtained on the technologist's workstation. This CT examination was performed using dose optimization techniques as appropriate, variously including the following: *Automated exposure control *Adjustment of mA and/or kV according to patient size (this includes techniques or standardized protocols for targeted exams where dose is matched to indication/reason for exam; i.e. extremities or head) *Use of iterative reconstruction technique DLP: 809 mGy-cm FINDINGS: LUNG BASES: The visualized lung bases are unremarkable. LIVER, GALLBLADDER, AND BILIARY TREE: The liver is normal in size, shape, and attenuation. No focal hepatic lesion or biliary ductal dilatation is present. The gallbladder is unremarkable with no evidence of radiopaque gallstones, gallbladder wall thickening, or obvious pericholecystic inflammatory changes. PANCREAS: Unremarkable. SPLEEN: Unremarkable. ADRENAL GLANDS: Unremarkable. KIDNEYS AND URETERS: Mild left pelviectasis. Mild proximal left ureterectasis. Significant portions of the pelvis are obscured from visualization secondary to artifact related to bilateral hip arthroplasties. The distal ureters are not visualized. No perinephric inflammatory changes or perinephric fluid collections. BLADDER: Minimally visualized secondary to scattering artifact as noted above. GASTROINTESTINAL TRACT: Intestinal segments within the pelvis or not visualized secondary to artifact. No intestinal dilatation or mural thickening noted. Normal appearance of the appendix. No definitive free intraperitoneal fluid or gas collections. Normal appearance of the stomach. ABDOMINAL WALL: Small periumbilical hernia containing fat LYMPH NODES: Normal. VASCULAR: Moderate diffuse calcific atherosclerosis PELVIC VISCERA: Partially obscured from visualization by scattering artifact. OSSEOUS STRUCTURES: Partial visualization of bilateral hip arthroplasties which give rise to significant scattering artifact. Chronic posttraumatic deformities of the left and right inferior pubic rami. No vertebral body compression deformities. CT/CT abdomen pelvis wo con IMPRESSION: Unenhanced CT of the abdomen and pelvis: *Mild left renal pelviectasis and mild ectasia of the proximal left ureter. Findings may represent mild acute hydronephrosis or physiologic pelviectasis. No urolithiasis identified. No perinephric inflammatory changes. Of note, the distal ureters are not visualized secondary to scattering artifact within the pelvis related to bilateral hip arthroplasties. Unenhanced CT of the abdomen pelvis is otherwise negative for acute abnormalities. 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 Fleischner guidelines were followed.
--- NOTE | ~2022-04-20 | XR_ITS ---
EXAMINATION: XR CHEST CLINICAL INFORMATION: Weakness, cough COMPARISON: None TECHNIQUE: Frontal view of the chest was obtained. FINDINGS: No convincing evidence for an acute process. The lung shore are grossly clear. The cardiac silhouette is felt to be within normal limits. The hilar structures do not appear pathologically enlarged There is no effusion. XR/XR chest 1V IMPRESSION: No acute finding.
[2022-04-20 21:42] VITALS: BP 110/60; BP 148/67; PULSE 78; PULSE 80; RESP 16; TEMP 37; O2SAT 97; BMI 30.1
--- NOTE | 2022-04-20 21:44 | ECG_ITS ---
Test Reason : HYPERTENTION Blood Pressure : / mmHG Vent. Rate : 076 BPM Atrial Rate : 076 BPM P-R Int : 156 ms QRS Dur : 094 ms QT Int : 360 ms P-R-T Axes : 081 031 031 degrees QTc Int : 405 ms Normal sinus rhythm Normal ECG When compared with ECG of 20-DEC-2021 14:34, No significant change was found Referred By: Cathy Polk Electronically Signed By:OCTAVIANO MANZO
--- NOTE | 2022-04-20 21:46 | ED_ITS ---
HPI - Weakness General Chief complaint: General Medical Stated complaint: ?hypotension Time Seen by Provider: 04/20/22 21:44 Source: patient Mode of arrival: EMS Limitations: altered mental status (dementia) History of Present Illness HPI Narrative: 72 yo female with hx of seizures, CAD, labile BPs - HTN and hypotension, MD, hypothyroidism, HLD, GERD reportedly all day with family has had 4 days of low BP readings 80/50s. The patient tells me she has been eating and drinking okay but does have a mild cough and it hurts to urinate. She had a BP with EMS 110/60s. MD Complaint: generalized weakness Onset (ago): day(s) (1) Duration: intermittent Location: generalized Migration: none Severity: mild Relieving factors: none Exacerbating factors: none Context: other (labile blood pressures) Associated symptoms: dysuria and other (cough) Related Data Home Medications Medication Instructions Recorded Confirmed latanoprost 0.005 % eye drops 1 drp ophthalmic (eye) BEDTIME 10/25/20 01/25/22 insulin detemir U-100 100 unit/mL 22 unit subcut DAILY 11/15/21 01/25/22 subcutaneous solution (Levemir U-100 Insulin) acetaminophen 325 mg tablet 650 mg PO Q6H PRN Fever Or Pain 12/20/21 01/25/22 insulin aspart U-100 100 unit/mL 2 - 12 unit subcut QID 12/20/21 01/25/22 subcutaneous solution (Novolog U-100 Insulin aspart) Previous Rx's Medication Instructions Recorded ascorbic acid (vitamin C) 500 mg 500 mg PO BID #60 caps 10/31/20 tablet (Vitamin C) walker #1 ea 02/28/21 levothyroxine 150 mcg tablet 150 mcg PO QAM #30 tabs 10/14/21 lisinopril 20 mg tablet 20 mg PO BID #60 caps 11/15/21 levetiracetam 500 mg tablet 500 mg PO BID 30 days #60 tabs 01/24/22 (Keppra) metformin 500 mg tablet 500 mg PO BID 30 days #60 tabs 01/24/22 cholecalciferol (vitamin D3) 25 25 mcg PO DAILY #30 caps 01/27/22 mcg (1,000 unit) tablet cyanocobalamin (vitamin B-12) 1,000 mcg PO DAILY #30 caps 01/27/22 1,000 mcg tablet (Vitamin B-12) ferrous sulfate 325 mg (65 mg 325 mg PO BID #60 caps 01/27/22 iron) tablet sennosides 8.6 mg tablet (senna) 8.6 mg PO BEDTIME PRN for 01/27/22 constipation #30 caps atorvastatin 40 mg tablet 40 mg PO BEDTIME #90 tabs 03/07/22 metoprolol succinate 25 mg 25 mg PO DAILY #30 tabs 03/31/22 tablet,extended release 24 hr Allergies Allergy/AdvReac Type Severity Reaction Status Date / Time No Known Allergies Allergy Verified 01/25/22 04:08 Review of Systems Review of Systems: ROS unable to be obtained due to poor historian from [facility] Past Medical History Source: old records reviewed Medical History (Updated 04/21/22 @ 00:37 by Cathy Polk DO) Acquired hypothyroidism Atherosclerotic cardiovascular disease Benign essential hypertension Dementia Diabetes mellitus Hypothyroidism New onset seizure Pure hypercholesterolemia Surgical History History of ankle surgery History of hemiarthroplasty of left hip S/P [id number] (total abdominal hysterectomy and bilateral salpingo-oophorectomy) Family History Family History Father Diabetes Hypertension Mother Hypertension Stroke Social History Social History Household Members: Family Housing: Apartment Do you presently have visiting nurse or other home services: No Alcohol intake: never Patient Tobacco Use Status: Never used Tobacco Second Hand Smoke Exposure: No Advance Directives: Yes Advance Directives on File: Yes Advance Directives Date on File: 10/25/20 service: No Current occupational status: retired Cognitive needs: No Hearing needs: No Vision needs: Yes Physical Exam Vital Signs: Vital Signs: Last Vital Signs Temp 98.6 F 04/20/22 21:42 Pulse 78 04/20/22 21:42 Resp 16 04/20/22 21:42 BP 148/67 H 04/20/22 21:42 Pulse Ox 97 04/20/22 21:42 O2 Del Method 04/20/22 21:42 BMI result Body Mass Index 30.1 Appearance: Alert. Oriented X1 (pleasantly confused). No acute distress. Eyes: Pupils equal, round and reactive to light. ENT: Pharynx normal. Neck: Normal inspection. Neck supple. CVS: Normal heart rate and rhythm. Pulses normal. Respiratory: No respiratory distress. Breath sounds normal. Abdomen: Soft and non-tender. Skin: Skin warm and dry. Normal skin color. Normal skin turgor. Extremities: mild pitting lower extremity edema. No calf ttp Neuro: Oriented X 1. No motor deficit. No sensory deficit. Course Course Course Narrative: at this time positive UA with LYNNE - infection suspected 1235am - blood cultures and IV ceftriaxone ordered plan to admit for fluids and antibiotics MDM - Weakness MDM Narrative Medical decision making narrative: 72 yo female with hx of seizures, CAD, labile BPs - HTN and hypotension, MD, hypothyroidism, HLD, GERD here with c/o low BPs at home though normal with EMS - c/o cough and dysuria at this time will need labs, UA, CXR, gentle fluids, dispo per results and findings. Lab Data Result diagrams: 04/20/22 22:46 04/20/22 22:46 Labs: Lab Results 04/20/22 04/20/22 04/20/22 Range/Units 22:46 22:46 22:46 WBC 6.0 (4.8-10.8) X10*3/uL RBC 3.66 L (4.20-5.50) X10*6/uL Hgb 10.4 L (12.0-16.0) g/dl Hct 33.3 L (37.0-47.0) % MCV 91.0 (80.0-98.0) fL MCH 28.4 (27.0-33.0) pg MCHC 31.2 (31.0-35.0) g/dl RDW 14.2 (11.0-16.0) % Plt Count 228 (160-400) X10*3/uL MPV 11.3 (9.4-12.3) fL Immature Gran % (Auto) 0.2 (0.0-0.4) % Neut % (Auto) 45.9 (45-73) % Lymph % (Auto) 42.7 H (20-40) % Churchill % (Auto) 9.9 (2-11) % Eos % (Auto) 1.0 (0-4) % Baso % (Auto) 0.3 (0-2) % Lymph # (Auto) 2.6 (1.2-4.9) X10*3/uL Churchill # (Auto) 0.6 (0.1-1.2) X10*3/uL Eos # (Auto) 0.1 (0.0-0.4) X10*3/uL Baso # (Auto) 0.0 (0.0-0.2) X10*3/uL Abs Immat Gran (auto) 0.01 (0.00-0.03) X10*3/uL Absolute Neuts (auto) 2.8 (2.0-8.3) x10*3/uL Absolute Nucleated RBC 0.000 (0.0-0.012) X10*3/uL Nucleated RBC % (auto) 0.0 (0.0-0.2) /100WBC PT (9.9-13.0) SEC INR (0.9-1.1) Sodium 144 (135-145) mmol/L Potassium 4.3 (3.3-5.1) mmol/L Chloride 112 H (96-108) mmol/L Carbon Dioxide 20 L (22-29) mmol/L Anion Gap 16 (12-20) BUN 44 H D (9-16) mg/dL Creatinine 1.78 H (0.5-1.4) mg/dL Estim Creat Clear Calc 29.8 Estimated GFR 28 Random Glucose 182 H (60-115) mg/dL Calcium 9.4 D (8.4-10.2) mg/dL Magnesium 1.5 L (1.6-2.6) mg/dL Total Bilirubin 0.3 (0.0-1.0) mg/dL Direct Bilirubin < 0.2 (0.0-0.5) mg/dL AST 13 (5-31) U/L ALT 19 (0-31) U/L Alkaline Phosphatase 153 H (39-117) U/L Total Creatine Kinase 74 D (26-140) U/L Troponin I High Sens (<3.5-17.0) ng/L C-Reactive Protein 0.37 (< or = 0.50) mg/dL Total Protein 6.9 (6.5-8.0) g/dL Albumin 3.8 (3.5-5.0) g/dL Urine Color Urine Appearance Urine pH (5.0-8.0) Ur Specific [place] (1.005-1.025) Urine Protein (NEG-TRACE) MG/DL Urine Glucose (UA) (NEG) MG/DL Urine Ketones (NEG) MG/DL Urine Blood (NEG) Urine Nitrite (NEG) Ur Leukocyte Esterase (NEG) Urine RBC (0) /HPF Urine WBC (0-4) /HPF Urine WBC Clumps Ur Squamous Epith Cells /LPF Urine Bacteria /LPF COVID-19 (TAMARA) Negative (Negative) COVID-19 Clin Com See Note 04/20/22 04/20/22 04/20/22 Range/Units 22:46 22:46 23:39 WBC (4.8-10.8) X10*3/uL RBC (4.20-5.50) X10*6/uL Hgb (12.0-16.0) g/dl Hct (37.0-47.0) % MCV (80.0-98.0) fL MCH (27.0-33.0) pg MCHC (31.0-35.0) g/dl RDW (11.0-16.0) % Plt Count (160-400) X10*3/uL MPV (9.4-12.3) fL Immature Gran % (Auto) (0.0-0.4) % Neut % (Auto) (45-73) % Lymph % (Auto) (20-40) % Churchill % (Auto) (2-11) % Eos % (Auto) (0-4) % Baso % (Auto) (0-2) % Lymph # (Auto) (1.2-4.9) X10*3/uL Churchill # (Auto) (0.1-1.2) X10*3/uL Eos # (Auto) (0.0-0.4) X10*3/uL Baso # (Auto) (0.0-0.2) X10*3/uL Abs Immat Gran (auto) (0.00-0.03) X10*3/uL Absolute Neuts (auto) (2.0-8.3) x10*3/uL Absolute Nucleated RBC (0.0-0.012) X10*3/uL Nucleated RBC % (auto) (0.0-0.2) /100WBC PT 10.5 (9.9-13.0) SEC INR 0.9 (0.9-1.1) Sodium (135-145) mmol/L Potassium (3.3-5.1) mmol/L Chloride (96-108) mmol/L Carbon Dioxide (22-29) mmol/L Anion Gap (12-20) BUN (9-16) mg/dL Creatinine (0.5-1.4) mg/dL Estim Creat Clear Calc Estimated GFR Random Glucose (60-115) mg/dL Calcium (8.4-10.2) mg/dL Magnesium (1.6-2.6) mg/dL Total Bilirubin (0.0-1.0) mg/dL Direct Bilirubin (0.0-0.5) mg/dL AST (5-31) U/L ALT (0-31) U/L Alkaline Phosphatase (39-117) U/L Total Creatine Kinase (26-140) U/L Troponin I High Sens < 3.5 D (<3.5-17.0) ng/L C-Reactive Protein (< or = 0.50) mg/dL Total Protein (6.5-8.0) g/dL Albumin (3.5-5.0) g/dL Urine Color YELLOW Urine Appearance HAZY Urine pH 5.5 (5.0-8.0) Ur Specific [place] 1.020 (1.005-1.025) Urine Protein NEG (NEG-TRACE) MG/DL Urine Glucose (UA) NEG (NEG) MG/DL Urine Ketones 5 (NEG) MG/DL Urine Blood TRACE (NEG) Urine Nitrite NEG (NEG) Ur Leukocyte Esterase 2+ H (NEG) Urine RBC 0-2 (0) /HPF Urine WBC 5-9 H (0-4) /HPF Urine WBC Clumps NOTED Ur Squamous Epith Cells NONE /LPF Urine Bacteria 4+ /LPF COVID-19 (TAMARA) (Negative) COVID-19 Clin Com ECG Data Attestation: I personally reviewed and interpreted this ECG as follows: ECG interpretation date: 04/20/22 ECG interpretation time: 22:02 Interpretation: Rate: 76 Rhythm: NSR Grand Chain: normal Normal P waves. Normal SHAHRAM. Normal QRS complex. ST T wave : normal no REY qTC: normal prior studies: no acute ischemia The study has been interpreted contemporaneously by me. . Discharge Plan Discharge Clinical Impression: LYNNE (acute kidney injury), Acute UTI, Hypomagnesemia Patient Disposition: Admitted As Inpatient
[2022-04-20] MEDS: 0.9 % Sodium Chloride 500 ML IV (22:22)
[2022-04-20 22:52] LABS: MANUAL DIFF FLAG NO
[2022-04-20 22:59] LABS: Basophils Percent Auto 0.3 % (0-2); Eosinophils Absolute Auto 0.1 X10*3/uL (0.0-0.4); Hematocrit 33.3 % (37.0-47.0); Hemoglobin 10.4 g/dl (12.0-16.0); Imm Gran Abs Auto 0.01 X10*3/uL (0.00-0.03); Imm Gran Pct Auto 0.2 % (0.0-0.4); Lymphocytes Absolute Auto 2.6 X10*3/uL (1.2-4.9); Lymphocytes Percent Auto 42.7 % (20-40); Mean Corpuscular HGB Conc 31.2 g/dl (31.0-35.0); Mean Corpuscular Hemoglobin 28.4 pg (27.0-33.0); Mean Platelet Volume 11.3 fL (9.4-12.3); Monocytes Absolute Auto 0.6 X10*3/uL (0.1-1.2); Monocytes Percent Auto 9.9 % (2-11); Neutrophils Absolute Auto 2.8 x10*3/uL (2.0-8.3); Neutrophils Percent Auto 45.9 % (45-73); Platelet Count 228 X10*3/uL (160-400); Red Blood Count 3.66 X10*6/uL (4.20-5.50); Red Cell Distribution Width 14.2 % (11.0-16.0)
[2022-04-20 23:05] LABS: INTERNATIONAL NORM RATIO 0.9 (0.9-1.1); Prothrombin Time 10.5 SEC (9.9-13.0)
[2022-04-20 23:11] LABS: Alanine Aminotransferase 19 U/L (0-31); Albumin Level 3.8 g/dL (3.5-5.0); Alkaline Phosphatase 153 U/L (39-117); Anion Gap 16 (12-20); Aspartate Amino Transferase 13 U/L (5-31); Bilirubin Direct < 0.2 mg/dL (0.0-0.5); Bilirubin Total 0.3 mg/dL (0.0-1.0); Blood Urea Nitrogen 44 mg/dL (9-16); C Reactive Protein 0.37 mg/dL (< or = 0.50); Calcium 9.4 mg/dL (8.4-10.2); Carbon Dioxide 20 mmol/L (22-29); Chloride 112 mmol/L (96-108); Creatinine Clr Calc Pharmacy 29.8; Estimated Glomerular Filt Rate 28; Glucose Random 182 mg/dL (60-115); Magnesium 1.5 mg/dL (1.6-2.6); Potassium 4.3 mmol/L (3.3-5.1); Sodium 144 mmol/L (135-145); Total Protein 6.9 g/dL (6.5-8.0)
[2022-04-20 23:13] LABS: COVID-19 Test Negative (Negative); IDNOW Serial# 9DB6401D
[2022-04-20 23:47] LABS: Appearance Urine HAZY; Color Urine YELLOW; Glucose Urine UA NEG (NEG); Leukocyte Esterase Urine 2+ (NEG); Nitrite Urine NEG (NEG); PH 5.5 (5.0-8.0); UACC Culture Trigger YES; Urine Blood TRACE (NEG); Urine Ketones 5 MG/DL (NEG); Urine Protein NEG (NEG-TRACE)
[2022-04-20 23:57] LABS: Bacteria Urine 4+ /LPF; RBC Urine 0-2 /HPF (0); WBC Clumps Urine NOTED
[2022-04-21] VITALS (7 sets, daily range): BP systolic 153–195; BP diastolic 56–93; PULSE 60–74; RESP 14–18; TEMP 35.8–37.1; O2SAT 98–100
[2022-04-21] MEDS: Magnesium Sulfate/D5W 1 GM/100 ML PIGGYBACK IV (00:07)
[2022-04-21] MEDS: 0.9 % Sodium Chloride 500 ML IV (00:09)
[2022-04-21 00:16] LABS: Troponin-I High Sensitivity < 3.5 ng/L (<3.5-17.0)
[2022-04-21 01:11] LABS: Lactic Acid 1.3 mmol/L (0.5-2.0)
[2022-04-21] MEDS: cefTRIAXone sodium 1 GM in 0.9 % Sodium Chloride 50 ML IV ×2 (01:55→21:26)
--- NOTE | 2022-04-21 03:09 | PM.IMHP ---
History of Present Illness Date of Service: 04/21/22 Chief Complaint: Low blood pressure 72-year-old female with a past medical history of hypertension, hyperlipidemia, diabetes, hypothyroidism, history of seizures, glaucoma, vitamin B12 deficiency, history of orthostasis, CAD, GERD, dementia, lives with the family presented to the hospital today with a chief complaint of low blood pressure. Postures the history obtained from the patient's daughter at bedside. Reportedly patient blood pressure fluctuates but today and tissue noted to have 85/ Fifty-three. ; subsequently brought her to the hospital for further evaluation. Patient daughter mentions that patient did not complain of any pain, fever chills cough. Has urinary frequency but has been chronic. Reports he has been eating and drinking okay Denies any nausea vomiting or diarrhea. Denies any fever chills cough or sputum production. Patient denies any chest pain or palpitations. Denies any falls or trauma. Review of all other systems is negative except mentioned above ER course: Per ER team patient initially on presentation complaint of dysuria; exam was benign; on labs noted to have elevated creatinine and urinalysis abnormal consistent with UTI. Given ceftriaxone. Mentioned blood pressure has been stable since patient presented to the ER. Admitted to the hospital for further management. [facility] Medical History (Updated 04/21/22 @ 00:37 by Cathy Polk DO) Acquired hypothyroidism Atherosclerotic cardiovascular disease Benign essential hypertension Dementia Diabetes mellitus Hypothyroidism New onset seizure Pure hypercholesterolemia Family History Father Diabetes Hypertension Mother Hypertension Stroke Surgical History History of ankle surgery History of hemiarthroplasty of left hip S/P [id number] (total abdominal hysterectomy and bilateral salpingo-oophorectomy) Social History Household Members: Family Housing: Apartment Do you presently have visiting nurse or other home services: No Alcohol intake: never Patient Tobacco Use Status: Never used Tobacco Second Hand Smoke Exposure: No Advance Directives: Yes Advance Directives on File: Yes Advance Directives Date on File: 10/25/20 service: No Current occupational status: retired Cognitive needs: No Hearing needs: No Vision needs: Yes Meds Allergies Allergy/AdvReac Type Severity Reaction Status Date / Time No Known Allergies Allergy Verified 01/25/22 04:08 Active Medications: Current Medications Acetaminophen (Acetaminophen 325 Mg Tablet) 650 mg PO Q6H PRN PRN Reason: Pain, Mild (Pain Scale 1-3) Benzonatate (Benzonatate 100 Mg Capsule) 100 mg PO TID PRN PRN Reason: Cough Sodium Chloride (Ns) 1,000 mls @ 100 mls/hr IVCONT .Q10H [facility] Sodium Chloride (0.9 % Sodium Chloride Flush 3 Ml Syringe) 3 ml IVFLUSH QSHIFT [facility] Home Medications Medication Instructions Recorded Confirmed Last Taken Type cholecalciferol (vitamin D3) 25 1 tab PO DAILY 04/21/22 04/21/22 Unknown History mcg (1,000 unit) tablet cyanocobalamin (vitamin B-12) 1 tab PO DAILY 04/21/22 04/21/22 Unknown History 1,000 mcg tablet ferrous sulfate 325 mg (65 mg 1 tab PO BID 04/21/22 04/21/22 Unknown History iron) tablet insulin aspart U-100 100 unit/mL 2 - 12 unit subcut QID 04/21/22 04/21/22 Unknown History subcutaneous solution (Novolog U-100 Insulin aspart) insulin detemir U-100 100 unit/mL 22 unit subcut DAILY 04/21/22 04/21/22 Unknown History subcutaneous solution (Levemir U-100 Insulin) latanoprost 0.005 % eye drops 1 drp ophthalmic (eye) BEDTIME 04/21/22 04/21/22 Unknown History levetiracetam 500 mg tablet 1 tab PO BID 04/21/22 04/21/22 Unknown History levothyroxine 150 mcg tablet 1 tab PO QAM 04/21/22 04/21/22 Unknown History metformin 500 mg tablet 1 tab PO BID 04/21/22 04/21/22 Unknown History sennosides 8.6 mg tablet (senna) 1 tab PO BEDTIME PRN constipation 04/21/22 04/21/22 Unknown History Physical Exam Vital Signs and Narrative: Vital Signs: Last Vital Signs Temp 98.8 F 04/21/22 01:50 Pulse 73 04/21/22 01:50 Resp 16 04/21/22 01:50 BP 153/56 H 04/21/22 01:50 Pulse Ox 100 04/21/22 01:50 O2 Del Method 04/21/22 01:50 BMI result Body Mass Index 30.1 Gen: Appears be in no acute distress HEENT: NCAT, Moist mucosa. Pulmonary: Vesicular breath sounds, fair air entry CVS: Normal S1-S2 Abdomen: BS+, Soft, Nontender Extremities: Warm well perfused Neuro: Alert and awake. Results Labs CBC and Chem 7: 04/20/22 22:46 04/20/22 22:46 Labs: Laboratory Results - last 24 hr 04/20/22 04/20/22 04/20/22 22:46 22:46 22:46 MCV 91.0 MCH 28.4 MCHC 31.2 RDW 14.2 Plt Count 228 MPV 11.3 Immature Gran % (Auto) 0.2 Neut % (Auto) 45.9 Lymph % (Auto) 42.7 H Allen % (Auto) 9.9 Eos % (Auto) 1.0 Baso % (Auto) 0.3 Lymph # (Auto) 2.6 Allen # (Auto) 0.6 Eos # (Auto) 0.1 Baso # (Auto) 0.0 Abs Immat Gran (auto) 0.01 Absolute Neuts (auto) 2.8 Absolute Nucleated RBC 0.000 Nucleated RBC % (auto) 0.0 PT INR Anion Gap 16 Estim Creat Clear Calc 29.8 Estimated GFR 28 Random Glucose 182 H Lactic Acid Calcium 9.4 D Magnesium 1.5 L Total Bilirubin 0.3 Direct Bilirubin < 0.2 AST 13 ALT 19 Alkaline Phosphatase 153 H Total Creatine Kinase 74 D Troponin I High Sens C-Reactive Protein 0.37 Total Protein 6.9 Albumin 3.8 Urine Color Urine Appearance Urine pH Ur Specific [place] Urine Protein Urine Glucose (UA) Urine Ketones Urine Blood Urine Nitrite Ur Leukocyte Esterase Urine RBC Urine WBC Urine WBC Clumps Ur Squamous Epith Cells Urine Bacteria COVID-19 (TAMARA) Negative COVID-19 Clin Com See Note 04/20/22 04/20/22 04/20/22 22:46 22:46 23:39 MCV MCH MCHC RDW Plt Count MPV Immature Gran % (Auto) Neut % (Auto) Lymph % (Auto) Allen % (Auto) Eos % (Auto) Baso % (Auto) Lymph # (Auto) Allen # (Auto) Eos # (Auto) Baso # (Auto) Abs Immat Gran (auto) Absolute Neuts (auto) Absolute Nucleated RBC Nucleated RBC % (auto) PT 10.5 INR 0.9 Anion Gap Estim Creat Clear Calc Estimated GFR Random Glucose Lactic Acid Calcium Magnesium Total Bilirubin Direct Bilirubin AST ALT Alkaline Phosphatase Total Creatine Kinase Troponin I High Sens < 3.5 D C-Reactive Protein Total Protein Albumin Urine Color YELLOW Urine Appearance HAZY Urine pH 5.5 Ur Specific [place] 1.020 Urine Protein NEG Urine Glucose (UA) NEG Urine Ketones 5 Urine Blood TRACE Urine Nitrite NEG Ur Leukocyte Esterase 2+ H Urine RBC 0-2 Urine WBC 5-9 H Urine WBC Clumps NOTED Ur Squamous Epith Cells NONE Urine Bacteria 4+ COVID-19 (TAMARA) COVID-19 Clin Com 04/21/22 00:49 MCV MCH MCHC RDW Plt Count MPV Immature Gran % (Auto) Neut % (Auto) Lymph % (Auto) Allen % (Auto) Eos % (Auto) Baso % (Auto) Lymph # (Auto) Allen # (Auto) Eos # (Auto) Baso # (Auto) Abs Immat Gran (auto) Absolute Neuts (auto) Absolute Nucleated RBC Nucleated RBC % (auto) PT INR Anion Gap Estim Creat Clear Calc Estimated GFR Random Glucose Lactic Acid 1.3 Calcium Magnesium Total Bilirubin Direct Bilirubin AST ALT Alkaline Phosphatase Total Creatine Kinase Troponin I High Sens C-Reactive Protein Total Protein Albumin Urine Color Urine Appearance Urine pH Ur Specific [place] Urine Protein Urine Glucose (UA) Urine Ketones Urine Blood Urine Nitrite Ur Leukocyte Esterase Urine RBC Urine WBC Urine WBC Clumps Ur Squamous Epith Cells Urine Bacteria COVID-19 (TAMARA) COVID-19 Clin Com Imaging Radiologist's Impressions: Impressions Chest X-Ray 04/20/22 21:57 IMPRESSION: No acute finding. Abdomen/Pelvis CT 04/21/22 00:30 IMPRESSION: Unenhanced CT of the abdomen and pelvis: *Mild left renal pelviectasis and mild ectasia of the proximal left ureter. Findings may represent mild acute hydronephrosis or physiologic pelviectasis. No urolithiasis identified. No perinephric inflammatory changes. Of note, the distal ureters are not visualized secondary to scattering artifact within the pelvis related to bilateral hip arthroplasties. Unenhanced CT of the abdomen pelvis is otherwise negative for acute abnormalities. 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 Fleischner guidelines were followed. Assessment and Plan (1) LYNNE (acute kidney injury): Status: Acute (2) Acute UTI: Status: Acute Plan 72-year-old female with a past medical history of hypertension, hyperlipidemia, diabetes, hypothyroidism, history of seizures, glaucoma, vitamin B12 deficiency, history of orthostasis, CAD, GERD, dementia, lives with the family presented to the hospital today with a chief complaint of low blood pressure. low blood pressure: Patient has known history of orthostatics. Blood pressure after presentation to the ER significantly improved. Will continue to monitor. UTI: Continue ceftriaxone. Follow up cultures. LYNNE: Likely prerenal. Gentle IV fluids. History of diabetes: Insulin sliding scale. Hold home metformin. History of seizures: Continue home Keppra History of glaucoma: Continue home eye drops History of hypothyroidism: Continue home levothyroxine DVT prophylaxis: Subcu heparin Code status: Full code Quality Stroke Does the patient have a stroke diagnosis?: No VTE Prior VTE?: No VTE Risk Level:: Medical - moderate - high VTE Device Contraindication: Treatment Not Indicated VTE Drug Contraindication: N/A - Med Ordered
[2022-04-21] MEDS: 0.9 % Sodium Chloride 1,000 ML 100 ML IVCONT ×2 (04:52→14:51)
[2022-04-21 04:59] LABS: MANUAL DIFF FLAG NO
[2022-04-21 05:00] LABS: Basophils Percent Auto 0.2 % (0-2); Eosinophils Absolute Auto 0.1 X10*3/uL (0.0-0.4); Eosinophils Percent Auto 1.2 % (0-4); Hematocrit 30.2 % (37.0-47.0); Hemoglobin 9.6 g/dl (12.0-16.0); Imm Gran Abs Auto 0.01 X10*3/uL (0.00-0.03); Imm Gran Pct Auto 0.2 % (0.0-0.4); Lymphocytes Absolute Auto 2.5 X10*3/uL (1.2-4.9); Lymphocytes Percent Auto 49.9 % (20-40); Mean Corpuscular HGB Conc 31.8 g/dl (31.0-35.0); Mean Corpuscular Hemoglobin 28.7 pg (27.0-33.0); Mean Corpuscular Volume 90.4 fL (80.0-98.0); Monocytes Absolute Auto 0.5 X10*3/uL (0.1-1.2); Monocytes Percent Auto 9.9 % (2-11); Neutrophils Percent Auto 38.6 % (45-73); Platelet Count 151 X10*3/uL (160-400); Red Blood Count 3.34 X10*6/uL (4.20-5.50); Red Cell Distribution Width 14.2 % (11.0-16.0); White Blood Count 5.1 X10*3/uL (4.8-10.8)
[2022-04-21] MEDS: Heparin Sodium,Porcine 5,000 UNIT/ML VIAL 5000 UNIT SUBCUT ×3 (05:09→21:26)
[2022-04-21 05:18] LABS: Anion Gap 11 (12-20); Blood Urea Nitrogen 33 mg/dL (9-16); Calcium 8.8 mg/dL (8.4-10.2); Carbon Dioxide 23 mmol/L (22-29); Chloride 114 mmol/L (96-108); Creatinine Clr Calc Pharmacy 46.8; Estimated Glomerular Filt Rate 47; Glucose Random 138 mg/dL (60-115); Potassium 3.8 mmol/L (3.3-5.1); Sodium 144 mmol/L (135-145)
[2022-04-21] MEDS: Levothyroxine Sodium 150 MCG TABLET PO (06:56)
[2022-04-21 07:41] LABS: Glucose, Whole Blood 80 mg/dL (60-115)
[2022-04-21] MEDS: 0.9 % Sodium Chloride Flush 3 ML SYRINGE IVFLUSH (07:41)
[2022-04-21] MEDS: Ferrous Sulfate 324 MG TABLET.DR PO ×2 (09:46→21:26)
[2022-04-21] MEDS: levETIRAcetam 500 MG TABLET PO ×2 (09:46→21:26)
[2022-04-21] MEDS: Cyanocobalamin (Vitamin B-12) 1,000 MCG TABLET 1000 MCG PO (09:46)
[2022-04-21] MEDS: Cholecalciferol (Vitamin D3) 25 MCG TABLET PO (09:46)
--- NOTE | 2022-04-21 11:25 | PHA.MEDREC ---
Pharmacy Consult ? Medication Reconciliation Pharmacy has reviewed the medication reconciliation compelte by Kyara. Spoke with patient's sister Araceli who confirmed all medications. provider updated on all changes and missed medications Senait Davis, MaryD
[2022-04-21 11:45] LABS: Glucose, Whole Blood 174 mg/dL (60-115)
--- NOTE | 2022-04-21 13:41 | PM.EVENT ---
Event Note Date of Service: 04/21/22 Event Note: Chart reviewed, patient examined. No appreciable changes since admit. Continue plan as indicated. Changes made based on forthcoming data and clinical course
[2022-04-21] MEDS: Insulin Lispro 100 UNIT/ML 3 ML VIAL SUBCUT ×3 (14:52→21:26)
--- NOTE | 2022-04-21 14:54 | PC.NURSE ---
patient alert to baseline, ivf running per order, pure wick intact, pt medicated with insulin late as lunches came late, family at bedside, call barron within reach, will continue to monitor.
--- NOTE | 2022-04-21 15:22 | PC.NURSE ---
pt is a&o to her baseline to person and place, medications were given per order, pt incontinent/pure wick is intact, pt is mildly hypertensive-vitals otherwise stable will notify MD, call barron within reach, will continue to monitor.
--- NOTE | 2022-04-21 15:43 | PC.NURSE ---
poc and insulin will be given later as dinner comes late
[2022-04-21 16:56] LABS: Glucose, Whole Blood 209 mg/dL (60-115)
--- NOTE | 2022-04-21 19:03 | PC.NURSE ---
patient a&ox2, pt denies pain/discomfort, medicated per order, pure wick patient/draining, ivf running per order, call barron within reach, will continue to monitor
[2022-04-21 21:19] LABS: Glucose, Whole Blood 191 mg/dL (60-115)
--- NOTE | 2022-04-21 23:07 | PC.NURSE ---
called pharmacy for missing eye drops x2, non-admit eye drops as we do not have them on the unit yet. pt a&ox2, pure wick patient/draining, no c/o pain/discomfort, vss, call barron within reach, will continue to monitor.
[2022-04-22 00:01] VITALS: BP 199/81; PULSE 60; RESP 18; TEMP 36.4; O2SAT 100
--- NOTE | 2022-04-22 00:08 | PC.NURSE ---
Pt has been hypertensive throughout the day. Last BP 199/81, hospitalist informed. Plan to give 5 mg hydralazine. Pt resting comfortably in bed with no complaints at this time.
[2022-04-22] MEDS: hydrALAZINE HCl 20 MG/ML VIAL 5 MG IVPUSH (00:44)
[2022-04-22] MEDS: 0.9 % Sodium Chloride Flush 3 ML SYRINGE IVFLUSH (00:44)
[2022-04-22] MEDS: 0.9 % Sodium Chloride 1,000 ML 100 ML IVCONT (00:45)
[2022-04-22 02:02] VITALS: BP 179/74; PULSE 60; RESP 16; O2SAT 99
[2022-04-22 05:58] VITALS: BP 195/90; PULSE 69; RESP 18; O2SAT 98
[2022-04-22] MEDS: Heparin Sodium,Porcine 5,000 UNIT/ML VIAL 5000 UNIT SUBCUT ×2 (06:39→13:43)
[2022-04-22] MEDS: Levothyroxine Sodium 150 MCG TABLET PO (06:39)
[2022-04-22 07:34] LABS: Glucose, Whole Blood 290 mg/dL (60-115)
[2022-04-22] MEDS: Insulin Lispro 100 UNIT/ML 3 ML VIAL SUBCUT ×2 (09:00→13:37)
[2022-04-22] MEDS: Cyanocobalamin (Vitamin B-12) 1,000 MCG TABLET 1000 MCG PO (09:02)
[2022-04-22] MEDS: Cholecalciferol (Vitamin D3) 25 MCG TABLET PO (09:02)
[2022-04-22] MEDS: Ferrous Sulfate 324 MG TABLET.DR PO (09:02)
[2022-04-22] MEDS: levETIRAcetam 500 MG TABLET PO (09:02)
--- NOTE | 2022-04-22 09:23 | MHC.CM.PN ---
PATIENT LIVES WITH HER 2 SISTERS HCP (ON FILE) ROSIO [phone] PER ROSIO, PATIENT GOES TO AN ADULT DAY PROGRAM ON TUESDAYS AND WEDNESDAYS (ROSIO IS TRYING TO GET PATIENT BACK THREE DAYS PER WEEK BUT SAYS THAT PATIENT WAS RECENTLY NOT DOING WELL SO SHE IS SLOWLY EASING HER BACK INTO 3 DAYS) PATIENT RELIES ON A WALKER NO VNA IN THE HOME. PATIENT HAS BEEN VACCINATED WITH J&J SISTER IS OPEN TO A BOOSTER IF WE ARE ABLE [place] [facility] [place] ACCORDING TO HOSPITALIST, WE SHOULD WAIT, PATIENT HAS A UTI PATIENT HAS BEEN TO [facility] AND [facility] IN THE PAST IF RECOMMENDED, THESE TWO FACILITIES ARE ROSIO'S PREFERENCES. IMM 04/22 IN CHART AND ORIGINAL TO GO BACK HOME WITH PATIENT
--- NOTE | 2022-04-22 11:43 | MHC.CM.PN ---
PER PHYSICIAN ROUNDS, PATIENT TO RETURN HOME TODAY WITH FAMILY. PATIENT WILL NOT BE RECEIVING HER BOOSTER HERE, NEXT AVAILABLE IS MONDAY APRIL 25, 2022
[2022-04-22 12:48] VITALS: BP 177/83; PULSE 68; RESP 18; O2SAT 100
[2022-04-22 12:48] LABS: Glucose, Whole Blood 310 mg/dL (60-115)
--- NOTE | 2022-04-22 13:23 | PM.DS ---
DS: Providers Provider Date of Service: 04/22/22 Date of admission: 04/21/22 03:05 Date of discharge: 04/22/22 Primary care physician: Edouard Amaro MD DS: Diagnosis Discharge Diagnosis (1) LYNNE (acute kidney injury): Status: Acute (2) Acute UTI: Status: Acute DS: Summary Hospital Course Hospital Course: 72-year-old female with a past medical history of hypertension, hyperlipidemia, diabetes, hypothyroidism, history of seizures, glaucoma, vitamin B12 deficiency, history of orthostasis, CAD, GERD, dementia, lives with the family presented to the hospital today with a chief complaint of low blood pressure.? Hospital course Patient admitted to the general medical floor; given volume repletion with appropriate response and her blood pressure. Urine initially with active sediment empirically treated with ceftriaxone; will discharge on a course of Ceftin pending culture. Patient to resume all pre-hospital meds therapies and follow up with PCP in 1-2 weeks Time Spent with Patient Time attestation: Total time spent providing and/or coordinating discharge services: Discharge coordination time: Greater than 30 minutes Quality: Safe Use of Opioids Does Pt have an Active Cancer Diagnosis on the Problem List?: No Quality: Stroke Does the patient have a stroke diagnosis?: No Physical Exam Vital Signs: Vital Signs: Last Vital Signs Temp 97.5 F 04/22/22 00:01 Pulse 68 04/22/22 12:48 Resp 18 04/22/22 12:48 BP 177/83 H 04/22/22 12:48 Pulse Ox 100 04/22/22 12:48 O2 Del Method 04/22/22 12:48 BMI result Body Mass Index 30.1 Const: Other: Awake alert confused but easily reoriented Resp: Other: Clear to auscultation bilaterally no rales rhonchi or wheezes Cardio: Other: No S4; positive S1-S2; no S3 murmurs rubs or gallops GI: Other: Soft nontender nondistended with normoactive bowel sounds Neuro: Other: Cranial nerves 2-12 grossly intact as tested. Motor is 5/5 all extremities. Sensation is intact. Gait steady Extrem: Other: No edema bilaterally DS: Data Data Completed and Pending Completed studies during hospitalization [Text1]: Procedures Insertion of Infusion Device into Left Subclavian Vein, Percutaneous Approach (12/11/21) Introduction of Vasopressor into Peripheral Artery, Percutaneous Approach (12/11/21) Labs on day of discharge: Laboratory Results - last 24 hr 04/21/22 04/21/22 04/22/22 16:48 21:13 07:27 POC Glucose 209 H 191 H 290 H 04/22/22 12:34 POC Glucose 310 H Preliminary micro results at discharge 04/20/22 Unknown Urine Culture - Preliminary Urine Catheterized - Armstrong Catheter Culture in progress. 04/21/22 00:49 Blood Culture - Preliminary Blood - Venous No growth after 24 hours. 04/21/22 00:49 Blood Culture - Preliminary Blood - Venous No growth after 24 hours. Discharge Plan Discharge Patient Disposition: Home, Self-Care Discharge Diagnosis: Acute kidney injury Referrals: Edouard Amaro MD [Primary Care Provider] - 1 Week Discharge Medications: New cefuroxime axetil 250 mg tablet 250 mg PO BID 7 Days Qty: 14 0RF Continued (DME) walker [facility] See Rx Instructions .ROUTE .MEDSUPPLY Qty: 1 0RF Rx Instructions: As directed atorvastatin 40 mg tablet 40 mg PO BEDTIME Qty: 90 1RF latanoprost 0.005 % drops 1 drp ophthalmic (eye) BEDTIME metformin 500 mg tablet 1 tab PO BID sennosides [senna] 8.6 mg tablet 1 tab PO BEDTIME PRN (Reason: constipation) levetiracetam 500 mg tablet 1 tab PO BID cyanocobalamin (vitamin B-12) 1,000 mcg tablet 1 tab PO DAILY insulin aspart U-100 [Novolog U-100 Insulin aspart] 100 unit/mL solution See Protocol subcut QID Protocol: Insulin Correction Scale Less than or equal to 110 ---- Give (units): 0 111 to 150 Give (units): 0 151 to 200 Give (units): 2 201 to 250 Give (units): 4 251 to 300 Give (units): 6 301 to 350 Give (units): 8 Greater than 350 Give (units): 10 Call MD if Blood Glucose > : 350 ferrous sulfate 325 mg (65 mg iron) tablet 1 tab PO BID levothyroxine 150 mcg tablet 1 tab PO QAM Levemir U-100 Insulin 100 unit/mL solution 22 unit subcut DAILY cholecalciferol (vitamin D3) 25 mcg (1,000 unit) tablet 1 tab PO DAILY lisinopril 20 mg tablet 1 tab PO BID metoprolol succinate 25 mg tablet extended release 24 hr 1 tab PO DAILY Discharge Orders: Discharge Order (Routine); Ordered 04/22/22 Ordered By: Ravinder Krishnan Diet: advance to usual diet Activity on Discharge: As tolerated Stand Alone Forms: Patient Portal Discharge page Care Plan Goals: Complete antibiotic (Ceftin) as ordered for urinary tract infection Health Concerns: Resume all pre-hospital medications Plan of Treatment: Follow-up with PCP in 2 weeks Assessment: See discharge summary
== END 2022-04-22 17:12 | disposition home or self-care (01) | DRG 683 ==
LOC: HO.ED 04-21 00:37 → HO.EDOVER 04-21 03:12
PROVIDERS: Admitting Provider Hospitalist; Emergency Provider Emergency Medicine; PCP Internal Medicine; Visit Provider Hospitalist
DX: N17.9 Acute kidney failure, unspecified (principal); N39.0 Urinary tract infection, site not specified; I25.10 Atherosclerotic heart disease of native coronary artery without angina pectoris; F03.90 Unspecified dementia, unspecified severity, without behavioral disturbance, psychotic disturbance, mood disturbance, and anxiety; K21.9 Gastro-esophageal reflux disease without esophagitis; E78.5 Hyperlipidemia, unspecified; E11.9 Type 2 diabetes mellitus without complications; G40.909 Epilepsy, unspecified, not intractable, without status epilepticus; E03.9 Hypothyroidism, unspecified; Z20.822 Contact with and (suspected) exposure to COVID-19; Z79.4 Long term (current) use of insulin; Z79.84 Long term (current) use of oral hypoglycemic drugs; Z79.890 Hormone replacement therapy; Z79.899 Other long term (current) drug therapy
CPT/HCPCS: 36415; 71045; 74176; 80048; 80053; 80076; 81001; 82009; 82550; 82803; 82947; 83605; 83735; 84484; 85025; 85610; 86140; 87040; 87086; 87088; 87186; 87502; 87635; 93005; 96361; 96365; 96366; 96375; 97162; 99285; J0610; J0696; J1650; J3475

== ENCOUNTER 2022-04-23 08:44 | Inpatient (IN) | payer MEDICARE, MEDICAID, SELFPAY ==
[2022-04-23] VITALS (8 sets, daily range): BP systolic 103–197; BP diastolic 44–82; PULSE 67–104; RESP 12–18; TEMP 35.8–37.1; O2SAT 94–100; BMI 29.0
--- NOTE | 2022-04-23 09:05 | ECG_ITS ---
Test Reason : hypotension Blood Pressure : / mmHG Vent. Rate : 098 BPM Atrial Rate : 098 BPM P-R Int : 152 ms QRS Dur : 100 ms QT Int : 350 ms P-R-T Axes : 086 044 023 degrees QTc Int : 446 ms Normal sinus rhythm Right atrial enlargement Moderate voltage criteria for LVH, may be normal variant ( Sokolow-Dawson , [place] product ) Nonspecific ST abnormality Abnormal ECG When compared with ECG of 20-APR-2022 21:50, T wave amplitude has increased in Anterior leads Referred By: Generic ED Physician Electronically Signed By:OCTAVIANO MANZO
--- NOTE | 2022-04-23 09:37 | ED_ITS ---
HPI - General Adult General Chief complaint: General Medical Stated complaint: PT FEELS LOW BP,FROM HOME, 110/50 PER EMS Time Seen by Provider: 04/23/22 09:07 Source: patient, family and old records reviewed Mode of arrival: EMS Limitations: altered mental status (dementia) History of Present Illness HPI narrative: 72 yo female with hx of seizures, LYNNE, dementia, CAD, HTN, DM here with c/o low BP 80/50s at home. Just admitted here 04/21 - 04/22 for same complaint found to have LYNNE and UTI responded to fluids and sent home on ceftin Cr went from 1.78 to 1.13. Urine culture is negative at this time from 04/20 as well as blood cultures. Patient does have a hx of labile BPs at home since seizure dx. Patient has no complaints at this time. Was not able to be given her medications this AM. Daughter noted patient did well last night ate and drank, voided urine well. Was up and about to eat breakfast when she checked her BP MD complaint: low BP at home Onset (ago): minute(s) (just prior to arrival) Radiation: non-radiation Severity: mild Quality: dull Relieving factors: none Exacerbating factors: none Associated symptoms: denies other symptoms Treatments prior to arrival: none Related Data Home Medications Medication Instructions Recorded Confirmed cholecalciferol (vitamin D3) 25 1 tab PO DAILY 04/21/22 04/21/22 mcg (1,000 unit) tablet cyanocobalamin (vitamin B-12) 1 tab PO DAILY 04/21/22 04/21/22 1,000 mcg tablet ferrous sulfate 325 mg (65 mg 1 tab PO BID 04/21/22 04/21/22 iron) tablet insulin aspart U-100 100 unit/mL See Protocol subcut QID 04/21/22 04/21/22 subcutaneous solution (Novolog U-100 Insulin aspart) insulin detemir U-100 100 unit/mL 22 unit subcut DAILY 04/21/22 04/21/22 subcutaneous solution (Levemir U-100 Insulin) latanoprost 0.005 % eye drops 1 drp ophthalmic (eye) BEDTIME 04/21/22 04/21/22 levetiracetam 500 mg tablet 1 tab PO BID 04/21/22 04/21/22 levothyroxine 150 mcg tablet 1 tab PO QAM 04/21/22 04/21/22 lisinopril 20 mg tablet 1 tab PO BID 04/21/22 04/21/22 metformin 500 mg tablet 1 tab PO BID 04/21/22 04/21/22 metoprolol succinate 25 mg 1 tab PO DAILY 04/21/22 04/21/22 tablet,extended release 24 hr sennosides 8.6 mg tablet (senna) 1 tab PO BEDTIME PRN constipation 04/21/22 04/21/22 Previous Rx's Medication Instructions Recorded walker #1 ea 02/28/21 atorvastatin 40 mg tablet 40 mg PO BEDTIME #90 tabs 04/21/22 cefuroxime axetil 250 mg tablet 250 mg PO BID 7 days #14 tabs 04/22/22 Allergies Allergy/AdvReac Type Severity Reaction Status Date / Time No Known Allergies Allergy Verified 01/25/22 04:08 Review of Systems Review of Systems: ROS unable to be obtained due to dementia [facility] Past Medical History Attestation statement: The following information was validated with the patient. Medical History Acquired hypothyroidism Atherosclerotic cardiovascular disease Benign essential hypertension Dementia Diabetes mellitus Hypothyroidism New onset seizure Pure hypercholesterolemia Surgical History History of ankle surgery History of hemiarthroplasty of left hip S/P [id number] (total abdominal hysterectomy and bilateral salpingo-oophorectomy) Family History Family History Father Diabetes Hypertension Mother Hypertension Stroke Social History Social History Household Members: Family Housing: Apartment Do you presently have visiting nurse or other home services: No Alcohol intake: never Patient Tobacco Use Status: Never used Tobacco Second Hand Smoke Exposure: No Advance Directives: Yes Advance Directives on File: Yes Advance Directives Date on File: 10/25/20 service: No Current occupational status: retired and disabled Cognitive needs: No Hearing needs: No Vision needs: Yes Physical Exam ED Vital Signs: Vital Signs - 24 hr 04/23/22 08:58 04/23/22 12:00 04/23/22 14:36 Temperature 96.4 F L Pulse Rate 93 85 82 Respiratory Rate 16 14 12 Blood Pressure 109/44 L 103/49 L 125/65 Pulse Oximetry 94 100 100 Oxygen Delivery Method Room Air Room Air Room Air BMI result Body Mass Index 29.0 Appearance: Alert. at baseline. No acute distress. Smiling has no complaints Eyes: Pupils equal, round and reactive to light. ENT: Pharynx normal. Neck: Normal inspection. Neck supple. CVS: Normal heart rate and rhythm. Pulses normal. Respiratory: No respiratory distress. Breath sounds normal. Abdomen: Soft and nontender. Skin: Skin warm and dry. Normal skin color. Normal skin turgor. Extremities: No lower extremity edema. No calf ttp Neuro: At baseline No motor deficit. No sensory deficit. Course Course Course Narrative: mild gap, repeat insulin ordered will repeat BMP after IVF and insulin Procedures EJ/Peripheral Line Arm L: Time Out Performed: Yes Skin Cleansed in Sterile Fashion: Yes Size (gauge): 18 IV Secured and Dressing Applied: Yes Patient Tolerated Procedure: well and no complications Medical Decision Making [facility] Narrative Medical decision making narrative: 72 yo female with hx of seizures, LYNNE, dementia, CAD, HTN, DM just released yesterday for LYNNE and UTI comes back after daughter noted low BP while eating breakfast this AM and HR of 102. The patient has no complaints, EKG ?hyperkalemia and her BS is elevated due to not having time to give meds this AM. Will start IVF and calcium. Obtain labs, EKG dispo per results and findings. Lab Data Result diagrams: 04/23/22 11:29 04/23/22 11:06 Labs: Lab Results 04/23/22 04/23/22 04/23/22 Range/Units 09:16 09:31 09:31 WBC (4.8-10.8) X10*3/uL RBC (4.20-5.50) X10*6/uL Hgb (12.0-16.0) g/dl Hct (37.0-47.0) % MCV (80.0-98.0) fL MCH (27.0-33.0) pg MCHC (31.0-35.0) g/dl RDW (11.0-16.0) % Plt Count (160-400) X10*3/uL MPV (9.4-12.3) fL Immature Gran % (Auto) (0.0-0.4) % Neut % (Auto) (45-73) % Lymph % (Auto) (20-40) % [place] % (Auto) (2-11) % Eos % (Auto) (0-4) % Baso % (Auto) (0-2) % Lymph # (Auto) (1.2-4.9) X10*3/uL [place] # (Auto) (0.1-1.2) X10*3/uL Eos # (Auto) (0.0-0.4) X10*3/uL Baso # (Auto) (0.0-0.2) X10*3/uL Abs Immat Gran (auto) (0.00-0.03) X10*3/uL Absolute Neuts (auto) (2.0-8.3) x10*3/uL Absolute Nucleated RBC (0.0-0.012) X10*3/uL Nucleated RBC % (auto) (0.0-0.2) /100WBC VBG pH (7.32-7.43) VBG pCO2 mmHg VBG pO2 mmHg VBG HCO3 (22-26) mmol/L VBG O2 Saturation % VBG Base Excess mmol/L Sodium (135-145) mmol/L Potassium (3.3-5.1) mmol/L Chloride (96-108) mmol/L Carbon Dioxide (22-29) mmol/L Anion Gap (12-20) BUN (9-16) mg/dL Creatinine (0.5-1.4) mg/dL Estim Creat Clear Calc Estimated GFR POC Glucose 591 H* (60-115) mg/dL Random Glucose (60-115) mg/dL Lactic Acid (0.5-2.0) mmol/L Calcium (8.4-10.2) mg/dL Magnesium (1.6-2.6) mg/dL Total Bilirubin (0.0-1.0) mg/dL Direct Bilirubin (0.0-0.5) mg/dL AST (5-31) U/L ALT (0-31) U/L Alkaline Phosphatase (39-117) U/L Troponin I High Sens (<3.5-17.0) ng/L Total Protein (6.5-8.0) g/dL Albumin (3.5-5.0) g/dL Acetone, Qual (Negative) COVID-19 (TAMARA) Negative (Negative) COVID-19 Clin Com See Note Influenza Type A (ANGELY) Negative (Negative) Influenza Type B (ANGELY) Negative (Negative) Influenza A & B Note See Note 04/23/22 04/23/22 04/23/22 Range/Units 11:06 11:27 11:29 WBC 4.5 L (4.8-10.8) X10*3/uL RBC 3.87 L (4.20-5.50) X10*6/uL Hgb 11.1 L (12.0-16.0) g/dl Hct 34.1 L (37.0-47.0) % MCV 88.1 (80.0-98.0) fL MCH 28.7 (27.0-33.0) pg MCHC 32.6 (31.0-35.0) g/dl RDW 13.6 (11.0-16.0) % Plt Count 218 D (160-400) X10*3/uL MPV 11.6 (9.4-12.3) fL Immature Gran % (Auto) 0.2 (0.0-0.4) % Neut % (Auto) 62.6 (45-73) % Lymph % (Auto) 30.1 (20-40) % [place] % (Auto) 6.5 (2-11) % Eos % (Auto) 0.4 (0-4) % Baso % (Auto) 0.2 (0-2) % Lymph # (Auto) 1.4 (1.2-4.9) X10*3/uL [place] # (Auto) 0.3 (0.1-1.2) X10*3/uL Eos # (Auto) 0.0 (0.0-0.4) X10*3/uL Baso # (Auto) 0.0 (0.0-0.2) X10*3/uL Abs Immat Gran (auto) 0.01 (0.00-0.03) X10*3/uL Absolute Neuts (auto) 2.8 (2.0-8.3) x10*3/uL Absolute Nucleated RBC 0.000 (0.0-0.012) X10*3/uL Nucleated RBC % (auto) 0.0 (0.0-0.2) /100WBC VBG pH (7.32-7.43) VBG pCO2 mmHg VBG pO2 mmHg VBG HCO3 (22-26) mmol/L VBG O2 Saturation % VBG Base Excess mmol/L Sodium 130 L (135-145) mmol/L Potassium 5.3 H D (3.3-5.1) mmol/L Chloride 95 L (96-108) mmol/L Carbon Dioxide 18 L (22-29) mmol/L Anion Gap 22 H (12-20) BUN 30 H (9-16) mg/dL Creatinine 1.83 H (0.5-1.4) mg/dL Estim Creat Clear Calc 32.6 Estimated GFR 27 POC Glucose (60-115) mg/dL Random Glucose 707 H* D (60-115) mg/dL Lactic Acid 1.7 (0.5-2.0) mmol/L Calcium 8.9 (8.4-10.2) mg/dL Magnesium 1.7 (1.6-2.6) mg/dL Total Bilirubin 0.7 (0.0-1.0) mg/dL Direct Bilirubin 0.3 (0.0-0.5) mg/dL AST 11 (5-31) U/L ALT 16 (0-31) U/L Alkaline Phosphatase 177 H (39-117) U/L Troponin I High Sens (<3.5-17.0) ng/L Total Protein 7.0 (6.5-8.0) g/dL Albumin 3.8 (3.5-5.0) g/dL Acetone, Qual (Negative) COVID-19 (TAMARA) (Negative) COVID-19 Clin Com Influenza Type A (ANGELY) (Negative) Influenza Type B (ANGELY) (Negative) Influenza A & B Note 04/23/22 04/23/22 04/23/22 Range/Units 11:29 11:29 11:29 WBC (4.8-10.8) X10*3/uL RBC (4.20-5.50) X10*6/uL Hgb (12.0-16.0) g/dl Hct (37.0-47.0) % MCV (80.0-98.0) fL MCH (27.0-33.0) pg MCHC (31.0-35.0) g/dl RDW (11.0-16.0) % Plt Count (160-400) X10*3/uL MPV (9.4-12.3) fL Immature Gran % (Auto) (0.0-0.4) % Neut % (Auto) (45-73) % Lymph % (Auto) (20-40) % [place] % (Auto) (2-11) % Eos % (Auto) (0-4) % Baso % (Auto) (0-2) % Lymph # (Auto) (1.2-4.9) X10*3/uL [place] # (Auto) (0.1-1.2) X10*3/uL Eos # (Auto) (0.0-0.4) X10*3/uL Baso # (Auto) (0.0-0.2) X10*3/uL Abs Immat Gran (auto) (0.00-0.03) X10*3/uL Absolute Neuts (auto) (2.0-8.3) x10*3/uL Absolute Nucleated RBC (0.0-0.012) X10*3/uL Nucleated RBC % (auto) (0.0-0.2) /100WBC VBG pH (7.32-7.43) VBG pCO2 mmHg VBG pO2 mmHg VBG HCO3 (22-26) mmol/L VBG O2 Saturation % VBG Base Excess mmol/L Sodium (135-145) mmol/L Potassium (3.3-5.1) mmol/L Chloride (96-108) mmol/L Carbon Dioxide (22-29) mmol/L Anion Gap (12-20) BUN (9-16) mg/dL Creatinine (0.5-1.4) mg/dL Estim Creat Clear Calc Estimated GFR POC Glucose (60-115) mg/dL Random Glucose (60-115) mg/dL Lactic Acid (0.5-2.0) mmol/L Calcium (8.4-10.2) mg/dL Magnesium Cancelled (1.6-2.6) mg/dL Total Bilirubin Cancelled (0.0-1.0) mg/dL Direct Bilirubin Cancelled (0.0-0.5) mg/dL AST Cancelled (5-31) U/L ALT Cancelled (0-31) U/L Alkaline Phosphatase Cancelled (39-117) U/L Troponin I High Sens 4.1 (<3.5-17.0) ng/L Total Protein Cancelled (6.5-8.0) g/dL Albumin Cancelled (3.5-5.0) g/dL Acetone, Qual Moderate H (Negative) COVID-19 (TAMARA) (Negative) COVID-19 Clin Com Influenza Type A (ANGELY) (Negative) Influenza Type B (ANGELY) (Negative) Influenza A & B Note 04/23/22 04/23/22 04/23/22 Range/Units 11:33 11:39 12:36 WBC (4.8-10.8) X10*3/uL RBC (4.20-5.50) X10*6/uL Hgb (12.0-16.0) g/dl Hct (37.0-47.0) % MCV (80.0-98.0) fL MCH (27.0-33.0) pg MCHC (31.0-35.0) g/dl RDW (11.0-16.0) % Plt Count (160-400) X10*3/uL MPV (9.4-12.3) fL Immature Gran % (Auto) (0.0-0.4) % Neut % (Auto) (45-73) % Lymph % (Auto) (20-40) % [place] % (Auto) (2-11) % Eos % (Auto) (0-4) % Baso % (Auto) (0-2) % Lymph # (Auto) (1.2-4.9) X10*3/uL [place] # (Auto) (0.1-1.2) X10*3/uL Eos # (Auto) (0.0-0.4) X10*3/uL Baso # (Auto) (0.0-0.2) X10*3/uL Abs Immat Gran (auto) (0.00-0.03) X10*3/uL Absolute Neuts (auto) (2.0-8.3) x10*3/uL Absolute Nucleated RBC (0.0-0.012) X10*3/uL Nucleated RBC % (auto) (0.0-0.2) /100WBC VBG pH 7.30 L (7.32-7.43) VBG pCO2 31 mmHg VBG pO2 55 mmHg VBG HCO3 15 L (22-26) mmol/L VBG O2 Saturation 78.0 % VBG Base Excess -9.2 mmol/L Sodium (135-145) mmol/L Potassium (3.3-5.1) mmol/L Chloride (96-108) mmol/L Carbon Dioxide (22-29) mmol/L Anion Gap (12-20) BUN (9-16) mg/dL Creatinine (0.5-1.4) mg/dL Estim Creat Clear Calc Estimated GFR POC Glucose 516 H* 462 H* (60-115) mg/dL Random Glucose (60-115) mg/dL Lactic Acid (0.5-2.0) mmol/L Calcium (8.4-10.2) mg/dL Magnesium (1.6-2.6) mg/dL Total Bilirubin (0.0-1.0) mg/dL Direct Bilirubin (0.0-0.5) mg/dL AST (5-31) U/L ALT (0-31) U/L Alkaline Phosphatase (39-117) U/L Troponin I High Sens (<3.5-17.0) ng/L Total Protein (6.5-8.0) g/dL Albumin (3.5-5.0) g/dL Acetone, Qual (Negative) COVID-19 (TAMARA) (Negative) COVID-19 Clin Com Influenza Type A (ANGELY) (Negative) Influenza Type B (ANGELY) (Negative) Influenza A & B Note 04/23/22 Range/Units 15:03 WBC (4.8-10.8) X10*3/uL RBC (4.20-5.50) X10*6/uL Hgb (12.0-16.0) g/dl Hct (37.0-47.0) % MCV (80.0-98.0) fL MCH (27.0-33.0) pg MCHC (31.0-35.0) g/dl RDW (11.0-16.0) % Plt Count (160-400) X10*3/uL MPV (9.4-12.3) fL Immature Gran % (Auto) (0.0-0.4) % Neut % (Auto) (45-73) % Lymph % (Auto) (20-40) % [place] % (Auto) (2-11) % Eos % (Auto) (0-4) % Baso % (Auto) (0-2) % Lymph # (Auto) (1.2-4.9) X10*3/uL [place] # (Auto) (0.1-1.2) X10*3/uL Eos # (Auto) (0.0-0.4) X10*3/uL Baso # (Auto) (0.0-0.2) X10*3/uL Abs Immat Gran (auto) (0.00-0.03) X10*3/uL Absolute Neuts (auto) (2.0-8.3) x10*3/uL Absolute Nucleated RBC (0.0-0.012) X10*3/uL Nucleated RBC % (auto) (0.0-0.2) /100WBC VBG pH (7.32-7.43) VBG pCO2 mmHg VBG pO2 mmHg VBG HCO3 (22-26) mmol/L VBG O2 Saturation % VBG Base Excess mmol/L Sodium (135-145) mmol/L Potassium (3.3-5.1) mmol/L Chloride (96-108) mmol/L Carbon Dioxide (22-29) mmol/L Anion Gap (12-20) BUN (9-16) mg/dL Creatinine (0.5-1.4) mg/dL Estim Creat Clear Calc Estimated GFR POC Glucose 346 H (60-115) mg/dL Random Glucose (60-115) mg/dL Lactic Acid (0.5-2.0) mmol/L Calcium (8.4-10.2) mg/dL Magnesium (1.6-2.6) mg/dL Total Bilirubin (0.0-1.0) mg/dL Direct Bilirubin (0.0-0.5) mg/dL AST (5-31) U/L ALT (0-31) U/L Alkaline Phosphatase (39-117) U/L Troponin I High Sens (<3.5-17.0) ng/L Total Protein (6.5-8.0) g/dL Albumin (3.5-5.0) g/dL Acetone, Qual (Negative) COVID-19 (TAMARA) (Negative) COVID-19 Clin Com Influenza Type A (ANGELY) (Negative) Influenza Type B (ANGELY) (Negative) Influenza A & B Note ECG Data Attestation: I personally reviewed and interpreted this ECG as follows: Interpretation: Rate: 98 Rhythm: NSR [place]: normal , LVH Normal P waves. Normal SHAHRAM. Normal QRS complex. ST T wave : peaked t waves changed from most recent no REY qTC: normal prior studies: t waves different from most recent The study has been interpreted contemporaneously by me. . Discharge Plan Discharge Clinical Impression: LYNNE (acute kidney injury), Acute hyperglycemia Patient Disposition: Admitted As Inpatient
[2022-04-23 09:40] LABS: Glucose, Whole Blood 591 mg/dL (60-115)
[2022-04-23 10:03] LABS: COVID-19 Test Negative (Negative); IDNOW Serial# 16C4AD1C; Influenza A Negative (Negative); Influenza B2 Negative (Negative)
[2022-04-23] MEDS: Insulin Regular, Human 100 UNIT/ML 3 ML VIAL 10 UNIT IVPUSH ×2 (10:44→11:46)
[2022-04-23] MEDS: Calcium Gluconate/NaCl,Iso-Osm 2 GM/100 ML PLAST..BAG IV (10:45)
[2022-04-23 11:32] LABS: Anion Gap 22 (12-20); Blood Urea Nitrogen 30 mg/dL (9-16); Calcium 8.9 mg/dL (8.4-10.2); Carbon Dioxide 18 mmol/L (22-29); Chloride 95 mmol/L (96-108); Creatinine Clr Calc Pharmacy 32.6; Estimated Glomerular Filt Rate 27; Glucose Random 707 mg/dL (60-115); Potassium 5.3 mmol/L (3.3-5.1); Sodium 130 mmol/L (135-145)
[2022-04-23 11:36] LABS: MANUAL DIFF FLAG NO
[2022-04-23 11:38] LABS: Basophils Percent Auto 0.2 % (0-2); Eosinophils Percent Auto 0.4 % (0-4); Hematocrit 34.1 % (37.0-47.0); Hemoglobin 11.1 g/dl (12.0-16.0); Imm Gran Abs Auto 0.01 X10*3/uL (0.00-0.03); Imm Gran Pct Auto 0.2 % (0.0-0.4); Lymphocytes Absolute Auto 1.4 X10*3/uL (1.2-4.9); Lymphocytes Percent Auto 30.1 % (20-40); Mean Corpuscular HGB Conc 32.6 g/dl (31.0-35.0); Mean Corpuscular Hemoglobin 28.7 pg (27.0-33.0); Mean Corpuscular Volume 88.1 fL (80.0-98.0); Mean Platelet Volume 11.6 fL (9.4-12.3); Monocytes Absolute Auto 0.3 X10*3/uL (0.1-1.2); Monocytes Percent Auto 6.5 % (2-11); Neutrophils Absolute Auto 2.8 x10*3/uL (2.0-8.3); Neutrophils Percent Auto 62.6 % (45-73); Platelet Count 218 X10*3/uL (160-400); Red Blood Count 3.87 X10*6/uL (4.20-5.50); Red Cell Distribution Width 13.6 % (11.0-16.0); White Blood Count 4.5 X10*3/uL (4.8-10.8)
[2022-04-23 11:38] LABS: VBG Base Excess -9.2 mmol/L; VBG HCO3 15 mmol/L (22-26); VBG pCO2 31 mmHg; VBG pO2 55 mmHg
[2022-04-23 11:38] LABS: Venous Blood Gas Refer to POC result
[2022-04-23 11:39] LABS: Acetone, serum QL Moderate (Negative)
[2022-04-23 11:42] LABS: Glucose, Whole Blood 516 mg/dL (60-115)
[2022-04-23] MEDS: 0.9 % Sodium Chloride 1,000 ML 999 ML IV ×2 (11:50→14:32)
[2022-04-23 11:51] LABS: Lactic Acid 1.7 mmol/L (0.5-2.0)
--- NOTE | 2022-04-23 11:54 | PC.NURSE ---
per Dr Cosme, stop Ca gluconate and administer 1L of NS
[2022-04-23 12:00] LABS: Troponin-I High Sensitivity 4.1 ng/L (<3.5-17.0)
[2022-04-23 12:17] LABS: Alanine Aminotransferase 16 U/L (0-31); Albumin Level 3.8 g/dL (3.5-5.0); Alkaline Phosphatase 177 U/L (39-117); Aspartate Amino Transferase 11 U/L (5-31); Bilirubin Direct 0.3 mg/dL (0.0-0.5); Bilirubin Total 0.7 mg/dL (0.0-1.0); Magnesium 1.7 mg/dL (1.6-2.6)
[2022-04-23 12:40] LABS: Glucose, Whole Blood 462 mg/dL (60-115)
[2022-04-23] MEDS: Insulin Regular, Human 100 UNIT/ML 3 ML VIAL IVPUSH (12:46)
[2022-04-23] MEDS: Insulin Glargine,Hum.rec.anlog 100 UNIT/ML 10 ML VIAL 10 UNIT SUBCUT (12:48)
[2022-04-23 15:06] LABS: Glucose, Whole Blood 346 mg/dL (60-115)
--- NOTE | 2022-04-23 16:18 | PHA.MEDREC ---
Pharmacy Consult ? Medication Reconciliation Pharmacy has completed the medication reconciliation.
--- NOTE | 2022-04-23 17:22 | P.HPHOSP_ITS ---
History of Present Illness Date of Service: 04/23/22 Chief Complaint: Hypotension 72 yo female with hx of seizures, LYNNE, dementia, CAD, HTN, DM here with c/o low BP 80/50s at home. Just admitted here 04/21 - 04/22 for same complaint found to have LYNNE and UTI responded to fluids and sent home on ceftin Cr went from 1.78 to 1.13. Urine culture is negative at this time from 04/20 as well as blood cultures. Patient does have a hx of labile BPs at home since seizure dx. Patient has no complaints at this time. Was not able to be given her medications this AM. Daughter noted patient did well last night ate and drank, voided urine well.?Found to hypotensive by sister...transport to ER. In ER...treated with fluids/Insulin/CaG Review of Systems Review of Systems: Denies chest pain Denies shortness of breath Denies nausea vomiting diarrhea Denies fever chills [facility] Medical History (Updated 04/23/22 @ 17:27 by Ravinder Krishnan DO) Acquired hypothyroidism Atherosclerotic cardiovascular disease Benign essential hypertension Constipation Dementia Diabetes mellitus Epilepsy GERD without esophagitis Hypothyroidism Iron deficiency anemia New onset seizure Overweight (BMI 25.0-29.9) Pure hypercholesterolemia Syncope Vitamin B12 deficiency Vitamin D deficiency Family History Father Diabetes Hypertension Mother Hypertension Stroke Surgical History History of ankle surgery History of hemiarthroplasty of left hip S/P [id number] (total abdominal hysterectomy and bilateral salpingo-oophorectomy) Social History Household Members: Family Housing: Apartment Do you presently have visiting nurse or other home services: No Alcohol intake: never Patient Tobacco Use Status: Never used Tobacco Second Hand Smoke Exposure: No Advance Directives: Yes Advance Directives on File: Yes Advance Directives Date on File: 10/25/20 service: No Current occupational status: retired and disabled Cognitive needs: No Hearing needs: No Vision needs: Yes Meds Allergies Allergy/AdvReac Type Severity Reaction Status Date / Time No Known Allergies Allergy Verified 01/25/22 04:08 Active Medications: Current Medications Acetaminophen (Acetaminophen 325 Mg Tablet) 650 mg PO Q6H PRN PRN Reason: Pain, Mild (Pain Scale 1-3) Atorvastatin Calcium (Atorvastatin Calcium 40 Mg Tablet) mg PO BEDTIME [facility] Cefuroxime Axetil (Cefuroxime Axetil 250 Mg Tablet) 250 mg PO BID [facility] Cyanocobalamin (Cyanocobalamin (Vitamin B-12) 1,000 Mcg Tablet) mcg PO DAILY [facility] Enoxaparin Sodium (Enoxaparin Sodium 30 Mg/0.3 Ml Syringe) 30 mg SUBCUT Q24H [facility] Sodium Chloride (Ns) 1,000 mls @ 100 mls/hr IVCONT .Q10H [facility] Insulin Human Lispro (Insulin Lispro 100 Unit/Ml 3 Ml Vial) 0 unit SUBCUT QIDACHS [facility]; Protocol Latanoprost (Latanoprost 0.005 % Ophth Sharon 2.5 Ml Drops) 1 drop EYE-BOTH BEDTIME [facility] Levetiracetam (Levetiracetam 500 Mg Tablet) 500 mg PO BID [facility] Levothyroxine Sodium (Levothyroxine Sodium 150 Mcg Tablet) 150 mcg PO QAM [facility] Lisinopril (Lisinopril 20 Mg Tablet) 20 mg PO BID [facility]; Protocol Metformin HCl (Metformin Hcl 500 Mg Tablet) 500 mg PO BIDWM [facility] Metoprolol Succinate (Metoprolol Succinate Er 25 Mg Tab.Er.24h) 25 mg PO DAILY [facility]; Protocol Non-Formulary Medication (Ferrous Sulfate) 1 tab PO BID [facility] Non-Formulary Medication (Insulin Detemir U-100 [Levemir U-100 Insulin]) 22 unit SUBCUT DAILY [facility] Pharmacy Consult (Consult Rx Perform Med Rec) 1 each MISCELLANE ONCE PRN PRN Reason: Consult order Senna (Sennosides 8.6 Mg Tablet) 8.6 mg PO BEDTIME PRN PRN Reason: constipation Sodium Chloride (0.9 % Sodium Chloride Flush 3 Ml Syringe) 3 ml IVFLUSH QSHIFT [facility] Vitamin D (Cholecalciferol (Vitamin D3) 25 Mcg Tablet) 25 mcg PO DAILY [facility] Home Medications Medication Instructions Recorded Confirmed Last Taken Type cholecalciferol (vitamin D3) 25 1 tab PO DAILY 04/21/22 04/23/22 04/23/22 History mcg (1,000 unit) tablet cyanocobalamin (vitamin B-12) 1 tab PO DAILY 06/04/23/22 04/23/22 History 1,000 mcg tablet ferrous sulfate 325 mg (65 mg 1 tab PO BID 04/21/22 04/23/22 04/23/22 History iron) tablet insulin aspart U-100 100 unit/mL See Protocol subcut QID 04/21/22 04/23/22 04/23/22 History subcutaneous solution (Novolog U-100 Insulin aspart) insulin detemir U-100 100 unit/mL 22 unit subcut DAILY 04/21/22 04/23/22 04/23/22 History subcutaneous solution (Levemir U-100 Insulin) latanoprost 0.005 % eye drops 1 drp ophthalmic (eye) BEDTIME 04/21/22 04/23/22 04/22/22 History levetiracetam 500 mg tablet 1 tab PO BID 04/21/22 04/23/22 04/23/22 History levothyroxine 150 mcg tablet 1 tab PO QAM 04/21/22 04/23/22 04/23/22 History lisinopril 20 mg tablet 1 tab PO BID 04/21/22 04/23/22 04/23/22 History metformin 500 mg tablet 1 tab PO BIDWM 04/21/22 04/23/22 04/23/22 History metoprolol succinate 25 mg 1 tab PO DAILY 04/21/22 04/23/22 04/23/22 History tablet,extended release 24 hr sennosides 8.6 mg tablet (senna) 1 tab PO BEDTIME PRN constipation 04/21/22 04/23/22 Unknown History Physical Exam Vital Signs and Narrative: Vital Signs: Last Vital Signs Temp 98.7 F 04/23/22 16:00 Pulse 73 04/23/22 16:00 Resp 16 04/23/22 16:00 BP 142/50 H 04/23/22 16:00 Pulse Ox 98 04/23/22 16:00 O2 Del Method 04/23/22 16:00 BMI result Body Mass Index 29.0 Const: Other: Awake alert no acute distress Resp: Other: Clear to auscultation bilaterally no rales rhonchi or wheezes Cardio: Other: No S4; positive S1-S2; no S3 murmurs rubs or gallops GI: Other: Soft nontender nondistended normoactive bowel sounds Neuro: Other: Cranial nerves 2-12 grossly intact as tested. Motor is 5/5 all extremities. Sensation intact Extrem: Other: No edema bilaterally Results Labs CBC and Chem 7: 04/23/22 11:29 04/23/22 11:06 Labs: Laboratory Results - last 24 hr 04/23/22 04/23/22 04/23/22 09:16 09:31 09:31 MCV MCH MCHC RDW Plt Count MPV Immature Gran % (Auto) Neut % (Auto) Lymph % (Auto) [place] % (Auto) Eos % (Auto) Baso % (Auto) Lymph # (Auto) [place] # (Auto) Eos # (Auto) Baso # (Auto) Abs Immat Gran (auto) Absolute Neuts (auto) Absolute Nucleated RBC Nucleated RBC % (auto) VBG pH VBG pCO2 VBG pO2 VBG HCO3 VBG O2 Saturation VBG Base Excess Anion Gap Estim Creat Clear Calc Estimated GFR POC Glucose 591 H* Random Glucose Lactic Acid Calcium Magnesium Total Bilirubin Direct Bilirubin AST ALT Alkaline Phosphatase Troponin I High Sens Total Protein Albumin Acetone, Qual COVID-19 (TAMARA) Negative COVID-19 Clin Com See Note Influenza Type A (ANGELY) Negative Influenza Type B (ANGELY) Negative Influenza A & B Note See Note 04/23/22 04/23/22 04/23/22 11:06 11:27 11:29 MCV 88.1 MCH 28.7 MCHC 32.6 RDW 13.6 Plt Count 218 D MPV 11.6 Immature Gran % (Auto) 0.2 Neut % (Auto) 62.6 Lymph % (Auto) 30.1 [place] % (Auto) 6.5 Eos % (Auto) 0.4 Baso % (Auto) 0.2 Lymph # (Auto) 1.4 [place] # (Auto) 0.3 Eos # (Auto) 0.0 Baso # (Auto) 0.0 Abs Immat Gran (auto) 0.01 Absolute Neuts (auto) 2.8 Absolute Nucleated RBC 0.000 Nucleated RBC % (auto) 0.0 VBG pH VBG pCO2 VBG pO2 VBG HCO3 VBG O2 Saturation VBG Base Excess Anion Gap 22 H Estim Creat Clear Calc 32.6 Estimated GFR 27 POC Glucose Random Glucose 707 H* D Lactic Acid 1.7 Calcium 8.9 Magnesium 1.7 Total Bilirubin 0.7 Direct Bilirubin 0.3 AST 11 ALT 16 Alkaline Phosphatase 177 H Troponin I High Sens Total Protein 7.0 Albumin 3.8 Acetone, Qual COVID-19 (TAMARA) COVID-19 Clin Com Influenza Type A (ANGELY) Influenza Type B (ANGELY) Influenza A & B Note 04/23/22 04/23/22 04/23/22 11:29 11:29 11:29 MCV MCH MCHC RDW Plt Count MPV Immature Gran % (Auto) Neut % (Auto) Lymph % (Auto) [place] % (Auto) Eos % (Auto) Baso % (Auto) Lymph # (Auto) [place] # (Auto) Eos # (Auto) Baso # (Auto) Abs Immat Gran (auto) Absolute Neuts (auto) Absolute Nucleated RBC Nucleated RBC % (auto) VBG pH VBG pCO2 VBG pO2 VBG HCO3 VBG O2 Saturation VBG Base Excess Anion Gap Estim Creat Clear Calc Estimated GFR POC Glucose Random Glucose Lactic Acid Calcium Magnesium Cancelled Total Bilirubin Cancelled Direct Bilirubin Cancelled AST Cancelled ALT Cancelled Alkaline Phosphatase Cancelled Troponin I High Sens 4.1 Total Protein Cancelled Albumin Cancelled Acetone, Qual Moderate H COVID-19 (TAMARA) COVID-19 Clin Com Influenza Type A (ANGELY) Influenza Type B (ANGELY) Influenza A & B Note 04/23/22 04/23/22 04/23/22 11:33 11:39 12:36 MCV MCH MCHC RDW Plt Count MPV Immature Gran % (Auto) Neut % (Auto) Lymph % (Auto) [place] % (Auto) Eos % (Auto) Baso % (Auto) Lymph # (Auto) [place] # (Auto) Eos # (Auto) Baso # (Auto) Abs Immat Gran (auto) Absolute Neuts (auto) Absolute Nucleated RBC Nucleated RBC % (auto) VBG pH 7.30 L VBG pCO2 31 VBG pO2 55 VBG HCO3 15 L VBG O2 Saturation 78.0 VBG Base Excess -9.2 Anion Gap Estim Creat Clear Calc Estimated GFR POC Glucose 516 H* 462 H* Random Glucose Lactic Acid Calcium Magnesium Total Bilirubin Direct Bilirubin AST ALT Alkaline Phosphatase Troponin I High Sens Total Protein Albumin Acetone, Qual COVID-19 (TAMARA) COVID-19 Clin Com Influenza Type A (ANGELY) Influenza Type B (ANGELY) Influenza A & B Note 04/23/22 15:03 MCV MCH MCHC RDW Plt Count MPV Immature Gran % (Auto) Neut % (Auto) Lymph % (Auto) [place] % (Auto) Eos % (Auto) Baso % (Auto) Lymph # (Auto) [place] # (Auto) Eos # (Auto) Baso # (Auto) Abs Immat Gran (auto) Absolute Neuts (auto) Absolute Nucleated RBC Nucleated RBC % (auto) VBG pH VBG pCO2 VBG pO2 VBG HCO3 VBG O2 Saturation VBG Base Excess Anion Gap Estim Creat Clear Calc Estimated GFR POC Glucose 346 H Random Glucose Lactic Acid Calcium Magnesium Total Bilirubin Direct Bilirubin AST ALT Alkaline Phosphatase Troponin I High Sens Total Protein Albumin Acetone, Qual COVID-19 (TAMARA) COVID-19 Clin Com Influenza Type A (ANGELY) Influenza Type B (ANGELY) Influenza A & B Note Assessment and Plan (1) Orthostasis: Status: Acute (2) Hypertension: Status: Acute (3) CAD (coronary artery disease): Qualifiers: Coronary Disease-Associated Artery/Lesion type: [place] artery [place] vs. 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 On the day of discharge blood pressures were stable patient was ambulatory at without issue. Daughter states overnight there were no issues however the morning patient was unsteady on her feet and more fatigued; she took her blood pressure and found to be 70 systolic. She transferred to the ER. She is found to be hyperglycemic hyperkalemic and hypotensive responded well to therapies 1. 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 question midodrine -telemetry 2. Hypertension -acceptable control -will continue current therapies adjust as indicated 3. CAD -continue outpatient therapies including statin -await Cardiology input 4.DM II -continue outpatient therapies except metformin -lispro correctional scale -adjust as indicated Full Code Lovenox Patient will require 2 midnights going forward for IV volume repletion and correction of hypotension. This cannot be achieved in the lesser acute setting Quality Stroke Does the patient have a stroke diagnosis?: No VTE Prior VTE?: No VTE Risk Level:: Medical - moderate - high VTE Device Contraindication: Treatment Not Indicated VTE Drug Contraindication: N/A - Med Ordered
[2022-04-23 18:09] LABS: Anion Gap 14 (12-20); Blood Urea Nitrogen 27 mg/dL (9-16); Calcium 8.6 mg/dL (8.4-10.2); Carbon Dioxide 19 mmol/L (22-29); Chloride 106 mmol/L (96-108); Creatinine Clr Calc Pharmacy 48.5; Estimated Glomerular Filt Rate 43; Glucose Random 330 mg/dL (60-115); Potassium 4.3 mmol/L (3.3-5.1); Sodium 135 mmol/L (135-145)
--- NOTE | 2022-04-23 18:52 | PC.NURSE ---
PATIENT WAS INC OF URINE ,BED BATH GIVEN ,BEDDING CHANGE ,PER WICK IN PLACE ,SET UP PATIENT FOR SUPPER .
[2022-04-23] MEDS: Enoxaparin Sodium 30 MG/0.3 ML SYRINGE SUBCUT (19:10)
[2022-04-23 19:26] LABS: Glucose, Whole Blood 247 mg/dL (60-115)
[2022-04-23] MEDS: Insulin Lispro 100 UNIT/ML 3 ML VIAL SUBCUT ×2 (19:27→23:22)
[2022-04-23 20:12] LABS: Appearance Urine HAZY; Color Urine STRAW; Glucose Urine UA >=1000 MG/DL (NEG); Leukocyte Esterase Urine NEG (NEG); Nitrite Urine NEG (NEG); PH 5.5 (5.0-8.0); Specific Gravity - Urine 1.015 (1.005-1.025); Urine Blood NEG (NEG); Urine Ketones 15 MG/DL (NEG); Urine Protein NEG (NEG-TRACE)
[2022-04-23 20:15] LABS: RBC Urine 0-2 /HPF (0); WBC Urine 0-2 /HPF (0-4)
[2022-04-23 21:17] LABS: Glucose, Whole Blood 331 mg/dL (60-115)
[2022-04-23] MEDS: Atorvastatin Calcium 40 MG TABLET PO (23:23)
[2022-04-23] MEDS: levETIRAcetam 500 MG TABLET PO (23:23)
[2022-04-23] MEDS: lisinopriL 20 MG TABLET PO (23:23)
[2022-04-23] MEDS: Ferrous Sulfate 324 MG TABLET.DR PO (23:23)
[2022-04-23] MEDS: 0.9 % Sodium Chloride 1,000 ML 100 ML IVCONT (23:28)
[2022-04-24] VITALS (7 sets, daily range): BP systolic 118–195; BP diastolic 56–105; PULSE 62–80; RESP 16–18; TEMP 36.4–37.2; O2SAT 99–100; BMI 25.0
[2022-04-24] MEDS: 0.9 % Sodium Chloride Flush 3 ML SYRINGE IVFLUSH ×2 (01:13→08:15)
[2022-04-24] MEDS: Levothyroxine Sodium 150 MCG TABLET PO (05:57)
[2022-04-24 06:19] LABS: MANUAL DIFF FLAG NO
[2022-04-24 06:27] LABS: Basophils Percent Auto 0.5 % (0-2); Eosinophils Absolute Auto 0.1 X10*3/uL (0.0-0.4); Eosinophils Percent Auto 1.9 % (0-4); Hematocrit 30.7 % (37.0-47.0); Imm Gran Abs Auto 0.01 X10*3/uL (0.00-0.03); Imm Gran Pct Auto 0.2 % (0.0-0.4); Lymphocytes Absolute Auto 2.2 X10*3/uL (1.2-4.9); Lymphocytes Percent Auto 51.5 % (20-40); Mean Corpuscular HGB Conc 32.6 g/dl (31.0-35.0); Mean Corpuscular Hemoglobin 28.1 pg (27.0-33.0); Mean Corpuscular Volume 86.2 fL (80.0-98.0); Mean Platelet Volume 11.9 fL (9.4-12.3); Monocytes Absolute Auto 0.5 X10*3/uL (0.1-1.2); Monocytes Percent Auto 11.4 % (2-11); Neutrophils Absolute Auto 1.5 x10*3/uL (2.0-8.3); Neutrophils Percent Auto 34.5 % (45-73); Platelet Count 197 X10*3/uL (160-400); Red Blood Count 3.56 X10*6/uL (4.20-5.50); Red Cell Distribution Width 13.6 % (11.0-16.0); White Blood Count 4.3 X10*3/uL (4.8-10.8)
--- NOTE | 2022-04-24 06:37 | PC.NURSE ---
PT TO [facility] [place] AT 2100. PT VERY PLEASANT, A&OX3. NO RESP DIFFICULTIES. MONITOR: NSR, RATE 60'S-70'S. BP HIGH 180/75 THEN 197/82. RECEIVED PM MEDS INCLUDING LISINOPRIL AND BP CAME DOWN TO 157/70. TAKING PO FLUIDS WELL. IV INFUSING ORDERED. PUREWICK IN PLACE AND WORKING WELL. PT SLEPT ON AND OFF IN NAPS DURING THE NIGHT.
[2022-04-24 07:10] LABS: Alanine Aminotransferase 12 U/L (0-31); Albumin Level 3.1 g/dL (3.5-5.0); Anion Gap 9 (12-20); Aspartate Amino Transferase 10 U/L (5-31); Bilirubin Total 0.4 mg/dL (0.0-1.0); Blood Urea Nitrogen 18 mg/dL (9-16); Calcium 8.5 mg/dL (8.4-10.2); Carbon Dioxide 26 mmol/L (22-29); Chloride 106 mmol/L (96-108); Creatinine Clr Calc Pharmacy 67.1; Estimated Glomerular Filt Rate > 60; Glucose Fasting 135 mg/dL (60-99); Potassium 3.9 mmol/L (3.3-5.1); Sodium 137 mmol/L (135-145); Total Protein 5.7 g/dL (6.5-8.0)
[2022-04-24 07:20] LABS: Glucose, Whole Blood 118 mg/dL (60-115)
[2022-04-24 07:36] LABS: Alkaline Phosphatase 125 U/L (39-117)
[2022-04-24] MEDS: Insulin Glargine,Hum.rec.anlog 100 UNIT/ML 10 ML VIAL 15 UNIT SUBCUT (08:13)
[2022-04-24] MEDS: levETIRAcetam 500 MG TABLET PO ×2 (08:14→21:12)
[2022-04-24] MEDS: Cyanocobalamin (Vitamin B-12) 1,000 MCG TABLET 1000 MCG PO (08:14)
[2022-04-24] MEDS: Metoprolol Succinate ER 25 MG TAB.ER.24H PO (08:14)
[2022-04-24] MEDS: Cholecalciferol (Vitamin D3) 25 MCG TABLET PO (08:14)
[2022-04-24] MEDS: metFORMIN HCl 500 MG TABLET PO ×2 (08:14→17:04)
[2022-04-24] MEDS: lisinopriL 20 MG TABLET PO ×2 (08:14→21:08)
[2022-04-24] MEDS: Ferrous Sulfate 324 MG TABLET.DR PO ×2 (08:15→21:08)
--- NOTE | 2022-04-24 08:36 | MHC.CM.PN ---
Patient has a diagnosis of Dementia; CM spoke with Sister/HCP/Araceli @ [phone] and addressed IMM with her. Araceli requested that another IMM NOT be mailed to her because she still has the one given to her from Patient's very recent admission. Patient lives in an apartment with her 2 Sisters (both HCPs) and she uses a walker to assist with mobility. Patient attends [facility] every Thursday and Thursday and receives 18/05 care from her Sisters. Home/ resume said services is the goal and CM has initiated and will follow for dc planning. Patient has received J&J/Covid vax only and her PCP is DR. Edouard Amaro.
[2022-04-24 11:41] LABS: Glucose, Whole Blood 202 mg/dL (60-115)
[2022-04-24] MEDS: 0.9 % Sodium Chloride 1,000 ML 100 ML IVCONT (12:44)
[2022-04-24] MEDS: Insulin Lispro 100 UNIT/ML 3 ML VIAL SUBCUT ×3 (12:44→21:07)
--- NOTE | 2022-04-24 15:36 | HO.PM.IMPN ---
Subjective Subjective Date of Service: 04/24/22 Interval History: No acute issues overnight; no evidence of orthostasis Review of Systems Denies chest pain Denies shortness of breath Denies nausea vomiting diarrhea Denies fever chills Physical Exam Vital Signs: Vital Signs: Last Vital Signs Temp 98.6 F 04/24/22 12:00 Pulse 64 04/24/22 12:00 Resp 16 04/24/22 12:00 BP 180/68 H 04/24/22 12:00 Pulse Ox 100 04/24/22 12:00 O2 Del Method 04/24/22 12:00 BMI result Body Mass Index 25.0 Const: Other: Awake alert no acute distress Resp: Other: Clear to auscultation bilaterally no rales rhonchi or wheezes Cardio: Other: No S4; positive S1-S2; no S3 murmurs rubs or gallops GI: Other: Soft nontender nondistended normoactive bowel sounds Neuro: Other: Cranial nerves 2-12 grossly intact as tested. Motor is 5/5 all extremities. Sensation intact Extrem: Other: No edema bilaterally Objective Data Active Medications Acetaminophen (Acetaminophen 325 Mg Tablet) 650 mg PO Q6H PRN PRN Reason: Pain, Mild (Pain Scale 1-3) Atorvastatin Calcium (Atorvastatin Calcium 40 Mg Tablet) 40 mg PO BEDTIME [facility] Last Admin: 04/23/22 23:23 Dose: 40 mg Documented By: MOSES Cefuroxime Axetil (Cefuroxime Axetil 250 Mg Tablet) 250 mg PO BID [facility] Last Admin: 04/24/22 08:14 Dose: 250 mg Documented By: CAL Cyanocobalamin (Cyanocobalamin (Vitamin B-12) 1,000 Mcg Tablet) 1,000 mcg PO DAILY [facility] Last Admin: 04/24/22 08:14 Dose: 1,000 mcg Documented By: CAL Enoxaparin Sodium (Enoxaparin Sodium 30 Mg/0.3 Ml Syringe) 30 mg SUBCUT Q24H [facility] Last Admin: 04/23/22 19:10 Dose: 30 mg Documented By: CHANDLER Ferrous Sulfate (Ferrous Sulfate 324 Mg Tablet.) 324 mg PO BID [facility] Last Admin: 04/24/22 08:15 Dose: 324 mg Documented By: CAL Sodium Chloride (Ns) 1,000 mls @ 100 mls/hr IVCONT .Q10H [facility] Last Admin: 04/24/22 12:44 Dose: 100 mls/hr Documented By: CAL Insulin Glargine (Insulin Glargine,Hum.Rec.Anlog 100 Unit/Ml 10 Ml Vial) 15 unit SUBCUT DAILY [facility] Last Admin: 04/24/22 08:13 Dose: 15 unit Documented By: CAL Insulin Human Lispro (Insulin Lispro 100 Unit/Ml 3 Ml Vial) 0 unit SUBCUT QIDACHS [facility]; Protocol Last Admin: 04/24/22 12:44 Dose: 2 unit Documented By: CAL Insulin Human Lispro (Insulin Lispro 100 Unit/Ml 3 Ml Vial) 0 unit SUBCUT QIDACHS [facility]; Protocol Last Admin: 04/24/22 12:47 Dose: Not Given Documented By: CAL Non-Admin Reason: No Insulin Coverage Latanoprost (Latanoprost 0.005 % Ophth Sharon 2.5 Ml Drops) 1 drop EYE-BOTH BEDTIME [facility] Last Admin: 04/23/22 23:23 Dose: Not Given Documented By: MOSES Non-Admin Reason: Med Not Available Levetiracetam (Levetiracetam 500 Mg Tablet) 500 mg PO BID [facility] Last Admin: 04/24/22 08:14 Dose: 500 mg Documented By: CAL Levothyroxine Sodium (Levothyroxine Sodium 150 Mcg Tablet) 150 mcg PO DAILY@0600 [facility] Last Admin: 04/24/22 05:57 Dose: 150 mcg Documented By: MOSES Lisinopril (Lisinopril 20 Mg Tablet) 20 mg PO BID [facility]; Protocol Last Admin: 04/24/22 08:14 Dose: 20 mg Documented By: CAL Metformin HCl (Metformin Hcl 500 Mg Tablet) 500 mg PO BIDWM [facility] Last Admin: 04/24/22 08:14 Dose: 500 mg Documented By: CAL Metoprolol Succinate (Metoprolol Succinate Er 25 Mg Tab.Er.24h) 25 mg PO DAILY [facility]; Protocol Last Admin: 04/24/22 08:14 Dose: 25 mg Documented By: CAL Pharmacy Consult (Consult Rx Perform Med Rec) 1 each MISCELLANE ONCE PRN PRN Reason: Consult order Senna (Sennosides 8.6 Mg Tablet) 8.6 mg PO BEDTIME PRN PRN Reason: constipation Sodium Chloride (0.9 % Sodium Chloride Flush 3 Ml Syringe) 3 ml IVFLUSH QSHIFT [facility] Last Admin: 04/24/22 08:15 Dose: 3 ml Documented By: CAL Vitamin D (Cholecalciferol (Vitamin D3) 25 Mcg Tablet) 25 mcg PO DAILY [facility] Last Admin: 04/24/22 08:14 Dose: 25 mcg Documented By: CAL Labs CBC & Chem 7: 04/24/22 05:45 04/24/22 05:45 Labs: Laboratory Results - last 24 hr 04/23/22 04/23/22 04/23/22 17:19 19:19 19:59 MCV MCH MCHC RDW Plt Count MPV Immature Gran % (Auto) Neut % (Auto) Lymph % (Auto) [place] % (Auto) Eos % (Auto) Baso % (Auto) Lymph # (Auto) [place] # (Auto) Eos # (Auto) Baso # (Auto) Abs Immat Gran (auto) Absolute Neuts (auto) Absolute Nucleated RBC Nucleated RBC % (auto) Anion Gap 14 Estim Creat Clear Calc 48.5 Estimated GFR 43 POC Glucose 247 H Random Glucose 330 H D Fasting Glucose Calcium 8.6 Total Bilirubin AST ALT Alkaline Phosphatase Total Protein Albumin Urine Color STRAW Urine Appearance HAZY Urine pH 5.5 Ur Specific [place] 1.015 Urine Protein NEG Urine Glucose (UA) >=1000 H Urine Ketones 15 Urine Blood NEG Urine Nitrite NEG Ur Leukocyte Esterase NEG Urine RBC 0-2 Urine WBC 0-2 Ur Squamous Epith Cells NONE Urine Bacteria NONE Urine Yeast 4+ 04/23/22 04/24/22 04/24/22 21:08 05:45 05:45 MCV 86.2 MCH 28.1 MCHC 32.6 RDW 13.6 Plt Count 197 MPV 11.9 Immature Gran % (Auto) 0.2 Neut % (Auto) 34.5 L Lymph % (Auto) 51.5 H [place] % (Auto) 11.4 H Eos % (Auto) 1.9 Baso % (Auto) 0.5 Lymph # (Auto) 2.2 [place] # (Auto) 0.5 Eos # (Auto) 0.1 Baso # (Auto) 0.0 Abs Immat Gran (auto) 0.01 Absolute Neuts (auto) 1.5 L Absolute Nucleated RBC 0.000 Nucleated RBC % (auto) 0.0 Anion Gap 9 L Estim Creat Clear Calc 67.1 Estimated GFR > 60 POC Glucose 331 H Random Glucose Fasting Glucose 135 H Calcium 8.5 Total Bilirubin 0.4 AST 10 ALT 12 Alkaline Phosphatase 125 H D Total Protein 5.7 L Albumin 3.1 L Urine Color Urine Appearance Urine pH Ur Specific [place] Urine Protein Urine Glucose (UA) Urine Ketones Urine Blood Urine Nitrite Ur Leukocyte Esterase Urine RBC Urine WBC Ur Squamous Epith Cells Urine Bacteria Urine Yeast 04/24/22 04/24/22 07:07 11:31 MCV MCH MCHC RDW Plt Count MPV Immature Gran % (Auto) Neut % (Auto) Lymph % (Auto) [place] % (Auto) Eos % (Auto) Baso % (Auto) Lymph # (Auto) [place] # (Auto) Eos # (Auto) Baso # (Auto) Abs Immat Gran (auto) Absolute Neuts (auto) Absolute Nucleated RBC Nucleated RBC % (auto) Anion Gap Estim Creat Clear Calc Estimated GFR POC Glucose 118 H 202 H Random Glucose Fasting Glucose Calcium Total Bilirubin AST ALT Alkaline Phosphatase Total Protein Albumin Urine Color Urine Appearance Urine pH Ur Specific [place] Urine Protein Urine Glucose (UA) Urine Ketones Urine Blood Urine Nitrite Ur Leukocyte Esterase Urine RBC Urine WBC Ur Squamous Epith Cells Urine Bacteria Urine Yeast Microbiology Microbiology Results: Microbiology 04/23/22 11:27 Blood Culture - Preliminary Blood - Venous No growth after 24 hours. 04/23/22 11:06 Blood Culture - Preliminary Blood - Venous No growth after 24 hours. Assessment and Plan (1) Hypertension: Status: Acute (2) Diabetes mellitus: Status: Acute (3) CAD (coronary artery disease): Status: Acute Plan 72-year-old female recently discharged from [facility] with a diagnosis of UTI in orthostatic hypotension that responded well to IV antibiotics and fluids. On the day of discharge blood pressures were stable patient was ambulatory at without issue. Daughter states overnight there were no issues however the morning patient was unsteady on her feet and more fatigued; she took her blood pressure and found to be 70 systolic. She transferred to the ER. She is found to be hyperglycemic hyperkalemic and hypotensive responded well to therapies 1. Hypotension (likely diabetic autonomic disease) -no clear evidence of same. -DC IVFs and follow up Orthostatic VS 2. Hypertension -unacceptable control -will add amlodipine and follow up 3. CAD -continue outpatient therapies including statin -await Cardiology input 4.DM II -continue outpatient therapies except metformin -lispro correctional scale -adjust as indicated Full Code Lovenox Patient will require 2 midnights going forward for IV volume repletion and correction of hypotension. This cannot be achieved in the lesser acute setting Quality Stroke Does the patient have a stroke diagnosis?: No VTE Prior VTE?: No VTE Risk Level:: Medical - moderate - high VTE Device Contraindication: Treatment Not Indicated VTE Drug Contraindication: N/A - Med Ordered
[2022-04-24 16:58] LABS: Glucose, Whole Blood 289 mg/dL (60-115)
[2022-04-24] MEDS: Enoxaparin Sodium 30 MG/0.3 ML SYRINGE SUBCUT (17:04)
[2022-04-24 20:39] LABS: Glucose, Whole Blood 224 mg/dL (60-115)
[2022-04-24] MEDS: Atorvastatin Calcium 40 MG TABLET PO (21:08)
[2022-04-25] MEDS: 0.9 % Sodium Chloride 1,000 ML 100 ML IVCONT ×2 (00:53→12:25)
[2022-04-25 04:00] VITALS: BP 157/79; PULSE 75; RESP 18; TEMP 37.1; O2SAT 99
[2022-04-25] MEDS: Levothyroxine Sodium 150 MCG TABLET PO (05:58)
[2022-04-25 06:10] LABS: MANUAL DIFF FLAG NO
[2022-04-25 06:18] LABS: Basophils Percent Auto 0.4 % (0-2); Eosinophils Absolute Auto 0.1 X10*3/uL (0.0-0.4); Eosinophils Percent Auto 1.7 % (0-4); Hematocrit 31.9 % (37.0-47.0); Hemoglobin 10.3 g/dl (12.0-16.0); Imm Gran Abs Auto 0.01 X10*3/uL (0.00-0.03); Imm Gran Pct Auto 0.2 % (0.0-0.4); Lymphocytes Absolute Auto 2.5 X10*3/uL (1.2-4.9); Lymphocytes Percent Auto 53.4 % (20-40); Mean Corpuscular HGB Conc 32.3 g/dl (31.0-35.0); Mean Corpuscular Hemoglobin 28.4 pg (27.0-33.0); Mean Corpuscular Volume 87.9 fL (80.0-98.0); Monocytes Absolute Auto 0.5 X10*3/uL (0.1-1.2); Monocytes Percent Auto 9.8 % (2-11); Neutrophils Absolute Auto 1.6 x10*3/uL (2.0-8.3); Neutrophils Percent Auto 34.5 % (45-73); Platelet Count 192 X10*3/uL (160-400); Red Blood Count 3.63 X10*6/uL (4.20-5.50); Red Cell Distribution Width 13.9 % (11.0-16.0); White Blood Count 4.6 X10*3/uL (4.8-10.8)
[2022-04-25 07:17] LABS: Alanine Aminotransferase 13 U/L (0-31); Albumin Level 3.2 g/dL (3.5-5.0); Alkaline Phosphatase 130 U/L (39-117); Anion Gap 9 (12-20); Aspartate Amino Transferase 13 U/L (5-31); Bilirubin Total < 0.2 mg/dL (0.0-1.0); Blood Urea Nitrogen 12 mg/dL (9-16); Calcium 8.7 mg/dL (8.4-10.2); Carbon Dioxide 27 mmol/L (22-29); Chloride 109 mmol/L (96-108); Creatinine Clr Calc Pharmacy 65.5; Estimated Glomerular Filt Rate > 60; Glucose Fasting 65 mg/dL (60-99); Potassium 4.3 mmol/L (3.3-5.1); Sodium 141 mmol/L (135-145)
[2022-04-25 07:40] LABS: Glucose, Whole Blood 59 mg/dL (60-115)
[2022-04-25 08:00] VITALS: BP 200/76; PULSE 67; RESP 19; TEMP 36.4; O2SAT 100
[2022-04-25] MEDS: lisinopriL 20 MG TABLET PO (08:38)
[2022-04-25] MEDS: Cholecalciferol (Vitamin D3) 25 MCG TABLET PO (08:38)
[2022-04-25] MEDS: metFORMIN HCl 500 MG TABLET PO (08:38)
[2022-04-25] MEDS: Ferrous Sulfate 324 MG TABLET.DR PO (08:39)
[2022-04-25] MEDS: levETIRAcetam 500 MG TABLET PO (08:39)
[2022-04-25] MEDS: Metoprolol Succinate ER 25 MG TAB.ER.24H PO (08:39)
[2022-04-25] MEDS: Cyanocobalamin (Vitamin B-12) 1,000 MCG TABLET 1000 MCG PO (08:39)
[2022-04-25 08:42] LABS: Glucose, Whole Blood 112 mg/dL (60-115)
[2022-04-25 10:48] VITALS: PULSE 67; O2SAT 100
[2022-04-25 12:00] VITALS: BP 144/80; PULSE 68; RESP 18; TEMP 36.6; O2SAT 100
[2022-04-25 12:33] LABS: Glucose, Whole Blood 257 mg/dL (60-115)
[2022-04-25] MEDS: Insulin Lispro 100 UNIT/ML 3 ML VIAL SUBCUT (12:38)
--- NOTE | 2022-04-25 13:05 | PM.EVENT ---
Event Note Date of Service: 04/25/22 Event Note: Discussed with patient's sister Araceli Garcia (proxy); okay to give COVID booster
--- NOTE | 2022-04-25 13:53 | P.DS_ITS ---
DS: Providers Provider Date of Service: 04/25/22 Date of admission: 04/23/22 17:17 Date of discharge: 04/25/22 Primary care physician: Edouard Amaro MD DS: Diagnosis Discharge Diagnosis (1) Hypertension: Status: Acute (2) Diabetes mellitus: Status: Acute (3) CAD (coronary artery disease): Status: Acute DS: Summary Hospital Course Hospital Course: 72 yo female with hx of seizures, LYNNE, dementia, CAD, HTN, DM here with c/o low BP 80/50s at home. Just admitted here 04/21 - 04/22 for same complaint found to have LYNNE and UTI responded to fluids and sent home on ceftin Cr went from 1.78 to 1.13. Urine culture is negative at this time from 04/20 as well as blood cultures. Patient does have a hx of labile BPs at home since seizure dx. Patient has no complaints at this time. Was not able to be given her medications this AM. Daughter noted patient did well last night ate and drank, voided urine well.?Found to hypotensive by sister...transport to ER. Hospital Course Admitted to telemetry; monitor failed to demonstrate any deleterious rhythm the could be causing her problems. Given volume repletion in continued on oral Ceftin. Patient was mildly orthostatic in house but moderately deconditioned. 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 It is likely that this could be treated in a conservative manner without addition of therapies. At this point time she is medically acceptable for discharge to inpatient rehab Time Spent with Patient Time attestation: Total time spent providing and/or coordinating discharge services: Discharge coordination time: Greater than 30 minutes Quality: Safe Use of Opioids Does Pt have an Active Cancer Diagnosis on the Problem List?: No Quality: Stroke Does the patient have a stroke diagnosis?: No Physical Exam Vital Signs: Vital Signs: Last Vital Signs Temp 97.8 F 04/25/22 12:00 Pulse 68 04/25/22 12:00 Resp 18 04/25/22 12:00 BP 144/80 H 04/25/22 12:00 Pulse Ox 100 04/25/22 12:00 O2 Del Method 04/25/22 12:00 BMI result Body Mass Index 25.0 Const: Other: Awake alert no acute distress Resp: Other: Clear to auscultation bilaterally no rales rhonchi or wheezes Cardio: Other: No S4; positive S1-S2; no S3 murmurs rubs or gallops GI: Other: Soft nontender nondistended normoactive bowel sounds Neuro: Other: Cranial nerves 2-12 grossly intact as tested. Motor is 5/5 all extremities. Se nsation intact Extrem: Other: No edema bilaterally DS: Data Data Completed and Pending Completed studies during hospitalization [Text1]: Procedures Insertion of Infusion Device into Left Subclavian Vein, Percutaneous Approach (12/11/21) Introduction of Vasopressor into Peripheral Artery, Percutaneous Approach (12/11/21) Labs on day of discharge: Laboratory Results - last 24 hr 04/24/22 04/24/22 04/25/22 16:54 20:35 05:37 WBC 4.6 L RBC 3.63 L Hgb 10.3 L Hct 31.9 L MCV 87.9 MCH 28.4 MCHC 32.3 RDW 13.9 Plt Count 192 MPV 12.0 Immature Gran % (Auto) 0.2 Neut % (Auto) 34.5 L Lymph % (Auto) 53.4 H [place] % (Auto) 9.8 Eos % (Auto) 1.7 Baso % (Auto) 0.4 Lymph # (Auto) 2.5 [place] # (Auto) 0.5 Eos # (Auto) 0.1 Baso # (Auto) 0.0 Abs Immat Gran (auto) 0.01 Absolute Neuts (auto) 1.6 L Absolute Nucleated RBC 0.000 Nucleated RBC % (auto) 0.0 Sodium Potassium Chloride Carbon Dioxide Anion Gap BUN Creatinine Estim Creat Clear Calc Estimated GFR POC Glucose 289 H 224 H Fasting Glucose Calcium Total Bilirubin AST ALT Alkaline Phosphatase Total Protein Albumin 04/25/22 04/25/22 04/25/22 05:37 07:23 08:36 WBC RBC Hgb Hct MCV MCH MCHC RDW Plt Count MPV Immature Gran % (Auto) Neut % (Auto) Lymph % (Auto) [place] % (Auto) Eos % (Auto) Baso % (Auto) Lymph # (Auto) [place] # (Auto) Eos # (Auto) Baso # (Auto) Abs Immat Gran (auto) Absolute Neuts (auto) Absolute Nucleated RBC Nucleated RBC % (auto) Sodium 141 Potassium 4.3 Chloride 109 H Carbon Dioxide 27 Anion Gap 9 L BUN 12 Creatinine 0.80 Estim Creat Clear Calc 65.5 Estimated GFR > 60 POC Glucose 59 L* 112 Fasting Glucose 65 Calcium 8.7 Total Bilirubin < 0.2 AST 13 ALT 13 Alkaline Phosphatase 130 H Total Protein 6.0 L Albumin 3.2 L 04/25/22 11:42 WBC RBC Hgb Hct MCV MCH MCHC RDW Plt Count MPV Immature Gran % (Auto) Neut % (Auto) Lymph % (Auto) [place] % (Auto) Eos % (Auto) Baso % (Auto) Lymph # (Auto) [place] # (Auto) Eos # (Auto) Baso # (Auto) Abs Immat Gran (auto) Absolute Neuts (auto) Absolute Nucleated RBC Nucleated RBC % (auto) Sodium Potassium Chloride Carbon Dioxide Anion Gap BUN Creatinine Estim Creat Clear Calc Estimated GFR POC Glucose 257 H Fasting Glucose Calcium Total Bilirubin AST ALT Alkaline Phosphatase Total Protein Albumin Preliminary micro results at discharge 04/23/22 11:27 Blood Culture - Preliminary Blood - Venous No growth after 48 hours. 04/23/22 11:06 Blood Culture - Preliminary Blood - Venous No growth after 48 hours. Discharge Plan Discharge Patient Disposition: Xfer Inpatient Rehab Fac Discharge Diagnosis: Orthostatic Hypotension Referrals: Edouard Amaro MD [Primary Care Provider] - 1 Week Discharge Medications: Continued (DME) walker Misc See Rx Instructions .ROUTE .MEDSUPPLY Qty: 1 0RF Rx Instructions: As directed atorvastatin 40 mg tablet 40 mg PO BEDTIME Qty: 90 1RF latanoprost 0.005 % drops 1 drp ophthalmic (eye) BEDTIME metformin 500 mg tablet 1 tab PO BIDWM sennosides [senna] 8.6 mg tablet 1 tab PO BEDTIME PRN (Reason: constipation) levetiracetam 500 mg tablet 1 tab PO BID cyanocobalamin (vitamin B-12) 1,000 mcg tablet 1 tab PO DAILY insulin aspart U-100 [Novolog U-100 Insulin aspart] 100 unit/mL solution See Protocol subcut QID Protocol: Insulin Correction Scale Less than or equal to 110 ---- Give (units): 0 111 to 150 Give (units): 0 151 to 200 Give (units): 2 201 to 250 Give (units): 4 251 to 300 Give (units): 6 301 to 350 Give (units): 8 Greater than 350 Give (units): 10 Call MD if Blood Glucose > : 350 ferrous sulfate 325 mg (65 mg iron) tablet 1 tab PO BID levothyroxine 150 mcg tablet 1 tab PO QAM Levemir U-100 Insulin 100 unit/mL solution 22 unit subcut DAILY cholecalciferol (vitamin D3) 25 mcg (1,000 unit) tablet 1 tab PO DAILY lisinopril 20 mg tablet 1 tab PO BID metoprolol succinate 25 mg tablet extended release 24 hr 1 tab PO DAILY cefuroxime axetil 250 mg tablet 250 mg PO BID 7 Days Qty: 14 0RF Discharge Orders: Discharge Order (Routine); Ordered 04/25/22 Ordered By: Ravinder Krishnan Diet: Advance to usual diet Activity on Discharge: As tolerated Stand Alone Forms: Patient Portal Discharge page Care Plan Goals: Continue Ceftin 1 tab b.i.d. for a total of 6 days Health Concerns: Position changes should be monitored closely Plan of Treatment: As per receiving facility Assessment: See discharge summary
--- NOTE | 2022-04-25 14:04 | MHC.CM.PN ---
Patient has been medically cleared for dc to SNF/STR today. Patient will dc to [facility] today at 4 PM, via [facility]. Patient's Sister/HCP/Araceli @ [phone] is aware of and in agreement with the dc plan. Last IMM ADDRESSED YESTERDAY.
--- NOTE | 2022-04-25 15:11 | MHC.INPTTRAN ---
1500 Covid vaccine given today 04/25/22 Paperwork given. takes meds whole. Denies pain. OOB with assist. thanks.
--- NOTE | 2022-04-25 15:17 | PC.NURSE ---
1500 covid vaccine given. consent recieved by sister Araceli and patient.
== END 2022-04-25 17:00 | disposition skilled nursing facility (03) | DRG 74 ==
LOC: HO.ED 11:41 → HO.EDOVER 17:23 → HO.IMC 20:19
PROVIDERS: Nurse Practitioner Family; Admitting Provider Hospitalist; Emergency Provider Emergency Medicine; PCP Internal Medicine; Visit Provider Hospitalist
DX: E11.43 Type 2 diabetes mellitus with diabetic autonomic (poly)neuropathy (principal); N17.9 Acute kidney failure, unspecified; E03.9 Hypothyroidism, unspecified; I25.10 Atherosclerotic heart disease of native coronary artery without angina pectoris; E11.65 Type 2 diabetes mellitus with hyperglycemia; F03.90 Unspecified dementia, unspecified severity, without behavioral disturbance, psychotic disturbance, mood disturbance, and anxiety; G40.909 Epilepsy, unspecified, not intractable, without status epilepticus; Z23 Encounter for immunization; Z20.822 Contact with and (suspected) exposure to COVID-19; Z87.440 Personal history of urinary (tract) infections; Z96.642 Presence of left artificial hip joint; Z79.4 Long term (current) use of insulin; Z79.84 Long term (current) use of oral hypoglycemic drugs; Z79.899 Other long term (current) drug therapy
CPT/HCPCS: 36415; 80048; 80053; 80076; 81001; 82009; 82803; 82947; 83605; 83735; 84484; 85025; 87040; 87502; 87635; 93005; 97162; 99285; J0610; J1650

== ENCOUNTER 2022-07-22 18:49 | Observation (INO) | payer MEDICARE, MEDICAID, SELFPAY ==
--- NOTE | ~2022-07-22 | XR_ITS ---
EXAMINATION: XR CHEST CLINICAL INFORMATION: Vomiting COMPARISON: Previous chest x-ray most recent March 2022 TECHNIQUE: Frontal view of the chest was obtained. FINDINGS: The cardiac and mediastinal contours are stable. The lungs are clear. There is no pleural effusion or pneumothorax. No evidence of free air. Mild degenerative changes of the spine. XR/XR chest 1V IMPRESSION: No evidence for acute disease in the chest.
--- NOTE | ~2022-07-22 | CT_ITS ---
EXAMINATION: CT ABDOMEN AND PELVIS WITHOUT CONTRAST CLINICAL INFORMATION: COMPARISON: None TECHNIQUE: Multidetector volumetric imaging was performed from the superior aspect of the liver through the pubic symphysis. Sagittal and coronal reformatted images were obtained on the technologist's workstation. This CT examination was performed using dose optimization techniques as appropriate, variously including the following: *Automated exposure control *Adjustment of mA and/or kV according to patient size (this includes techniques or standardized protocols for targeted exams where dose is matched to indication/reason for exam; i.e. extremities or head) *Use of iterative reconstruction technique DLP: 1139 mGy-cm FINDINGS: LUNG BASES: The visualized lung bases are unremarkable. LIVER, GALLBLADDER, AND BILIARY TREE: The liver is normal in size. The liver is heterogeneous in attenuation with low-attenuation areas particularly in the right lobe of the liver. This may represent artifact from the patient's arm being at her side. The gallbladder is normal. There is no biliary duct dilatation. PANCREAS: Unremarkable. SPLEEN: Unremarkable. ADRENAL GLANDS: Unremarkable. KIDNEYS AND URETERS: The kidneys are normal in size, shape, and attenuation. No hydronephrosis, hydroureter, or calculi seen. No perinephric stranding. BLADDER: The bladder is distended. The there is a large amount of air in the bladder. This may be related to recent catheterization. Clinical correlation recommended. Differential would include infection and fistula. Evaluation of the pelvis is limited due to artifact from bilateral hip replacements. GASTROINTESTINAL TRACT: The stomach is fluid filled. Small bowel loops are distended and fluid-filled. The colon is dilated and fluid-filled. No transition zone is seen to suggest mechanical obstruction probably represents an ileus. There is wall thickening of the colon, particularly the transverse colon and left colon questionable for mild colitis. There are also areas of air along the dependent surface of the colon, early the left colon and sigmoid colon questionable for pneumatosis. Correlation with patient's lactate level to exclude bowel ischemia is recommended. No ascites or free air. ABDOMINAL WALL: No significant hernia is appreciated. LYMPH NODES: Normal. VASCULAR: There is severe atherosclerotic disease. No aneurysm. PELVIC VISCERA: Not well evaluated due to artifact from bilateral hip replacements. The uterus may been removed. There is air in the vagina. Possible fistula to the bladder given large amount of air in the bladder should be considered. OSSEOUS STRUCTURES: Degenerative changes of the spine. Bilateral hip replacements. Old left rib fracture. CT/CT abdomen pelvis wo IV con IMPRESSION: Fluid-filled distended bowel. No transition zone seen and this probably represents an ileus. There is wall thinning and distention of the colon questionable for colitis. There are scattered areas of dependent air seen in the bowel questionable for pneumatosis. Bowel ischemia should be considered. Correlation with lactate level recommended. Limited evaluation of the pelvis due to artifact from bilateral hip replacements. Large amount of air in the bladder. The bladder is also distended. Changes from recent bladder catheterization, infection and fistula should be considered. Clinical correlation i.e. has the bladder recently catheterized is recommended. The uterus appears to have been removed. There is air seen in the vagina. Possible vesicovaginal fistula should be considered. Severe atherosclerotic disease. Findings will be communicated by the [place] work flow hvac sales engineer. Fleischner guidelines were followed.
[2022-07-22 19:12] VITALS: BP 118/61; BP 120/72; PULSE 60; PULSE 61; RESP 18; TEMP 36.1; O2SAT 100; BMI 31.8
--- NOTE | 2022-07-22 19:22 | ECG_ITS ---
Test Reason : WEAKNESS Blood Pressure : / mmHG Vent. Rate : 059 BPM Atrial Rate : 059 BPM P-R Int : 146 ms QRS Dur : 108 ms QT Int : 430 ms P-R-T Axes : 058 036 025 degrees QTc Int : 425 ms Sinus bradycardia Nonspecific ST abnormality Abnormal ECG When compared with ECG of 23-APR-2022 09:13, Vent. rate has decreased BY [address] no longer depressed in Lateral leads Nonspecific T wave abnormality now evident in Lateral leads Referred By: Brien Platt Electronically Signed By:EMILY LEMON
--- NOTE | 2022-07-22 19:23 | ED.GENADULT ---
HPI - General Adult General Chief complaint: Nausea/Vomiting/Diarrhea Stated complaint: VOMITING, DIARRHEA Time Seen by Provider: 07/22/22 19:15 Source: patient and family (Araceli Garcia sister health primary care sales representative and healthcare proxy.) Mode of arrival: EMS Limitations: other (Advanced dementia.) History of Present Illness HPI narrative: A 72-year-old female came in by ambulance for evaluation of nausea, vomiting, and diarrhea. Sister noted that the patient been having multiple nonbloody watery diarrhea today about 7 or 8 and nausea with vomiting and unable to keep her medication or any p.o. intake all day today, patient is a limited historian due to advanced dementia. Patient lives at a private apartment with her 2 sisters. Patient had a history of chronic diarrhea that has been improved with a probiotic. history of LYNNE, dementia, CAD, HTN, DM. Related Data Home Medications Medication Instructions Recorded Confirmed cholecalciferol (vitamin D3) 25 1 tab PO DAILY 04/21/22 07/22/22 mcg (1,000 unit) tablet cyanocobalamin (vitamin B-12) 1 tab PO DAILY 04/21/22 07/22/22 1,000 mcg tablet ferrous sulfate 325 mg (65 mg 1 tab PO BID 04/21/22 07/22/22 iron) tablet latanoprost 0.005 % eye drops 1 drp ophthalmic (eye) BEDTIME 04/21/22 07/22/22 levetiracetam 500 mg tablet 1 tab PO BID 04/21/22 07/22/22 metformin 500 mg tablet 1 tab PO BIDWM 04/21/22 07/22/22 sennosides 8.6 mg tablet (senna) 1 tab PO BEDTIME PRN constipation 04/21/22 07/22/22 ascorbic acid (vitamin C) 500 mg 500 mg PO BID 06/12/22 07/22/22 tablet aspirin 81 mg tablet,delayed 81 mg PO DAILY 06/12/22 07/22/22 release insulin aspart U-100 100 unit/mL 1 sliding scale dose subcut QIDACHS 07/22/22 07/22/22 subcutaneous solution (Novolog U-100 Insulin aspart) Previous Rx's Medication Instructions Recorded walker #1 ea 02/28/21 atorvastatin 40 mg tablet 40 mg PO BEDTIME #90 tabs 06/12/22 lisinopril 20 mg tablet 20 mg PO BID #60 tabs 06/13/22 insulin detemir U-100 100 unit/mL 22 unit (0.22 mL) subcut DAILY #20 06/16/22 subcutaneous solution (Levemir mL U-100 Insulin) blood sugar diagnostic (Accu-Chek #400 strips 06/23/22 Carmen Plus test strips) levothyroxine 125 mcg tablet 125 mcg PO DAILY 90 days #90 tabs 06/27/22 omeprazole 20 mg capsule,delayed 20 mg PO DAILY 90 days #90 caps 07/03/22 release sertraline 25 mg tablet (Zoloft) 25 mg PO DAILY 90 days #90 tabs 07/03/22 metoprolol succinate 25 mg 25 mg PO DAILY #30 tabs 07/21/22 tablet,extended release 24 hr Allergies Allergy/AdvReac Type Severity Reaction Status Date / Time No Known Allergies Allergy Verified 07/22/22 19:12 Review of Systems Review of Systems: All other systems are reviewed and are negative Constitutional: Reports as per HPI and Reports no additional constitutional complaints Eyes: Reports as per HPI and Reports no additional eye complaints Reports system reviewed and no additional complaints, except as documented Cardiovascular: Reports as per HPI and Reports no additional cardiovascular complaints Respiratory: Reports as per HPI and Reports no additional respiratory complaints Gastrointestinal: Reports as per HPI and Reports no additional gastrointestinal complaints Genitourinary: Reports no additional female genitourinary complaints Musculoskeletal: Reports no additional musculoskeletal complaints Skin/Breast: Reports system reviewed and no additional complaints, except as docu Psychiatric: Reports no additional psychiatric complaints Endocrine: Reports no additional endocrine complaints Hematologic/Lymphatic: Reports no additional hematologic/lymphatic complaints Allergic/Immunologic: Reports no additional allergic/immunologic complaints Reports system reviewed and no additional complaints, except as documented and Reports Abnormal speech present [facility] Past Medical History Medical History Acquired hypothyroidism Atherosclerotic cardiovascular disease Benign essential hypertension CAD (coronary artery disease) Constipation Dementia Diabetes mellitus Epilepsy GERD without esophagitis Hypertension Hypomagnesemia Hypothyroidism Iron deficiency anemia New onset seizure Orthostasis Overweight (BMI 25.0-29.9) Pure hypercholesterolemia Syncope Vitamin B12 deficiency Vitamin D deficiency Surgical History History of ankle surgery History of hemiarthroplasty of left hip S/P [id number] (total abdominal hysterectomy and bilateral salpingo-oophorectomy) Family History Family History Father Diabetes Hypertension Mother Hypertension Stroke Social History Social History Household Members: Family Housing: Apartment Do you presently have visiting nurse or other home services: No Alcohol intake: never Patient Tobacco Use Status: Never used Tobacco e-Cigarette/Vaping Use: Never Used Second Hand Smoke Exposure: No Use of substances other than those prescribed or required for medical reasons: No Advance Directives: Yes Advance Directives on File: Yes Advance Directives Date on File: 10/25/20 service: No Current occupational status: disabled Cognitive needs: Yes (walker, wheelchair) Hearing needs: No Vision needs: Yes Physical Exam ED Vital Signs: Vital Signs - 24 hr 07/22/22 19:12 07/23/22 01:51 Temperature 96.9 F Pulse Rate 61 66 Respiratory Rate 18 16 Blood Pressure 118/61 143/56 H Pulse Oximetry 100 100 Oxygen Delivery Method Room Air Room Air BMI result Body Mass Index 31.8 Vital signs have been reviewed as appeared to be correct. Blood pressure normal. Heart rate normal. Respiration rate normal. Temperature normal. Oxygen saturation normal. Appearance: Alert, No acute distress. Head: Normal external exam. Normocephalic. Atraumatic. No [place] signs noted. No raccoon eyes noted Eyes: PERRLA. EOMI. Conjunctiva and sclera normal. Eyelids normal. ENT: TM's Normal. Pharynx normal. Uvula midline. Moist mucous membranes. No trismus noted. No drooling noted. No muffled voice noted. Neck: Normal inspection. Neck supple. FROM. No adenopathy. Thyroid Normal. No meningeal signs. No neck mass noted. CVS: Normal heart rate and rhythm. Heart sound normal. No murmurs noted. Pulses normal throughout. Respiratory: No respiratory distress. Painless inspiration. Breath sounds normal. No wheezes/rales/rhonchi noted. Chest nontender. No accessory muscle usage noted or decreased air movement noted. Abdomen: Soft and nontender. Bowel sounds normal in all 4 quadrants. No distention noted. No organomegaly noted. No visible injury noted. Back: No CVA tenderness. Full range of motion noted. Skin: Skin warm and dry. Normal skin color. Normal skin turgor. No rashes/lesions/lacerations noted. Extremities: No lower extremity edema. Extremities exhibit normal range of motion. Extremities nontender. Neuro:. Cranial nerve exam: II-XII are grossly intact No motor deficit. No sensory deficit. Reflexes normal. Course Course Course Narrative: 72-year-old female with intractable nausea and vomiting with abdominal pain, CT show acute ileus, labs unremarkable except for hypoglycemia for decreased p.o. intake will admit the patient for observation IV hydration and symptomatic treatment of the nausea and diarrhea. Medical Decision Making Lab Data Lab results reviewed: Yes I reviewed the patient's lab results. Result diagrams: 07/22/22 21:54 07/22/22 21:54 Labs: Lab Results 07/22/22 07/22/22 07/22/22 Range/Units 21:54 21:54 21:54 WBC 7.1 (4.8-10.8) X10*3/uL RBC 3.14 L (4.20-5.50) X10*6/uL Hgb 9.1 L (12.0-16.0) g/dl Hct 27.9 L (37.0-47.0) % MCV 88.9 (80.0-98.0) fL MCH 29.0 (27.0-33.0) pg MCHC 32.6 (31.0-35.0) g/dl RDW 14.3 (11.0-16.0) % Plt Count 194 (160-400) X10*3/uL MPV 11.2 (9.4-12.3) fL Immature Gran % (Auto) 0.3 (0.0-0.4) % Neut % (Auto) 63.2 (45-73) % Lymph % (Auto) 27.7 (20-40) % [place] % (Auto) 8.1 (2-11) % Eos % (Auto) 0.6 (0-4) % Baso % (Auto) 0.1 (0-2) % Lymph # (Auto) 2.0 (1.2-4.9) X10*3/uL [place] # (Auto) 0.6 (0.1-1.2) X10*3/uL Eos # (Auto) 0.0 (0.0-0.4) X10*3/uL Baso # (Auto) 0.0 (0.0-0.2) X10*3/uL Abs Immat Gran (auto) 0.02 (0.00-0.03) X10*3/uL Absolute Neuts (auto) 4.5 (2.0-8.3) x10*3/uL Absolute Nucleated RBC 0.040 H (0.0-0.012) X10*3/uL Nucleated RBC % (auto) 0.6 H (0.0-0.2) /100WBC Sodium 141 (135-145) mmol/L Potassium 4.0 (3.3-5.1) mmol/L Chloride 110 H (96-108) mmol/L Carbon Dioxide 20 L (22-29) mmol/L Anion Gap 15 (12-20) BUN 27 H D (9-16) mg/dL Creatinine 1.01 (0.5-1.4) mg/dL Estim Creat Clear Calc 50.2 Estimated GFR 54 POC Glucose (60-115) mg/dL Random Glucose 39 L* (60-115) mg/dL Calcium 8.5 (8.4-10.2) mg/dL Total Bilirubin 0.2 (0.0-1.0) mg/dL Direct Bilirubin < 0.2 (0.0-0.5) mg/dL AST 53 H (5-31) U/L ALT 65 H (0-31) U/L Alkaline Phosphatase 155 H (39-117) U/L Troponin I High Sens < 3.5 (<3.5-17.0) ng/L B-Natriuretic Peptide (<100) pg/mL Total Protein 6.7 (6.5-8.0) g/dL Albumin 3.7 (3.5-5.0) g/dL Lipase 15 (8-78) U/L COVID-19 (TAMARA) (Negative) COVID-19 Clin Com 07/22/22 07/22/22 07/23/22 Range/Units 21:54 21:54 00:22 WBC (4.8-10.8) X10*3/uL RBC (4.20-5.50) X10*6/uL Hgb (12.0-16.0) g/dl Hct (37.0-47.0) % MCV (80.0-98.0) fL MCH (27.0-33.0) pg MCHC (31.0-35.0) g/dl RDW (11.0-16.0) % Plt Count (160-400) X10*3/uL MPV (9.4-12.3) fL Immature Gran % (Auto) (0.0-0.4) % Neut % (Auto) (45-73) % Lymph % (Auto) (20-40) % [place] % (Auto) (2-11) % Eos % (Auto) (0-4) % Baso % (Auto) (0-2) % Lymph # (Auto) (1.2-4.9) X10*3/uL [place] # (Auto) (0.1-1.2) X10*3/uL Eos # (Auto) (0.0-0.4) X10*3/uL Baso # (Auto) (0.0-0.2) X10*3/uL Abs Immat Gran (auto) (0.00-0.03) X10*3/uL Absolute Neuts (auto) (2.0-8.3) x10*3/uL Absolute Nucleated RBC (0.0-0.012) X10*3/uL Nucleated RBC % (auto) (0.0-0.2) /100WBC Sodium (135-145) mmol/L Potassium (3.3-5.1) mmol/L Chloride (96-108) mmol/L Carbon Dioxide (22-29) mmol/L Anion Gap (12-20) BUN (9-16) mg/dL Creatinine (0.5-1.4) mg/dL Estim Creat Clear Calc Estimated GFR POC Glucose 29 L* (60-115) mg/dL Random Glucose (60-115) mg/dL Calcium (8.4-10.2) mg/dL Total Bilirubin (0.0-1.0) mg/dL Direct Bilirubin (0.0-0.5) mg/dL AST (5-31) U/L ALT (0-31) U/L Alkaline Phosphatase (39-117) U/L Troponin I High Sens (<3.5-17.0) ng/L B-Natriuretic Peptide 44 (<100) pg/mL Total Protein (6.5-8.0) g/dL Albumin (3.5-5.0) g/dL Lipase (8-78) U/L COVID-19 (TAMARA) Negative (Negative) COVID-19 Clin Com See Note 07/23/22 07/23/22 Range/Units 00:24 01:41 WBC (4.8-10.8) X10*3/uL RBC (4.20-5.50) X10*6/uL Hgb (12.0-16.0) g/dl Hct (37.0-47.0) % MCV (80.0-98.0) fL MCH (27.0-33.0) pg MCHC (31.0-35.0) g/dl RDW (11.0-16.0) % Plt Count (160-400) X10*3/uL MPV (9.4-12.3) fL Immature Gran % (Auto) (0.0-0.4) % Neut % (Auto) (45-73) % Lymph % (Auto) (20-40) % [place] % (Auto) (2-11) % Eos % (Auto) (0-4) % Baso % (Auto) (0-2) % Lymph # (Auto) (1.2-4.9) X10*3/uL [place] # (Auto) (0.1-1.2) X10*3/uL Eos # (Auto) (0.0-0.4) X10*3/uL Baso # (Auto) (0.0-0.2) X10*3/uL Abs Immat Gran (auto) (0.00-0.03) X10*3/uL Absolute Neuts (auto) (2.0-8.3) x10*3/uL Absolute Nucleated RBC (0.0-0.012) X10*3/uL Nucleated RBC % (auto) (0.0-0.2) /100WBC Sodium (135-145) mmol/L Potassium (3.3-5.1) mmol/L Chloride (96-108) mmol/L Carbon Dioxide (22-29) mmol/L Anion Gap (12-20) BUN (9-16) mg/dL Creatinine (0.5-1.4) mg/dL Estim Creat Clear Calc Estimated GFR POC Glucose 38 L* 118 H (60-115) mg/dL Random Glucose (60-115) mg/dL Calcium (8.4-10.2) mg/dL Total Bilirubin (0.0-1.0) mg/dL Direct Bilirubin (0.0-0.5) mg/dL AST (5-31) U/L ALT (0-31) U/L Alkaline Phosphatase (39-117) U/L Troponin I High Sens (<3.5-17.0) ng/L B-Natriuretic Peptide (<100) pg/mL Total Protein (6.5-8.0) g/dL Albumin (3.5-5.0) g/dL Lipase (8-78) U/L COVID-19 (TAMARA) (Negative) COVID-19 Clin Com Imaging Data CT scan - abdomen: Attestation: I personally reviewed and interpreted this imaging study as follows: Radiologist's impression: Fluid-filled distended bowel. No transition zone seen and this probably represents an ileus. There is wall thinning and distention of the colon questionable for colitis. There are scattered areas of dependent air seen in the bowel questionable for pneumatosis. Bowel ischemia should be considered. Correlation with lactate level recommended. Limited evaluation of the pelvis due to artifact from bilateral hip replacements. Large amount of air in the bladder. The bladder is also distended. Changes from recent bladder catheterization, infection and fistula should be considered. Clinical correlation i.e. has the bladder recently catheterized is recommended. The uterus appears to have been removed. There is air seen in the vagina. Possible vesicovaginal fistula should be considered. Severe atherosclerotic disease. ? Chest x-ray: Attestation: I personally reviewed and interpreted this imaging study as follows: Radiologist's impression: No acute pathology. Discharge Plan Discharge Clinical Impression: Intractable vomiting, Intractable diarrhea, Hypoglycemia, Ileus Patient Disposition: Admitted As Inpatient
--- NOTE | 2022-07-22 19:24 | PC.NURSE ---
pt a & o to person and place, per sister pt has been having diarrhea since 0700 with vomiting this afternoon. was given imodium and probiotic around 1800. vss, provider and sister at bedside.
--- NOTE | 2022-07-22 21:34 | PC.NURSE ---
this nurse w ICU pt, other nurses/techs have attempted IV/labs with no success, provider asked to place via u/s.
[2022-07-22 22:01] LABS: MANUAL DIFF FLAG NO
[2022-07-22 22:02] LABS: Basophils Percent Auto 0.1 % (0-2); Eosinophils Percent Auto 0.6 % (0-4); Hematocrit 27.9 % (37.0-47.0); Hemoglobin 9.1 g/dl (12.0-16.0); Imm Gran Abs Auto 0.02 X10*3/uL (0.00-0.03); Imm Gran Pct Auto 0.3 % (0.0-0.4); Lymphocytes Percent Auto 27.7 % (20-40); Mean Corpuscular HGB Conc 32.6 g/dl (31.0-35.0); Mean Corpuscular Volume 88.9 fL (80.0-98.0); Mean Platelet Volume 11.2 fL (9.4-12.3); Monocytes Absolute Auto 0.6 X10*3/uL (0.1-1.2); Monocytes Percent Auto 8.1 % (2-11); NRBC Pct Auto 0.6 /100WBC (0.0-0.2); Neutrophils Absolute Auto 4.5 x10*3/uL (2.0-8.3); Neutrophils Percent Auto 63.2 % (45-73); Platelet Count 194 X10*3/uL (160-400); Red Blood Count 3.14 X10*6/uL (4.20-5.50); Red Cell Distribution Width 14.3 % (11.0-16.0); White Blood Count 7.1 X10*3/uL (4.8-10.8)
[2022-07-22 22:20] LABS: COVID-19 Test Negative (Negative)
[2022-07-22 22:21] LABS: Alanine Aminotransferase 65 U/L (0-31); Albumin Level 3.7 g/dL (3.5-5.0); Alkaline Phosphatase 155 U/L (39-117); Anion Gap 15 (12-20); Aspartate Amino Transferase 53 U/L (5-31); Bilirubin Direct < 0.2 mg/dL (0.0-0.5); Bilirubin Total 0.2 mg/dL (0.0-1.0); Blood Urea Nitrogen 27 mg/dL (9-16); Calcium 8.5 mg/dL (8.4-10.2); Carbon Dioxide 20 mmol/L (22-29); Chloride 110 mmol/L (96-108); Creatinine Clr Calc Pharmacy 50.2; Estimated Glomerular Filt Rate 54; Glucose Random 39 mg/dL (60-115); Lipase 15 U/L (8-78); Sodium 141 mmol/L (135-145); Total Protein 6.7 g/dL (6.5-8.0)
[2022-07-22 22:22] LABS: B Type Natriuretic Peptide 44 pg/mL (<100); Troponin-I High Sensitivity < 3.5 ng/L (<3.5-17.0)
[2022-07-22] MEDS: ondansetron HCL 4 MG/2 ML VIAL IVPUSH (22:24)
[2022-07-22] MEDS: 0.9 % Sodium Chloride 1,000 ML 999 ML IV (22:24)
--- NOTE | 2022-07-22 23:59 | PC.NURSE ---
IV access obtained, IV zofran given, NaCl started, line infiltrated. providers at bedside attempting to restart IV, imodium capsule held - pt takes pills crushed, provider notified.
[2022-07-23] VITALS (8 sets, daily range): BP systolic 140–193; BP diastolic 47–87; PULSE 66–87; RESP 12–20; TEMP 35.9–36.8; O2SAT 91–100
[2022-07-23 01:13] LABS: Glucose, Whole Blood 29 mg/dL (60-115)
[2022-07-23 01:13] LABS: Glucose, Whole Blood 38 mg/dL (60-115)
[2022-07-23] MEDS: Dextrose 50 % 25 GM/50 ML SYRINGE IVPUSH (01:34)
[2022-07-23 01:45] LABS: Glucose, Whole Blood 118 mg/dL (60-115)
--- NOTE | 2022-07-23 02:05 | PC.NURSE ---
20G IV placed left AC by provider via u/s, medicated per provider order, NaCl running. no new orders at this time.
--- NOTE | 2022-07-23 03:12 | PC.NURSE ---
pt takes pills crushed in applesauce per daughter.
[2022-07-23 03:36] LABS: Glucose, Whole Blood 231 mg/dL (60-115)
--- NOTE | 2022-07-23 05:39 | PC.NURSE ---
Pt's IV fusion found to be infiltrating under the skin. IV removed at this time and infusion is paused. Hospitalist notified because pt was difficult to obtain IV access on earlier in the shift.
[2022-07-23 07:19] LABS: Glucose, Whole Blood 134 mg/dL (60-115)
--- NOTE | 2022-07-23 09:44 | P.HPHOSP_ITS ---
History of Present Illness Date of Service: 07/23/22 Chief Complaint: vomtiing / diarrhea This is a 72 yo F with a PMH as outlined below who presents to the ED with a 1 day history of nausea, vomiting and diarrhea. History is obtained from the ED charts and the patients sister, Araceli Garcia ([phone]). The patient was otherwise in her usual state of health when she had vomiting episodes (non- bloody with food particles) with her evening meal on the day prior to admission. There are no reports of abdominal pain, fevers or chills. Last antibiotic use was in for UTI. The patient does have chronic diarrhea and due to both diarrhea/vomiting, her sister (with whom the patient lives with) became worried and brought her to the ED. Work up in the ED revealed an abnormal CT scan (see full reports). She was noted to be hypoglycemic. She was given an AMP of d50, started on IVF fluids and admission was requested. Pt is seen and examined in the ED, this AM around 845 AM. At this time, she denies any complaints and would like to eat. Review of Systems Review of Systems: negative except HPI PMFSH Medical History Acquired hypothyroidism Atherosclerotic cardiovascular disease Benign essential hypertension CAD (coronary artery disease) Constipation Dementia Diabetes mellitus Epilepsy GERD without esophagitis Hypertension Hypomagnesemia Hypothyroidism Iron deficiency anemia New onset seizure Orthostasis Overweight (BMI 25.0-29.9) Pure hypercholesterolemia Syncope Vitamin B12 deficiency Vitamin D deficiency Family History Father Diabetes Hypertension Mother Hypertension Stroke Surgical History History of ankle surgery History of hemiarthroplasty of left hip S/P [id number] (total abdominal hysterectomy and bilateral salpingo-oophorectomy) Social History Household Members: Family Housing: Apartment Do you presently have visiting nurse or other home services: No Alcohol intake: never Patient Tobacco Use Status: Never used Tobacco e-Cigarette/Vaping Use: Never Used Second Hand Smoke Exposure: No Use of substances other than those prescribed or required for medical reasons: No Advance Directives: Yes Advance Directives on File: Yes Advance Directives Date on File: 10/25/20 service: No Current occupational status: disabled Cognitive needs: Yes (walker, wheelchair) Hearing needs: No Vision needs: Yes Meds Allergies Allergy/AdvReac Type Severity Reaction Status Date / Time No Known Allergies Allergy Verified 07/22/22 19:12 Active Medications: Current Medications Acetaminophen (Acetaminophen 325 Mg Tablet) 650 mg PO Q6H PRN PRN Reason: Pain, Mild (Pain Scale 1-3) Aspirin (Aspirin Enteric Coated 81 Mg Tablet.) 81 mg PO DAILY [facility] Atorvastatin Calcium (Atorvastatin Calcium 40 Mg Tablet) 40 mg PO BEDTIME [facility] Dextrose/Sodium Chloride (D51/2ns) 1,000 mls @ 100 mls/hr IVCONT .Q10H [facility] Latanoprost (Latanoprost 0.005 % Ophth Sharon 2.5 Ml Drops) 1 drop EYE-BOTH BEDTIME [facility] Levothyroxine Sodium (Levothyroxine Sodium 125 Mcg Tablet) 125 mcg PO DAILY@0600 [facility] Lisinopril (Lisinopril 20 Mg Tablet) 20 mg PO BID [facility]; Protocol Metoprolol Succinate (Metoprolol Succinate Er 25 Mg Tab.Er.24h) 25 mg PO DAILY [facility]; Protocol Omeprazole (Omeprazole 20 Mg Capsule.) 20 mg PO DAILY@0630 [facility] Ondansetron HCl (Ondansetron Hcl 4 Mg/2 Ml Vial) 4 mg IVPUSH Q8H PRN PRN Reason: Nausea and Vomiting Pharmacy Consult (Consult Rx Perform Med Rec) 1 each MISCELLANE ONCE PRN PRN Reason: Consult order Sertraline HCl (Sertraline Hcl 25 Mg Tablet) 25 mg PO DAILY [facility] Sodium Chloride (0.9 % Sodium Chloride Flush 3 Ml Syringe) 3 ml IVFLUSH QSHIFT [facility] Home Medications Medication Instructions Recorded Confirmed Last Taken Type cholecalciferol (vitamin D3) 25 1 tab PO DAILY 04/21/22 07/22/22 07/22/22 History mcg (1,000 unit) tablet cyanocobalamin (vitamin B-12) 1 tab PO DAILY 04/21/22 07/22/22 07/22/22 History 1,000 mcg tablet ferrous sulfate 325 mg (65 mg 1 tab PO BID 04/21/22 07/22/22 07/22/22 History iron) tablet latanoprost 0.005 % eye drops 1 drp ophthalmic (eye) BEDTIME 04/21/22 07/22/22 07/21/22 History levetiracetam 500 mg tablet 1 tab PO BID 04/21/22 07/22/22 07/22/22 History metformin 500 mg tablet 1 tab PO BIDWM 04/21/22 07/22/22 07/22/22 History sennosides 8.6 mg tablet (senna) 1 tab PO BEDTIME PRN constipation 04/21/22 07/22/22 Unknown History ascorbic acid (vitamin C) 500 mg 500 mg PO BID 06/12/22 07/22/22 07/22/22 History tablet aspirin 81 mg tablet,delayed 81 mg PO DAILY 06/12/22 07/22/22 07/22/22 History release insulin aspart U-100 100 unit/mL 1 sliding scale dose subcut QIDACHS 07/22/22 07/22/22 07/22/22 History subcutaneous solution (Novolog U-100 Insulin aspart) Physical Exam Vital Signs and Narrative: Vital Signs: Last Vital Signs Temp 97.0 F 07/23/22 07:32 Pulse 69 07/23/22 07:32 Resp 12 07/23/22 07:32 BP 165/58 H 07/23/22 07:32 Pulse Ox 100 07/23/22 07:32 O2 Del Method 07/23/22 07:32 BMI result Body Mass Index 31.8 Const: Other: Constitutional - Awake and Alert, No apparent distress Eyes - PERRLA, EOMI Cardiovascular - S1S2, RRR, No edema Respiratory - Normal lung expansion, Normal respiratory effort, No respiratory distress, CTA bilaterally Gastrointestinal - NT / ND; +BS; No rebound or guarding - No CVA tenderness Extremities - no calf tenderness bilaterally, no swelling Musculoskeletal - Normal inspection, normal ROM Skin - Warm/Dry Neurological - Oriented to self otherwise disoriented; no focal motor deficits noted Psychological - Appropriate affect Results Labs CBC and Chem 7: 07/22/22 21:54 07/22/22 21:54 Labs: Laboratory Results - last 24 hr 07/22/22 07/22/22 07/22/22 21:54 21:54 21:54 MCV 88.9 MCH 29.0 MCHC 32.6 RDW 14.3 Plt Count 194 MPV 11.2 Immature Gran % (Auto) 0.3 Neut % (Auto) 63.2 Lymph % (Auto) 27.7 [place] % (Auto) 8.1 Eos % (Auto) 0.6 Baso % (Auto) 0.1 Lymph # (Auto) 2.0 [place] # (Auto) 0.6 Eos # (Auto) 0.0 Baso # (Auto) 0.0 Abs Immat Gran (auto) 0.02 Absolute Neuts (auto) 4.5 Absolute Nucleated RBC 0.040 H Nucleated RBC % (auto) 0.6 H Anion Gap 15 Estim Creat Clear Calc 50.2 Estimated GFR 54 POC Glucose Random Glucose 39 L* Calcium 8.5 Total Bilirubin 0.2 Direct Bilirubin < 0.2 AST 53 H ALT 65 H Alkaline Phosphatase 155 H B-Natriuretic Peptide 44 Total Protein 6.7 Albumin 3.7 Lipase 15 COVID-19 ([facility]) COVID-19 Clin Com 07/22/22 07/23/22 07/23/22 21:54 00:22 00:24 MCV MCH MCHC RDW Plt Count MPV Immature Gran % (Auto) Neut % (Auto) Lymph % (Auto) [place] % (Auto) Eos % (Auto) Baso % (Auto) Lymph # (Auto) [place] # (Auto) Eos # (Auto) Baso # (Auto) Abs Immat Gran (auto) Absolute Neuts (auto) Absolute Nucleated RBC Nucleated RBC % (auto) Anion Gap Estim Creat Clear Calc Estimated GFR POC Glucose 29 L* 38 L* Random Glucose Calcium Total Bilirubin Direct Bilirubin AST ALT Alkaline Phosphatase B-Natriuretic Peptide Total Protein Albumin Lipase COVID-19 ([facility]) Negative COVID-19 Clin Com See Note 07/23/22 07/23/22 07/23/22 01:41 03:33 07:12 MCV MCH MCHC RDW Plt Count MPV Immature Gran % (Auto) Neut % (Auto) Lymph % (Auto) [place] % (Auto) Eos % (Auto) Baso % (Auto) Lymph # (Auto) [place] # (Auto) Eos # (Auto) Baso # (Auto) Abs Immat Gran (auto) Absolute Neuts (auto) Absolute Nucleated RBC Nucleated RBC % (auto) Anion Gap Estim Creat Clear Calc Estimated GFR POC Glucose 118 H 231 H 134 H Random Glucose Calcium Total Bilirubin Direct Bilirubin AST ALT Alkaline Phosphatase B-Natriuretic Peptide Total Protein Albumin Lipase COVID-19 ([facility]) COVID-19 Clin Com Imaging Radiologist's Impressions: Impressions Chest X-Ray 07/22/22 19:35 IMPRESSION: No evidence for acute disease in the chest. Abdomen/Pelvis CT 07/22/22 19:43 IMPRESSION: Fluid-filled distended bowel. No transition zone seen and this probably represents an ileus. There is wall thinning and distention of the colon questionable for colitis. There are scattered areas of dependent air seen in the bowel questionable for pneumatosis. Bowel ischemia should be considered. Correlation with lactate level recommended. Limited evaluation of the pelvis due to artifact from bilateral hip replacements. Large amount of air in the bladder. The bladder is also distended. Changes from recent bladder catheterization, infection and fistula should be considered. Clinical correlation i.e. has the bladder recently catheterized is recommended. The uterus appears to have been removed. There is air seen in the vagina. Possible vesicovaginal fistula should be considered. Severe atherosclerotic disease. Findings will be communicated by the [place] work flow patch setter. Fleischner guidelines were followed. Assessment and Plan (1) Ileus: Status: Acute Plan This is a 72 yo F with a history of chronic diarrhea who presents with acute nausea/vomiting and worsening diarrhea of [address] scan has shown ileus amongst other findings. She will be admitted for further care. 1. Ileus IVF, IV anti-emetics clear liquids if she can tolerate stool studies if diarrhea recurrent 2. Abnormal CT scan possible pneumatosis seen + ? vesiculovaginal fistula -- checking lactate now and consulting Gen surg clinically abdominal exam is benign; may need urological eval (will await gen surg input) 3. Mild dehydration BUN/SCr ratio elevated IVF as above 4. Uncontrolled DM with Hypoglycemia upon arrival, now improved hold oral meds + insulin D5-1/2 and check POC; restart insulin once POCs are stable 5. HTN continue baseline meds 6. CAD continue baseline meds 7. History of seizure d/o keppra Full Code DVT pptx -- mechanical incase surgical intervetion needed Quality Stroke Does the patient have a stroke diagnosis?: No VTE Prior VTE?: No VTE Risk Level:: Medical - moderate - high VTE Device Contraindication: N/A - Device Ordered VTE Drug Contraindication: N/A - Med Ordered
[2022-07-23 10:39] LABS: Lactic Acid 1.2 mmol/L (0.5-2.0)
[2022-07-23] MEDS: Aspirin Enteric Coated 81 MG TABLET.DR PO (10:54)
[2022-07-23] MEDS: Dextrose 5 % and 0.45 % NaCl 1,000 ML 100 ML IVCONT ×2 (10:54→18:55)
[2022-07-23] MEDS: ondansetron HCL 4 MG/2 ML VIAL IVPUSH (10:57)
--- NOTE | 2022-07-23 12:15 | P.CONGS_ITS ---
History of Present Illness Consult details Consult date: 07/23/22 Requesting physician: Javad Lawson Narrative: 72-year-old female patient presenting to the ED with a recent history of nausea, vomiting, and diarrhea. She apparently has a previous history of diarrhea which is described as nonbloody. Because of the associated vomiting she was brought in from home for further evaluation. Her past history is significant for LYNNE, dementia, CAD, HTN, diabetes mellitus. Patient denies a history of the abdominal pain he denies any current abdominal pain. There has been apparently no vomiting since coming to the ED. Workup in the ED revealed normal WBC, glucose of 39. CT abdomen and pelvis was obtained. This revealed a normal appearing stomach but fluid-filled loops of small and large bowel suggestive of an ileus. There is no evidence of obstruction. Possible mild colitis was noted. There is also air in the bladder and vagina. This raises a concern of a fistula into the bladder. There is also suggestion of the pending air within the bowel, possibly pneumatosis. Subsequent lactate level was normal however. Past surgical history is significant for total abdominal hysterectomy bilateral salpingo oophorectomy. Review of Systems Review of Systems: Yes Unobtainable due to mental status PMFSH Past Medical History Medical History Acquired hypothyroidism Atherosclerotic cardiovascular disease Benign essential hypertension CAD (coronary artery disease) Constipation Dementia Diabetes mellitus Epilepsy GERD without esophagitis Hypertension Hypomagnesemia Hypothyroidism Iron deficiency anemia New onset seizure Orthostasis Overweight (BMI 25.0-29.9) Pure hypercholesterolemia Syncope Vitamin B12 deficiency Vitamin D deficiency Family History Family History Father Diabetes Hypertension Mother Hypertension Stroke Surgical History Surgical History History of ankle surgery History of hemiarthroplasty of left hip S/P KULDIP-[id number] (total abdominal hysterectomy and bilateral salpingo-oophorectomy) Social History Social History Household Members: Family Housing: Apartment Do you presently have visiting nurse or other home services: No Alcohol intake: never Patient Tobacco Use Status: Never used Tobacco e-Cigarette/Vaping Use: Never Used Second Hand Smoke Exposure: No Use of substances other than those prescribed or required for medical reasons: No Advance Directives: Yes Advance Directives on File: Yes Advance Directives Date on File: 10/25/20 service: No Current occupational status: disabled Cognitive needs: Yes (walker, wheelchair) Hearing needs: No Vision needs: Yes Meds Allergies Allergy/AdvReac Type Severity Reaction Status Date / Time No Known Allergies Allergy Verified 07/22/22 19:12 Active Medications: Current Medications Acetaminophen (Acetaminophen 325 Mg Tablet) 650 mg PO Q6H PRN PRN Reason: Pain, Mild (Pain Scale 1-3) Aspirin (Aspirin Enteric Coated 81 Mg Tablet.) 81 mg PO DAILY [facility] Last Admin: 07/23/22 10:54 Dose: 81 mg Atorvastatin Calcium (Atorvastatin Calcium 40 Mg Tablet) 40 mg PO BEDTIME [facility] Dextrose/Sodium Chloride (D51/2ns) 1,000 mls @ 100 mls/hr IVCONT .Q10H [facility] Last Admin: 07/23/22 10:54 Dose: 100 mls/hr Latanoprost (Latanoprost 0.005 % Ophth Sharon 2.5 Ml Drops) 1 drop EYE-BOTH BEDTIME [facility] Levothyroxine Sodium (Levothyroxine Sodium 125 Mcg Tablet) 125 mcg PO DAILY@0600 [facility] Lisinopril (Lisinopril 20 Mg Tablet) 20 mg PO BID [facility]; Protocol Metoprolol Succinate (Metoprolol Succinate Er 25 Mg Tab.Er.24h) 25 mg PO DAILY [facility]; Protocol Omeprazole (Omeprazole 20 Mg Capsule.) 20 mg PO DAILY@0630 [facility] Ondansetron HCl (Ondansetron Hcl 4 Mg/2 Ml Vial) 4 mg IVPUSH Q8H PRN PRN Reason: Nausea and Vomiting Last Admin: 07/23/22 10:57 Dose: 4 mg Pharmacy Consult (Consult Rx Perform Med Rec) 1 each MISCELLANE ONCE PRN PRN Reason: Consult order Sertraline HCl (Sertraline Hcl 25 Mg Tablet) 25 mg PO DAILY [facility] Sodium Chloride (0.9 % Sodium Chloride Flush 3 Ml Syringe) 3 ml IVFLUSH QSHIFT [facility] Home Medications Medication Instructions Recorded Confirmed Last Taken Type cholecalciferol (vitamin D3) 25 1 tab PO DAILY 04/21/22 07/22/22 07/22/22 History mcg (1,000 unit) tablet cyanocobalamin (vitamin B-12) 1 tab PO DAILY 04/21/22 07/22/22 07/22/22 History 1,000 mcg tablet ferrous sulfate 325 mg (65 mg 1 tab PO BID 04/21/22 07/22/22 07/22/22 History iron) tablet latanoprost 0.005 % eye drops 1 drp ophthalmic (eye) BEDTIME 04/21/22 07/22/22 07/21/22 History levetiracetam 500 mg tablet 1 tab PO BID 04/21/22 07/22/22 07/22/22 History metformin 500 mg tablet 1 tab PO BIDWM 04/21/22 07/22/22 07/22/22 History sennosides 8.6 mg tablet (senna) 1 tab PO BEDTIME PRN constipation 04/21/22 07/22/22 Unknown History ascorbic acid (vitamin C) 500 mg 500 mg PO BID 06/12/22 07/22/22 07/22/22 History tablet aspirin 81 mg tablet,delayed 81 mg PO DAILY 06/12/22 07/22/22 07/22/22 History release insulin aspart U-100 100 unit/mL 1 sliding scale dose subcut QIDACHS 07/22/22 07/22/22 07/22/22 History subcutaneous solution (Novolog U-100 Insulin aspart) Physical Exam Vital Signs: Vital Signs: Last Vital Signs Temp 97.0 F 07/23/22 07:32 Pulse 67 07/23/22 08:50 Resp 16 07/23/22 08:50 BP 140/56 H 07/23/22 08:50 Pulse Ox 99 07/23/22 08:50 O2 Del Method 07/23/22 08:50 BMI result Body Mass Index 31.8 Const: General: no acute distress Nutritional Appearance: well nourished Orientation/consciousness: oriented to person Limitations: altered mental status HEENT: Head: Yes normocephalic and Yes atraumatic Ears: hearing grossly normal bilaterally Resp: Effort & Inspection: normal respiratory effort, no audible wheezes, no cough and no respiratory distress GI: Inspection: Yes normal to inspection Palpation (GI): Soft to palpation, not firm, nontender, no guarding, not rigid and hepatosplenomegaly present Percussion: Yes normal to percussion Auscultation: normal bowel sounds Rectal Exam - Female: deferred Skin: Rashes: no rashes Neuro: General: oriented to person Extrem: General: Yes normal to inspection Results Labs Result diagrams: 07/22/22 21:54 07/22/22 21:54 Labs: Abnormal lab results 07/22/22 07/22/22 07/23/22 Range/Units 21:54 21:54 00:22 RBC 3.14 L (4.20-5.50) X10*6/uL Hgb 9.1 L (12.0-16.0) g/dl Hct 27.9 L (37.0-47.0) % Absolute Nucleated RBC 0.040 H (0.0-0.012) X10*3/uL Nucleated RBC % (auto) 0.6 H (0.0-0.2) /100WBC Chloride 110 H (96-108) mmol/L Carbon Dioxide 20 L (22-29) mmol/L BUN 27 H D (9-16) mg/dL POC Glucose 29 L* (60-115) mg/dL Random Glucose 39 L* (60-115) mg/dL AST 53 H (5-31) U/L ALT 65 H (0-31) U/L Alkaline Phosphatase 155 H (39-117) U/L 07/23/22 07/23/22 07/23/22 Range/Units 00:24 01:41 03:33 RBC (4.20-5.50) X10*6/uL Hgb (12.0-16.0) g/dl Hct (37.0-47.0) % Absolute Nucleated RBC (0.0-0.012) X10*3/uL Nucleated RBC % (auto) (0.0-0.2) /100WBC Chloride (96-108) mmol/L Carbon Dioxide (22-29) mmol/L BUN (9-16) mg/dL POC Glucose 38 L* 118 H 231 H (60-115) mg/dL Random Glucose (60-115) mg/dL AST (5-31) U/L ALT (0-31) U/L Alkaline Phosphatase (39-117) U/L 07/23/22 Range/Units 07:12 RBC (4.20-5.50) X10*6/uL Hgb (12.0-16.0) g/dl Hct (37.0-47.0) % Absolute Nucleated RBC (0.0-0.012) X10*3/uL Nucleated RBC % (auto) (0.0-0.2) /100WBC Chloride (96-108) mmol/L Carbon Dioxide (22-29) mmol/L BUN (9-16) mg/dL POC Glucose 134 H (60-115) mg/dL Random Glucose (60-115) mg/dL AST (5-31) U/L ALT (0-31) U/L Alkaline Phosphatase (39-117) U/L Short CBC 07/22/22 Range/Units 21:54 WBC 7.1 (4.8-10.8) X10*3/uL Hgb 9.1 L (12.0-16.0) g/dl Hct 27.9 L (37.0-47.0) % Plt Count 194 (160-400) X10*3/uL BMP 07/22/22 21:54 Sodium 141 Potassium 4.0 Chloride 110 H Carbon Dioxide 20 L BUN 27 H D Creatinine 1.01 Calcium 8.5 Liver Function 07/22/22 Range/Units 21:54 Total Bilirubin 0.2 (0.0-1.0) mg/dL Direct Bilirubin < 0.2 (0.0-0.5) mg/dL AST 53 H (5-31) U/L ALT 65 H (0-31) U/L Alkaline Phosphatase 155 H (39-117) U/L Albumin 3.7 (3.5-5.0) g/dL All other labs normal. Imaging Abdomen CT scan report/results: image reviewed CT scan - pelvis: image reviewed Assessment and Plan (1) Intractable vomiting: Status: Acute (2) Intractable diarrhea: Status: Acute (3) Ileus: Status: Acute Plan 72-year-old female patient presenting with history of dementia and diarrhea now with nausea and vomiting, hypoglycemia found on CT to have probable ileus. No gastric distension is noted; small and large bowel are diffusely fluid-filled. Examination of the abdomen is unremarkable with no evidence of tenderness to palpation and no peritoneal signs. Findings are not suggestive of ischemic bowel. Recommend supportive care with IV hydration and gradually advancing diet. I will follow along during her hospitalization. Procedures Date of Service Date of Service: 07/23/22
--- NOTE | 2022-07-23 13:12 | PC.NURSE ---
patient a&ox3, ivf running per order, pure wick intact, vss, call barron within reach, will continue to monitor
[2022-07-23 13:27] LABS: Glucose, Whole Blood 87 mg/dL (60-115)
[2022-07-23 13:51] LABS: Glucose, Whole Blood 89 mg/dL (60-115)
[2022-07-23 17:00] LABS: Glucose, Whole Blood 138 mg/dL (60-115)
[2022-07-23 21:29] LABS: Glucose, Whole Blood 290 mg/dL (60-115)
[2022-07-23] MEDS: lisinopriL 20 MG TABLET PO (21:46)
[2022-07-23] MEDS: Atorvastatin Calcium 40 MG TABLET PO (21:46)
--- NOTE | 2022-07-23 21:54 | PC.NURSE ---
stage 2 pressure injury to the left buttock
--- NOTE | 2022-07-23 22:43 | MHC.CM.PN ---
Addendum entered by Isis Viera 07/24/22 16:36: Pt placed to observation. ROSE reviewed with HCP/sister Araceli Garcia ([phone]). Requested ROSE to be mailed. Urology recommending PT, as sister, Araceli explained that pt stopped walking on Thursday and she has concerns about pt at home. Requesting STR. Would like [facility] ([facility]), as patient was there in May and she was very pleased with her sister's care. Referral placed. CM to follow for d/c needs. Addendum entered by Isis Viera 07/23/22 22:51: Pt has dementia diagnosis. Reviewed past admission notes on 04/25. CM information obtained from pt verified with medical record. CM did not call sister/HCP do to lateness of hour (2230). Per medical record, pt attends adult day care on Tuesdays and Wednesdays at [place]. Lives with her sisters. Did attend STR at [facility] in April. Original Note: IMM 07/23. CM met with admitted patient in ED over 10 pending bed assignment.Pt lives with her sister/HCP Araceli Garcia ([phone]). HCP on file. [facility] (01/30/21 & 04/25/22). Uses a walker/wheelchair. No services. Pt states family helps her. D/C plan is home. Will assess need for VNA with daily rounds. No referrals placed. Sister will transport home. CM to follow for d/c needs.
[2022-07-24] MEDS: Dextrose 5 % and 0.45 % NaCl 1,000 ML 100 ML IVCONT (05:03)
[2022-07-24] MEDS: Omeprazole 20 MG CAPSULE.DR PO (05:06)
[2022-07-24 07:22] LABS: Glucose, Whole Blood 320 mg/dL (60-115)
[2022-07-24 07:44] VITALS: BP 180/71; PULSE 125; RESP 17; TEMP 36.2; O2SAT 100
[2022-07-24 08:33] LABS: Hematocrit 26.6 % (37.0-47.0); Hemoglobin 8.6 g/dl (12.0-16.0); Mean Corpuscular HGB Conc 32.3 g/dl (31.0-35.0); Mean Corpuscular Hemoglobin 28.7 pg (27.0-33.0); Mean Corpuscular Volume 88.7 fL (80.0-98.0); Mean Platelet Volume 11.3 fL (9.4-12.3); NRBC Pct Auto 0.6 /100WBC (0.0-0.2); Platelet Count 179 X10*3/uL (160-400); Red Cell Distribution Width 14.5 % (11.0-16.0); White Blood Count 3.5 X10*3/uL (4.8-10.8)
[2022-07-24] MEDS: Aspirin Enteric Coated 81 MG TABLET.DR PO (09:28)
[2022-07-24] MEDS: Insulin Lispro 100 UNIT/ML 3 ML VIAL SUBCUT ×2 (09:29→11:51)
[2022-07-24] MEDS: Sertraline HCL 25 MG TABLET PO (09:29)
[2022-07-24] MEDS: Metoprolol Succinate ER 25 MG TAB.ER.24H PO (09:30)
[2022-07-24] MEDS: lisinopriL 20 MG TABLET PO ×2 (09:30→20:13)
[2022-07-24 09:47] LABS: Anion Gap 15 (12-20); Blood Urea Nitrogen 15 mg/dL (9-16); Calcium 8.4 mg/dL (8.4-10.2); Carbon Dioxide 20 mmol/L (22-29); Chloride 110 mmol/L (96-108); Creatinine Clr Calc Pharmacy 58.2; Estimated Glomerular Filt Rate > 60; Glucose Random 384 mg/dL (60-115); Potassium 4.4 mmol/L (3.3-5.1); Sodium 141 mmol/L (135-145)
--- NOTE | 2022-07-24 10:19 | P.PNIM_ITS ---
Subjective Subjective Date of Service: 07/24/22 Interval History: seen and examined this AM pleasantly confused no events reported overnight by balance staff inspector denies abdominal pain, nausea/vomiting/diarrhea Review of Systems negative except HPI Physical Exam Vital Signs: Vital Signs: Last Vital Signs Temp 97.1 F 07/24/22 07:44 Pulse 125 H 07/24/22 07:44 Resp 17 07/24/22 07:44 BP 180/71 H 07/24/22 07:44 Pulse Ox 100 07/24/22 07:44 O2 Del Method 07/24/22 07:44 BMI result Body Mass Index 31.8 Const: Other: General - no acute distress, appears comfortable Cardiovascular - regular rate and rhythm, S1-S2 Lungs - normal respiratory effort, clear to auscultation bilaterally, no wheezing Abdomen - soft, nontender, no rebound or guarding Extremities - no edema bilaterally Neuro - awake and alert, no focal deficits; oriented to self Objective Data Active Medications Acetaminophen (Acetaminophen 325 Mg Tablet) 650 mg PO Q6H PRN PRN Reason: Pain, Mild (Pain Scale 1-3) Aspirin (Aspirin Enteric Coated 81 Mg Tablet.) 81 mg PO DAILY [facility] Last Admin: 07/24/22 09:28 Dose: 81 mg Documented By: TIANA Atorvastatin Calcium (Atorvastatin Calcium 40 Mg Tablet) 40 mg PO BEDTIME [facility] Last Admin: 07/23/22 21:46 Dose: 40 mg Documented By: JUNIOR Dextrose/Sodium Chloride (D51/2ns) 1,000 mls @ 100 mls/hr IVCONT .Q10H [facility] Last Admin: 07/24/22 05:03 Dose: 100 mls/hr Documented By: KAUR Insulin Human Lispro (Insulin Lispro 100 Unit/Ml 3 Ml Vial) 0 unit SUBCUT QIDACHS [facility]; Protocol Last Admin: 07/24/22 09:29 Dose: 8 unit Documented By: TIANA Latanoprost (Latanoprost 0.005 % Ophth [place] 2.5 Ml Drops) 1 drop EYE-BOTH BEDT SHERICE [facility] Last Admin: 07/23/22 21:47 Dose: Not Given Documented By: JUNIOR Non-Admin Reason: Med Not Available Levothyroxine Sodium (Levothyroxine Sodium 125 Mcg Tablet) 125 mcg PO RIKC Y@0600 [facility] Last Admin: 07/24/22 06:26 Dose: Not Given Documented By: KAUR Non-Admin Reason: Patient Refused Lisinopril (Lisinopril 20 Mg Tablet) 20 mg PO BID [facility]; Protocol Last Admin: 07/24/22 09:30 Dose: 20 mg Documented By: TIANA Metoprolol Succinate (Metoprolol Succinate Er 25 Mg Tab.Er.24h) 25 mg PO DAILY [facility]; Protocol Last Admin: 07/24/22 09:30 Dose: 25 mg Documented By: TIANA Omeprazole (Omeprazole 20 Mg Capsule.Dr) 20 mg PO DAILY@0630 [facility] Last Admin: 07/24/22 05:06 Dose: 20 mg Documented By: KAUR Ondansetron HCl (Ondansetron Hcl 4 Mg/2 Ml Vial) 4 mg IVPUSH Q8H PRN PRN Reason: Nausea and Vomiting Last Admin: 07/23/22 10:57 Dose: 4 mg Documented By: ADELINA Pharmacy Consult (Consult Rx Perform Med Rec) 1 each MISCELLANE ONCE PRN PRN Reason: Consult order Sertraline HCl (Sertraline Hcl 25 Mg Tablet) 25 mg PO DAILY [facility] Last Admin: 07/24/22 09:29 Dose: 25 mg Documented By: TIANA Sodium Chloride (0.9 % Sodium Chloride Flush 3 Ml Syringe) 3 ml IVFLUSH QSHIFT [facility] Last Admin: 07/24/22 09:15 Dose: Not Given Documented By: BENJI Non-Admin Reason: IV Running Labs CBC & Chem 7: 07/24/22 08:16 07/24/22 08:16 Labs: Laboratory Results - last 24 hr 07/23/22 07/23/22 07/23/22 10:18 13:24 13:46 MCV MCH MCHC RDW Plt Count MPV Absolute Nucleated RBC Nucleated RBC % (auto) Anion Gap Estim Creat Clear Calc Estimated GFR POC Glucose 87 89 Random Glucose Lactic Acid 1.2 Calcium 07/23/22 07/23/22 07/24/22 16:54 21:24 07:16 MCV MCH MCHC RDW Plt Count MPV Absolute Nucleated RBC Nucleated RBC % (auto) Anion Gap Estim Creat Clear Calc Estimated GFR POC Glucose 138 H 290 H 320 H Random Glucose Lactic Acid Calcium 07/24/22 07/24/22 08:16 08:16 MCV 88.7 MCH 28.7 MCHC 32.3 RDW 14.5 Plt Count 179 MPV 11.3 Absolute Nucleated RBC 0.020 H Nucleated RBC % (auto) 0.6 H Anion Gap 15 Estim Creat Clear Calc 58.2 Estimated GFR > 60 POC Glucose Random Glucose 384 H* D Lactic Acid Calcium 8.4 Assessment and Plan (1) Ileus: Status: Acute Plan This is a 72 yo F with a history of chronic diarrhea who presents with acute nausea/vomiting and worsening diarrhea of [address] scan has shown ileus amongst other findings. She will be admitted for further care. 1. Ileus, likely secondary to gastroenteritis clinically improving with no further episodes of vomiting reported advance diet to pureed and taper IVF 2. Abnormal CT scan possible pneumatosis seen + ? vesiculovaginal fistula General surg input appreciated will have urology see her for question of vesiculovaginal fistula UA pending -- may need to straight cath for sample to eval for UTI 3. Mild dehydration imrpoved with IVF, taper once she is taking solids consistently 4. Uncontrolled DM with Hypoglycemia upon arrival, now improved start sliding scale and monitor closely 5. HTN uncontrolled re-eval this afternoon has AM meds 6. CAD continue baseline meds 7. History of seizure d/o keppra Full Code DVT pptx -- add subcut lovenox requires continued hospitalization due to: insufficient oral intake (diet being advanced this AM), monitoring for hypoglycemia without dextrose infusion and evaluation of possible vesiculovaginal fistula Quality Stroke Does the patient have a stroke diagnosis?: No VTE Prior VTE?: No VTE Risk Level:: Medical - moderate - high VTE Device Contraindication: N/A - Device Ordered VTE Drug Contraindication: N/A - Med Ordered
[2022-07-24 11:21] LABS: Glucose, Whole Blood 424 mg/dL (60-115)
[2022-07-24 11:27] LABS: Appearance Urine Clear; Color Urine Yellow; Glucose Urine UA >=1000 mg/dL (Negative); Leukocyte Esterase Urine Moderate (2+) (Negative); Nitrite Urine Negative (Negative); UMIC TRIGGER UACC YES; Urine Blood Negative (Negative); Urine Ketones Negative (Negative); Urine Protein Negative (Neg-Trace)
[2022-07-24 11:32] LABS: Bacteria Urine 4+ (None Seen); RBC Urine 0-2 /HPF (0-2); Squamous Epithelial Cell Urine 0-2 /HPF (0-2); UACC Culture Trigger YES
[2022-07-24] MEDS: Enoxaparin Sodium 40 MG/0.4 ML SYRINGE SUBCUT (11:52)
--- NOTE | 2022-07-24 11:56 | PC.NURSE ---
POC 424, Dr. Lawson aware. Sliding scale coverage given and d5 drip stopped per Dr. Lawson.
--- NOTE | 2022-07-24 14:04 | PM.UROCN ---
History of Present Illness Consult details Consult date: 07/24/22 Narrative: Cary is a 72 yo female who presented to the ED with a 1 day history of nausea, vomiting and diarrhea. The patient lives with her sister Araceli Garcia, history obtained from her patient's sister who states that the patient has had bladder infections in the past which have been treated by her PCP. She states that the patient wears a diaper which is generally dry during the day with infrequent leakage accidents, but she wets at night time. She states the urine has been cloudy. She denies fevers or chills. CoMorbidity- Diabetes, Dementia. The sister states the patient has been having more difficulty with ambulating recently. CT imaging noted kidneys WNL, air in bladder and vagina, artifact due to hardware in hips limits pelvic evaluation on CT. Review of Systems Review of Systems: 10 point ROS negative other than stated in HPI [facility] Past Medical History Medical History Acquired hypothyroidism Atherosclerotic cardiovascular disease Benign essential hypertension CAD (coronary artery disease) Constipation Dementia Diabetes mellitus Epilepsy GERD without esophagitis Hypertension Hypomagnesemia Hypothyroidism Iron deficiency anemia New onset seizure Orthostasis Overweight (BMI 25.0-29.9) Pure hypercholesterolemia Syncope Vitamin B12 deficiency Vitamin D deficiency Family History Family History Father Diabetes Hypertension Mother Hypertension Stroke Surgical History Surgical History History of ankle surgery History of hemiarthroplasty of left hip S/P [id number] (total abdominal hysterectomy and bilateral salpingo-oophorectomy) Social History Social History Household Members: Family Housing: Apartment Do you presently have visiting nurse or other home services: No Alcohol intake: never Patient Tobacco Use Status: Never used Tobacco e-Cigarette/Vaping Use: Never Used Second Hand Smoke Exposure: No Use of substances other than those prescribed or required for medical reasons: No Advance Directives: Yes Advance Directives on File: Yes Advance Directives Date on File: 10/25/20 service: No Current occupational status: disabled Cognitive needs: Yes (walker, wheelchair) Hearing needs: No Vision needs: Yes Meds Allergies Allergy/AdvReac Type Severity Reaction Status Date / Time No Known Allergies Allergy Verified 07/22/22 19:12 Active Medications: Current Medications Acetaminophen (Acetaminophen 325 Mg Tablet) 650 mg PO Q6H PRN PRN Reason: Pain, Mild (Pain Scale 1-3) Aspirin (Aspirin Enteric Coated 81 Mg Tablet.) 81 mg PO DAILY [facility] Last Admin: 07/24/22 09:28 Dose: 81 mg Atorvastatin Calcium (Atorvastatin Calcium 40 Mg Tablet) 40 mg PO BEDTIME [facility] Last Admin: 07/23/22 21:46 Dose: 40 mg Enoxaparin Sodium (Enoxaparin Sodium 40 Mg/0.4 Ml Syringe) 40 mg SUBCUT Q24H [facility] Last Admin: 07/24/22 11:52 Dose: 40 mg Insulin Human Lispro (Insulin Lispro 100 Unit/Ml 3 Ml Vial) 0 unit SUBCUT QIDACHS [facility]; Protocol Last Admin: 07/24/22 11:51 Dose: 10 unit Latanoprost (Latanoprost 0.005 % Ophth [place] 2.5 Ml Drops) 1 drop EYE-BOTH BEDTIME [facility] Last Admin: 07/23/22 21:47 Dose: Not Given Levothyroxine Sodium (Levothyroxine Sodium 125 Mcg Tablet) 125 mcg PO DAILY@0600 [facility] Last Admin: 07/24/22 06:26 Dose: Not Given Lisinopril (Lisinopril 20 Mg Tablet) 20 mg PO BID [facility]; Protocol Last Admin: 07/24/22 09:30 Dose: 20 mg Metoprolol Succinate (Metoprolol Succinate Er 25 Mg Tab.Er.24h) 25 mg PO DAILY [facility]; Protocol Last Admin: 07/24/22 09:30 Dose: 25 mg Omeprazole (Omeprazole 20 Mg Capsule.) 20 mg PO DAILY@0630 [facility] Last Admin: 07/24/22 05:06 Dose: 20 mg Ondansetron HCl (Ondansetron Hcl 4 Mg/2 Ml Vial) 4 mg IVPUSH Q8H PRN PRN Reason: Nausea and Vomiting Last Admin: 07/23/22 10:57 Dose: 4 mg Pharmacy Consult (Consult Rx Perform Med Rec) 1 each MISCELLANE ONCE PRN PRN Reason: Consult order Sertraline HCl (Sertraline Hcl 25 Mg Tablet) 25 mg PO DAILY [facility] Last Admin: 07/24/22 09:29 Dose: 25 mg Sodium Chloride (0.9 % Sodium Chloride Flush 3 Ml Syringe) 3 ml IVFLUSH QSHIFT [facility] Last Admin: 07/24/22 09:15 Dose: Not Given Home Medications Medication Instructions Recorded Confirmed Last Taken Type cholecalciferol (vitamin D3) 25 1 tab PO DAILY 04/21/22 07/22/22 07/22/22 History mcg (1,000 unit) tablet cyanocobalamin (vitamin B-12) 1 tab PO DAILY 04/21/22 07/22/22 07/22/22 History 1,000 mcg tablet ferrous sulfate 325 mg (65 mg 1 tab PO BID 04/21/22 07/22/22 07/22/22 History iron) tablet latanoprost 0.005 % eye drops 1 drp ophthalmic (eye) BEDTIME 04/21/22 07/22/22 07/21/22 History levetiracetam 500 mg tablet 1 tab PO BID 04/21/22 07/22/22 07/22/22 History metformin 500 mg tablet 1 tab PO BIDWM 04/21/22 07/22/22 07/22/22 History sennosides 8.6 mg tablet (senna) 1 tab PO BEDTIME PRN constipation 04/21/22 07/22/22 Unknown History ascorbic acid (vitamin C) 500 mg 500 mg PO BID 06/12/22 07/22/22 07/22/22 History tablet aspirin 81 mg tablet,delayed 81 mg PO DAILY 06/12/22 07/22/22 07/22/22 History release insulin aspart U-100 100 unit/mL 1 sliding scale dose subcut QIDACHS 07/22/22 07/22/22 07/22/22 History subcutaneous solution (Novolog U-100 Insulin aspart) Physical Exam Vital Signs: Vital Signs: Last Vital Signs Temp 97.1 F 07/24/22 07:44 Pulse 125 H 07/24/22 07:44 Resp 17 07/24/22 07:44 BP 180/71 H 07/24/22 07:44 Pulse Ox 100 07/24/22 07:44 O2 Del Method 07/24/22 07:44 BMI result Body Mass Index 31.8 Const: Other: patient responds appropriately to her name and follows commands appropriately General: no acute distress Orientation/consciousness: oriented to person HEENT: Head: Yes normocephalic and Yes atraumatic Eyes: Conjunctivae: conjunctivae normal Neck: Neck: Yes trachea midline and Yes supple Chest: Chest palpation & inspection: normal inspection of the chest Resp: Effort & Inspection: normal respiratory effort Cardio: Rhythm: regular rhythm GI: Palpation (GI): Soft to palpation Rectal Exam - Female: deferred : Other: unable to do adequate pelvic exam on stretcher, purewick in place, urine is[place] in color General: Yes no CVA tenderness Back/Spine/Pelvis: Back: no CVA tenderness Skin: General skin exam: turgor normal and dry skin Neuro: General: oriented to person Extrem: Right lower extremity: no edema Left lower extremity: no edema Psych: Other: history of dementia Results Labs Result diagrams: 07/24/22 08:16 07/24/22 08:16 Labs: Abnormal lab results 07/23/22 07/23/22 07/24/22 Range/Units 16:54 21:24 07:16 WBC (4.8-10.8) X10*3/uL RBC (4.20-5.50) X10*6/uL Hgb (12.0-16.0) g/dl Hct (37.0-47.0) % Absolute Nucleated RBC (0.0-0.012) X10*3/uL Nucleated RBC % (auto) (0.0-0.2) /100WBC Chloride (96-108) mmol/L Carbon Dioxide (22-29) mmol/L POC Glucose 138 H 290 H 320 H (60-115) mg/dL Random Glucose (60-115) mg/dL Urine Glucose (UA) (Negative) mg/dL Ur Leukocyte Esterase (Negative) Urine WBC (0-5) /HPF 07/24/22 07/24/22 07/24/22 Range/Units 08:16 08:16 11:12 WBC 3.5 L (4.8-10.8) X10*3/uL RBC 3.00 L (4.20-5.50) X10*6/uL Hgb 8.6 L (12.0-16.0) g/dl Hct 26.6 L (37.0-47.0) % Absolute Nucleated RBC 0.020 H (0.0-0.012) X10*3/uL Nucleated RBC % (auto) 0.6 H (0.0-0.2) /100WBC Chloride 110 H (96-108) mmol/L Carbon Dioxide 20 L (22-29) mmol/L POC Glucose (60-115) mg/dL Random Glucose 384 H* D (60-115) mg/dL Urine Glucose (UA) >=1000 H (Negative) mg/dL Ur Leukocyte Esterase Moderate (2+) H (Negative) Urine WBC 11-20 H (0-5) /HPF 07/24/22 Range/Units 11:18 WBC (4.8-10.8) X10*3/uL RBC (4.20-5.50) X10*6/uL Hgb (12.0-16.0) g/dl Hct (37.0-47.0) % Absolute Nucleated RBC (0.0-0.012) X10*3/uL Nucleated RBC % (auto) (0.0-0.2) /100WBC Chloride (96-108) mmol/L Carbon Dioxide (22-29) mmol/L POC Glucose 424 H* (60-115) mg/dL Random Glucose (60-115) mg/dL Urine Glucose (UA) (Negative) mg/dL Ur Leukocyte Esterase (Negative) Urine WBC (0-5) /HPF Short CBC 07/24/22 Range/Units 08:16 WBC 3.5 L (4.8-10.8) X10*3/uL Hgb 8.6 L (12.0-16.0) g/dl Hct 26.6 L (37.0-47.0) % Plt Count 179 (160-400) X10*3/uL BMP 07/24/22 08:16 Sodium 141 Potassium 4.4 Chloride 110 H Carbon Dioxide 20 L BUN 15 Creatinine 0.87 Calcium 8.4 Urine 07/24/22 Range/Units 11:12 Urine Color Yellow Urine Appearance Clear Urine pH 5.0 (5.0-9.0) Ur Specific [place] 1.010 (1.005-1.025) Urine Protein Negative (Neg-Trace) mg/dL Urine Glucose (UA) >=1000 H (Negative) mg/dL Urine culture pending Imaging Abdomen CT scan report/results: report reviewed and image reviewed Additional studies: 07/22/2022: CT ABDOMEN AND PELVIS WITHOUT CONTRAST? COMPARISON: None? TECHNIQUE: Multidetector volumetric imaging was performed from the superior aspect of the liver through the pubic symphysis. Sagittal and coronal reformatted images were obtained on the technologist's workstation.? This CT examination was performed using dose optimization techniques as appropriate, variously including the following: *Automated exposure control *Adjustment of mA and/or kV according to patient size (this includes techniques or standardized protocols for targeted exams where dose is matched to indication/reason for exam; i.e. extremities or head) *Use of iterative reconstruction technique DLP: 1139 mGy-cm FINDINGS: LUNG BASES: The visualized lung bases are unremarkable.? LIVER, GALLBLADDER, AND BILIARY TREE: The liver is normal in size. The liver is heterogeneous in attenuation with low-attenuation areas particularly in the right lobe of the liver. This may represent artifact from the patient's arm being at her side. The gallbladder is normal. There is no biliary duct dilatation. PANCREAS: Unremarkable.? SPLEEN: Unremarkable.? ADRENAL GLANDS: Unremarkable.? KIDNEYS AND URETERS: The kidneys are normal in size, shape, and attenuation. No hydronephrosis, hydroureter, or calculi seen. No perinephric stranding. ? BLADDER: The bladder is distended. The there is a large amount of air in the bladder. This may be related to recent catheterization. Clinical correlation recommended. Differential would include infection and fistula. Evaluation of the pelvis is limited due to artifact from bilateral hip replacements. GASTROINTESTINAL TRACT: The stomach is fluid filled. Small bowel loops are distended and fluid-filled. The colon is dilated and fluid-filled. No transition zone is seen to suggest mechanical obstruction probably represents an ileus. There is wall thickening of the colon, particularly the transverse colon and left colon questionable for mild colitis. There are also areas of air along the dependent surface of the colon, early the left colon and sigmoid colon questionable for pneumatosis. Correlation with patient's lactate level to exclude bowel ischemia is recommended. No ascites or free air. ABDOMINAL WALL: No significant hernia is appreciated.? LYMPH NODES: Normal. VASCULAR: There is severe atherosclerotic disease. No aneurysm. PELVIC VISCERA: Not well evaluated due to artifact from bilateral hip replacements. The uterus may been removed. There is air in the vagina. Possible fistula to the bladder given large amount of air in the bladder should be considered. OSSEOUS STRUCTURES: Degenerative changes of the spine. Bilateral hip replacements. Old left rib fracture. CT/CT abdomen pelvis wo IV con IMPRESSION: Fluid-filled distended bowel. No transition zone seen and this probably represents an ileus. There is wall thinning and distention of the colon questionable for colitis. There are scattered areas of dependent air seen in the bowel questionable for pneumatosis. Bowel ischemia should be considered. Correlation with lactate level recommended. Limited evaluation of the pelvis due to artifact from bilateral hip replacements. Large amount of air in the bladder. The bladder is also distended. Changes from recent bladder catheterization, infection and fistula should be considered. Clinical correlation i.e. has the bladder recently catheterized is recommended. The uterus appears to have been removed. There is air seen in the vagina. Possible vesicovaginal fistula should be considered. Severe atherosclerotic disease. ? Findings will be communicated by the [place] work flow sterile processing manager. ? Fleischner guidelines were followed. Assessment and Plan (1) Recurrent UTI (urinary tract infection): Status: Acute (2) Pneumaturia: Status: Acute Plan Recurrent UTI Urine c/s pending Pneumaturia, deferential diagnosis includes vesicovaginal fistula; further evaluation with elective outpatient cystoscopy bilateral retrogrades Pt's sister agrees to have patient follow up with me, Sister is concerned about patient not ambulating well on her own and difficulty bring patient in and out of home. Patient may benefit from Physical Therapy eval. Procedures Date of Service Date of Service: 07/24/22
--- NOTE | 2022-07-24 15:22 | PC.NURSE ---
Report given to Jc KEARNEY.
[2022-07-24 15:45] VITALS: BP 142/59; PULSE 62; RESP 15; TEMP 36.6; O2SAT 97
[2022-07-24 15:59] LABS: Glucose, Whole Blood 148 mg/dL (60-115)
[2022-07-24 16:00] VITALS: BP 159/68; PULSE 60; RESP 17; TEMP 36.6; O2SAT 100
[2022-07-24] MEDS: 0.9 % Sodium Chloride Flush 3 ML SYRINGE IVFLUSH ×2 (17:26→23:37)
[2022-07-24 17:57] VITALS: BMI 31.8
[2022-07-24 19:19] VITALS: BP 142/67; PULSE 72; RESP 16; TEMP 36.1; O2SAT 100
[2022-07-24 19:37] LABS: Glucose, Whole Blood 98 mg/dL (60-115)
[2022-07-24] MEDS: Atorvastatin Calcium 40 MG TABLET PO (20:13)
[2022-07-24 23:50] VITALS: BP 154/68; PULSE 70; RESP 18; TEMP 35.9; O2SAT 100
[2022-07-25] VITALS (7 sets, daily range): BP systolic 156–180; BP diastolic 64–87; PULSE 55–71; RESP 16–18; TEMP 35.9–36.6; O2SAT 100; BMI 31.8
[2022-07-25] MEDS: Levothyroxine Sodium 125 MCG TABLET PO (05:59)
[2022-07-25] MEDS: Omeprazole 20 MG CAPSULE.DR PO (05:59)
[2022-07-25 07:11] LABS: Glucose, Whole Blood 175 mg/dL (60-115)
[2022-07-25] MEDS: Sertraline HCL 25 MG TABLET PO (07:33)
[2022-07-25] MEDS: Aspirin Enteric Coated 81 MG TABLET.DR PO (07:33)
[2022-07-25] MEDS: Insulin Lispro 100 UNIT/ML 3 ML VIAL SUBCUT ×3 (07:34→16:36)
[2022-07-25] MEDS: lisinopriL 20 MG TABLET PO ×2 (07:34→20:04)
[2022-07-25] MEDS: Metoprolol Succinate ER 25 MG TAB.ER.24H PO (07:34)
[2022-07-25] MEDS: 0.9 % Sodium Chloride Flush 3 ML SYRINGE IVFLUSH ×3 (07:35→20:04)
[2022-07-25 08:21] LABS: Hematocrit 28.2 % (37.0-47.0); Hemoglobin 9.1 g/dl (12.0-16.0); Mean Corpuscular HGB Conc 32.3 g/dl (31.0-35.0); Mean Corpuscular Hemoglobin 28.6 pg (27.0-33.0); Mean Corpuscular Volume 88.7 fL (80.0-98.0); Mean Platelet Volume 11.4 fL (9.4-12.3); Platelet Count 184 X10*3/uL (160-400); Red Blood Count 3.18 X10*6/uL (4.20-5.50); Red Cell Distribution Width 14.1 % (11.0-16.0)
[2022-07-25 08:34] LABS: Anion Gap 14 (12-20); Blood Urea Nitrogen 11 mg/dL (9-16); Calcium 8.7 mg/dL (8.4-10.2); Carbon Dioxide 22 mmol/L (22-29); Chloride 108 mmol/L (96-108); Creatinine Clr Calc Pharmacy 68.5; Estimated Glomerular Filt Rate > 60; Glucose Random 247 mg/dL (60-115); Potassium 4.4 mmol/L (3.3-5.1); Sodium 140 mmol/L (135-145)
--- NOTE | 2022-07-25 10:15 | PM.UROPN ---
Subjective Subjective Date of Service: 07/25/22 Interval history: Appropriately Responsive, denies pain Physical Exam Vital Signs: Vital Signs: Last Vital Signs Temp 98 F 07/25/22 06:46 Pulse 68 07/25/22 07:59 Resp 18 07/25/22 06:46 BP 172/81 H 07/25/22 07:59 Pulse Ox 100 07/25/22 07:59 O2 Del Method 07/25/22 06:46 BMI result Body Mass Index 31.8 Const: General: no acute distress Orientation/consciousness: oriented to person HEENT: Head: Yes normocephalic and Yes atraumatic Eyes: Conjunctivae: conjunctivae normal Neck: Neck: Yes trachea midline and Yes supple Chest: Chest palpation & inspection: normal inspection of the chest Resp: Effort & Inspection: normal respiratory effort Cardio: Rhythm: regular rhythm GI: Palpation (GI): Soft to palpation Rectal Exam - Female: deferred : General: Yes no CVA tenderness Back/Spine/Pelvis: Back: no CVA tenderness Skin: General skin exam: turgor normal Neuro: General: oriented to person Extrem: Right lower extremity: no edema Left lower extremity: no edema Psych: Other: history of dementia Urology Results Labs CBC & Chem 7: 07/25/22 07:53 07/25/22 07:53 Labs: Laboratory Results - last 24 hr 07/24/22 07/24/22 07/24/22 11:12 11:18 15:52 WBC RBC Hgb Hct MCV MCH MCHC RDW Plt Count MPV Absolute Nucleated RBC Nucleated RBC % (auto) Sodium Potassium Chloride Carbon Dioxide Anion Gap BUN Creatinine Estim Creat Clear Calc Estimated GFR POC Glucose 424 H* 148 H Random Glucose Calcium Urine Color Yellow Urine Appearance Clear Urine pH 5.0 Ur Specific [place] 1.010 Urine Protein Negative Urine Glucose (UA) >=1000 H Urine Ketones Negative Urine Blood Negative Urine Nitrite Negative Ur Leukocyte Esterase Moderate (2+) H Urine RBC 0-2 Urine WBC 11-20 H Ur Squamous Epith Cells 0-2 Urine Bacteria 4+ Hyaline Casts 3-5 07/24/22 07/25/22 07/25/22 19:28 06:46 07:53 WBC 4.0 L RBC 3.18 L Hgb 9.1 L Hct 28.2 L MCV 88.7 MCH 28.6 MCHC 32.3 RDW 14.1 Plt Count 184 MPV 11.4 Absolute Nucleated RBC 0.000 Nucleated RBC % (auto) 0.0 Sodium Potassium Chloride Carbon Dioxide Anion Gap BUN Creatinine Estim Creat Clear Calc Estimated GFR POC Glucose 98 175 H Random Glucose Calcium Urine Color Urine Appearance Urine pH Ur Specific [place] Urine Protein Urine Glucose (UA) Urine Ketones Urine Blood Urine Nitrite Ur Leukocyte Esterase Urine RBC Urine WBC Ur Squamous Epith Cells Urine Bacteria Hyaline Casts 07/25/22 07:53 WBC RBC Hgb Hct MCV MCH MCHC RDW Plt Count MPV Absolute Nucleated RBC Nucleated RBC % (auto) Sodium 140 Potassium 4.4 Chloride 108 Carbon Dioxide 22 Anion Gap 14 BUN 11 Creatinine 0.74 Estim Creat Clear Calc 68.5 Estimated GFR > 60 POC Glucose Random Glucose 247 H Calcium 8.7 Urine Color Urine Appearance Urine pH Ur Specific [place] Urine Protein Urine Glucose (UA) Urine Ketones Urine Blood Urine Nitrite Ur Leukocyte Esterase Urine RBC Urine WBC Ur Squamous Epith Cells Urine Bacteria Hyaline Casts Progress Note: A&P Assessment and plan (1) Pneumaturia: Status: Acute (2) Recurrent UTI (urinary tract infection): Status: Acute Plan (1) Recurrent UTI (urinary tract infection): ?Status:?Acute (2) Pneumaturia: ?Status:?Acute Plan Recurrent UTI Urine c/s pending Pneumaturia, deferential diagnosis includes vesicovaginal fistula;? further evaluation with elective outpatient cystoscopy bilateral retrogrades fu with me as out patient Time Spent With Patient Time: Total time spent is greater than 50% in coordination of care (as documented) at patient's floor/unit and/or counseling patient: Progress Note: Quality Stroke Does the patient have a stroke diagnosis?: No
[2022-07-25] MEDS: cefTRIAXone sodium 1 GM in 0.9 % Sodium Chloride 50 ML IV (11:05)
[2022-07-25] MEDS: Enoxaparin Sodium 40 MG/0.4 ML SYRINGE SUBCUT (11:11)
[2022-07-25 11:25] LABS: Glucose, Whole Blood 371 mg/dL (60-115)
--- NOTE | 2022-07-25 12:00 | HO.PM.IMPN ---
Subjective Subjective Date of Service: 07/25/22 Interval History: seen and examined this morning follow up for nausea/vomiting, diarrhea/ileus no Further episodes of nausea / vomiting, no diarrhea. No abdominal pain No overnight events Review of Systems Review of Systems: Yes all other systems are reviewed and are negative Constitutional Constitutional: Denies chills and Denies fever(s) Cardiovascular Cardiovascular: Denies chest pain, Denies palpitations and Denies dyspnea Respiratory Respiratory: Denies cough and Denies dyspnea Gastrointestinal Gastrointestinal: Denies abdominal pain, Denies diarrhea, Denies nausea and Denies vomiting Endocrine Endocrine: Denies palpitations Physical Exam Vital Signs: Vital Signs: Last Vital Signs Temp 98 F 07/25/22 11:04 Pulse 64 07/25/22 11:04 Resp 18 07/25/22 11:04 BP 158/64 H 07/25/22 11:26 Pulse Ox 100 07/25/22 11:04 O2 Del Method 07/25/22 11:04 BMI result Body Mass Index 31.8 Const: General: cooperative, alert and awake Nutritional Appearance: average body habitus Orientation/consciousness: oriented to person and oriented to place Resp: Effort & Inspection: normal respiratory effort and able to speak in complete sentences Auscultation: clear to auscultation bilaterally Cardio: Rate: regular rate Heart sounds: S1 normal heart sound present and S2 normal heart sound present GI: Inspection: No distended Palpation (GI): Soft to palpation and nontender Neuro: General: oriented to person and oriented to place Extrem: General: Yes no pedal edema Objective Data Active Medications Acetaminophen (Acetaminophen 325 Mg Tablet) 650 mg PO Q6H PRN PRN Reason: Pain, Mild (Pain Scale 1-3) Aspirin (Aspirin Enteric Coated 81 Mg Tablet.) 81 mg PO DAILY [facility] Last Admin: 07/25/22 07:33 Dose: 81 mg Documented By: FABIANA Atorvastatin Calcium (Atorvastatin Calcium 40 Mg Tablet) 40 mg PO BEDTIME [facility] Last Admin: 07/24/22 20:13 Dose: 40 mg Documented By: RIVKA Enoxaparin Sodium (Enoxaparin Sodium 40 Mg/0.4 Ml Syringe) 40 mg SUBCUT Q24H [facility] Last Admin: 07/25/22 11:11 Dose: 40 mg Documented By: FABIANA Ceftriaxone Sodium 1 gm/ (Sodium Chloride) 50 mls @ 100 mls/hr IV Q24H [facility] Last Infusion: 07/25/22 11:41 Dose: 0 mls/hr Documented By: FABIANA Insulin Human Lispro (Insulin Lispro 100 Unit/Ml 3 Ml Vial) 0 unit SUBCUT QIDACHS [facility]; Protocol Last Admin: 07/25/22 11:32 Dose: 10 unit Documented By: FABIANA Latanoprost (Latanoprost 0.005 % Ophth Sharon 2.5 Ml Drops) 1 drop EYE-BOTH BEDTIME [facility] Last Admin: 07/24/22 20:13 Dose: Not Given Documented By: RIVKA Non-Admin Reason: not available, pharmacy notified Levothyroxine Sodium (Levothyroxine Sodium 125 Mcg Tablet) 125 mcg PO DAILY@0600 [facility] Last Admin: 07/25/22 05:59 Dose: 125 mcg Documented By: REYES Lisinopril (Lisinopril 20 Mg Tablet) 20 mg PO BID [facility]; Protocol Last Admin: 07/25/22 07:34 Dose: 20 mg Documented By: FABIANA Metoprolol Succinate (Metoprolol Succinate Er 25 Mg Tab.Er.24h) 25 mg PO DAILY [facility]; Protocol Last Admin: 07/25/22 07:34 Dose: 25 mg Documented By: FABIANA Omeprazole (Omeprazole 20 Mg Capsule.Dr) 20 mg PO DAILY@0630 [facility] Last Admin: 07/25/22 05:59 Dose: 20 mg Documented By: REYES Ondansetron HCl (Ondansetron Hcl 4 Mg/2 Ml Vial) 4 mg IVPUSH Q8H PRN PRN Reason: Nausea and Vomiting Last Admin: 07/23/22 10:57 Dose: 4 mg Documented By: ADELINA Pharmacy Consult (Consult Rx Perform Med Rec) 1 each MISCELLANE ONCE PRN PRN Reason: Consult order Sertraline HCl (Sertraline Hcl 25 Mg Tablet) 25 mg PO DAILY [facility] Last Admin: 07/25/22 07:33 Dose: 25 mg Documented By: FABIANA Sodium Chloride (0.9 % Sodium Chloride Flush 3 Ml Syringe) 3 ml IVFLUSH QSHIFT [facility] Last Admin: 07/25/22 07:35 Dose: 3 ml Documented By: HO.KODOSOB Labs CBC & Chem 7: 07/25/22 07:53 07/25/22 07:53 Labs: Laboratory Results - last 24 hr 07/24/22 07/24/22 07/25/22 15:52 19:28 06:46 MCV MCH MCHC RDW Plt Count MPV Absolute Nucleated RBC Nucleated RBC % (auto) Anion Gap Estim Creat Clear Calc Estimated GFR POC Glucose 148 H 98 175 H Random Glucose Calcium 07/25/22 07/25/22 07/25/22 07:53 07:53 11:20 MCV 88.7 MCH 28.6 MCHC 32.3 RDW 14.1 Plt Count 184 MPV 11.4 Absolute Nucleated RBC 0.000 Nucleated RBC % (auto) 0.0 Anion Gap 14 Estim Creat Clear Calc 68.5 Estimated GFR > 60 POC Glucose 371 H* Random Glucose 247 H Calcium 8.7 Microbiology Microbiology Results: Microbiology 07/24/22 Unknown Urine Culture - Preliminary Urine clean catch - Urine deng top Gram negative sagar Assessment and Plan (1) Ileus: Status: Acute Plan This is a 72 yo F with a history of chronic diarrhea who presents with acute nausea/vomiting and worsening diarrhea of [address] scan has shown ileus amongst other findings. She will be admitted for further care. Ileus, likely secondary to gastroenteritis clinically improving with no further episodes of vomiting reported advance diet to pureed and IVF d/c Abnormal CT scan possible pneumatosis seen + ? vesiculovaginal fistula General surg input appreciated seen by urology due to question of vesiculovaginal fistula - recommend outpatient follow up for cystoscopy UTI UA growing GNR h/o pansensitive E coli - will start IV ceftriaxone - follow final culture results Mild dehydration improved with IVF Uncontrolled DM with Hypoglycemia home levimir has been on hold, BS trending up; will resume 50% of home dose (converted to Lantus) and monitor BS closely continue SSI HTN uncontrolled re-eval this afternoon has AM meds CAD continue baseline meds History of seizure d/o keppra Full Code DVT pptx -- add subcut lovenox Attending - Dr. Lawson requires continued hospitalization due to:close management of blood sugar, IV abx for UTI, safe dispo - PT rec STR Quality Stroke Does the patient have a stroke diagnosis?: No VTE Prior VTE?: No VTE Risk Level:: Medical - moderate - high VTE Device Contraindication: N/A - Device Ordered VTE Drug Contraindication: N/A - Med Ordered
[2022-07-25] MEDS: Insulin Glargine,Hum.rec.anlog 100 UNIT/ML 10 ML VIAL 6 UNIT SUBCUT (12:39)
[2022-07-25 16:10] LABS: Glucose, Whole Blood 333 mg/dL (60-115)
[2022-07-25] MEDS: Atorvastatin Calcium 40 MG TABLET PO (20:04)
[2022-07-25] MEDS: Latanoprost 0.005 % Ophth Sol 2.5 ML DROPS 1 DROP EYE-BOTH (20:08)
[2022-07-25 20:30] LABS: Glucose, Whole Blood 126 mg/dL (60-115)
[2022-07-26] VITALS (9 sets, daily range): BP systolic 140–188; BP diastolic 58–82; PULSE 62–75; RESP 16–20; TEMP 36–36.8; O2SAT 98–100
[2022-07-26] MEDS: hydrALAZINE HCl 20 MG/ML VIAL 5 MG IVPUSH (00:37)
--- NOTE | 2022-07-26 01:53 | PC.NURSE ---
BP-188/82 HR-63 notified ordered 5mg IV hydralazine.given at 0037.repeat BP 30 min.after 154/64 p-66 after 1 hr BP-143/58 p-66.
[2022-07-26] MEDS: Levothyroxine Sodium 125 MCG TABLET PO (05:13)
[2022-07-26] MEDS: Omeprazole 20 MG CAPSULE.DR PO (05:13)
[2022-07-26 07:25] LABS: Glucose, Whole Blood 135 mg/dL (60-115)
[2022-07-26] MEDS: Sertraline HCL 25 MG TABLET PO (07:50)
[2022-07-26] MEDS: Aspirin Enteric Coated 81 MG TABLET.DR PO (07:50)
[2022-07-26] MEDS: Metoprolol Succinate ER 25 MG TAB.ER.24H PO (07:50)
[2022-07-26] MEDS: lisinopriL 20 MG TABLET PO ×2 (07:50→21:02)
[2022-07-26] MEDS: 0.9 % Sodium Chloride Flush 3 ML SYRINGE IVFLUSH ×3 (07:50→21:11)
[2022-07-26] MEDS: Insulin Glargine,Hum.rec.anlog 100 UNIT/ML 10 ML VIAL 6 UNIT SUBCUT (07:50)
--- NOTE | 2022-07-26 09:24 | P.PNGS_ITS ---
Subjective Subjective Date of Service: 07/26/22 Interval history: Patient eating breakfast and reports no abdominal pain Physical Exam Vital Signs: Vital Signs: Last Vital Signs Temp 97.8 F 07/26/22 07:23 Pulse 75 07/26/22 07:23 Resp 18 07/26/22 07:23 BP 174/60 H 07/26/22 07:23 Pulse Ox 98 07/26/22 07:23 O2 Del Method 07/26/22 07:23 BMI result Body Mass Index 31.8 Const: General: no acute distress Nutritional Appearance: well nourished Orientation/consciousness: oriented to person Resp: Effort & Inspection: normal respiratory effort GI: Other: Soft, nondistended, nontender, no peritoneal signs. Skin: Other: Warm and dry Neuro: General: oriented to person Objective Data Active Medications Acetaminophen (Acetaminophen 325 Mg Tablet) 650 mg PO Q6H PRN PRN Reason: Pain, Mild (Pain Scale 1-3) Aspirin (Aspirin Enteric Coated 81 Mg Tablet.) 81 mg PO DAILY [facility] Last Admin: 07/26/22 07:50 Dose: 81 mg Documented By: ANABELLA Atorvastatin Calcium (Atorvastatin Calcium 40 Mg Tablet) 40 mg PO BEDTIME [facility] Last Admin: 07/25/22 20:04 Dose: 40 mg Documented By: SHELDON Enoxaparin Sodium (Enoxaparin Sodium 40 Mg/0.4 Ml Syringe) 40 mg SUBCUT Q24H [facility] Last Admin: 07/25/22 11:11 Dose: 40 mg Documented By: FABIANA Ceftriaxone Sodium 1 gm/ (Sodium Chloride) 50 mls @ 100 mls/hr IV Q24H [facility] Last Infusion: 07/25/22 11:41 Dose: 0 mls/hr Documented By: FABIANA Insulin Glargine (Insulin Glargine,Hum.Rec.Anlog 100 Unit/Ml 10 Ml Vial) 6 unit SUBCUT DAILY [facility] Last Admin: 07/26/22 07:50 Dose: 6 unit Documented By: ANABELLA Insulin Human Lispro (Insulin Lispro 100 Unit/Ml 3 Ml Vial) 0 unit SUBCUT QIDACHS [facility]; Protocol Last Admin: 07/26/22 07:33 Dose: Not Given Documented By: ANABELLA Non-Admin Reason: No Insulin Coverage Latanoprost (Latanoprost 0.005 % Ophth Sharon 2.5 Ml Drops) 1 drop EYE-BOTH BEDTIME [facility] Last Admin: 07/25/22 20:08 Dose: 1 drop Documented By: SHELDON Levothyroxine Sodium (Levothyroxine Sodium 125 Mcg Tablet) 125 mcg PO DAILY@0600 [facility] Last Admin: 07/26/22 05:13 Dose: 125 mcg Documented By: SHELDON Lisinopril (Lisinopril 20 Mg Tablet) 20 mg PO BID [facility]; Protocol Last Admin: 07/26/22 07:50 Dose: 20 mg Documented By: ANABELLA Metoprolol Succinate (Metoprolol Succinate Er 25 Mg Tab.Er.24h) 25 mg PO DAILY [facility]; Protocol Last Admin: 07/26/22 07:50 Dose: 25 mg Documented By: ANABELLA Omeprazole (Omeprazole 20 Mg Capsule.Dr) 20 mg PO DAILY@0630 [facility] Last Admin: 07/26/22 05:13 Dose: 20 mg Documented By: SHELDON Ondansetron HCl (Ondansetron Hcl 4 Mg/2 Ml Vial) 4 mg IVPUSH Q8H PRN PRN Reason: Nausea and Vomiting Last Admin: 07/23/22 10:57 Dose: 4 mg Documented By: ADELINA Pharmacy Consult (Consult Rx Perform Med Rec) 1 each MISCELLANE ONCE PRN PRN Reason: Consult order Sertraline HCl (Sertraline Hcl 25 Mg Tablet) 25 mg PO DAILY [facility] Last Admin: 07/26/22 07:50 Dose: 25 mg Documented By: ANABELLA Sodium Chloride (0.9 % Sodium Chloride Flush 3 Ml Syringe) 3 ml IVFLUSH QSHIFT [facility] Last Admin: 07/26/22 07:50 Dose: 3 ml Documented By: ANABELLA Labs CBC & Chem 7: 07/25/22 07:53 07/25/22 07:53 Labs: Laboratory Results - last 24 hr 07/25/22 07/25/22 07/25/22 11:20 16:01 20:26 POC Glucose 371 H* 333 H 126 H 07/26/22 07:20 POC Glucose 135 H Microbiology Microbiology Results: Microbiology 07/24/22 Unknown Urine Culture - Final Urine clean catch - Urine deng top Escherichia coli Procedures Date of Service Date of Service: 07/26/22 Progress Note: A&P Assessment and plan (1) Pneumaturia: Status: Acute (2) Intractable vomiting: Status: Acute Plan Patient's abdominal symptoms appear to have improved. She is tolerating regular diet without nausea or vomiting. There is no abdominal tenderness at this time. No evidence of ischemic colitis or bowel obstruction. Will sign off. Please re-consult if necessary. Time Spent With Patient Time: Total time spent is greater than 50% in coordination of care (as documented) at patient's floor/unit and/or counseling patient: Quality Stroke Does the patient have a stroke diagnosis?: No VTE Prior VTE?: No VTE Risk Level:: Medical - moderate - high VTE Device Contraindication: N/A - Device Ordered VTE Drug Contraindication: N/A - Med Ordered
[2022-07-26 11:25] LABS: Glucose, Whole Blood 414 mg/dL (60-115)
[2022-07-26] MEDS: cefTRIAXone sodium 1 GM in 0.9 % Sodium Chloride 50 ML IV (12:33)
[2022-07-26] MEDS: amLODIPine Besylate 2.5 MG TABLET PO (12:34)
[2022-07-26] MEDS: Insulin Lispro 100 UNIT/ML 3 ML VIAL SUBCUT ×3 (12:34→16:53)
[2022-07-26] MEDS: Enoxaparin Sodium 40 MG/0.4 ML SYRINGE SUBCUT (12:35)
[2022-07-26] MEDS: levETIRAcetam 500 MG TABLET PO ×2 (13:11→21:02)
[2022-07-26 15:32] LABS: Glucose, Whole Blood 363 mg/dL (60-115)
--- NOTE | 2022-07-26 16:00 | HO.PM.IMPN ---
Subjective Subjective Date of Service: 07/26/22 Interval History: seen and examined this morning follow up for UTI Blood pressure high overnight, received 1 dose of IV hydralazine Pleasantly confused, no specific complaints Review of Systems Review of Systems: Yes all other systems are reviewed and are negative Constitutional Constitutional: Denies chills and Denies fever(s) Cardiovascular Cardiovascular: Denies chest pain and Denies dyspnea Respiratory Respiratory: Denies dyspnea Gastrointestinal Gastrointestinal: Denies abdominal pain Physical Exam Vital Signs: Vital Signs: Last Vital Signs Temp 96.8 F 07/26/22 14:59 Pulse 65 07/26/22 14:59 Resp 20 07/26/22 14:59 BP 152/74 H 07/26/22 14:59 Pulse Ox 100 07/26/22 14:59 O2 Del Method 07/26/22 14:59 BMI result Body Mass Index 31.8 Const: General: cooperative, alert and awake Nutritional Appearance: average body habitus Orientation/consciousness: oriented to person and oriented to place Resp: Effort & Inspection: normal respiratory effort and able to speak in complete sentences Auscultation: clear to auscultation bilaterally Cardio: Rate: regular rate Heart sounds: S1 normal heart sound present and S2 normal heart sound present GI: Inspection: No distended Palpation (GI): Soft to palpation and nontender Neuro: General: oriented to person and oriented to place Extrem: General: Yes no pedal edema Objective Data Active Medications Acetaminophen (Acetaminophen 325 Mg Tablet) 650 mg PO Q6H PRN PRN Reason: Pain, Mild (Pain Scale 1-3) Amlodipine Besylate (Amlodipine Besylate 2.5 Mg Tablet) 2.5 mg PO DAILY [facility]; Protocol Last Admin: 07/26/22 12:34 Dose: 2.5 mg Documented By: ANABELLA Aspirin (Aspirin Enteric Coated 81 Mg Tablet.) 81 mg PO DAILY [facility] Last Admin: 07/26/22 07:50 Dose: 81 mg Documented By: ANABELLA Atorvastatin Calcium (Atorvastatin Calcium 40 Mg Tablet) 40 mg PO BEDTIME [facility] Last Admin: 07/25/22 20:04 Dose: 40 mg Documented By: SHELDON Enoxaparin Sodium (Enoxaparin Sodium 40 Mg/0.4 Ml Syringe) 40 mg SUBCUT Q24H [facility] Last Admin: 07/26/22 12:35 Dose: 40 mg Documented By: ANABELLA Ceftriaxone Sodium 1 gm/ (Sodium Chloride) 50 mls @ 100 mls/hr IV Q24H [facility] Last Infusion: 07/26/22 13:13 Dose: 0 mls/hr Documented By: ANABELLA Insulin Glargine (Insulin Glargine,Hum.Rec.Anlog 100 Unit/Ml 10 Ml Vial) 6 unit SUBCUT DAILY [facility] Last Admin: 07/26/22 07:50 Dose: 6 unit Documented By: ANABELLA Insulin Human Lispro (Insulin Lispro 100 Unit/Ml 3 Ml Vial) 0 unit SUBCUT QIDACHS [facility]; Protocol Last Admin: 07/26/22 12:34 Dose: 10 unit Documented By: ANABELLA Latanoprost (Latanoprost 0.005 % Ophth Sharon 2.5 Ml Drops) 1 drop EYE-BOTH BEDTIME [facility] Last Admin: 07/25/22 20:08 Dose: 1 drop Documented By: SHELDON Levetiracetam (Levetiracetam 500 Mg Tablet) 500 mg PO BID [facility] Last Admin: 07/26/22 13:11 Dose: 500 mg Documented By: ANABELLA Levothyroxine Sodium (Levothyroxine Sodium 125 Mcg Tablet) 125 mcg PO DAILY@0600 [facility] Last Admin: 07/26/22 05:13 Dose: 125 mcg Documented By: SHELDON Lisinopril (Lisinopril 20 Mg Tablet) 20 mg PO BID [facility]; Protocol Last Admin: 07/26/22 07:50 Dose: 20 mg Documented By: ANABELLA Metoprolol Succinate (Metoprolol Succinate Er 25 Mg Tab.Er.24h) 25 mg PO DAILY [facility]; Protocol Last Admin: 07/26/22 07:50 Dose: 25 mg Documented By: ANABELLA Omeprazole (Omeprazole 20 Mg Capsule.Dr) 20 mg PO DAILY@0630 [facility] Last Admin: 07/26/22 05:13 Dose: 20 mg Documented By: SHELDON Ondansetron HCl (Ondansetron Hcl 4 Mg/2 Ml Vial) 4 mg IVPUSH Q8H PRN PRN Reason: Nausea and Vomiting Last Admin: 07/23/22 10:57 Dose: 4 mg Documented By: ADELINA Pharmacy Consult (Consult Rx Perform Med Rec) 1 each MISCELLANE ONCE PRN PRN Reason: Consult order Sertraline HCl (Sertraline Hcl 25 Mg Tablet) 25 mg PO DAILY [facility] Last Admin: 07/26/22 07:50 Dose: 25 mg Documented By: ANABELLA Sodium Chloride (0.9 % Sodium Chloride Flush 3 Ml Syringe) 3 ml IVFLUSH QSHIFT [facility] Last Admin: 07/26/22 07:50 Dose: 3 ml Documented By: ANABELLA Labs CBC & Chem 7: 07/25/22 07:53 07/25/22 07:53 Labs: Laboratory Results - last 24 hr 07/25/22 07/25/22 07/26/22 16:01 20:26 07:20 POC Glucose 333 H 126 H 135 H 07/26/22 07/26/22 11:18 15:24 POC Glucose 414 H* 363 H* Microbiology Microbiology Results: Microbiology 07/24/22 Unknown Urine Culture - Final Urine clean catch - Urine deng top Escherichia coli Assessment and Plan (1) Recurrent UTI (urinary tract infection): Status: Acute Plan This is a 72 yo F with a history of chronic diarrhea who presents with acute nausea/vomiting and worsening diarrhea of [address] scan has shown ileus amongst other findings. She will be admitted for further care. Ileus, likely secondary to gastroenteritis clinically improving with no further episodes of vomiting reported advance diet to pureed and IVF d/c Abnormal CT scan possible pneumatosis seen + ? vesiculovaginal fistula General surg input appreciated seen by urology due to question of vesiculovaginal fistula - recommend outpatient follow up for cystoscopy UTI UA growing pansensitive E coli - continue IV ceftriaxone, plan to transition to po ceftin on discharge - follow final culture results Mild dehydration improved with IVF Uncontrolled DM with Hypoglycemia home levimir has been on hold, BS trending up; will resume 50% of home dose (converted to Lantus) and monitor BS closely continue SSI HTN uncontrolled continue lisinopril and metoprolol will add low dose norvasc and up titrate as needed CAD continue baseline meds History of seizure d/o seizure precautions keppra Full Code DVT pptx - add subcut lovenox Attending - Dr. Ortega requires continued hospitalization due to:close management of blood sugar, IV abx for UTI, safe dispo - PT rec STR Quality Stroke Does the patient have a stroke diagnosis?: No VTE Prior VTE?: No VTE Risk Level:: Medical - moderate - high VTE Device Contraindication: N/A - Device Ordered VTE Drug Contraindication: N/A - Med Ordered
[2022-07-26 20:16] LABS: Glucose, Whole Blood 132 mg/dL (60-115)
[2022-07-26] MEDS: Atorvastatin Calcium 40 MG TABLET PO (21:03)
[2022-07-26] MEDS: Latanoprost 0.005 % Ophth Sol 2.5 ML DROPS 1 DROP EYE-BOTH (21:05)
[2022-07-27 04:05] VITALS: BP 136/72; PULSE 84; RESP 18; TEMP 36.8; O2SAT 100
[2022-07-27] MEDS: Levothyroxine Sodium 125 MCG TABLET PO (05:14)
[2022-07-27] MEDS: Omeprazole 20 MG CAPSULE.DR PO (05:15)
[2022-07-27 07:45] VITALS: BP 129/61; PULSE 69; RESP 18; TEMP 36.9; O2SAT 100
[2022-07-27 07:47] LABS: Glucose, Whole Blood 76 mg/dL (60-115)
[2022-07-27] MEDS: levETIRAcetam 500 MG TABLET PO (07:51)
[2022-07-27] MEDS: Sertraline HCL 25 MG TABLET PO (07:51)
[2022-07-27] MEDS: Metoprolol Succinate ER 25 MG TAB.ER.24H PO (07:51)
[2022-07-27] MEDS: lisinopriL 20 MG TABLET PO (07:51)
[2022-07-27] MEDS: amLODIPine Besylate 2.5 MG TABLET PO (07:51)
[2022-07-27] MEDS: Aspirin Enteric Coated 81 MG TABLET.DR PO (07:52)
[2022-07-27] MEDS: 0.9 % Sodium Chloride Flush 3 ML SYRINGE IVFLUSH (07:56)
[2022-07-27 11:12] LABS: Glucose, Whole Blood 243 mg/dL (60-115)
[2022-07-27 11:52] VITALS: BP 154/60; PULSE 67; RESP 18; TEMP 36.8; O2SAT 100
[2022-07-27] MEDS: Insulin Lispro 100 UNIT/ML 3 ML VIAL SUBCUT (11:57)
[2022-07-27] MEDS: Enoxaparin Sodium 40 MG/0.4 ML SYRINGE SUBCUT (11:57)
[2022-07-27] MEDS: cefTRIAXone sodium 1 GM in 0.9 % Sodium Chloride 50 ML IV (11:58)
--- NOTE | 2022-07-27 14:54 | PM.DS ---
DS: Providers Provider Date of Service: 07/27/22 Date of admission: 07/23/22 09:06 Date of discharge: 07/27/22 Primary care physician: Edouard Amaro MD Consults: 07/23/22 09:06 Consult to General Surgery Routine Consulting Provider: Win Rodriguez Reason for consultation: ileus, abnormal CT reading (possible pneumatosis), clincal exam benign 07/24/22 08:15 Consult to Urology Routine Consulting Provider: Nikunj Paredes Reason for consultation: air in bladder / vagina -- question of vesicovaginal fistula Attending physician on discharge: [facility] [employer] Discharging clinician: Britta Ramachandran DS: Diagnosis Discharge Diagnosis (1) Recurrent UTI (urinary tract infection): Status: Acute (2) Pneumaturia: Status: Acute (3) Intractable vomiting: Status: Acute (4) Intractable diarrhea: Status: Acute (5) Hypoglycemia: Status: Acute (6) Ileus: Status: Acute DS: Summary Hospital Course Hospital Course: from H&P on day of admission This is a 72 yo F with a PMH as outlined below who presents to the ED with a 1 day history of nausea, vomiting and diarrhea. History is obtained from the ED charts and the patients sister, Araceli Garcia ([phone]). The patient was otherwise in her usual state of health when she had vomiting episodes (non-bloody with food particles) with her evening meal on the day prior to admission. There are no reports of abdominal pain, fevers or chills. Last antibiotic use was in March/April for UTI. The patient does have chronic diarrhea and due to both diarrhea/vomiting, her sister (with whom the patient lives with) became worried and brought her to the ED. Work up in the ED revealed an abnormal CT scan (see full reports). She was noted to be hypoglycemic. She was given an AMP of d50, started on IVF fluids and admission was requested. Pt is seen and examined in the ED, this AM around 845 AM. At this time, she denies any complaints and would like to eat. Ileus, likely secondary to gastroenteritis. clinically improving with no further episodes of vomiting reported. currently tolerating pureed diabetic diet without difficulty Abnormal CT scan possible pneumatosis seen + ? vesiculovaginal fistula. she was seen in consultation by General surgery, she had no abdominal distension or peritoneal signs. Abdominal exam continued to be unremarkable. No need for surgical intervention. She was seen by urology due to question of vesiculovaginal fistula who recommended outpatient follow up for cystoscopy UTI UA growing? pansensitive E coli. initially treated with IV ceftriaxone, plan to transition to po ceftin on discharge to complete 5 day course. Blood cultures have remained negative to date Mild dehydration improved with IVF Uncontrolled DM with Hypoglycemia. noted to be hypoglycemic on arrival. Long-acting insulin has been placed on hold. Would recommend continuing sliding scale and metformin. Monitor POC before meals and at bedtime and if blood sugar continues to be elevated would recommend resuming long-acting insulin at a lower dose and up titrating as needed. No further episodes of hypoglycemia during hospitalization HTN. With blood pressure was elevated. She was continued on her home dose of lisinopril and metoprolol. Low-dose Norvasc was added with improvement in her blood pressure. She was evaluated by Physical therapy who recommended short-term rehab. This was discussed with her sister who is in agreement with plan Time Spent with Patient Time attestation: Total time spent providing and/or coordinating discharge services: Discharge coordination time: Greater than 30 minutes Quality: Safe Use of Opioids Does Pt have an Active Cancer Diagnosis on the Problem List?: No Quality: Stroke Does the patient have a stroke diagnosis?: No Physical Exam Vital Signs: Vital Signs: Last Vital Signs Temp 98.3 F 07/27/22 11:52 Pulse 67 07/27/22 11:52 Resp 18 07/27/22 11:52 BP 154/60 H 07/27/22 11:52 Pulse Ox 100 07/27/22 11:52 O2 Del Method 07/27/22 11:52 BMI result Body Mass Index 31.8 Const: General: cooperative, alert and awake Nutritional Appearance: average body habitus Orientation/consciousness: oriented to person and oriented to place Resp: Effort & Inspection: normal respiratory effort and able to speak in complete sentences Auscultation: clear to auscultation bilaterally Cardio: Rate: regular rate Heart sounds: S1 normal heart sound present and S2 normal heart sound present GI: Inspection: No distended Palpation (GI): Soft to palpation and nontender Neuro: General: oriented to person and oriented to place Extrem: General: Yes no pedal edema DS: Data Data Completed and Pending Completed studies during hospitalization [Text1]: Procedures Insertion of Infusion Device into Left Subclavian Vein, Percutaneous Approach (12/11/21) Introduction of Vasopressor into Peripheral Artery, Percutaneous Approach (12/11/21) Labs on day of discharge: Laboratory Results - last 24 hr 07/26/22 07/26/22 07/27/22 15:24 19:54 07:44 POC Glucose 363 H* 132 H 76 07/27/22 11:01 POC Glucose 243 H Discharge Plan Discharge Patient Disposition: er [facility] Discharge Diagnosis: UTI ileus nausea and vomiting Referrals: [facility] [Outside] - 1 Week Edouard Amaro MD [Primary Care Provider] - 1 Week Eren Pratt MD [Physician] - 1 Week Discharge Medications: New amlodipine 2.5 mg Tablet 2.5 mg PO DAILY 30 Days Qty: 30 0RF Protocol: Hold for SBP< HOLD for SBP < : 90 cefuroxime axetil 250 mg tablet 250 mg PO BID 2 Days Qty: 4 0RF Continued lisinopril 20 mg tablet 20 mg PO BID Qty: 60 2RF levothyroxine 125 mcg tablet 125 mcg PO DAILY 90 Days Qty: 90 1RF omeprazole 20 mg capsule,delayed release(DR/EC) 20 mg PO DAILY 90 Days Qty: 90 1RF sertraline [Zoloft] 25 mg tablet 25 mg PO DAILY 90 Days Qty: 90 1RF metoprolol succinate 25 mg tablet extended release 24 hr 25 mg PO DAILY Qty: 30 6RF insulin aspart U-100 [Novolog U-100 Insulin aspart] 100 unit/mL Solution 1 sliding scale dose SUBCUT QIDACHS Protocol: Insulin Correction Scale Less than or equal to 110 ---- Give (units): 0 111 to 150 Give (units): 0 151 to 200 Give (units): 2 201 to 250 Give (units): 4 251 to 300 Give (units): 6 301 to 350 Give (units): 8 Greater than 350 Give (units): 10 Call MD if Blood Glucose > : 350 latanoprost 0.005 % drops 1 drp ophthalmic (eye) BEDTIME metformin 500 mg tablet 1 tab PO BIDWM sennosides [senna] 8.6 mg tablet 1 tab PO BEDTIME PRN (Reason: constipation) levetiracetam 500 mg tablet 1 tab PO BID cyanocobalamin (vitamin B-12) 1,000 mcg tablet 1 tab PO DAILY ferrous sulfate 325 mg (65 mg iron) tablet 1 tab PO BID cholecalciferol (vitamin D3) 25 mcg (1,000 unit) tablet 1 tab PO DAILY ascorbic acid (vitamin C) 500 mg tablet 500 mg PO BID aspirin 81 mg tablet,delayed release (DR/EC) 81 mg PO DAILY atorvastatin 40 mg tablet 40 mg PO BEDTIME Qty: 90 1RF Held Levemir U-100 Insulin 100 unit/mL solution 22 unit subcut DAILY Qty: 20 3RF Hold Instructions: follow POCs, if elevated resume at lower dose and up titrate as needed No Action (DME) walker Misc See Rx Instructions .ROUTE .MEDSUPPLY Qty: 1 0RF Rx Instructions: As directed (DME) Accu-Chek Carmen Plus test strp Strip See Rx Instructions .ROUTE .COMPLEX Qty: 400 3RF Dose Instruction: USE 1 STRIP FOUR TIMES A DAY FOR DIABETES MELLITUS Rx Instructions: USE 1 STRIP FOUR TIMES A DAY FOR DIABETES MELLITUS Discharge Orders: Discharge Order (Routine); Ordered 07/27/22 Ordered By: Britta Ramachandran Activity on Discharge: As tolerated Stand Alone Forms: Patient Portal Discharge page Care Plan Goals: see below Health Concerns: UTI intractable nausea, vomiting ileus hypoglycemia high blood pressure possible vesicovaginal fistula Plan of Treatment: for UTI -initially treated with IV ceftriaxone, has 2 more days of oral antibiotics to complete a total of 5 days blood pressure was elevated, Norvasc 2.5 mg daily was added with better blood pressure control nausea, vomiting, diarrhea, ileus has resolved. Tolerating diabetic diet hypoglycemia on arrival. Long-acting insulin was placed on hold. Continue metformin, continue sliding scale coverage and diabetic diet. If point of care blood sugars continued to be elevated would recommend resuming lower dose of long-acting insulin and gradually titrating up no seizure activity during hospitalization for possible vesicovaginal fistula - seen by urology - recommended outpatient follow up in office for cystoscopy - call to schedule follow-up appointment has been receiving pureed diet with honey thick liquids Assessment: see discharge summary Discharge Date/Time: 07/27/22 16:55
[2022-07-27 15:02] VITALS: BP 158/60; PULSE 65; RESP 18; TEMP 36.7; O2SAT 100
--- NOTE | 2022-07-27 15:07 | MHC.CM.PN ---
PT CLEARED TO DC TO STR TODAY CM CALLED PTS SISTER/HCP, ROSIO [phone] AND INFORMED HER OF INTENT TO DC SHE IS AWARE [facility] IS OFFERING A BED AND SAYS THAT IS THE PREFERRED FACILITY [facility] HAS AGREED TO ACCEPT PT THIS EVENING AT 1700 HOURS PENDING NEGATIVE COVID RESULTS TRANSPORTATION ARRANGED VIA [employer] [facility]
[2022-07-27 15:14] LABS: COVID-19 Test Negative (Negative); IDNOW Serial# 55D5AD1C
[2022-07-27 16:05] LABS: Glucose, Whole Blood 271 mg/dL (60-115)
== END 2022-07-27 16:55 | disposition skilled nursing facility (03) ==
LOC: HO.ED 07-23 01:12 → HO.EDOVER 07-23 09:27 → HO.S3 07-24 16:17
PROVIDERS: Admitting Provider Family Medicine; Emergency Provider Emergency Medicine; PCP Internal Medicine; Visit Provider Physician Assistant Medical
DX: N39.0 Urinary tract infection, site not specified (principal); B96.20 Unspecified Escherichia coli [E. coli] as the cause of diseases classified elsewhere; R39.89 Other symptoms and signs involving the genitourinary system; K56.7 Ileus, unspecified; R11.10 Vomiting, unspecified; R19.7 Diarrhea, unspecified; E11.649 Type 2 diabetes mellitus with hypoglycemia without coma; E86.0 Dehydration; Z20.822 Contact with and (suspected) exposure to COVID-19; F03.90 Unspecified dementia, unspecified severity, without behavioral disturbance, psychotic disturbance, mood disturbance, and anxiety; I10 Essential (primary) hypertension; R53.81 Other malaise; D50.9 Iron deficiency anemia, unspecified; E78.00 Pure hypercholesterolemia, unspecified; K21.9 Gastro-esophageal reflux disease without esophagitis; E53.8 Deficiency of other specified B group vitamins; E55.9 Vitamin D deficiency, unspecified; E66.3 Overweight; Z68.31 Body mass index [BMI] 31.0-31.9, adult; Z79.84 Long term (current) use of oral hypoglycemic drugs; Z79.82 Long term (current) use of aspirin; Z79.4 Long term (current) use of insulin; Z79.02 Long term (current) use of antithrombotics/antiplatelets; Z79.899 Other long term (current) drug therapy
CPT/HCPCS: 36415; 71045; 74176; 80048; 80076; 81001; 82947; 83605; 83690; 83880; 84484; 85025; 85027; 87086; 87088; 87186; 87635; 93005; 96361; 96365; 96366; 96367; 96372; 96374; 96375; 96376; 97162; 99218; 99285; J0696; J1650; J2405

== ENCOUNTER → 2022-08-06 09:12 | Outpatient (BNVA) | payer MEDICARE, MEDICAID, SELFPAY | PROVIDERS: PCP Internal Medicine; Visit Provider Urology | DX: R32 Unspecified urinary incontinence (principal); N39.0 Urinary tract infection, site not specified; R39.89 Other symptoms and signs involving the genitourinary system | CPT/HCPCS: 51798; 99202 ==

== ENCOUNTER 2022-08-12 06:46 | Day surgery (SDC) | payer MEDICARE, MEDICAID, SELFPAY ==
--- NOTE | 2022-08-11 09:29 | P.CONAN_ITS ---
Documented by User: Elham Dorado NP 08/11/22 10:08 HPI - Anesthesia Eval Consult details Narrative: 72yo F for Cystoscopy 11/2021 Demand related SC. Conservative care only per Cardiology Pt has dementia. Sister is HCP. [facility] Active Problems Active Problems: All Active Problems (Updated 08/06/22 @ 16:32 by Eren Pratt MD) Recurrent UTI (Acute) Pneumaturia (Acute) Recurrent UTI (urinary tract infection) (Acute) Seizure disorder (Acute) Diabetes mellitus (Acute) Hyperkalemia (Acute) Epilepsy (Acute) Physical deconditioning (Acute) LYNNE (acute kidney injury) (Acute) COVID-19 (Acute) Altered mental status (Acute) Hypothermia (Acute) Impacted cerumen of both ears (Acute) Overweight (BMI 25.0-29.9) (Acute) Constipation (Acute) Vitamin D deficiency (Acute) Vitamin B12 deficiency (Acute) GERD without esophagitis (Acute) Iron deficiency anemia (Acute) Abnormal nuclear stress test (Acute) Syncope (Acute) Past Medical History Medical History Acquired hypothyroidism Atherosclerotic cardiovascular disease Benign essential hypertension CAD (coronary artery disease) Constipation Dementia Diabetes mellitus Epilepsy GERD without esophagitis Hypertension Hypomagnesemia Hypothyroidism Iron deficiency anemia New onset seizure Orthostasis Overweight (BMI 25.0-29.9) Pure hypercholesterolemia Syncope Vitamin B12 deficiency Vitamin D deficiency Family History Family History Father Diabetes Hypertension Mother Hypertension Stroke Surgical History Surgical History History of ankle surgery History of hemiarthroplasty of left hip S/P KULDIP-BSO (total abdominal hysterectomy and bilateral salpingo-oophorectomy) Social History Social History Household Members: Family Housing: Apartment Do you presently have visiting nurse or other home services: No Alcohol intake: never Patient Tobacco Use Status: Never used Tobacco e-Cigarette/Vaping Use: Never Used Second Hand Smoke Exposure: No Use of substances other than those prescribed or required for medical reasons: No Are you DNR?: Yes Advance Directives: Yes Advance Directives Information Provided: Yes Advance Directives on File: Yes Advance Directives Date on File: 10/25/20 service: No Current occupational status: disabled Cognitive needs: Yes (walker, wheelchair) Hearing needs: No Vision needs: Yes Meds Allergies Allergy/AdvReac Type Severity Reaction Status Date / Time No Known Allergies Allergy Verified 07/22/22 19:12 Home Medications Medication Instructions Recorded Confirmed Last Taken Type cholecalciferol (vitamin D3) 25 1 tab PO DAILY 04/21/22 07/22/22 07/22/22 History mcg (1,000 unit) tablet cyanocobalamin (vitamin B-12) 1 tab PO DAILY 04/21/22 07/22/22 07/22/22 History 1,000 mcg tablet ferrous sulfate 325 mg (65 mg 1 tab PO BID 04/21/22 07/22/22 07/22/22 History iron) tablet latanoprost 0.005 % eye drops 1 drp ophthalmic (eye) BEDTIME 04/21/22 07/22/22 07/21/22 History levetiracetam 500 mg tablet 1 tab PO BID 04/21/22 07/22/22 07/22/22 History metformin 500 mg tablet 1 tab PO BIDWM 04/21/22 07/22/22 07/22/22 History sennosides 8.6 mg tablet (senna) 1 tab PO BEDTIME PRN constipation 04/21/22 07/22/22 Unknown History ascorbic acid (vitamin C) 500 mg 500 mg PO BID 06/12/22 07/22/22 07/22/22 History tablet aspirin 81 mg tablet,delayed 81 mg PO DAILY 06/12/22 07/22/22 07/22/22 History release insulin aspart U-100 100 unit/mL 1 sliding scale dose subcut QIDACHS 07/22/22 07/22/22 07/22/22 History subcutaneous solution (Novolog U-100 Insulin aspart) Exam Exam Date and Time: August 11, 2022928 Pertinent Lab Results Pertinent Lab Results: Laboratory Tests 07/25/22 07/25/22 07:53 07:53 WBC 4.0 L Hgb 9.1 L Hct 28.2 L Plt Count 184 Sodium 140 Potassium 4.4 Chloride 108 Carbon Dioxide 22 BUN 11 Creatinine 0.74 Narrative Narrative: EKG 06/2022 Vent. Rate : 059 BPM ? ? Atrial Rate : 059 BPM ?? P-R Int : 146 ms? QRS Dur : 108 ms ? ? QT Int : 430 ms ? ? ? P-R-T Axes : 058 036 025 degrees ?? QTc Int : 425 ms ? Sinus bradycardia Nonspecific ST abnormality Abnormal ECG When compared with ECG of 23-APR-2022 09:13, Vent. rate has decreased BY? [address] no longer depressed in Lateral leads Nonspecific T wave abnormality now evident in Lateral leads coronary CTA 2020 shows significant proximal circumflex stenosis; mild mixed plaque in the proximal to mid LAD; moderate stenosis in the distal RCA. Echocardiogram 2020 LVEF of 60-65% and otherwise unremarkable. Assessment and Plan Assessment Anesthesia Assessment: Chart Reviewed Documented by User: Aditi Solis MD 08/12/22 07:35 [facility] Past Medical History Medical History Acquired hypothyroidism Atherosclerotic cardiovascular disease Benign essential hypertension CAD (coronary artery disease) Constipation Dementia Diabetes mellitus Epilepsy GERD without esophagitis Hypertension Hypomagnesemia Hypothyroidism Iron deficiency anemia New onset seizure Orthostasis Overweight (BMI 25.0-29.9) Pure hypercholesterolemia Syncope Vitamin B12 deficiency Vitamin D deficiency Functional capacity: uses cane/walker Patient : No Family History Family History Father Diabetes Hypertension Mother Hypertension Stroke Family history of problems with anesthesia: No Surgical History Surgical History History of ankle surgery History of hemiarthroplasty of left hip S/P KULDIP-BSO (total abdominal hysterectomy and bilateral salpingo-oophorectomy) History of Problems with Anesthesia: No Social History Social History Household Members: Family Housing: Apartment Do you presently have visiting nurse or other home services: No Alcohol intake: never Patient Tobacco Use Status: Never used Tobacco e-Cigarette/Vaping Use: Never Used Second Hand Smoke Exposure: No Use of substances other than those prescribed or required for medical reasons: No Are you DNR?: Yes Advance Directives: Yes Advance Directives Information Provided: Yes Advance Directives on File: Yes Advance Directives Date on File: 10/25/20 service: No Current occupational status: disabled Cognitive needs: Yes (walker, wheelchair) Hearing needs: No Vision needs: Yes Meds Allergies Allergy/AdvReac Type Severity Reaction Status Date / Time No Known Allergies Allergy Verified 07/22/22 19:12 Home Medications Medication Instructions Recorded Confirmed Last Taken Type cholecalciferol (vitamin D3) 25 1 tab PO DAILY 04/21/22 07/22/22 07/22/22 History mcg (1,000 unit) tablet cyanocobalamin (vitamin B-12) 1 tab PO DAILY 04/21/22 07/22/22 07/22/22 History 1,000 mcg tablet ferrous sulfate 325 mg (65 mg 1 tab PO BID 04/21/22 07/22/22 07/22/22 History iron) tablet latanoprost 0.005 % eye drops 1 drp ophthalmic (eye) BEDTIME 04/21/22 07/22/22 07/21/22 History levetiracetam 500 mg tablet 1 tab PO BID 04/21/22 07/22/22 07/22/22 History metformin 500 mg tablet 1 tab PO BIDWM 04/21/22 07/22/22 07/22/22 History sennosides 8.6 mg tablet (senna) 1 tab PO BEDTIME PRN constipation 04/21/22 07/22/22 Unknown History ascorbic acid (vitamin C) 500 mg 500 mg PO BID 06/12/22 07/22/22 07/22/22 History tablet aspirin 81 mg tablet,delayed 81 mg PO DAILY 06/12/22 07/22/22 07/22/22 History release insulin aspart U-100 100 unit/mL 1 sliding scale dose subcut QIDACHS 07/22/22 07/22/22 07/22/22 History subcutaneous solution (Novolog U-100 Insulin aspart) Exam Airway Mallampati Class: III TM Dist: >3cm Denture: Upper and Lower Heart: RRR Lungs: CTA Assessment and Plan Final Anesthetic Review Family History of Problems with Anesthesia: No History of Problems with Anesthesia: No ASA Class: III Final Preanesthetic Review: No Changes in Pt Med Stat, Meds/Allgs Chart Reviewed, Consent Obtained/Reviewed and Anes Risks/Benef Reviewed Patient Risk: Intermediate Procedure Risk: Low Anesthetic Plan Anesthetic Plan: GA Disposition: Standard PACU
[2022-08-12] VITALS (8 sets, daily range): BP systolic 150–177; BP diastolic 51–68; PULSE 58–61; RESP 9–18; TEMP 36.1–36.3; O2SAT 100; BMI 22.3
--- NOTE | ~2022-08-12 | FL_ITS ---
EXAMINATION: XR FLUOROSCOPY WITH IMAGES CLINICAL INFORMATION: Assessment for bladder fistula. COMPARISON: AP abdomen and pelvis 07/22/2022 TECHNIQUE: Fluoroscopy performed by Dr. Pratt. Fluoroscopy time: 26 seconds. Cumulative Dose: 6.35 mGy. Images: 2. FINDINGS: There is contrast distending the urinary bladder. Armstrong catheter with balloon tip seen at bladder base. Subsequent image shows decompression with no visible fistula or extravasation of contrast. FL/FL guidance in OR IMPRESSION: Fluoroscopy for urologic procedure.
--- NOTE | 2022-08-12 07:25 | P.HPSUR_ITS ---
Pre-Procedural Eval Section A Date of Service: 08/12/22 The patient is an INPATIENT: No Section B Chief Complaint: Urinary tract infection, site not specified Allergies: Allergies Allergy/AdvReac Type Severity Reaction Status Date / Time No Known Allergies Allergy Verified 07/22/22 19:12 Plan I have reviewed the history and physical and performed a pertinent physical examination on my patient. No changes have occurred unless specified. Cary is a 72 yo female who is here for follow-up post recent hospital admission, 07/22/2022. She presented to the ED with a 1 day history of nausea, vomiting and diarrhea. The patient lives with her sister Araceli Garcia, who is also here today.? The patient's sister states that the patient has had?issues with diarrhea over the last few months and concomitant recurring bladder infections. The patient wears a diaper which is generally dry during the day with infrequent leakage accidents, but she wets at night time.? CoMorbidity- Diabetes, Dementia.? The patient was discharged to a half-way rehab for physical therapy. 07/22/2022- CT imaging -pertinent findings: kidneys WNL, air in bladder and vagina, artifact due to? hardware in hips limits pelvic evaluation on CT. ? Plan: Further evaluation of bladder with cystoscopy under anesthesia
[2022-08-12] MEDS: Lactated Ringers 1,000 ML 100 ML IVCONT (07:26)
[2022-08-12 07:28] LABS: Glucose, Whole Blood 345 mg/dL (60-115)
[2022-08-12] MEDS: Insulin Lispro 100 UNIT/ML 3 ML VIAL 6 UNIT SUBCUT ×2 (07:41→09:12)
--- NOTE | 2022-08-12 08:26 | P.OP_ITS ---
Operative Note Operative Note Date of Service: 08/12/22 Narrative: PREOP DIAGNOSIS: Recurrent UTI's, Pneumaturia, evaluate for vesicovaginal fistula POSTOP DIAGNOSIS: Recurrent UTI's, Pneumaturia, evaluate for vesicovaginal fistula PROCEDURE: CYSTOSCOPY, CYSTOGRAM, Examination under anesthesia Indications: Cary is a 72 yo female who is here for follow-up post recent hospital admission, 07/22/2022. She presented to the ED with a 1 day history of nausea, vomiting and diarrhea. The patient has had?issues with diarrhea over the last few months and concomitant recurring bladder infections. The patient wears a diaper which is generally dry during the day with infrequent leakage accidents, but she wets at night time.?CoMorbidity- Diabetes, Dementia.?07/22/2022- CT imaging -pertinent findings: kidneys WNL, air in bladder and vagina, artifact due to? hardware in hips limits pelvic evaluation on CT. ? Details of procedure: The patient was brought into the operating room placed on the OR table in supine position. 2 g of Ancef IV. General anesthesia was administered. The patient was repositioned into lithotomy position, prepped and draped in the usual sterile fashion. Time-out was done per protocol. Bimanual Vaginal exam, no vaginal bleeding identified, no vaginal induration noted. A 22 fr cystoscope was placed transurethrally into the bladder. The right and left ureteral orifices were visualized. The entire bladder was visualized. There were mild to moderate trabeculations visualized. There were no suspicious bladder lesions seen. The cystoscope was removed. A cystogram was then performed, a 20 Indonesian Armstrong catheter with 5 cc placed in the balloon was placed transurethrally. 500 cc of Saline mixed with contrast filled the bladder under gravity, fluoroscopy was used. The bladder was drained, there was no extravasation of the contrast noted. Cystogram findings no evidence of fistula identified. The Armstrong was removed. 2% lidocaine urojet was passed transurethrally into the bladder. The patient was brought out of anesthesia and taken to recovery in stable condition. Complications: None Drains: none
[2022-08-12 08:51] LABS: Glucose, Whole Blood 325 mg/dL (60-115)
[2022-08-12] MEDS: Lactated Ringers 1,000 ML 999 ML IV (09:17)
[2022-08-12 10:07] LABS: Glucose, Whole Blood 277 mg/dL (60-115)
--- NOTE | 2022-08-13 12:24 | ECG_ITS ---
Test Reason : Stroke Blood Pressure : / mmHG Vent. Rate : 067 BPM Atrial Rate : 067 BPM P-R Int : 184 ms QRS Dur : 094 ms QT Int : 386 ms P-R-T Axes : 080 048 042 degrees QTc Int : 407 ms Normal sinus rhythm Intra-ventricular conduction delay Otherwise normal ECG When compared with ECG of 22-JUL-2022 21:20, No significant change was found Referred By: Eren Pratt Electronically Signed By:JONEL SNOW MD
== END 2022-08-12 10:38 | disposition home or self-care (01) ==
PROVIDERS: PCP Internal Medicine; Visit Provider Urology
PROC: 0TJB8ZZ Inspection of Bladder, Via Natural or Artificial Opening Endoscopic (ICD-10-PCS; CPT 52000; principal; 2022-08-12 07:30)
DX: N39.0 Urinary tract infection, site not specified (principal); R39.89 Other symptoms and signs involving the genitourinary system; R32 Unspecified urinary incontinence; I10 Essential (primary) hypertension; E11.9 Type 2 diabetes mellitus without complications; F03.90 Unspecified dementia, unspecified severity, without behavioral disturbance, psychotic disturbance, mood disturbance, and anxiety; I25.10 Atherosclerotic heart disease of native coronary artery without angina pectoris; G40.909 Epilepsy, unspecified, not intractable, without status epilepticus; D50.9 Iron deficiency anemia, unspecified; Z79.4 Long term (current) use of insulin; Z79.82 Long term (current) use of aspirin; Z79.899 Other long term (current) drug therapy; Z96.642 Presence of left artificial hip joint; Z66 Do not resuscitate
CPT/HCPCS: 52000; 82947; 93005; J0690; J1100; J2250; J2405; J3010; Q9966

== ENCOUNTER 2022-08-13 10:36 | Inpatient (IN) | payer MEDICARE, MEDICAID, SELFPAY ==
[2022-08-13] VITALS (8 sets, daily range): BP systolic 124–193; BP diastolic 52–80; PULSE 60–80; RESP 11–16; TEMP 36.6–37; O2SAT 96–100; BMI 24.5
--- NOTE | ~2022-08-13 | MR_ITS ---
EXAMINATION: MRI BRAIN WITHOUT CONTRAST CLINICAL INFORMATION: Right facial droop. Right lower extremity weakness. Evaluate for stroke. COMPARISON: CT head 08/13/2022. TECHNIQUE: Multiplanar MR imaging of the brain was performed without contrast. FINDINGS: There is a questionable punctate focus of restricted diffusion involving the left cingulate gyrus best depicted on axial image 21 of 28 series 4. Otherwise no evidence of acute territorial infarct. There are chronic cerebellar infarcts and numerous foci of T2 FLAIR signal hyperintensity primarily involving the perivertebral white matter and radha that most likely represent a chronic manifestation of small vessel ischemia. No pathological magnetic susceptibility artifact. Intracranial vascular flow voids are maintained. There is no intracranial mass effect or midline shift. No abnormal extra-axial collection. Midline structures including the cervicomedullary junction are normal. No acute bone marrow signal changes. There is no mastoid middle ear effusion. No active paranasal sinus disease. Globes and orbits are symmetric. MR/MR head/brain wo con IMPRESSION: There is a questionable tiny acute cortical infarct involving the left cingulate gyrus. Otherwise no acute territorial infarct. There chronic cerebellar infarcts and numerous chronic small vessel ischemic changes throughout the periventricular white matter and radha with associated loss of parenchymal volume.
--- NOTE | ~2022-08-13 | US_ITS ---
EXAMINATION: US EXTRACRANIAL CAROTID DUPLEX, BILATERAL CLINICAL INFORMATION: Acute stroke COMPARISON: None TECHNIQUE: Real-time ultrasound and Doppler techniques (integrating B-mode 2-D vascular images, Doppler spectral analysis and color-flow Doppler imaging) were utilized to interrogate the extracranial carotid arteries, the vertebral arteries and proximal subclavian arteries bilaterally. The degree of stenosis is determined by criteria similar to NASCET. FINDINGS: Right Side: 1. There is no atherosclerotic plaque seen in the bifurcation/proximal ICA region. 2. The common carotid artery PSV proximally is 88 cm/s and distally 75 cm/s. 3. The proximal internal carotid artery velocities are 64 cm/s systolic and 11 cm/s diastolic. 4. The proximal external carotid artery PSV is 64 cm/s. 5. The vertebral artery shows antegrade flow. 6. The subclavian artery waveforms are normal. Left Side: 1. There is no atherosclerotic plaque seen in the bifurcation/proximal ICA region. 2. The common carotid artery PSV proximally is 100 cm/s and distally 79 cm/s. 3. The proximal internal carotid artery velocities are 73 cm/s systolic and 10 cm/s diastolic. 4. The proximal external carotid artery PSV is 83 cm/s. 5. The vertebral artery shows antegrade flow. 6. The subclavian artery waveforms are normal. US/US carotid duplex BI IMPRESSION: 1. RIGHT: Normal right internal carotid artery without atherosclerotic plaque or hemodynamically significant stenosis. 2. LEFT: Normal left internal carotid artery without atherosclerotic plaque or hemodynamically significant stenosis.
--- NOTE | ~2022-08-13 | CT_ITS ---
EXAMINATION: CT HEAD WITHOUT CONTRAST (STROKE PROTOCOL) CLINICAL INFORMATION: Stroke protocol. Right facial droop, slurred speech COMPARISON: MRI brain 12/12/2021 TECHNIQUE: Contiguous axial imaging was performed from the skull base to vertex without intravenous administration of contrast. This CT examination was performed using dose optimization techniques as appropriate, variously including the following: *Automated exposure control *Adjustment of mA and/or kV according to patient size (this includes techniques or standardized protocols for targeted exams where dose is matched to indication/reason for exam; i.e. extremities or head) *Use of iterative reconstruction technique DLP: 184 mGy-cm FINDINGS: There is no acute intra-axial, extra-axial bleed, masses, collection midline shift. There is no acute infarction in evolution. There are small bilateral old cerebellar infarcts. The deng to white matter differentiation is maintained normal. The lateral ventricles are symmetrical but moderately enlarged in size. There is diffuse periventricular hypodensity in both cerebral hemispheres suggestive of chronic small vessel ischemic changes. Bone windows reveal no calvarial abnormality. Bilateral paranasal sinuses and mastoid air cells are well-aerated. No scalp soft tissue abnormality seen either. CT/CT head for stroke IMPRESSION: No acute intracranial process seen. Age-related cerebral volume loss with chronic small vessel ischemic disease. Bilateral small old cerebral infarcts. This critical result was discussed with Dr. Kristofer Ramirez at 1051 a.M. on 1018. It was ascertained that the content and urgency of the report was understood at the time of direct communication.
[2022-08-13 10:55] LABS: Prothrombin Time Whole Bld POC 11.4 sec (11.1-13.5); ~PT, ~INR - Anti Coag Clinic 0.9 (0.9-1.1)
[2022-08-13 10:56] LABS: Glucose, Whole Blood 400 mg/dL (60-115)
--- NOTE | 2022-08-13 10:58 | PHA.MEDREC ---
Pharmacy Consult ? Medication Reconciliation Pharmacy has completed the medication reconciliation. Patient came from SNF with medicaiton list. Senait Davis, MaryD
--- NOTE | 2022-08-13 11:07 | ED_ITS ---
HPI - Altered Mental Status General Chief Complaint: Stroke Stated Complaint: STROKE ALERT,SLURR, LKWT 10AM WHILE DOING PT @ SNF Time Seen by Provider: 08/13/22 10:40 Source: patient and EMS Mode of arrival: EMS Limitations: no limitations History of Present Illness HPI narrative: 72-year-old female who is brought to the emergency department as a potential stroke alert. The information came from the paramedics. The patient was getting physical therapy when she had a sudden change in mental status. Her speech was slurred. She developed a right facial droop. The paramedics state that her speech return to normal. They also state that the right facial droop seemed to improve as well. Patient's point of care glucose earlier and the day was 584 and the patient was given an extra 20 units of Humalog +her regular dose of Levemir. Patient's point of care glucose in the emergency department was 400. I evaluated the patient on the adhesive bandage machine operator stretcher. She was oriented to person and place. She can not identify objects. Her speech sounded normal. She does have a slight right facial droop and is able to wrinkle her forehead without any difficulty bilaterally. She has good symmetric upper extremity strength. She is able to lift both lower extremities against gravity but the right lower extremity appears to be weaker than the left. Patient was transferred immediately from the adhesive bandage machine operator stretcher to the CT scan. I received a verbal radiology report regarding the patient's CT scan brain witho ut contrast at 10:[address] 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 Patient was here at the hospital on 08/12/2022 for elective cystoscopy for recurrent urinary tract infections and to rule out to rule out a vesicovaginal fistula. The cystoscopy was negative Related Data Home Medications Medication Instructions Recorded Confirmed cholecalciferol (vitamin D3) 25 1 tab PO DAILY 04/21/22 08/13/22 mcg (1,000 unit) tablet cyanocobalamin (vitamin B-12) 1 tab PO DAILY 04/21/22 08/13/22 1,000 mcg tablet ferrous sulfate 325 mg (65 mg 1 tab PO BID 04/21/22 08/13/22 iron) tablet latanoprost 0.005 % eye drops 1 drp ophthalmic (eye) BEDTIME 04/21/22 08/13/22 levetiracetam 500 mg tablet 1 tab PO BID 04/21/22 08/13/22 metformin 500 mg tablet 1 tab PO BIDWM 04/21/22 08/13/22 sennosides 8.6 mg tablet (senna) 1 tab PO BEDTIME PRN constipation 04/21/22 08/13/22 ascorbic acid (vitamin C) 500 mg 500 mg PO BID 06/12/22 08/13/22 tablet aspirin 81 mg tablet,delayed 81 mg PO DAILY 06/12/22 08/13/22 release insulin aspart U-100 100 unit/mL 1 sliding scale dose subcut QIDACHS 07/22/22 08/13/22 subcutaneous solution (Novolog U-100 Insulin aspart) Previous Rx's Medication Instructions Recorded walker #1 ea 02/28/21 atorvastatin 40 mg tablet 40 mg PO BEDTIME #90 tabs 06/12/22 lisinopril 20 mg tablet 20 mg PO BID #60 tabs 06/13/22 blood sugar diagnostic (Accu-Chek #400 strips 06/23/22 Carmen Plus test strips) levothyroxine 125 mcg tablet 125 mcg PO DAILY 90 days #90 tabs 06/27/22 omeprazole 20 mg capsule,delayed 20 mg PO DAILY 90 days #90 caps 07/03/22 release sertraline 25 mg tablet (Zoloft) 25 mg PO DAILY 90 days #90 tabs 07/03/22 metoprolol succinate 25 mg 25 mg PO DAILY #30 tabs 07/21/22 tablet,extended release 24 hr amlodipine 2.5 mg tablet 2.5 mg PO DAILY 30 days #30 tabs 07/27/22 Allergies Allergy/AdvReac Type Severity Reaction Status Date / Time No Known Allergies Allergy Verified 07/22/22 19:12 Review of Systems Review of Systems: Yes all other systems are reviewed and are negative [facility] Past Medical History [facility] Narrative: Social history: Patient is in a long-term care facility, she denies tobacco, alcohol and drug use. Medical History Acquired hypothyroidism Atherosclerotic cardiovascular disease Benign essential hypertension CAD (coronary artery disease) Constipation Dementia Diabetes mellitus Epilepsy GERD without esophagitis Hypertension Hypomagnesemia Hypothyroidism Iron deficiency anemia New onset seizure Orthostasis Overweight (BMI 25.0-29.9) Pure hypercholesterolemia Syncope Vitamin B12 deficiency Vitamin D deficiency Surgical History History of ankle surgery History of hemiarthroplasty of left hip S/P [id number] (total abdominal hysterectomy and bilateral salpingo-oophorectomy) Family History Family History Father Diabetes Hypertension Mother Hypertension Stroke Social History Social History Household Members: Family Housing: Apartment Do you presently have visiting nurse or other home services: No Alcohol intake: never Patient Tobacco Use Status: Never used Tobacco Smoked in Last 30 Days: No e-Cigarette/Vaping Use: Never Used Second Hand Smoke Exposure: No Use of substances other than those prescribed or required for medical reasons: No Advance Directives: Yes Advance Directives on File: Yes Advance Directives Date on File: 10/25/20 service: No Current occupational status: disabled Cognitive needs: Yes (walker, wheelchair) Hearing needs: No Vision needs: Yes Physical Exam ED Vital Signs: Vital Signs - 24 hr 08/13/22 11:06 08/13/22 13:46 Temperature 97.8 F 98.1 F Pulse Rate 73 67 Respiratory Rate 14 11 L Blood Pressure 124/53 L 166/52 H Pulse Oximetry 100 100 Oxygen Delivery Method Room Air Room Air BMI result Body Mass Index 24.5 Const Other: Awake, alert, female patient oriented to person and place, patient's speech is normal, she does not appear to be in distress [facility] Head: Yes normal to inspection, Yes normocephalic and Yes atraumatic Ears: external ears normal General nose exam: Normal external nose present Face and sinus: Yes normal facial exam Mouth: Normal oral and palatal mucosa present Throat: Yes posterior oropharynx normal Eyes General: appearance normal, both eyes and all related structures Neck Neck: Yes normal visual inspection, Yes no lymphadenopathy, Yes trachea midline and Yes supple Chest Chest palpation & inspection: normal inspection of the chest and normal palpation of entire chest wall Resp Effort & Inspection: normal respiratory effort and able to speak in complete sentences Auscultation: clear to auscultation bilaterally Cardio Rate: regular rate Rhythm: regular rhythm Heart sounds: S1 normal heart sound present, S2 normal heart sound present and no murmurs GI Inspection: Yes normal to inspection Palpation (GI): Soft to palpation, nontender and no guarding Auscultation: normal bowel sounds General: Yes no CVA tenderness Back/Spine/Pelvis Back: no CVA tenderness Skin General skin exam: no rashes or lesions noted Neuro Other: Patient is awake, alert, oriented to person, she knows that she is a hospital, she was able to identify objects. Cranial nerves 2-12 revealed a right facial droop, patient is able to move her right lip but not as well as on the left, she is able to wrinkle her forehead bilaterally without any difficulty. The patient's upper extremity strength is symmetric, she is able to hold her arms up against gravity. Patient is able to lift her left lower extremity up against gravity but quickly drops of back to the bed, she is able to minimally left the right lower extremity against gravity. She is able to easily move her left leg from side to side but has difficulty moving her right leg from side to side. Extrem General: Yes normal to inspection Psych Appearance: grossly normal Speech and movement: Normal speech and movement present Affect: normal affect Attitude: cooperative NIH Stroke Scale Internal: Initial- Upon Arrival Level of Consciousness: Alert Level of Consciousness Questions: Answers both questions correctly Level of Consciousness Commands: Performs both tasks correctly Best Gaze: Normal Visual: No visual loss Facial Palsy: Minor paralyis (Right) Motor Arm (Right): No drift Motor Arm (Left): No drift Motor Leg (Right): Some effort against gravity Motor Leg (Left): No drift Limb Ataxia: Absent Sensory: Normal Best Language: No aphasia Dysarthia: Normal Extinction and Inattention: No abnormality Score: 3 Course Course Course Narrative: 72-year-old female who presents emergency department for evaluation of sudden altered mental status with aphasia, right facial droop and weakness with last w ell-known time at 09:50 hours. Paramedics state that the patient was initially aphasic with a significant right facial droop but her symptoms have improved during transport to the point where her speech is now normal. On my examination the patient does have a slight right facial droop compared to the left and has generalized weakness which is symmetric in the upper extremities with increased weakness in her right lower extremity compared to the left. The CT scan of the patient's brain revealed no acute findings/bleed. The patient's NIHSS stroke scale was 3. I did this patient with the marketing coordinator and we will obtain an emergent MRI to try to determine if the patient has had acute stroke. 1319: MRI brain revealed a questionable tiny acute cortical infarct involving the left cingulate gyrus. I did discuss this finding with Dr. Flower. Given the patient's low NIH stroke score, the small size of this possible stroke seen on MRI and the fact that the patient is improving, we both felt that the patient was not a tPA candidate. 1539: Laboratory evaluation: Normocytic anemia with an H&H of 9.3 and 28.5 with an MCV of 89.3. Patient has had similar anemia in the past. PT/INR, PTT normal. Glucose elevated 457. Patient's elevated glucose was treated regular insulin 5 units IV and normal saline x1 L, patient has not completed her normal saline bolus yet. Repeat poi nt of care glucose was 350 therefore she was ordered to get a 2nd dose of insulin 5 units IV. The patient may have had a small stroke based on the MRI brain, I will discuss admission with the covering hospitalist. MDM - Altered Mental Status Medical Records Attestation: I reviewed the patient's medical records. Lab Data Attestation: I reviewed the patient's lab results. Result diagrams: 08/13/22 12:56 08/13/22 12:56 Labs: Lab Results 08/13/22 08/13/22 08/13/22 Range/Units 10:51 10:51 12:56 WBC 4.6 L (4.8-10.8) X10*3/uL RBC 3.19 L (4.20-5.50) X10*6/uL Hgb 9.3 L (12.0-16.0) g/dl Hct 28.5 L (37.0-47.0) % MCV 89.3 (80.0-98.0) fL MCH 29.2 (27.0-33.0) pg MCHC 32.6 (31.0-35.0) g/dl RDW 13.8 (11.0-16.0) % Plt Count 287 D (160-400) X10*3/uL MPV 10.5 (9.4-12.3) fL Immature Gran % (Auto) 0.4 (0.0-0.4) % Neut % (Auto) 61.4 (45-73) % Lymph % (Auto) 29.0 (20-40) % [place] % (Auto) 8.4 (2-11) % Eos % (Auto) 0.6 (0-4) % Baso % (Auto) 0.2 (0-2) % Lymph # (Auto) 1.3 (1.2-4.9) X10*3/uL [place] # (Auto) 0.4 (0.1-1.2) X10*3/uL Eos # (Auto) 0.0 (0.0-0.4) X10*3/uL Baso # (Auto) 0.0 (0.0-0.2) X10*3/uL Abs Immat Gran (auto) 0.02 (0.00-0.03) X10*3/uL Absolute Neuts (auto) 2.8 (2.0-8.3) x10*3/uL Absolute Nucleated RBC 0.000 (0.0-0.012) X10*3/uL Nucleated RBC % (auto) 0.0 (0.0-0.2) /100WBC PT (10.0-13.1) SEC Whole Blood PT 11.4 (11.1-13.5) sec INR (0.9-1.1) Whole Blood INR 0.9 (0.9-1.1) APTT (26.0-36.4) SEC Sodium (135-145) mmol/L Potassium (3.3-5.1) mmol/L Chloride (96-108) mmol/L Carbon Dioxide (22-29) mmol/L Anion Gap (12-20) BUN (9-16) mg/dL Creatinine (0.5-1.4) mg/dL Estim Creat Clear Calc Estimated GFR POC Glucose 400 H* (60-115) mg/dL Random Glucose (60-115) mg/dL Calcium (8.4-10.2) mg/dL Total Bilirubin (0.0-1.0) mg/dL Direct Bilirubin (0.0-0.5) mg/dL AST (5-31) U/L ALT (0-31) U/L Alkaline Phosphatase (39-117) U/L Total Creatine Kinase (26-140) U/L Troponin I High Sens (<3.5-17.0) ng/L Total Protein (6.5-8.0) g/dL Albumin (3.5-5.0) g/dL 08/13/22 08/13/22 08/13/22 Range/Units 12:56 12:56 12:56 WBC (4.8-10.8) X10*3/uL RBC (4.20-5.50) X10*6/uL Hgb (12.0-16.0) g/dl Hct (37.0-47.0) % MCV (80.0-98.0) fL MCH (27.0-33.0) pg MCHC (31.0-35.0) g/dl RDW (11.0-16.0) % Plt Count (160-400) X10*3/uL MPV (9.4-12.3) fL Immature Gran % (Auto) (0.0-0.4) % Neut % (Auto) (45-73) % Lymph % (Auto) (20-40) % [place] % (Auto) (2-11) % Eos % (Auto) (0-4) % Baso % (Auto) (0-2) % Lymph # (Auto) (1.2-4.9) X10*3/uL [place] # (Auto) (0.1-1.2) X10*3/uL Eos # (Auto) (0.0-0.4) X10*3/uL Baso # (Auto) (0.0-0.2) X10*3/uL Abs Immat Gran (auto) (0.00-0.03) X10*3/uL Absolute Neuts (auto) (2.0-8.3) x10*3/uL Absolute Nucleated RBC (0.0-0.012) X10*3/uL Nucleated RBC % (auto) (0.0-0.2) /100WBC PT 10.8 (10.0-13.1) SEC Whole Blood PT (11.1-13.5) sec INR 0.9 (0.9-1.1) Whole Blood INR (0.9-1.1) APTT 27.5 (26.0-36.4) SEC Sodium 136 (135-145) mmol/L Potassium 5.1 (3.3-5.1) mmol/L Chloride 99 (96-108) mmol/L Carbon Dioxide 26 (22-29) mmol/L Anion Gap 16 (12-20) BUN 17 H D (9-16) mg/dL Creatinine 1.02 (0.5-1.4) mg/dL Estim Creat Clear Calc 51.3 Estimated GFR 53 POC Glucose (60-115) mg/dL Random Glucose 457 H* (60-115) mg/dL Calcium 8.9 (8.4-10.2) mg/dL Total Bilirubin 0.3 (0.0-1.0) mg/dL Direct Bilirubin < 0.2 (0.0-0.5) mg/dL AST 13 D (5-31) U/L ALT 15 (0-31) U/L Alkaline Phosphatase 155 H (39-117) U/L Total Creatine Kinase 134 D (26-140) U/L Troponin I High Sens < 3.5 (<3.5-17.0) ng/L Total Protein 6.7 (6.5-8.0) g/dL Albumin 3.5 (3.5-5.0) g/dL 08/13/22 08/13/22 Range/Units 13:41 15:24 WBC (4.8-10.8) X10*3/uL RBC (4.20-5.50) X10*6/uL Hgb (12.0-16.0) g/dl Hct (37.0-47.0) % MCV (80.0-98.0) fL MCH (27.0-33.0) pg MCHC (31.0-35.0) g/dl RDW (11.0-16.0) % Plt Count (160-400) X10*3/uL MPV (9.4-12.3) fL Immature Gran % (Auto) (0.0-0.4) % Neut % (Auto) (45-73) % Lymph % (Auto) (20-40) % [place] % (Auto) (2-11) % Eos % (Auto) (0-4) % Baso % (Auto) (0-2) % Lymph # (Auto) (1.2-4.9) X10*3/uL [place] # (Auto) (0.1-1.2) X10*3/uL Eos # (Auto) (0.0-0.4) X10*3/uL Baso # (Auto) (0.0-0.2) X10*3/uL Abs Immat Gran (auto) (0.00-0.03) X10*3/uL Absolute Neuts (auto) (2.0-8.3) x10*3/uL Absolute Nucleated RBC (0.0-0.012) X10*3/uL Nucleated RBC % (auto) (0.0-0.2) /100WBC PT (10.0-13.1) SEC Whole Blood PT (11.1-13.5) sec INR (0.9-1.1) Whole Blood INR (0.9-1.1) APTT (26.0-36.4) SEC Sodium (135-145) mmol/L Potassium (3.3-5.1) mmol/L Chloride (96-108) mmol/L Carbon Dioxide (22-29) mmol/L Anion Gap (12-20) BUN (9-16) mg/dL Creatinine (0.5-1.4) mg/dL Estim Creat Clear Calc Estimated GFR POC Glucose 395 H* 350 H* (60-115) mg/dL Random Glucose (60-115) mg/dL Calcium (8.4-10.2) mg/dL Total Bilirubin (0.0-1.0) mg/dL Direct Bilirubin (0.0-0.5) mg/dL AST (5-31) U/L ALT (0-31) U/L Alkaline Phosphatase (39-117) U/L Total Creatine Kinase (26-140) U/L Troponin I High Sens (<3.5-17.0) ng/L Total Protein (6.5-8.0) g/dL Albumin (3.5-5.0) g/dL ECG Data ECG #1: Attestation: I personally reviewed and interpreted this ECG as follows: Interpretation: 1224: Normal sinus rhythm rate of 67, normal GA interval, QRS duration, QTC interval, no ST segment elevation, no ST segment depression, no significant T- wave abnormalities, no PACs, no PVCs. This is a normal EKG. Critical Care Time Critical Care Time Critical Care Time: Yes Total Critical Care Time: 45 Attestation: Critical Care: The patient was critically ill with a high probability of imminent or life threatening deterioration. I spent greater than 30 minutes of discontinuous time evaluating the patient,delivering critical care at the bedside, discussing and evaluating pertinent data with consultants. Critical care time does not include time spent performing separately billable procedures or teaching. Total time spent performing critical care was 45 minutes. Discharge Plan Discharge Clinical Impression: Stroke, Acute hyperglycemia Prescriptions: No Action (DME) walker [facility] [place] See Rx Instructions .ROUTE .MEDSUPPLY Qty: 1 0RF Rx Instructions: As directed lisinopril 20 mg tablet 20 mg PO BID Qty: 60 2RF (DME) Accu-Chek Carmen Plus test strp Strip See Rx Instructions .ROUTE .COMPLEX Qty: 400 3RF Dose Instruction: USE 1 STRIP FOUR TIMES A DAY FOR DIABETES MELLITUS Rx Instructions: USE 1 STRIP FOUR TIMES A DAY FOR DIABETES MELLITUS levothyroxine 125 mcg tablet 125 mcg PO DAILY 90 Days Qty: 90 1RF omeprazole 20 mg capsule,delayed release(DR/EC) 20 mg PO DAILY 90 Days Qty: 90 1RF sertraline [Zoloft] 25 mg tablet 25 mg PO DAILY 90 Days Qty: 90 1RF metoprolol succinate 25 mg tablet extended release 24 hr 25 mg PO DAILY Qty: 30 6RF insulin aspart U-100 [Novolog U-100 Insulin aspart] 100 unit/mL Solution 1 sliding scale dose SUBCUT QIDACHS Protocol: Insulin Correction Scale Less than or equal to 110 ---- Give (units): 0 111 to 150 Give (units): 0 151 to 200 Give (units): 2 201 to 250 Give (units): 4 251 to 300 Give (units): 6 301 to 350 Give (units): 8 Greater than 350 Give (units): 10 Call MD if Blood Glucose > : 350 amlodipine 2.5 mg Tablet 2.5 mg PO DAILY 30 Days Qty: 30 0RF Protocol: Hold for SBP< HOLD for SBP < : 90 latanoprost 0.005 % drops 1 drp ophthalmic (eye) BEDTIME metformin 500 mg tablet 1 tab PO BIDWM sennosides [senna] 8.6 mg tablet 1 tab PO BEDTIME PRN (Reason: constipation) levetiracetam 500 mg tablet 1 tab PO BID cyanocobalamin (vitamin B-12) 1,000 mcg tablet 1 tab PO DAILY ferrous sulfate 325 mg (65 mg iron) tablet 1 tab PO BID cholecalciferol (vitamin D3) 25 mcg (1,000 unit) tablet 1 tab PO DAILY ascorbic acid (vitamin C) 500 mg tablet 500 mg PO BID aspirin 81 mg tablet,delayed release (DR/EC) 81 mg PO DAILY atorvastatin 40 mg tablet 40 mg PO BEDTIME Qty: 90 1RF
[2022-08-13 13:02] LABS: MANUAL DIFF FLAG NO
[2022-08-13 13:03] LABS: Basophils Percent Auto 0.2 % (0-2); Eosinophils Percent Auto 0.6 % (0-4); Hematocrit 28.5 % (37.0-47.0); Hemoglobin 9.3 g/dl (12.0-16.0); Imm Gran Abs Auto 0.02 X10*3/uL (0.00-0.03); Imm Gran Pct Auto 0.4 % (0.0-0.4); Lymphocytes Absolute Auto 1.3 X10*3/uL (1.2-4.9); Mean Corpuscular HGB Conc 32.6 g/dl (31.0-35.0); Mean Corpuscular Hemoglobin 29.2 pg (27.0-33.0); Mean Corpuscular Volume 89.3 fL (80.0-98.0); Mean Platelet Volume 10.5 fL (9.4-12.3); Monocytes Absolute Auto 0.4 X10*3/uL (0.1-1.2); Monocytes Percent Auto 8.4 % (2-11); Neutrophils Absolute Auto 2.8 x10*3/uL (2.0-8.3); Neutrophils Percent Auto 61.4 % (45-73); Platelet Count 287 X10*3/uL (160-400); Red Blood Count 3.19 X10*6/uL (4.20-5.50); Red Cell Distribution Width 13.8 % (11.0-16.0); White Blood Count 4.6 X10*3/uL (4.8-10.8)
[2022-08-13 13:08] LABS: INTERNATIONAL NORM RATIO 0.9 (0.9-1.1); Prothrombin Time 10.8 SEC (10.0-13.1)
[2022-08-13 13:11] LABS: Partial Thromboplastin Time 27.5 SEC (26.0-36.4); Stroke Lab Use COMPLETE
[2022-08-13 13:23] LABS: Alanine Aminotransferase 15 U/L (0-31); Albumin Level 3.5 g/dL (3.5-5.0); Alkaline Phosphatase 155 U/L (39-117); Anion Gap 16 (12-20); Aspartate Amino Transferase 13 U/L (5-31); Bilirubin Direct < 0.2 mg/dL (0.0-0.5); Bilirubin Total 0.3 mg/dL (0.0-1.0); Blood Urea Nitrogen 17 mg/dL (9-16); Calcium 8.9 mg/dL (8.4-10.2); Carbon Dioxide 26 mmol/L (22-29); Chloride 99 mmol/L (96-108); Creatinine Clr Calc Pharmacy 51.3; Estimated Glomerular Filt Rate 53; Glucose Random 457 mg/dL (60-115); Potassium 5.1 mmol/L (3.3-5.1); Sodium 136 mmol/L (135-145); Total Protein 6.7 g/dL (6.5-8.0); Troponin-I High Sensitivity < 3.5 ng/L (<3.5-17.0)
[2022-08-13 13:46] LABS: Glucose, Whole Blood 395 mg/dL (60-115)
[2022-08-13] MEDS: Insulin Regular, Human 100 UNIT/ML 3 ML VIAL IVPUSH ×2 (14:16→15:57)
[2022-08-13] MEDS: 0.9 % Sodium Chloride 1,000 ML 999 ML IV (14:17)
--- NOTE | 2022-08-13 15:07 | MHC.STROKE ---
Addendum entered by Heidy Alva RN 08/14/22 15:27: I MET WITH THE PATIENT TODAY, SHE IS RETURNING TO REHAB TODAY. SHE REQUIRED TWO ASSIST THERE AND WILL MAINTAIN CURRENT THERAPY, I DID REINFORCE THE STROKE EDUCATION. Original Note: 1031 EMS NOE STROKE ALERT CALLED IN, ARRIVED AT 1036, EXAMINED BY PROVIDER, ONSET OF SYMPTOMS 10:00 WHILE AT SNF DOING PT. NIHSS = 3 RIGHT LEG AND FACE, DIRECT TO CT, NO BLEED, CASE DISCUSSED WITH DR. CARD, POC 400, RANDOM GLUCOSE 457, IT WAS GREATER THAN 500 AT SNF TODAY THIRD OFFICER. [place] [facility] [place] [facility] [place]. I ACCOMPANIED PATIENT TO MRI AND IT WAS DONE AT 1156, + VERY SMALL LEFT CORTICAL ISCHEMIC STROKE. DR CARD REVIEWED THE MRI AND DECIDED ON NO TPA BASED ON HER LOW NIHSS, SIZE OF THE STROKE, AND ELEVATED BS. THE PATIENT'S SISTER WAS IN THE ROOM WHEN WE RETURNED, I EXPLAINED THE MRI RESULTS, PROVIDED STROKE EDUCATION, REVIEWED THE PLAN OF CARE. I ANSWERED ALL OF THEIR QUESTIONS. SHE IS ON DAILY ASPIRIN, PLEASE CONTINUE, MANAGE BLOOD SUGARS, FOLLOW STROKE ORDER SET.
[2022-08-13 15:29] LABS: Glucose, Whole Blood 350 mg/dL (60-115)
--- NOTE | 2022-08-13 16:12 | PC.NURSE ---
PATIENT WAS INCONIENT OF URINE ,BOB CARE GIVEN BEDDING CHANGE ,PATIENT RESTING .
[2022-08-13 16:21] LABS: COVID-19 Test Negative (Negative); IDNOW Serial# 9DB6401D; Influenza A Negative (Negative); Influenza B2 Negative (Negative)
--- NOTE | 2022-08-13 16:47 | PM.NEUROCN ---
History of Present Illness Data of Consult Service Date: 08/13/22 Primary Care Provider: Ronnie Sanchez MD [facility] Reason for consult: Change in mental status 72 years old woman with diabetes was noted to have sudden change in mental status with facial droop and brought to emergency room. Her facial droop improved and she was not considered a candidate for acute stroke treatment. After that her clinical situation also somewhat improved but she had an MRI of brain done that revealed a possible acute ischemic infarct. When I saw her she was comfortable smiling and talking without any distress or difficulty. Review of Systems Review of Systems: No recent seizure. PMFSH Past Medical History Medical History Acquired hypothyroidism Atherosclerotic cardiovascular disease Benign essential hypertension CAD (coronary artery disease) Constipation Dementia Diabetes mellitus Epilepsy GERD without esophagitis Hypertension Hypomagnesemia Hypothyroidism Iron deficiency anemia New onset seizure Orthostasis Overweight (BMI 25.0-29.9) Pure hypercholesterolemia Syncope Vitamin B12 deficiency Vitamin D deficiency Family History Family History Father Diabetes Hypertension Mother Hypertension Stroke Surgical History Surgical History History of ankle surgery History of hemiarthroplasty of left hip S/P [id number] (total abdominal hysterectomy and bilateral salpingo-oophorectomy) Social History Social History Household Members: Family Housing: Apartment Do you presently have visiting nurse or other home services: No Alcohol intake: never Patient Tobacco Use Status: Never used Tobacco Smoked in Last 30 Days: No e-Cigarette/Vaping Use: Never Used Second Hand Smoke Exposure: No Use of substances other than those prescribed or required for medical reasons: No Advance Directives: Yes Advance Directives on File: Yes Advance Directives Date on File: 10/25/20 service: No Current occupational status: disabled Cognitive needs: Yes (walker, wheelchair) Hearing needs: No Vision needs: Yes Meds Allergies Allergy/AdvReac Type Severity Reaction Status Date / Time No Known Allergies Allergy Verified 07/22/22 19:12 Active Medications: Current Medications Pharmacy Consult (Consult Rx Perform Med Rec) 1 each MISCELLANE ONCE PRN PRN Reason: Consult order Home Medications Medication Instructions Recorded Confirmed Last Taken Type cholecalciferol (vitamin D3) 25 1 tab PO DAILY 04/21/22 08/13/22 07/22/22 History mcg (1,000 unit) tablet cyanocobalamin (vitamin B-12) 1 tab PO DAILY 04/21/22 08/13/22 07/22/22 History 1,000 mcg tablet ferrous sulfate 325 mg (65 mg 1 tab PO BID 04/21/22 08/13/22 07/22/22 History iron) tablet latanoprost 0.005 % eye drops 1 drp ophthalmic (eye) BEDTIME 04/21/22 08/13/22 07/21/22 History levetiracetam 500 mg tablet 1 tab PO BID 04/21/22 08/13/22 07/22/22 History metformin 500 mg tablet 1 tab PO BIDWM 04/21/22 08/13/22 07/22/22 History sennosides 8.6 mg tablet (senna) 1 tab PO BEDTIME PRN constipation 04/21/22 08/13/22 Unknown History ascorbic acid (vitamin C) 500 mg 500 mg PO BID 06/12/22 08/13/22 07/22/22 History tablet aspirin 81 mg tablet,delayed 81 mg PO DAILY 06/12/22 08/13/22 07/22/22 History release insulin aspart U-100 100 unit/mL 1 sliding scale dose subcut QIDACHS 07/22/22 08/13/22 07/22/22 History subcutaneous solution (Novolog U-100 Insulin aspart) Physical Exam Vital Signs: Vital Signs: Last Vital Signs Temp 98.0 F 08/13/22 15:50 Pulse 62 08/13/22 15:50 Resp 16 08/13/22 15:50 BP 150/64 H 08/13/22 15:50 Pulse Ox 99 08/13/22 15:50 O2 Del Method 08/13/22 15:50 BMI result Body Mass Index 24.5 Neuro: Other: She was alert and awake with normal spontaneity of speech fluency comprehension and affect. Face was symmetrical. Visual shore are full. There was no pronator drift and no focal weakness in arms or legs. Deep tendon reflexes were absent with flexor plantars. Results Labs CBC & Chem 7: 08/13/22 12:56 08/13/22 12:56 Labs: Short CBC 08/13/22 Range/Units 12:56 WBC 4.6 L (4.8-10.8) X10*3/uL Hgb 9.3 L (12.0-16.0) g/dl Hct 28.5 L (37.0-47.0) % Plt Count 287 D (160-400) X10*3/uL BMP 08/13/22 12:56 Sodium 136 Potassium 5.1 Chloride 99 Carbon Dioxide 26 BUN 17 H D Creatinine 1.02 Calcium 8.9 Cardiac Enzymes 08/13/22 Range/Units 12:56 Total Creatine Kinase 134 D (26-140) U/L Liver Function 08/13/22 Range/Units 12:56 Total Bilirubin 0.3 (0.0-1.0) mg/dL Direct Bilirubin < 0.2 (0.0-0.5) mg/dL AST 13 D (5-31) U/L ALT 15 (0-31) U/L Alkaline Phosphatase 155 H (39-117) U/L Albumin 3.5 (3.5-5.0) g/dL Moderately severe cerebral atrophy and chronic microvascular ischemic changes were noted. Radiologist also suggested that there was a questionable left cingulate gyrus acute ischemic infarction Assessment and Plan (1) Stroke: Status: Acute 72 years old woman who might have a small ischemic event resulting in change in mental status and right facial droop associated with significant hyperglycemia 400. This kind of condition can result in microvascular ischemic disease. In any case she was back to baseline with symptoms resolved. Mainstay of management is sugar control, anti-platelet agent and blood pressure control. Procedures Date of Service Date of Service: 08/13/22
--- NOTE | 2022-08-13 17:23 | P.HPHOSP_ITS ---
History of Present Illness Date of Service: 08/13/22 Chief Complaint: Right facial droop A 72 years old lady with PMH of diabetes, HTN, CAD, dirt and seizures who presented to the hospital with sudden onset of right facial droop, slurred speech while participating in physical therapy at [facility]. The patient reports that she did not notice any changes, difficulty, weakness, slurred speech but the staff from the facility was concerned and told her that she has facial drop and weakness in her right side. She denies any headache, double vision, nausea, vomiting, chest pain, shortness of breath, change in bowel habit or urinary symptoms. A CT scan in the emergency was negative for any acute findings. Neurology ev aluated the patient as MRI of the brain showed questionable acute cortical infarct involving left cingulate gyrus. Patient admitted for further evaluation and treatment. Review of Systems Review of Systems: No fever, chills or weakness but noticed facial droop No chest pain, palpitation No shortness of breath or coughing No abdominal pain, nausea or vomiting No urinary symptoms No any rash or wounds Yes all other systems are reviewed and are negative [facility] Medical History Acquired hypothyroidism Atherosclerotic cardiovascular disease Benign essential hypertension CAD (coronary artery disease) Constipation Dementia Diabetes mellitus Epilepsy GERD without esophagitis Hypertension Hypomagnesemia Hypothyroidism Iron deficiency anemia New onset seizure Orthostasis Overweight (BMI 25.0-29.9) Pure hypercholesterolemia Syncope Vitamin B12 deficiency Vitamin D deficiency Family History Father Diabetes Hypertension Mother Hypertension Stroke Surgical History History of ankle surgery History of hemiarthroplasty of left hip S/P KULDIP-[id number] (total abdominal hysterectomy and bilateral salpingo-oophorectomy) Social History Household Members: Family Housing: Apartment Do you presently have visiting nurse or other home services: No Alcohol intake: never Patient Tobacco Use Status: Never used Tobacco Smoked in Last 30 Days: No e-Cigarette/Vaping Use: Never Used Second Hand Smoke Exposure: No Use of substances other than those prescribed or required for medical reasons: No Advance Directives: Yes Advance Directives on File: Yes Advance Directives Date on File: 10/25/20 service: No Current occupational status: disabled Cognitive needs: Yes (walker, wheelchair) Hearing needs: No Vision needs: Yes Meds Allergies Allergy/AdvReac Type Severity Reaction Status Date / Time No Known Allergies Allergy Verified 07/22/22 19:12 Active Medications: Current Medications Pharmacy Consult (Consult Rx Perform Med Rec) 1 each MISCELLANE ONCE PRN PRN Reason: Consult order Home Medications Medication Instructions Recorded Confirmed Last Taken Type cholecalciferol (vitamin D3) 25 1 tab PO DAILY 04/21/22 08/13/22 07/22/22 History mcg (1,000 unit) tablet cyanocobalamin (vitamin B-12) 1 tab PO DAILY 04/21/22 08/13/22 07/22/22 History 1,000 mcg tablet ferrous sulfate 325 mg (65 mg 1 tab PO BID 04/21/22 08/13/22 07/22/22 History iron) tablet latanoprost 0.005 % eye drops 1 drp ophthalmic (eye) BEDTIME 04/21/22 08/13/22 07/21/22 History levetiracetam 500 mg tablet 1 tab PO BID 04/21/22 08/13/22 07/22/22 History metformin 500 mg tablet 1 tab PO BIDWM 04/21/22 08/13/22 07/22/22 History sennosides 8.6 mg tablet (senna) 1 tab PO BEDTIME PRN constipation 04/21/22 08/13/22 Unknown History ascorbic acid (vitamin C) 500 mg 500 mg PO BID 06/12/22 08/13/22 07/22/22 History tablet aspirin 81 mg tablet,delayed 81 mg PO DAILY 06/12/22 08/13/22 07/22/22 History release insulin aspart U-100 100 unit/mL 1 sliding scale dose subcut QIDACHS 07/22/22 08/13/22 07/22/22 History subcutaneous solution (Novolog U-100 Insulin aspart) Physical Exam Vital Signs and Narrative: Vital Signs: Last Vital Signs Temp 98.0 F 08/13/22 15:50 Pulse 62 08/13/22 15:50 Resp 16 08/13/22 15:50 BP 150/64 H 08/13/22 15:50 Pulse Ox 99 08/13/22 15:50 O2 Del Method 08/13/22 15:50 BMI result Body Mass Index 24.5 Const: Other: Constitutional : Alert, interactive, not in distress Face: Right-sided facial droop, good sensation Neck : Normal inspection, Supple Cardiovascular : RRR, no JVP, no lower extremity edema Respiratory : fair bilateral air entry, no crackles, wheezes or rhonchi Gastrointestinal: soft, lax, Normal bowel sounds, Non tender Skin : Warm, Dry Neurological : Alert & oriented x3, right facial droop, No focal deficit , CN 2-12 within normal Results Labs CBC and Chem 7: 08/13/22 12:56 08/13/22 12:56 Labs: Laboratory Results - last 24 hr 08/13/22 08/13/22 08/13/22 10:51 10:51 12:56 MCV 89.3 MCH 29.2 MCHC 32.6 RDW 13.8 Plt Count 287 D MPV 10.5 Immature Gran % (Auto) 0.4 Neut % (Auto) 61.4 Lymph % (Auto) 29.0 [place] % (Auto) 8.4 Eos % (Auto) 0.6 Baso % (Auto) 0.2 Lymph # (Auto) 1.3 [place] # (Auto) 0.4 Eos # (Auto) 0.0 Baso # (Auto) 0.0 Abs Immat Gran (auto) 0.02 Absolute Neuts (auto) 2.8 Absolute Nucleated RBC 0.000 Nucleated RBC % (auto) 0.0 PT Whole Blood PT 11.4 INR Whole Blood INR 0.9 APTT Anion Gap Estim Creat Clear Calc Estimated GFR POC Glucose 400 H* Random Glucose Calcium Total Bilirubin Direct Bilirubin AST ALT Alkaline Phosphatase Total Creatine Kinase Troponin I High Sens Total Protein Albumin COVID-19 (TAMARA) COVID-19 Clin Com Influenza Type A (ANGELY) Influenza Type B (ANGELY) Influenza A & B Note 08/13/22 08/13/22 08/13/22 12:56 12:56 12:56 MCV MCH MCHC RDW Plt Count MPV Immature Gran % (Auto) Neut % (Auto) Lymph % (Auto) [place] % (Auto) Eos % (Auto) Baso % (Auto) Lymph # (Auto) [place] # (Auto) Eos # (Auto) Baso # (Auto) Abs Immat Gran (auto) Absolute Neuts (auto) Absolute Nucleated RBC Nucleated RBC % (auto) PT 10.8 Whole Blood PT INR 0.9 Whole Blood INR APTT 27.5 Anion Gap 16 Estim Creat Clear Calc 51.3 Estimated GFR 53 POC Glucose Random Glucose 457 H* Calcium 8.9 Total Bilirubin 0.3 Direct Bilirubin < 0.2 AST 13 D ALT 15 Alkaline Phosphatase 155 H Total Creatine Kinase 134 D Troponin I High Sens < 3.5 Total Protein 6.7 Albumin 3.5 COVID-19 (TAMARA) COVID-19 Clin Com Influenza Type A (ANGELY) Influenza Type B (ANGELY) Influenza A & B Note 08/13/22 08/13/22 08/13/22 13:41 15:24 15:51 MCV MCH MCHC RDW Plt Count MPV Immature Gran % (Auto) Neut % (Auto) Lymph % (Auto) [place] % (Auto) Eos % (Auto) Baso % (Auto) Lymph # (Auto) [place] # (Auto) Eos # (Auto) Baso # (Auto) Abs Immat Gran (auto) Absolute Neuts (auto) Absolute Nucleated RBC Nucleated RBC % (auto) PT Whole Blood PT INR Whole Blood INR APTT Anion Gap Estim Creat Clear Calc Estimated GFR POC Glucose 395 H* 350 H* Random Glucose Calcium Total Bilirubin Direct Bilirubin AST ALT Alkaline Phosphatase Total Creatine Kinase Troponin I High Sens Total Protein Albumin COVID-19 (TAMARA) COVID-19 Clin Com Influenza Type A (ANGELY) Negative Influenza Type B (ANGELY) Negative Influenza A & B Note See Note 08/13/22 15:51 MCV MCH MCHC RDW Plt Count MPV Immature Gran % (Auto) Neut % (Auto) Lymph % (Auto) [place] % (Auto) Eos % (Auto) Baso % (Auto) Lymph # (Auto) [place] # (Auto) Eos # (Auto) Baso # (Auto) Abs Immat Gran (auto) Absolute Neuts (auto) Absolute Nucleated RBC Nucleated RBC % (auto) PT Whole Blood PT INR Whole Blood INR APTT Anion Gap Estim Creat Clear Calc Estimated GFR POC Glucose Random Glucose Calcium Total Bilirubin Direct Bilirubin AST ALT Alkaline Phosphatase Total Creatine Kinase Troponin I High Sens Total Protein Albumin COVID-19 (TAMARA) Negative COVID-19 Clin Com See Note Influenza Type A (ANGELY) Influenza Type B (ANGELY) Influenza A & B Note Imaging Radiologist's Impressions: Impressions Head CT 08/13/22 10:46 IMPRESSION: No acute intracranial process seen. Age-related cerebral volume loss with chronic small vessel ischemic disease. Bilateral small old cerebral infarcts. This critical result was discussed with Dr. Kristofer Ramirez at 1051 a.M. on 1019. It was ascertained that the content and urgency of the report was understood at the time of direct communication. Brain MRI 08/13/22 12:13 IMPRESSION: There is a questionable tiny acute cortical infarct involving the left cingulate gyrus. Otherwise no acute territorial infarct. There chronic cerebellar infarcts and numerous chronic small vessel ischemic changes throughout the periventricular white matter and radha with associated loss of parenchymal volume. Assessment and Plan (1) Stroke: Status: Acute (2) Acute hyperglycemia: Status: Acute Plan A 72 years old lady with PMH of diabetes, HTN, CAD, dirt and seizures who presented to the hospital with sudden onset of right facial droop, slurred speec h while participating in physical therapy at [facility]. Right facial droop secondary to Acute stroke Confirmed by MRI with high suspicion of a stroke, clinical features Check carotid ultrasound Check echo Lipid panel PT/OT Change aspirin to Plavix Increase atorvastatin to 80 mg bedtime Neurology input appreciated, Hyperglycemia due to Type 2 diabetes Give 1 dose of Lantus 5 units Continue metformin SSI, diabetic diet HTN Continue amlodipine, lisinopril Seizure Continue Keppra b.i.d. CAD Continue metoprolol DVT PPX Lovenox The patient will likely need to overnight hospital stay for further evaluation of acute stroke pending echo, ultrasound and therapy evaluation. Quality Stroke Does the patient have a stroke diagnosis?: No VTE Prior VTE?: No VTE Risk Level:: Medical - moderate - high VTE Device Contraindication: Treatment Not Indicated VTE Drug Contraindication: N/A - Med Ordered
[2022-08-13 17:41] LABS: Glucose, Whole Blood 266 mg/dL (60-115)
[2022-08-13] MEDS: Insulin Glargine,Hum.rec.anlog 100 UNIT/ML 10 ML VIAL SUBCUT (18:09)
[2022-08-13] MEDS: Enoxaparin Sodium 40 MG/0.4 ML SYRINGE SUBCUT (18:11)
[2022-08-13] MEDS: Clopidogrel Bisulfate 75 MG TABLET PO (18:11)
--- NOTE | 2022-08-13 18:27 | PC.NURSE ---
pt's sister abelardo at bedside. reported R arm swelling. This RN assessed and saw swelling at IV site and arm. Informed MD of finding, MD assessed arm and recommended we remove the IV as pt has passed swallow eval and has PO meds ordered at this time. pt needed ultrasound guided IV for this placement.
--- NOTE | 2022-08-13 18:33 | PC.NURSE ---
pt's sister abelardo informed this RN that pt is on pureed diet. Called kitchen and ordered new tray with pureed diet.
--- NOTE | 2022-08-13 20:09 | PC.NURSE ---
PATIENT WAS INCONTINENT OF URINE ,BOB CARE GIVEN BEDDING CHANGE ,PATIENT WENT TO UNTRASOUND FOR IMAGING.
[2022-08-13] MEDS: lisinopriL 20 MG TABLET PO (21:05)
[2022-08-13] MEDS: Atorvastatin Calcium 80 MG TABLET PO (21:05)
[2022-08-13] MEDS: levETIRAcetam 500 MG TABLET PO (21:05)
[2022-08-13] MEDS: Ascorbic Acid 500 MG TABLET PO (21:05)
[2022-08-13 21:10] LABS: Glucose, Whole Blood 186 mg/dL (60-115)
[2022-08-13] MEDS: Insulin Lispro 100 UNIT/ML 3 ML VIAL SUBCUT (21:12)
--- NOTE | 2022-08-13 22:53 | PC.NURSE ---
PATIENT WAS INCONTINENT OF URINE AND MEDIUM AMOUNT OF FORM BOWEL MOVEMENT ,CARE GIVEN BEDDING CHANGE .
[2022-08-14 01:35] VITALS: BP 159/57; PULSE 63; RESP 11; TEMP 36.1; O2SAT 99
[2022-08-14 03:02] LABS: Appearance Urine Clear; Color Urine Yellow; Glucose Urine UA >=1000 mg/dL (Negative); Leukocyte Esterase Urine Negative (Negative); Nitrite Urine Negative (Negative); Specific Gravity - Urine 1.015 (1.005-1.025); UMIC TRIGGER UACC YES; Urine Blood Large (3+) (Negative); Urine Ketones Negative (Negative); Urine Protein Negative (Neg-Trace)
[2022-08-14 03:09] LABS: Bacteria Urine 1+ (None Seen); RBC Urine >20 /HPF (0-2); WBC Urine 0-5 /HPF (0-5)
[2022-08-14] MEDS: Levothyroxine Sodium 125 MCG TABLET PO (06:10)
[2022-08-14 06:25] LABS: Hematocrit 28.8 % (37.0-47.0); Hemoglobin 9.2 g/dl (12.0-16.0); Mean Corpuscular HGB Conc 31.9 g/dl (31.0-35.0); Mean Corpuscular Hemoglobin 28.7 pg (27.0-33.0); Mean Corpuscular Volume 89.7 fL (80.0-98.0); Mean Platelet Volume 10.5 fL (9.4-12.3); Platelet Count 318 X10*3/uL (160-400); Red Blood Count 3.21 X10*6/uL (4.20-5.50); Red Cell Distribution Width 13.8 % (11.0-16.0); White Blood Count 5.2 X10*3/uL (4.8-10.8)
[2022-08-14 06:35] VITALS: BP 134/61; PULSE 62; RESP 11; TEMP 36.4; O2SAT 100
[2022-08-14 06:46] LABS: Anion Gap 12 (12-20); Blood Urea Nitrogen 10 mg/dL (9-16); Calcium 9.1 mg/dL (8.4-10.2); Carbon Dioxide 31 mmol/L (22-29); Chloride 103 mmol/L (96-108); Cholesterol 132 mg/dL; Creatinine Clr Calc Pharmacy 80.5; Estimated Glomerular Filt Rate > 60; Glucose Random 44 mg/dL (60-115); HDL Cholesterol 43 mg/dL; LDL Cholesterol Calculated 74 mg/dl; Potassium 3.8 mmol/L (3.3-5.1); Sodium 142 mmol/L (135-145); Triglycerides 76 mg/dL
--- NOTE | 2022-08-14 06:58 | PC.NURSE ---
PT SOILED . BOB CARE GIVEN AND PUREWICK CHANGED. PADS CHANGED PT GIVEN NEW [place] AND WARM BLANKETS. CALL [facility]NE[facility] PLACED WITHIN REACH .
--- NOTE | 2022-08-14 07:00 | CA_ITS ---
Transthoracic Echocardiogram Patient (Last, First, Middle): Elsa Preciado, Gender: Female Date of : 1950 Age: 72 Procedure Date: 08/14/2022 Procedure Type: Transthoracic Echocardiogram Location: ER Height: 175.26 cm Weight: 75.3 kg BSA: 1.91 m2 Heart Rate: 63 bpm BP: 134 / 61 mmHg Sap Abap Developer: SB Referring MD: Rosa Elena Bonner MD Symptoms: acute stroke Study Quality: Adequate ECG Rhythm: Sinus Conclusions: - Normal left ventricular size, thickness, systolic function, and wall motion. The visually estimated ejection fraction is between 60-65%. - E/E prime ratio is between 8 and 15 consistent with indeterminate filling pressures. - The basal inferior segment is akinetic. Findings Left Ventricle Normal left ventricular size, thickness, systolic function, and wall motion. The visually estimated ejection fraction is between 60-65%. There is evidence of regional wall motion abnormalities. Abnormal diastolic function is noted. Spectral Doppler is indicative of an impaired relaxation filling pattern. E/E prime ratio is between 8 and 15 consistent with indeterminate filling pressures. Wall Motion Rest Echo Findings The basal inferior segment is akinetic. Right Ventricle Normal right ventricular cavity size and systolic function. Atria The left atrium is likely dilated. The right atrium is normal in size. Aortic Valve There is a normal trileaflet aortic valve. There is mild calcification of the aortic valve. There is no aortic valve stenosis. There is no aortic valve regurgitation. Mitral Valve The mitral valve appears normal. There is moderate mitral annular calcification. There is no mitral valve regurgitation. There is no mitral valve stenosis. Pulmonic Valve The pulmonic valve is likely normal. Tricuspid Valve Normal tricuspid valve structure and function. There is trace tricuspid valve regurgitation. Tricuspid regurgitation envelope is inadequate for calculation of right ventricular systolic pressure. Indeterminate right atrial pressure. Great Vessels All visible segments of the aorta are normal in size. The pulmonary artery was not well visualized. Venous The inferior vena cava was not well visualized. Pericardium/Pleural There is no evidence of pericardial effusion. Prior Study Comparison Changes noted compared to prior study dated: 12/12/2020. Basal inferior wall is akinetic. Measurements 2D Linear Measurements IVSd: 0.86 0.6-0.9/0.6-1.0 cm LVIDd: 4.66 3.9-5.3/4.2-5.9 cm LVIDd Index: 2.44 2.4-3.2/2.2-3.1 cm/m2 LVIDs: 2.89 2.0-3.6 cm LVPWd: 0.74 0.7-1.1 cm LA Diam: 3.00 2.7-3.8/3.0-4.0 cm LAIDs Index: 1.57 1.5-2.3 cm/m2 LV Mass: 148.79 67-162/88-224 g LV Mass Index: 77.90 43-95/49-115 g/m2 LVOT Diam: 2.30 3.0+(-)1.3 cm 2D Systolic Function EF 4C: 60.70 >55% EF 2C: 62.90 >55% EF BiP: 61.80 >55% Mitral Valve MV Pk E: 0.93 MV PK A: 1.08 MV Decel Time: 175.00 E/A: 0.90 E'Lateral: 7.62 E'Medial: 5.87 E/E' Med: 15.80 E/E' Lat: 12.20 PHT: 51.00 MVA PHT: 4.31 Decel Glenn: 5.31 Aortic Valve AoV Pk Cornelius: 1.30 AoV Pk Grad: 7.00 MARIA: 2.71 LVOT LVOT Pk Cornelius: 0.87 LVOT Mn Cornelius: 0.62 LVOT VTI: 0.24 LVOT Pk Grad: 3.00 LVOT Mn Grad: 2.00 LVOT Diam: 2.30 LVOT Area: 4.15 Diastolic Function MV Pk E: 0.93 MV Pk A: 1.08 E/A: 0.90 E'Medial: 5.87 E/E' Med: 15.80 E' Laterial: 7.62 E/E' Lat: 12.20 Right Ventricle TAPSE (mm): 21.70 TVS' Cornelius: 9.70 Great Vessels Aorta Sinus of Valsalva: 2.90 2.0-3.5 cm Pulmonary Veins Pulm Vein S/D 1.90 Pulmonary Valve PV Pk Cornelius: 0.94 Peak PV Grad: 4.00 Updated in Other Vendor System with Status of Final Wesley Martinez MD electronically signed on 08/14/2022 12:54:07 PM with status of Final
[2022-08-14 07:09] LABS: Glucose, Whole Blood 44 mg/dL (60-115)
[2022-08-14 07:10] LABS: Glucose, Whole Blood 52 mg/dL (60-115)
[2022-08-14] MEDS: Glucose Gel 15 GM GEL..GRAM. PO (07:15)
--- NOTE | 2022-08-14 07:15 | PC.NURSE ---
Lab calls this RN with critical glucose = 44. Patient awake, conversing. She is provided with several cups of OJ and MD Lovelace made aware. Patient has no IV and required several people to even obtain AM butterfly labs- MD Lovelace made aware of no IV as well - to order glucose gel. Patient provided with breakfast tray. Oncoming nurse also made aware. Patient continues to mentate and take PO - BG slowly rising at this time.
--- NOTE | 2022-08-14 07:24 | PC.NURSE ---
pt given oj with sugar and her breakfast. sitting up,alert to baseline per previous rn. pt denies any complaints at this time. will attempt for iv access.
[2022-08-14 07:31] LABS: Glucose, Whole Blood 78 mg/dL (60-115)
--- NOTE | 2022-08-14 07:43 | PC.NURSE ---
echo at bedside
--- NOTE | 2022-08-14 07:51 | PC.NURSE ---
poc 147
[2022-08-14 07:54] LABS: Glucose, Whole Blood 149 mg/dL (60-115)
[2022-08-14] MEDS: Sertraline HCL 25 MG TABLET PO (08:34)
[2022-08-14] MEDS: Metoprolol Succinate ER 25 MG TAB.ER.24H PO (08:34)
[2022-08-14] MEDS: amLODIPine Besylate 2.5 MG TABLET PO (08:34)
[2022-08-14] MEDS: levETIRAcetam 500 MG TABLET PO (08:34)
[2022-08-14] MEDS: Omeprazole 20 MG CAPSULE.DR PO (08:34)
[2022-08-14] MEDS: lisinopriL 20 MG TABLET PO (08:34)
[2022-08-14] MEDS: Cyanocobalamin (Vitamin B-12) 1,000 MCG TABLET 1000 MCG PO (08:34)
[2022-08-14] MEDS: Cholecalciferol (Vitamin D3) 25 MCG TABLET PO (08:34)
[2022-08-14] MEDS: Clopidogrel Bisulfate 75 MG TABLET PO (08:34)
[2022-08-14] MEDS: Ascorbic Acid 500 MG TABLET PO (08:34)
[2022-08-14 08:48] VITALS: BP 134/61; PULSE 62; O2SAT 100
[2022-08-14 09:03] VITALS: BP 152/70; PULSE 64; RESP 12; TEMP 36.7; O2SAT 99
[2022-08-14 09:37] LABS: Glucose, Whole Blood 320 mg/dL (60-115)
--- NOTE | 2022-08-14 09:47 | MHC.CM.PN ---
Patient has AMS; CM spoke with Sister/HCP/Araceli @ [phone] and addressed IMM with her (original to be mailed certified letter to Araceli and a copy to be placed on the chart). DC goal is to return to [facility] and CM has initiated and will follow for dc planning. Patient typically lives in an apartment with her 2 Sisters, [facility] a walker, [facility] Patient has received Pfizer/Covid vax X4 and her PCP is Dr. Amaro.
--- NOTE | 2022-08-14 11:30 | MHC.CM.PN ---
Per ROUNDS discussion, Patient will be medically cleared for dc to [facility]/SNF today. Patient will return to [facility] today @ 5PM, via [facility]. CM has informed Patient's Sister/HCP/Araceli @ [phone] of the dc plan.
[2022-08-14 11:50] LABS: Glucose, Whole Blood 345 mg/dL (60-115)
--- NOTE | 2022-08-14 12:07 | PM.DS ---
DS: Providers Provider Date of Service: 08/14/22 Date of admission: 08/13/22 17:16 Primary care physician: Ronnie Sanchez MD Consults: 08/13/22 17:21 Consult to Neurology Routine Consulting Provider: [facility] Reason for consultation: acute stroke for eval and rec DS: Diagnosis Discharge Diagnosis (1) Stroke: Status: Acute (2) Acute hyperglycemia: Status: Acute (3) Hypoglycemia associated with type 2 diabetes mellitus: Status: Acute DS: Summary Hospital Course Hospital Course: Admission note HPI A 72 years old lady with PMH of diabetes, HTN, CAD, dirt and seizures who presented to the hospital with sudden onset of right facial droop, slurred speech while participating in physical therapy at SNF. The patient reports that she did not notice any changes, difficulty, weakness, slurred speech but the staff from the facility was concerned and told her that she has facial drop and weakness in her right side.? She denies any headache, double vision, nausea, vomiting, chest pain, shortness of breath, change in bowel habit or urinary symptoms. A CT scan in the emergency was negative for any acute findings.? Neurology evaluated the patient as MRI of the brain showed questionable acute cortical infarct involving left cingulate gyrus. Patient admitted for further evaluation and treatment. Hospital course The patient was admitted for evaluation of right facial droop. CT head did not show any acute abnormalities. MRI of the brain was consistent with small ischemic stroke. Evaluated by neurologist who recommended antiplatelets, better control of blood pressure and sugar as the patient was noticed to have hyperglycemia at time of presentation. Started on diabetic diet, SSI and received a small dose of Lantus 5 units along with her home dose metformin. The patient was noticed in the interim morning that her glucose level in 40s responded well to oral intake as her mentation was not affected by that incident. Facial droop significantly improved as the patient was evaluated by PT, OT who recommended short-term rehab stay. Carotid ultrasound did not show any significant stenosis. Echo was done showing no evidence of ASD with EF of 60-65% and akinetic basal inferior segment. Stop aspirin, start Plavix Increase atorvastatin to 80 mg at bedtime Monitor blood sugars and blood pressure for the next week, report readings to PCP for further adjustments of home medications Time Spent with Patient Time attestation: Total time spent providing and/or coordinating discharge services: Discharge coordination time: Greater than 30 minutes Quality: Safe Use of Opioids Does Pt have an Active Cancer Diagnosis on the Problem List?: No Quality: Stroke Does the patient have a stroke diagnosis?: No Physical Exam Vital Signs: Vital Signs: Last Vital Signs Temp 98.1 F 08/14/22 09:03 Pulse 64 08/14/22 09:03 Resp 12 08/14/22 09:03 BP 152/70 H 08/14/22 09:03 Pulse Ox 99 08/14/22 09:03 O2 Del Method 08/14/22 09:03 BMI result Body Mass Index 24.5 Const: Other: Constitutional : Alert, interactive, not in distress Face: Right-sided facial droop, good sensation Neck : Normal inspection, Supple Cardiovascular : RRR, no JVP, no lower extremity edema Respiratory : fair bilateral air entry, no crackles, wheezes or rhonchi Gastrointestinal: soft, lax, Normal bowel sounds, Non tender Skin : Warm, Dry Neurological : Alert & oriented x3, right facial droop significantly improved, No focal deficit , CN 2-12 within normal DS: Data Data Completed and Pending Completed studies during hospitalization [Text1]: Procedures Insertion of Infusion Device into Left Subclavian Vein, Percutaneous Approach (12/11/21) Introduction of Vasopressor into Peripheral Artery, Percutaneous Approach (12/11/21) Labs on day of discharge: Laboratory Results - last 24 hr 08/13/22 08/13/22 08/13/22 12:56 12:56 12:56 WBC 4.6 L RBC 3.19 L Hgb 9.3 L Hct 28.5 L MCV 89.3 MCH 29.2 MCHC 32.6 RDW 13.8 Plt Count 287 D MPV 10.5 Immature Gran % (Auto) 0.4 Neut % (Auto) 61.4 Lymph % (Auto) 29.0 Lamb % (Auto) 8.4 Eos % (Auto) 0.6 Baso % (Auto) 0.2 Lymph # (Auto) 1.3 Lamb # (Auto) 0.4 Eos # (Auto) 0.0 Baso # (Auto) 0.0 Abs Immat Gran (auto) 0.02 Absolute Neuts (auto) 2.8 Absolute Nucleated RBC 0.000 Nucleated RBC % (auto) 0.0 PT 10.8 INR 0.9 APTT 27.5 Sodium 136 Potassium 5.1 Chloride 99 Carbon Dioxide 26 Anion Gap 16 BUN 17 H D Creatinine 1.02 Estim Creat Clear Calc 51.3 Estimated GFR 53 POC Glucose Random Glucose 457 H* Calcium 8.9 Total Bilirubin 0.3 Direct Bilirubin < 0.2 AST 13 D ALT 15 Alkaline Phosphatase 155 H Total Creatine Kinase 134 D Troponin I High Sens Total Protein 6.7 Albumin 3.5 Triglycerides Cholesterol LDL Cholesterol, Calc HDL Cholesterol Urine Color Urine Appearance Urine pH Ur Specific [place] Urine Protein Urine Glucose (UA) Urine Ketones Urine Blood Urine Nitrite Ur Leukocyte Esterase Urine RBC Urine WBC Ur Squamous Epith Cells Urine Bacteria Hyaline Casts COVID-19 (TAMARA) COVID-19 Clin Com Influenza Type A (ANGELY) Influenza Type B (ANGELY) Influenza A & B Note 08/13/22 08/13/22 08/13/22 12:56 13:41 15:24 WBC RBC Hgb Hct MCV MCH MCHC RDW Plt Count MPV Immature Gran % (Auto) Neut % (Auto) Lymph % (Auto) Lamb % (Auto) Eos % (Auto) Baso % (Auto) Lymph # (Auto) Lamb # (Auto) Eos # (Auto) Baso # (Auto) Abs Immat Gran (auto) Absolute Neuts (auto) Absolute Nucleated RBC Nucleated RBC % (auto) PT INR APTT Sodium Potassium Chloride Carbon Dioxide Anion Gap BUN Creatinine Estim Creat Clear Calc Estimated GFR POC Glucose 395 H* 350 H* Random Glucose Calcium Total Bilirubin Direct Bilirubin AST ALT Alkaline Phosphatase Total Creatine Kinase Troponin I High Sens < 3.5 Total Protein Albumin Triglycerides Cholesterol LDL Cholesterol, Calc HDL Cholesterol Urine Color Urine Appearance Urine pH Ur Specific [place] Urine Protein Urine Glucose (UA) Urine Ketones Urine Blood Urine Nitrite Ur Leukocyte Esterase Urine RBC Urine WBC Ur Squamous Epith Cells Urine Bacteria Hyaline Casts COVID-19 (TAMARA) COVID-19 Clin Com Influenza Type A (ANGELY) Influenza Type B (ANGELY) Influenza A & B Note 08/13/22 08/13/22 08/13/22 15:51 15:51 17:36 WBC RBC Hgb Hct MCV MCH MCHC RDW Plt Count MPV Immature Gran % (Auto) Neut % (Auto) Lymph % (Auto) Lamb % (Auto) Eos % (Auto) Baso % (Auto) Lymph # (Auto) Lamb # (Auto) Eos # (Auto) Baso # (Auto) Abs Immat Gran (auto) Absolute Neuts (auto) Absolute Nucleated RBC Nucleated RBC % (auto) PT INR APTT Sodium Potassium Chloride Carbon Dioxide Anion Gap BUN Creatinine Estim Creat Clear Calc Estimated GFR POC Glucose 266 H Random Glucose Calcium Total Bilirubin Direct Bilirubin AST ALT Alkaline Phosphatase Total Creatine Kinase Troponin I High Sens Total Protein Albumin Triglycerides Cholesterol LDL Cholesterol, Calc HDL Cholesterol Urine Color Urine Appearance Urine pH Ur Specific [place] Urine Protein Urine Glucose (UA) Urine Ketones Urine Blood Urine Nitrite Ur Leukocyte Esterase Urine RBC Urine WBC Ur Squamous Epith Cells Urine Bacteria Hyaline Casts COVID-19 (TAMARA) Negative COVID-19 Clin Com See Note Influenza Type A (ANGELY) Negative Influenza Type B (ANGELY) Negative Influenza A & B Note See Note 08/13/22 08/14/22 08/14/22 21:06 02:49 06:05 WBC 5.2 RBC 3.21 L Hgb 9.2 L Hct 28.8 L MCV 89.7 MCH 28.7 MCHC 31.9 RDW 13.8 Plt Count 318 MPV 10.5 Immature Gran % (Auto) Neut % (Auto) Lymph % (Auto) Lamb % (Auto) Eos % (Auto) Baso % (Auto) Lymph # (Auto) Lamb # (Auto) Eos # (Auto) Baso # (Auto) Abs Immat Gran (auto) Absolute Neuts (auto) Absolute Nucleated RBC 0.000 Nucleated RBC % (auto) 0.0 PT INR APTT Sodium Potassium Chloride Carbon Dioxide Anion Gap BUN Creatinine Estim Creat Clear Calc Estimated GFR POC Glucose 186 H Random Glucose Calcium Total Bilirubin Direct Bilirubin AST ALT Alkaline Phosphatase Total Creatine Kinase Troponin I High Sens Total Protein Albumin Triglycerides Cholesterol LDL Cholesterol, Calc HDL Cholesterol Urine Color Yellow Urine Appearance Clear Urine pH 7.0 Ur Specific [place] 1.015 Urine Protein Negative Urine Glucose (UA) >=1000 H Urine Ketones Negative Urine Blood Large (3+) H Urine Nitrite Negative Ur Leukocyte Esterase Negative Urine RBC >20 H Urine WBC 0-5 Ur Squamous Epith Cells 3-5 Urine Bacteria 1+ Hyaline Casts Not Reportable COVID-19 (TAMARA) COVID-19 Clin Com Influenza Type A (ANGELY) Influenza Type B (ANGELY) Influenza A & B Note 08/14/22 08/14/22 08/14/22 06:05 06:54 07:06 WBC RBC Hgb Hct MCV MCH MCHC RDW Plt Count MPV Immature Gran % (Auto) Neut % (Auto) Lymph % (Auto) Lamb % (Auto) Eos % (Auto) Baso % (Auto) Lymph # (Auto) Lamb # (Auto) Eos # (Auto) Baso # (Auto) Abs Immat Gran (auto) Absolute Neuts (auto) Absolute Nucleated RBC Nucleated RBC % (auto) PT INR APTT Sodium 142 Potassium 3.8 D Chloride 103 Carbon Dioxide 31 H Anion Gap 12 BUN 10 Creatinine 0.65 Estim Creat Clear Calc 80.5 Estimated GFR > 60 POC Glucose 44 L* 52 L* Random Glucose 44 L* D Calcium 9.1 Total Bilirubin Direct Bilirubin AST ALT Alkaline Phosphatase Total Creatine Kinase Troponin I High Sens Total Protein Albumin Triglycerides 76 Cholesterol 132 LDL Cholesterol, Calc 74 HDL Cholesterol 43 Urine Color Urine Appearance Urine pH Ur Specific [place] Urine Protein Urine Glucose (UA) Urine Ketones Urine Blood Urine Nitrite Ur Leukocyte Esterase Urine RBC Urine WBC Ur Squamous Epith Cells Urine Bacteria Hyaline Casts COVID-19 (TAMARA) COVID-19 Clin Com Influenza Type A (ANGELY) Influenza Type B (ANGELY) Influenza A & B Note 08/14/22 08/14/22 08/14/22 07:26 07:50 09:33 WBC RBC Hgb Hct MCV MCH MCHC RDW Plt Count MPV Immature Gran % (Auto) Neut % (Auto) Lymph % (Auto) Lamb % (Auto) Eos % (Auto) Baso % (Auto) Lymph # (Auto) Lamb # (Auto) Eos # (Auto) Baso # (Auto) Abs Immat Gran (auto) Absolute Neuts (auto) Absolute Nucleated RBC Nucleated RBC % (auto) PT INR APTT Sodium Potassium Chloride Carbon Dioxide Anion Gap BUN Creatinine Estim Creat Clear Calc Estimated GFR POC Glucose 78 149 H 320 H Random Glucose Calcium Total Bilirubin Direct Bilirubin AST ALT Alkaline Phosphatase Total Creatine Kinase Troponin I High Sens Total Protein Albumin Triglycerides Cholesterol LDL Cholesterol, Calc HDL Cholesterol Urine Color Urine Appearance Urine pH Ur Specific [place] Urine Protein Urine Glucose (UA) Urine Ketones Urine Blood Urine Nitrite Ur Leukocyte Esterase Urine RBC Urine WBC Ur Squamous Epith Cells Urine Bacteria Hyaline Casts COVID-19 (TAMARA) COVID-19 Clin Com Influenza Type A (ANGELY) Influenza Type B (ANGELY) Influenza A & B Note 08/14/22 11:43 WBC RBC Hgb Hct MCV MCH MCHC RDW Plt Count MPV Immature Gran % (Auto) Neut % (Auto) Lymph % (Auto) Lamb % (Auto) Eos % (Auto) Baso % (Auto) Lymph # (Auto) Lamb # (Auto) Eos # (Auto) Baso # (Auto) Abs Immat Gran (auto) Absolute Neuts (auto) Absolute Nucleated RBC Nucleated RBC % (auto) PT INR APTT Sodium Potassium Chloride Carbon Dioxide Anion Gap BUN Creatinine Estim Creat Clear Calc Estimated GFR POC Glucose 345 H Random Glucose Calcium Total Bilirubin Direct Bilirubin AST ALT Alkaline Phosphatase Total Creatine Kinase Troponin I High Sens Total Protein Albumin Triglycerides Cholesterol LDL Cholesterol, Calc HDL Cholesterol Urine Color Urine Appearance Urine pH Ur Specific [place] Urine Protein Urine Glucose (UA) Urine Ketones Urine Blood Urine Nitrite Ur Leukocyte Esterase Urine RBC Urine WBC Ur Squamous Epith Cells Urine Bacteria Hyaline Casts COVID-19 (TAMARA) COVID-19 Clin Com Influenza Type A (ANGELY) Influenza Type B (ANGELY) Influenza A & B Note Imaging MRI - head: Radiologist's impression: ITS Impressions Head CT 08/13/22 10:46 IMPRESSION: No acute intracranial process seen. Age-related cerebral volume loss with chronic small vessel ischemic disease. Bilateral small old cerebral infarcts. This critical result was discussed with Dr. Kristofer Ramirez at 1051 a.M. on 1019. It was ascertained that the content and urgency of the report was understood at the time of direct communication. Brain MRI 08/13/22 12:13 IMPRESSION: There is a questionable tiny acute cortical infarct involving the left cingulate gyrus. Otherwise no acute territorial infarct. There chronic cerebellar infarcts and numerous chronic small vessel ischemic changes throughout the periventricular white matter and radha with associated loss of parenchymal volume. Carotid Doppler Study 08/13/22 21:00 IMPRESSION: 1. RIGHT: Normal right internal carotid artery without atherosclerotic plaque or hemodynamically significant stenosis. 2. LEFT: Normal left internal carotid artery without atherosclerotic plaque or hemodynamically significant stenosis. Discharge Plan Discharge Anticipated Discharge Date/Time: 08/14/22 12:01 Patient Disposition: Xfer SNF Discharge Diagnosis: Acute stroke Referrals: [facility] [Outside] - 1 Week Ronnie Sanchez MD [Primary Care Provider] - 1 Week Discharge Medications: New atorvastatin 80 mg Tablet 80 mg PO BEDTIME 30 Days Qty: 30 0RF clopidogrel 75 mg Tablet 75 mg PO DAILY 30 Days Qty: 30 0RF Continued (KP) linsey Webb See Rx Instructions .ROUTE .MEDSUPPLY Qty: 1 0RF Rx Instructions: As directed lisinopril 20 mg tablet 20 mg PO BID Qty: 60 2RF (DME) Accu-Chek Carmen Plus test strp Strip See Rx Instructions .ROUTE .COMPLEX Qty: 400 3RF Dose Instruction: USE 1 STRIP FOUR TIMES A DAY FOR DIABETES MELLITUS Rx Instructions: USE 1 STRIP FOUR TIMES A DAY FOR DIABETES MELLITUS levothyroxine 125 mcg tablet 125 mcg PO DAILY 90 Days Qty: 90 1RF omeprazole 20 mg capsule,delayed release(DR/EC) 20 mg PO DAILY 90 Days Qty: 90 1RF sertraline [Zoloft] 25 mg tablet 25 mg PO DAILY 90 Days Qty: 90 1RF metoprolol succinate 25 mg tablet extended release 24 hr 25 mg PO DAILY Qty: 30 6RF insulin aspart U-100 [Novolog U-100 Insulin aspart] 100 unit/mL Solution 1 sliding scale dose SUBCUT QIDACHS Protocol: Insulin Correction Scale Less than or equal to 110 ---- Give (units): 0 111 to 150 Give (units): 0 151 to 200 Give (units): 2 201 to 250 Give (units): 4 251 to 300 Give (units): 6 301 to 350 Give (units): 8 Greater than 350 Give (units): 10 Call MD if Blood Glucose > : 350 amlodipine 2.5 mg Tablet 2.5 mg PO DAILY 30 Days Qty: 30 0RF Protocol: Hold for SBP< HOLD for SBP < : 90 latanoprost 0.005 % drops 1 drp ophthalmic (eye) BEDTIME metformin 500 mg tablet 1 tab PO BIDWM sennosides [senna] 8.6 mg tablet 1 tab PO BEDTIME PRN (Reason: constipation) levetiracetam 500 mg tablet 1 tab PO BID cyanocobalamin (vitamin B-12) 1,000 mcg tablet 1 tab PO DAILY ferrous sulfate 325 mg (65 mg iron) tablet 1 tab PO BID cholecalciferol (vitamin D3) 25 mcg (1,000 unit) tablet 1 tab PO DAILY ascorbic acid (vitamin C) 500 mg tablet 500 mg PO BID Discontinued aspirin 81 mg tablet,delayed release (DR/EC) 81 mg PO DAILY atorvastatin 40 mg tablet 40 mg PO BEDTIME Qty: 90 1RF Discharge Orders: Discharge Order (Routine); Ordered 08/14/22 Ordered By: Rosa Elena Bonner Diet: Diabetic diet Activity on Discharge: As tolerated Stand Alone Forms: Patient Portal Discharge page Care Plan Goals: Read below Health Concerns: Read below Plan of Treatment: Read below Assessment: You were admitted to the hospital for evaluation of right-sided facial drop. Brain MRI showed an evident of a small ischemic stroke. Evaluated by neurologist as carotid ultrasound did not show any narrowing. Recommending better control of your blood sugar, blood pressure and take medications. Stop aspirin, start Plavix Increase atorvastatin to 80 mg at bedtime Monitor blood sugars and blood pressure for the next week, report readings to PCP for further adjustments of home medications
[2022-08-14 12:34] LABS: Estimated Average Glucose 186 mg/dL; Hemoglobin A1c % 8.1 %
[2022-08-14 14:47] VITALS: BP 183/99; PULSE 59; RESP 12; TEMP 35.9; O2SAT 96
[2022-08-14 17:08] LABS: Glucose, Whole Blood 417 mg/dL (60-115)
--- NOTE | 2022-08-14 17:21 | PC.NURSE ---
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 no answer on 3rd floor
== END 2022-08-14 17:22 | disposition skilled nursing facility (03) | DRG 66 ==
LOC: HO.ED 11:20 → HO.EDOVER 17:26
PROVIDERS: Admitting Provider Student in an Organized Health Care Education/Training Program; Emergency Provider Emergency Medicine Emergency Medical Services; PCP Family Medicine; Visit Provider Student in an Organized Health Care Education/Training Program
DX: I63.9 Cerebral infarction, unspecified (principal); I25.10 Atherosclerotic heart disease of native coronary artery without angina pectoris; R47.01 Aphasia; G40.909 Epilepsy, unspecified, not intractable, without status epilepticus; F03.90 Unspecified dementia, unspecified severity, without behavioral disturbance, psychotic disturbance, mood disturbance, and anxiety; I10 Essential (primary) hypertension; E11.649 Type 2 diabetes mellitus with hypoglycemia without coma; E11.65 Type 2 diabetes mellitus with hyperglycemia; R29.810 Facial weakness; R29.703 NIHSS score 3; Z20.822 Contact with and (suspected) exposure to COVID-19; Z96.642 Presence of left artificial hip joint; Z79.4 Long term (current) use of insulin; Z79.84 Long term (current) use of oral hypoglycemic drugs; Z79.890 Hormone replacement therapy; Z79.899 Other long term (current) drug therapy
CPT/HCPCS: 36415; 70450; 70551; 80048; 80061; 80076; 81001; 82550; 82947; 83036; 84484; 85025; 85027; 85610; 85730; 87502; 87635; 93005; 93306; 93880; 97162; 97166; 99285; J1650

== ENCOUNTER 2022-08-18 13:56 | Emergency (ER) | payer MEDICARE, MEDICAID, SELFPAY ==
--- NOTE | ~2022-08-18 | CT_ITS ---
EXAMINATION: CT HEAD WITHOUT CONTRAST (STROKE PROTOCOL) CLINICAL INFORMATION: Stroke protocol. Left-sided weakness and unresponsiveness. Symptoms have resolved. COMPARISON: Previous head CT and brain MRI 08/13/2022 TECHNIQUE: Contiguous axial imaging was performed from the skull base to vertex without intravenous administration of contrast. This CT examination was performed using dose optimization techniques as appropriate, variously including the following: *Automated exposure control *Adjustment of mA and/or kV according to patient size (this includes techniques or standardized protocols for targeted exams where dose is matched to indication/reason for exam; i.e. extremities or head) *Use of iterative reconstruction technique DLP: 587 mGy-cm FINDINGS: There is no evidence of an extra-axial collection. There is no evidence of intra or extra-axial hemorrhage. Ventricles and extra-axial CSF spaces are prominent suggestive of mild generalized atrophy. There is nonspecific periventricular white matter disease. There are old cerebellar infarcts that appear unchanged. No mass, mass effect or acute infarct is seen. No skull fracture. Chronic left maxillary sinus disease. CT/CT head for stroke IMPRESSION: No acute intracranial findings and no change from recent exams. This critical result was discussed with Dr. Camp at 1420 hours on 08/18/2022. It was ascertained that the content and urgency of the report was understood at the time of direct communication.
--- NOTE | ~2022-08-18 | XR_ITS ---
EXAMINATION: PORTABLE CHEST 1 VIEW CLINICAL INFORMATION: CVA . COMPARISON: No recent pertinent prior studies are available for comparison. TECHNIQUE: Portable frontal view of the chest was obtained. FINDINGS: The lungs are well expanded. No focal infiltrate, effusion, edema, or pneumothorax. Cardiac and mediastinal silhouettes are within normal limits for technique. No acute bony abnormality seen. Degenerative changes in the spine. XR/XR chest 1V IMPRESSION: No evidence of acute disease.
--- NOTE | 2022-08-18 14:02 | ECG_ITS ---
Test Reason : LES Blood Pressure : / mmHG Vent. Rate : 066 BPM Atrial Rate : 066 BPM P-R Int : 138 ms QRS Dur : 096 ms QT Int : 376 ms P-R-T Axes : 062 038 026 degrees QTc Int : 394 ms Normal sinus rhythm Intra-ventricular conduction delay Otherwise normal ECG When compared with ECG of 13-AUG-2022 12:24, No significant change was found Referred By: Stanislaw Capm Electronically Signed By:JONEL SNOW MD
--- NOTE | 2022-08-18 14:38 | ED_ITS ---
HPI - Altered Mental Status General Chief Complaint: Stroke Stated Complaint: NON VERBAL, RECENT STROKE Time Seen by Provider: 08/18/22 14:02 History of Present Illness HPI narrative: 72-year-old female from a local [facility] presents to the emergency department by EMS with 1-2 hours of altered mental status and left-sided weakness. Upon EMS arrival, the patient was noted to be somewhat unresponsive, however without significant intervention the patient improved prior to arrival a t the hospital. Patient was here in the emergency department and admitted to the hospital on the 13 of August (5 days ago) at which time she had been noted to have a right-sided facial droop and slurred speech. She was seen by Neurology during the last inpatient visit. MRI findings consistent with a small ischemic stroke. Carotid ultrasound did not show any significant stenosis.? Echo was done showing no evidence of ASD with EF of 60-65%. Recommendations were to start Plavix, increase the atorvastatin, and attempt improved control of blood pressure and blood sugar after discharge. No tPA or invasive Radiology was recommended at that time. MD complaint: decreased responsiveness Onset (ago): hour(s) (1) Severity: mild Context: history of similar presentation Treatments prior to arrival: oxygen Related Data Home Medications Medication Instructions Recorded Confirmed cholecalciferol (vitamin D3) 25 1 tab PO DAILY 04/21/22 08/13/22 mcg (1,000 unit) tablet cyanocobalamin (vitamin B-12) 1 tab PO DAILY 04/21/22 08/13/22 1,000 mcg tablet ferrous sulfate 325 mg (65 mg 1 tab PO BID 04/21/22 08/13/22 iron) tablet latanoprost 0.005 % eye drops 1 drp ophthalmic (eye) BEDTIME 04/21/22 08/13/22 levetiracetam 500 mg tablet 1 tab PO BID 04/21/22 08/13/22 metformin 500 mg tablet 1 tab PO BIDWM 04/21/22 08/13/22 sennosides 8.6 mg tablet (senna) 1 tab PO BEDTIME PRN constipation 04/21/22 08/13/22 ascorbic acid (vitamin C) 500 mg 500 mg PO BID 06/12/22 08/13/22 tablet insulin aspart U-100 100 unit/mL 1 sliding scale dose subcut QIDACHS 07/22/22 08/13/22 subcutaneous solution (Novolog U-100 Insulin aspart) Previous Rx's Medication Instructions Recorded walker #1 ea 02/28/21 lisinopril 20 mg tablet 20 mg PO BID #60 tabs 06/13/22 blood sugar diagnostic (Accu-Chek #400 strips 06/23/22 Carmen Plus test strips) levothyroxine 125 mcg tablet 125 mcg PO DAILY 90 days #90 tabs 06/27/22 omeprazole 20 mg capsule,delayed 20 mg PO DAILY 90 days #90 caps 07/03/22 release sertraline 25 mg tablet (Zoloft) 25 mg PO DAILY 90 days #90 tabs 07/03/22 metoprolol succinate 25 mg 25 mg PO DAILY #30 tabs 07/21/22 tablet,extended release 24 hr amlodipine 2.5 mg tablet 2.5 mg PO DAILY 30 days #30 tabs 07/27/22 atorvastatin 80 mg tablet 80 mg PO BEDTIME 30 days #30 tabs 08/14/22 clopidogrel 75 mg tablet 75 mg PO DAILY 30 days #30 tabs 08/14/22 Allergies Allergy/AdvReac Type Severity Reaction Status Date / Time No Known Allergies Allergy Verified 07/22/22 19:12 Review of Systems Review of Systems: Yes all other systems are reviewed and are negative Constitutional: Constitutional: Denies chills, Denies fever(s) and Denies headache(s) Eyes: Eyes: Denies blurry vision and Denies diplopia ENT: Reports system reviewed and no additional complaints, except as do cumented, Denies dizziness and Denies headache(s) Cardiovascular: Cardiovascular: Denies chest pain, Denies Loss of Consciousness and Denies dyspnea Respiratory: Respiratory: Denies cough, Denies dyspnea and Denies wheezing Gastrointestinal: Gastrointestinal: Denies nausea and Denies vomiting Genitourinary: Genitourinary: Reports no additional female genitourinary complaints Musculoskeletal: Musculoskeletal: Reports no additional musculoskeletal complaints Neurologic: Reports as per HPI, Denies Abnormal speech present, Denies confusion, Denies dizziness, Denies headache(s), Reports focal weakness (Left upper extremity) and Denies Sensory deficit (Neuro) Psychiatric: Psychiatric: Denies confusion and Denies depression Allergic/Immunologic: Allergic/Immunologic: Denies wheezing PMFSH Past Medical History Source: old records reviewed and nursing notes reviewed Medical History Acquired hypothyroidism Atherosclerotic cardiovascular disease Benign essential hypertension CAD (coronary artery disease) Constipation Dementia Diabetes mellitus Epilepsy GERD without esophagitis Hypertension Hypomagnesemia Hypothyroidism Iron deficiency anemia New onset seizure Orthostasis Overweight (BMI 25.0-29.9) Pure hypercholesterolemia Syncope Vitamin B12 deficiency Vitamin D deficiency Surgical History History of ankle surgery History of hemiarthroplasty of left hip S/P [id number] (total abdominal hysterectomy and bilateral salpingo-oophorectomy) Family History Family History Father Diabetes Hypertension Mother Hypertension Stroke Social History Social History Household Members: Family Housing: Apartment Do you presently have visiting nurse or other home services: No Alcohol intake: never Patient Tobacco Use Status: Never used Tobacco e-Cigarette/Vaping Use: Never Used Second Hand Smoke Exposure: No Advance Directives: Yes Advance Directives on File: Yes Advance Directives Date on File: 10/25/20 service: No Current occupational status: disabled Cognitive needs: Yes (walker, wheelchair) Hearing needs: No Vision needs: Yes Physical Exam ED Vital Signs: Vital Signs - 24 hr 08/18/22 15:02 Temperature 98.4 F Pulse Rate 100 Respiratory Rate 18 Blood Pressure 142/76 H Pulse Oximetry 100 Oxygen Delivery Method Room Air BMI result Body Mass Index 33.3 Const General: cooperative and no acute distress; No confusion Nutritional Appearance: average body habitus Orientation/consciousness: patient oriented x3 and No confusion [facility] Head: Yes normal to inspection, Yes normocephalic and Yes atraumatic Ears: external ears normal General nose exam: Normal external nose present Face and sinus: Yes normal facial exam Eyes Eyelids: Yes eyelids normal Conjunctivae: conjunctivae normal Sclerae: sclerae normal Pupils: Equal, round and reactive pupils present EOM: EOMs intact bilaterally Neck Neck: Yes normal visual inspection and Yes full ROM Chest Chest palpation & inspection: normal inspection of the chest and no tenderness Resp Effort & Inspection: no cough and no respiratory distress Auscultation: clear to auscultation bilaterally Cardio Rate: regular rate Rhythm: regular rhythm Heart sounds: no murmurs GI Inspection: Yes normal to inspection Palpation (GI): nontender Back/Spine/Pelvis Cervical Spine: normal cervical lordosis Thoracic/Lumbar Spine: thoracic and lumbar spine normal to inspection Skin General skin exam: no rashes or lesions noted Lesions: no lesions Rashes: no rashes Neuro General: patient oriented x3 and No confusion Cranial nerves: Yes CN's II-XII intact bilaterally and Yes Equal, round and reactive pupils present Speech: No Abnormal speech present Motor exam (neuro): Abnormal motor strength present (Strength is equal but bilaterally decreased in the upper extremities) Sensory Exam: No Sensory deficit (Neuro) NIH Stroke Scale Level of Consciousness: Alert Level of Consciousness Questions: Answers both questions correctly Level of Consciousness Commands: Performs both tasks correctly Best Gaze: Normal Visual: No visual loss Facial Palsy: Normal Motor Arm (Right): No drift Motor Arm (Left): No drift Motor Leg (Right): No drift Motor Leg (Left): No drift Limb Ataxia: Absent Sensory: Normal Best Language: No aphasia Dysarthia: Normal Extinction and Inattention: No abnormality Score: 0 Course Reevaluation(s) Reevaluation #1: Additional history obtained from the patient's caregiver who is her [id number], the patient was moving her bowels when she had a syncopal e pisode. Time: 16:04 MDM - Altered Mental Status MDM Narrative Medical decision making narrative: Laboratory studies were reviewed. Patient's previous medical history was revie wed. The CT scan of the head was interpreted by the radiologist as negative. Additional history obtained from the patient's caregiver who stated that the patient was moving her bowels when she had a ?passing out episode?. This seems to indicate that this might have been a vasovagal episode, which is also consistent with EMS findings of unresponsive on their arrival to the patient's house, and responsive and nearly normal upon arrival to the emergency department. Differential Diagnosis Differential diagnosis: Likely altered mental status, encephalopathy, hypoglycemia, subarachnoid hemorrhage and seizures Medical Records Attestation: I reviewed the patient's medical records. Medical records narrative: Previous ED, hospitalist and specialist notes were reviewed Lab Data Lab results narrative: Lab results pending at the time of this writing Result diagrams: 08/18/22 15:58 08/18/22 15:[address]/CTA of the head and neck: Radiologist's impression: There is no evidence of an extra-axial collection. There is no evidence of intra or extra-axial hemorrhage. Ventricles and extra-axial CSF spaces are prominent suggestive of mild generalized atrophy. There is nonspecific periventricular white matter disease. There are old cerebellar infarcts that appear unchanged. No mass, mass effect or acute infarct is seen. No skull fracture. Chronic left maxillary sinus disease ECG Data ECG #1: Attestation: I personally reviewed and interpreted this ECG as follows: ECG interpretation date: 08/18/22 ECG interpretation time: 16:08 Interpretation: Normal sinus rhythm at a rate of 66. Normal AL interval, QRS duration and QT corrected. Normal axis. Discharge Plan Discharge Clinical Impression: Altered mental status, Syncope Prescriptions: No Action (DME) walker Misc See Rx Instructions .ROUTE .MEDSUPPLY Qty: 1 0RF Rx Instructions: As directed lisinopril 20 mg tablet 20 mg PO BID Qty: 60 2RF (DME) Accu-Chek Carmen Plus test strp Strip See Rx Instructions .ROUTE .COMPLEX Qty: 400 3RF Dose Instruction: USE 1 STRIP FOUR TIMES A DAY FOR DIABETES MELLITUS Rx Instructions: USE 1 STRIP FOUR TIMES A DAY FOR DIABETES MELLITUS levothyroxine 125 mcg tablet 125 mcg PO DAILY 90 Days Qty: 90 1RF omeprazole 20 mg capsule,delayed release(DR/EC) 20 mg PO DAILY 90 Days Qty: 90 1RF sertraline [Zoloft] 25 mg tablet 25 mg PO DAILY 90 Days Qty: 90 1RF metoprolol succinate 25 mg tablet extended release 24 hr 25 mg PO DAILY Qty: 30 6RF insulin aspart U-100 [Novolog U-100 Insulin aspart] 100 unit/mL Solution 1 sliding scale dose SUBCUT QIDACHS Protocol: Insulin Correction Scale Less than or equal to 110 ---- Give (units): 0 111 to 150 Give (units): 0 151 to 200 Give (units): 2 201 to 250 Give (units): 4 251 to 300 Give (units): 6 301 to 350 Give (units): 8 Greater than 350 Give (units): 10 Call MD if Blood Glucose > : 350 amlodipine 2.5 mg Tablet 2.5 mg PO DAILY 30 Days Qty: 30 0RF Protocol: Hold for SBP< HOLD for SBP < : 90 atorvastatin 80 mg Tablet 80 mg PO BEDTIME 30 Days Qty: 30 0RF clopidogrel 75 mg Tablet 75 mg PO DAILY 30 Days Qty: 30 0RF latanoprost 0.005 % drops 1 drp ophthalmic (eye) BEDTIME metformin 500 mg tablet 1 tab PO BIDWM sennosides [senna] 8.6 mg tablet 1 tab PO BEDTIME PRN (Reason: constipation) levetiracetam 500 mg tablet 1 tab PO BID cyanocobalamin (vitamin B-12) 1,000 mcg tablet 1 tab PO DAILY ferrous sulfate 325 mg (65 mg iron) tablet 1 tab PO BID cholecalciferol (vitamin D3) 25 mcg (1,000 unit) tablet 1 tab PO DAILY ascorbic acid (vitamin C) 500 mg tablet 500 mg PO BID
[2022-08-18 15:02] VITALS: BP 142/76; PULSE 100; RESP 18; TEMP 36.9; O2SAT 100; BMI 33.3
[2022-08-18 16:04] LABS: MANUAL DIFF FLAG NO
[2022-08-18 16:11] LABS: Basophils Percent Auto 0.3 % (0-2); Eosinophils Absolute Auto 0.1 X10*3/uL (0.0-0.4); Eosinophils Percent Auto 0.9 % (0-4); Hematocrit 29.2 % (37.0-47.0); Hemoglobin 9.3 g/dl (12.0-16.0); Imm Gran Abs Auto 0.02 X10*3/uL (0.00-0.03); Imm Gran Pct Auto 0.3 % (0.0-0.4); Lymphocytes Absolute Auto 2.6 X10*3/uL (1.2-4.9); Lymphocytes Percent Auto 39.7 % (20-40); Mean Corpuscular HGB Conc 31.8 g/dl (31.0-35.0); Mean Corpuscular Hemoglobin 29.1 pg (27.0-33.0); Mean Corpuscular Volume 91.3 fL (80.0-98.0); Mean Platelet Volume 10.6 fL (9.4-12.3); Monocytes Absolute Auto 0.5 X10*3/uL (0.1-1.2); Monocytes Percent Auto 7.5 % (2-11); Neutrophils Absolute Auto 3.4 x10*3/uL (2.0-8.3); Neutrophils Percent Auto 51.3 % (45-73); Platelet Count 291 X10*3/uL (160-400); Red Cell Distribution Width 13.8 % (11.0-16.0); White Blood Count 6.6 X10*3/uL (4.8-10.8)
[2022-08-18 16:12] LABS: Prothrombin Time 10.9 SEC (10.0-13.1)
[2022-08-18 16:20] LABS: Anion Gap 15 (12-20); Blood Urea Nitrogen 25 mg/dL (9-16); Carbon Dioxide 25 mmol/L (22-29); Chloride 101 mmol/L (96-108); Creatinine Clr Calc Pharmacy 57.5; Estimated Glomerular Filt Rate 56; Glucose Random 251 mg/dL (60-115); Potassium 4.7 mmol/L (3.3-5.1); Sodium 136 mmol/L (135-145)
[2022-08-18 16:26] LABS: Stroke Lab Use COMPLETE
[2022-08-18 16:28] LABS: Troponin-I High Sensitivity < 3.5 ng/L (<3.5-17.0)
[2022-08-18 22:00] VITALS: BP 172/83; PULSE 63; RESP 16; TEMP 37.2; O2SAT 97
--- NOTE | 2022-08-18 23:44 | PC.NURSE ---
Saurav called at 2340 for a BLS transfer back to SNF,[facility]. ETA for 3AM RN aware
== END 2022-08-19 05:36 | disposition home or self-care (01) ==
PROVIDERS: Emergency Provider Emergency Medicine; PCP Family Medicine
DX: R41.82 Altered mental status, unspecified (principal); R55 Syncope and collapse; E11.9 Type 2 diabetes mellitus without complications; I10 Essential (primary) hypertension; E78.00 Pure hypercholesterolemia, unspecified; Z79.4 Long term (current) use of insulin; Z79.02 Long term (current) use of antithrombotics/antiplatelets; Z79.899 Other long term (current) drug therapy
CPT/HCPCS: 36415; 70450; 71045; 80048; 84484; 85025; 85610; 93005; 99284

== ENCOUNTER 2023-10-31 12:56 | Emergency (ER) | payer MEDICARE, MEDICAID, SELFPAY ==
--- NOTE | 2023-10-31 13:07 | ED_ITS ---
HPI - Female Genitourinary General Chief complaint: Vaginal Bleeding Stated complaint: VAGINAl bleed Time Seen by Provider: 10/31/23 13:05 Source: patient and RN notes reviewed Mode of arrival: ambulatory Limitations: no limitations History of Present Illness HPI Narrative: This is a 72-year-old female, with a past medical history of hyperthyroidism, hypertension, CAD, diabetes, dementia, GERD, epilepsy, and hypertension on Plavix, presenting to the emergency department after vaginal bleeding which started yesterday. Patient is a poor historian, and is unsure why she is here. Per EMS, patient has had vaginal bleeding which started yesterday. Today she soaked through two Maxi pads. Patient has no current complaints or pain. No history of similar symptoms in the past. No other complaints or concerns at this time. Sister at bedside reports that she did have a total hysterectomy, no episodes of vaginal bleeding postpatum. MD elicited complaint: vaginal bleeding Onset (ago): day(s) Exacerbating factors: none Relieving factors: none Related Data Home Medications Medication Instructions Recorded Confirmed cholecalciferol (vitamin D3) 25 1 tab PO DAILY 04/21/22 11/04/23 mcg (1,000 unit) tablet cyanocobalamin (vitamin B-12) 1 tab PO DAILY 04/21/22 11/04/23 1,000 mcg tablet ferrous sulfate 325 mg (65 mg 1 tab PO BID 04/21/22 11/04/23 iron) tablet latanoprost 0.005 % eye drops 1 drp ophthalmic (eye) BEDTIME 04/21/22 11/04/23 levetiracetam 500 mg tablet 1 tab PO BID 04/21/22 11/04/23 metformin 500 mg tablet 1 tab PO BIDWM 04/21/22 11/04/23 sennosides 8.6 mg tablet (senna) 1 tab PO BEDTIME PRN constipation 04/21/22 11/04/23 ascorbic acid (vitamin C) 500 mg 500 mg PO BID 06/12/22 11/04/23 tablet insulin aspart U-100 100 unit/mL 1 sliding scale dose subcut QIDACHS 07/22/22 11/04/23 subcutaneous solution (Novolog U-100 Insulin aspart) acetaminophen 325 mg capsule 325 mg PO QID PRN 11/04/23 11/04/23 (Tylenol) bisacodyl 10 mg rectal suppository 10 mg OK DAILY PRN 11/04/23 11/04/23 clopidogrel 75 mg tablet 75 mg PO DAILY 11/04/23 11/04/23 insulin detemir U-100 100 unit/mL 4 unit subcut BEDTIME 11/04/23 11/04/23 (3 mL) subcutaneous pen (Levemir FlexPen) levothyroxine 125 mcg tablet 137 mcg PO DAILY 11/04/23 11/04/23 magnesium oxide 400 mg PO DAILY 11/04/23 11/04/23 metoprolol succinate 25 mg 12.5 mg PO BID 11/04/23 11/04/23 tablet,extended release 24 hr pantoprazole 20 mg tablet,delayed 20 mg PO DAILY 11/04/23 11/04/23 release (Protonix) Previous Rx's Medication Instructions Recorded walker #1 ea 02/28/21 lisinopril 20 mg tablet 20 mg PO BID #60 tabs 06/13/22 blood sugar diagnostic (Accu-Chek #400 strips 06/23/22 Carmen Plus test strips) omeprazole 20 mg capsule,delayed 20 mg PO DAILY 90 days #90 caps 07/03/22 release sertraline 25 mg tablet (Zoloft) 25 mg PO DAILY 90 days #90 tabs 07/03/22 amlodipine 2.5 mg tablet 2.5 mg PO DAILY 30 days #30 tabs 07/27/22 atorvastatin 80 mg tablet 80 mg PO BEDTIME 30 days #30 tabs 08/14/22 clopidogrel 75 mg tablet 75 mg PO DAILY 30 days #30 tabs 08/14/22 cefuroxime axetil 250 mg tablet 250 mg PO BID #10 tabs 10/31/23 Allergies Allergy/AdvReac Type Severity Reaction Status Date / Time No Known Allergies Allergy Verified 11/04/23 14:50 Review of Systems 2 Review of Systems: Yes all other systems are reviewed and are negative Constitutional: Constitutional: Reports as per [facility] Past Medical History Attestation statement: The following information was validated with the patient. Onset Date is defined in the Problem List Problems that require an onset date and time if occurred within 24 hrs of arrival to the ED Aortic Dissection and Rupture; Neurologic impairment; Cardiopulmonary Arrest; Endotracheal Intubation; Insertion or Replacement of Mechanical Circulatory Assist Device Medical History Hypomagnesemia Epilepsy Atherosclerotic cardiovascular disease New onset seizure Hypothyroidism Overweight (BMI 25.0-29.9) Constipation Vitamin D deficiency Vitamin B12 deficiency GERD without esophagitis Iron deficiency anemia Acquired hypothyroidism Pure hypercholesterolemia Benign essential hypertension Diabetes mellitus CAD (coronary artery disease) Orthostasis Hypertension Dementia Syncope Surgical History History of hemiarthroplasty of left hip History of ankle surgery S/P [id number] (total abdominal hysterectomy and bilateral salpingo-oophorectomy) Family History Family History Father Diabetes Hypertension Mother Hypertension Stroke Social History Social History Household Members: Family Housing: Assisted Living Facility [facility] Other:: [facility] PHONE: [phone] Do you presently have visiting nurse or other home services: No Alcohol intake: never Patient Tobacco Use Status: Never used Tobacco e-Cigarette/Vaping Use: Never Used Second Hand Smoke Exposure: No Advance Directives Date on File: 10/25/20 service: No Current occupational status: disabled Cognitive needs: Yes (walker, wheelchair) Hearing needs: No Vision needs: Yes Physical Exam 2 Vital Signs: Vital Signs: Last Vital Signs Temp 97.4 F 10/31/23 20:05 Pulse 63 10/31/23 20:05 Resp 16 10/31/23 20:05 BP 147/54 H 10/31/23 20:21 Pulse Ox 100 10/31/23 20:05 O2 Del Method Room Air 10/31/23 17:08 BMI result Body Mass Index 31.3 Const: General: cooperative, comfortable and no acute distress O rientation/consciousness: oriented to person HEENT: Head: Yes normal to inspection, Yes normocephalic and Yes atraumatic Ears: hearing grossly normal bilaterally General nose exam: Normal external nose present Face and sinus: Yes normal facial exam Mouth: Normal oral and palatal mucosa present, oropharynx normal and moist mucous membranes Throat: Yes posterior oropharynx normal Eyes: General: appearance normal, both eyes and all related structures E yelids: Yes eyelids normal Conjunctivae: conjunctivae normal Sclerae: s clerae normal Pupils: Equal, round and reactive pupils present EOM: EOMs intact bilaterally Neck: Neck: Yes normal visual inspection, Yes full ROM and Yes no lymphadenopathy Lymphatic: no lymphadenopathy noted Chest: Chest palpation & inspection: normal inspection of the chest Resp: Effort & Inspection: normal respiratory effort and able to speak in complete sentences Auscultation: clear to auscultation bilaterally, no crackles, no rales, no rhonchi and no wheezes Cardio: Rate: regular rate Rhythm: regular rhythm Heart sounds: S1 normal heart sound present and S2 normal heart sound present GI: Other: Abdomen is soft, nontender, nondistended, normoactive bowel sounds present in all 4 quadrants. No dark stool or bright red blood per rectum. Normal rectal tone. Inspection: Yes normal to inspection : Other: Vaginal exam performed with Aura Downing, at bedside. External genitalia normal, small pea sized blood clot on external genitalia. No blood noted in the vaginal vault, no abnormalities from the cervical os. External Female Exam: normal external appearance, normal appearance of the urethra, No external swelling, No lesion, No laceration and No urethral discharge Speculum Exam - Vagina: normal appearance of the vagina Skin: General skin exam: no rashes or lesions noted Trauma: no lacerations or abrasions Wounds: no wounds Neuro: General: oriented to person and moves all extremities Cranial nerves: Yes Equal, round and reactive pupils present Extrem: General: Yes normal to inspection Right upper extremity: normal to inspection Left upper extremity: normal to inspection Right lower extremity: normal to inspection Left lower extremity: normal to inspection Course Reevaluation(s) Reevaluation #1: Labs return, patient with LYNNE, creatinine 1.55 with a BUN of 24, potassium elevated at 5.4. EKG ordered. H&H 10.6/32.6. This appears to be at her baseline. Awaiting pelvic and renal ultrasound as well as UA Time: 16:04 Reevaluation #2: 73-year-old female received in sign-out at change of shift pending ultrasound of the kidneys, pelvic region, and UA. The patient's UA appears infected, so be treated with oral antibiotics. Her labs are significant for a mild anemia is actually improved compared to baseline. Patient's renal ultrasound is reassuring. Her bladder appears to show a 5 cm mass versus clot. I discussed this with the patient's sister. Given that she is well appearing, she is not septic, she is not hypertensive and her anemia is actually improved compared to baseline the patient can be safely discharged home to follow-up with urology as an outpatient. The patient's sister is comfortable with this plan. Time: 19:46 Medications Administered Discontinued Medications Generic Name Dose Route Start Last Admin Trade Name Freq PRN Reason Stop Dose Admin Cefuroxime Axetil 250 mg 10/31/23 19:48 10/31/23 20:20 Cefuroxime Axetil 250 Mg Tablet PO 10/31/23 19:49 250 mg ONCE ONE Administration Sodium Chloride 1,000 mls @ 999 mls/hr 10/31/23 15:11 10/31/23 17:00 Ns IV 10/31/23 16:11 Infused .Q1H1M ONE Infusion Medical Decision Making Medical Decision Making [facility] Narrative: This is a 73-year-old female, with a past medical history of hyperthyroidism, hypertension, CAD, diabetes, dementia, GERD, epilepsy, and hypertension, presents to the emergency department with complaints of ?vaginal bleeding. Per custodial staff member, patient had soaked through tube recent to any 4 hours. Patient is on Plavix. On arrival, patient is alert and oriented. Examination performed revealing blood clots of unknown origin. Rectal examination was performed, no blood noted in the rectum. Pelvic examination performed, no active bleeding or blood clot seen in the vaginal vault. It is unclear where bleeding is coming from however there is blood noted around the urethral meatus. Patient has foul odor smelling, suspicious for urinary tract infection. Plan: Labs, UA, pelvic ultrasound, renal ultrasound ordered Differential Diagnosis Differential Diagnoses: The differential diagnosis associated with the presentation includes Abnormal uterine bleeding, rectal bleeding, urinary tract infection, kidney stone Admission/Observation Consideration of admission/observation: Escalation of care including admission/observation considered Lab Data [facility] Lab Attestation statement: I reviewed the patient's lab results. 10/31/23 13:38 10/31/23 13:38 Labs: Lab Results 10/31/23 10/31/23 10/31/23 Range/Units 13:38 14:29 17:15 WBC 8.7 (4.8-10.8) X10*3/uL RBC 3.51 L (4.20-5.50) X10*6/uL Hgb 10.6 L (12.0-16.0) g/dl Hct 32.6 L (37.0-47.0) % MCV 92.9 (80.0-98.0) fL MCH 30.2 (27.0-33.0) pg MCHC 32.5 (31.0-35.0) g/dl RDW 13.8 (11.0-16.0) % Plt Count 206 D (160-400) X10*3/uL MPV 11.3 (9.4-12.3) fL Immature Gran % (Auto) 0.2 (0.0-0.4) % Neut % (Auto) 55.6 (45-73) % Lymph % (Auto) 37.7 (20-40) % [place] % (Auto) 5.7 (2-11) % Eos % (Auto) 0.3 (0-4) % Baso % (Auto) 0.5 (0-2) % Lymph # (Auto) 3.3 (1.2-4.9) X10*3/uL [place] # (Auto) 0.5 (0.1-1.2) X10*3/uL Eos # (Auto) 0.0 (0.0-0.4) X10*3/uL Baso # (Auto) 0.0 (0.0-0.2) X10*3/uL Abs Immat Gran (auto) 0.02 (0.00-0.03) X10*3/uL Absolute Neuts (auto) 4.8 (2.0-8.3) x10*3/uL Absolute Nucleated RBC 0.000 (0.0-0.012) X10*3/uL Nucleated RBC % (auto) 0.0 (0.0-0.2) /100WBC PT 11.5 (11.1-13.3) SEC INR 0.9 (0.9-1.1) APTT 27.7 (26.0-36.4) SEC Sodium 139 (135-145) mmol/L Potassium 5.4 H (3.3-5.1) mmol/L Chloride 104 (96-108) mmol/L Carbon Dioxide 24 (22-29) mmol/L Anion Gap 16 (12-20) BUN 24 H (9-16) mg/dL Creatinine 1.55 H (0.5-1.4) mg/dL Estim Creat Clear Calc 36.8 Estimated GFR 33 POC Glucose (60-115) mg/dL Random Glucose 215 H (60-115) mg/dL Calcium 9.2 (8.4-10.2) mg/dL Total Bilirubin 0.4 (0.0-1.0) mg/dL Direct Bilirubin 0.1 (0.0-0.5) mg/dL AST 76 H (5-31) U/L ALT 70 H (0-31) U/L Alkaline Phosphatase 157 H (39-117) U/L Total Protein 7.4 (6.5-8.0) g/dL Albumin 3.1 L (3.5-5.0) g/dL Urine Color Urine Appearance Urine pH (5.0-9.0) Ur Specific [place] (1.005-1.025) Urine Protein (Neg-Trace) mg/dL Urine Glucose (UA) (Negative) mg/dL Urine Ketones (Negative) mg/dL Urine Blood (Negative) Urine Nitrite (Negative) Ur Leukocyte Esterase (Negative) Urine RBC (0-2) /HPF Urine WBC (0-5) /HPF Ur Squamous Epith Cells (0-2) /HPF Urine Bacteria (None Seen) Hyaline Casts (0-2) /LPF Stool Occult Blood NEGATIVE (NEGATIVE) Blood Type O Positive Antibody Screen NEGATIVE 10/31/23 10/31/23 Range/Units 18:14 20:09 WBC (4.8-10.8) X10*3/uL RBC (4.20-5.50) X10*6/uL Hgb (12.0-16.0) g/dl Hct (37.0-47.0) % MCV (80.0-98.0) fL MCH (27.0-33.0) pg MCHC (31.0-35.0) g/dl RDW (11.0-16.0) % Plt Count (160-400) X10*3/uL MPV (9.4-12.3) fL Immature Gran % (Auto) (0.0-0.4) % Neut % (Auto) (45-73) % Lymph % (Auto) (20-40) % [place] % (Auto) (2-11) % Eos % (Auto) (0-4) % Baso % (Auto) (0-2) % Lymph # (Auto) (1.2-4.9) X10*3/uL [place] # (Auto) (0.1-1.2) X10*3/uL Eos # (Auto) (0.0-0.4) X10*3/uL Baso # (Auto) (0.0-0.2) X10*3/uL Abs Immat Gran (auto) (0.00-0.03) X10*3/uL Absolute Neuts (auto) (2.0-8.3) x10*3/uL Absolute Nucleated RBC (0.0-0.012) X10*3/uL Nucleated RBC % (auto) (0.0-0.2) /100WBC PT (11.1-13.3) SEC INR (0.9-1.1) APTT (26.0-36.4) SEC Sodium (135-145) mmol/L Potassium (3.3-5.1) mmol/L Chloride (96-108) mmol/L Carbon Dioxide (22-29) mmol/L Anion Gap (12-20) BUN (9-16) mg/dL Creatinine (0.5-1.4) mg/dL Estim Creat Clear Calc Estimated GFR POC Glucose 127 H (60-115) mg/dL Random Glucose (60-115) mg/dL Calcium (8.4-10.2) mg/dL Total Bilirubin (0.0-1.0) mg/dL Direct Bilirubin (0.0-0.5) mg/dL AST (5-31) U/L ALT (0-31) U/L Alkaline Phosphatase (39-117) U/L Total Protein (6.5-8.0) g/dL Albumin (3.5-5.0) g/dL Urine Color DK YELLOW Urine Appearance Turbid Urine pH 7.0 (5.0-9.0) Ur Specific [place] 1.020 (1.005-1.025) Urine Protein 100 (2+) H (Neg-Trace) mg/dL Urine Glucose (UA) Negative (Negative) mg/dL Urine Ketones Trace (Negative) mg/dL Urine Blood Large (3+) H (Negative) Urine Nitrite Positive H (Negative) Ur Leukocyte Esterase Moderate (2+) H (Negative) Urine RBC >20 H (0-2) /HPF Urine WBC >50 H (0-5) /HPF Ur Squamous Epith Cells 3-5 (0-2) /HPF Urine Bacteria 4+ (None Seen) Hyaline Casts 0-2 (0-2) /LPF Stool Occult Blood (NEGATIVE) Blood Type Antibody Screen Radiology Impression Discussion of test interpretation with radiology: I have reviewed the radiologist's reading. External Record Review External record reviewed: Inpatient record, Office record, Outpatient record, Prior outpatient labs, Prior outpatient radiology, Primary care record and Outside ED record Discharge Plan Discharge Clinical Impression: Acute UTI, Bladder mass Patient Disposition: Home, Self-Care Instructions: Urinary Tract Infection in Women (ED) Additional Instructions: Elsa's blood work was reassuring her urine sample appears to show that she has a urinary infection the ultrasound showed that her kidneys appeared to be normal on ultrasound. The pelvic ultrasound showed that she had a 5 cm mass in her bladder that could be a bladder mass or a blood clot she is to follow up with Urology, the numbers provided. Call on Thursday to schedule an appointment as soon as possible return to the ER for new or worsening symptoms, especially if she develops any fevers, chills, or is unable to urinate Prescriptions: New cefuroxime axetil 250 mg tablet 250 mg PO BID Qty: 10 0RF No Action (DME) walker Misc See Rx Instructions .ROUTE .MEDSUPPLY Qty: 1 0RF Rx Instructions: As directed lisinopril 20 mg tablet 20 mg PO BID Qty: 60 2RF (DME) Accu-Chek Carmen Plus test strp Strip See Rx Instructions .ROUTE .COMPLEX Qty: 400 3RF Dose Instruction: USE 1 STRIP FOUR TIMES A DAY FOR DIABETES MELLITUS Rx Instructions: USE 1 STRIP FOUR TIMES A DAY FOR DIABETES MELLITUS omeprazole 20 mg capsule,delayed release(DR/EC) 20 mg PO DAILY 90 Days Qty: 90 1RF sertraline [Zoloft] 25 mg tablet 25 mg PO DAILY 90 Days Qty: 90 1RF insulin aspart U-100 [Novolog U-100 Insulin aspart] 100 unit/mL Solution 1 sliding scale dose SUBCUT QIDACHS Protocol: Insulin Correction Scale Less than or equal to 110 ---- Give (units): 0 111 to 150 Give (units): 0 151 to 200 Give (units): 2 201 to 250 Give (units): 4 251 to 300 Give (units): 6 301 to 350 Give (units): 8 Greater than 350 Give (units): 10 Call MD if Blood Glucose > : 350 amlodipine 2.5 mg Tablet 2.5 mg PO DAILY 30 Days Qty: 30 0RF Protocol: Hold for SBP< HOLD for SBP < : 90 atorvastatin 80 mg Tablet 80 mg PO BEDTIME 30 Days Qty: 30 0RF clopidogrel 75 mg Tablet 75 mg PO DAILY 30 Days Qty: 30 0RF latanoprost 0.005 % drops 1 drp ophthalmic (eye) BEDTIME metformin 500 mg tablet 1 tab PO BIDWM sennosides [senna] 8.6 mg tablet 1 tab PO BEDTIME PRN (Reason: constipation) levetiracetam 500 mg tablet 1 tab PO BID cyanocobalamin (vitamin B-12) 1,000 mcg tablet 1 tab PO DAILY ferrous sulfate 325 mg (65 mg iron) tablet 1 tab PO BID cholecalciferol (vitamin D3) 25 mcg (1,000 unit) tablet 1 tab PO DAILY ascorbic acid (vitamin C) 500 mg tablet 500 mg PO BID bisacodyl 10 mg suppository 10 mg OK DAILY PRN clopidogrel 75 mg tablet 75 mg PO DAILY Levemir FlexPen 100 unit/mL (3 mL) insulin pen 4 unit subcut BEDTIME magnesium oxide 400 mg magnesium capsule 400 mg PO DAILY levothyroxine 125 mcg tablet 137 mcg PO DAILY metoprolol succinate 25 mg tablet extended release 24 hr 12.5 mg PO BID pantoprazole [Protonix] 20 mg tablet,delayed release (DR/EC) 20 mg PO DAILY acetaminophen [Tylenol] 325 mg capsule 325 mg PO QID PRN Referrals: Nikunj Pareeds MD [Physician] - ( 5 cm bladder mass versus blood clot. recommend cystoscopy) Interventions: ED Discharge Assessment Last Done: 10/31/23 21:09 Discharge Date/Time: 10/31/23 21:11
[2023-10-31 13:16] VITALS: BP 104/46; BP 150/64; PULSE 70; PULSE 72; RESP 16; TEMP 36.7; O2SAT 100; O2SAT 99; BMI 31.3
[2023-10-31 17:08] VITALS: BP 126/55; PULSE 63; RESP 16; TEMP 36.6; O2SAT 97
--- NOTE | 2023-10-31 17:21 | MHC.EDTECH ---
This pct assumed care of pt at 1500 ,vitals taken ,ekg done and was rad by Provider ,stool card collected and sent to lab .
[2023-10-31 20:05] VITALS: BP 112/34; PULSE 63; RESP 16; TEMP 36.3; O2SAT 100
[2023-10-31 20:21] VITALS: BP 147/54
--- NOTE | 2023-10-31 20:44 | MHC.EDTECH ---
Saurav booked at approx. 2037
== END 2023-10-31 21:11 | disposition home or self-care (01) ==
PROVIDERS: Emergency Provider Student in an Organized Health Care Education/Training Program; PCP Family Medicine
DX: N39.0 Urinary tract infection, site not specified (principal); B96.4 Proteus (mirabilis) (morganii) as the cause of diseases classified elsewhere; D49.4 Neoplasm of unspecified behavior of bladder; N93.9 Abnormal uterine and vaginal bleeding, unspecified; N17.9 Acute kidney failure, unspecified; E11.9 Type 2 diabetes mellitus without complications; I10 Essential (primary) hypertension; E78.00 Pure hypercholesterolemia, unspecified; D50.9 Iron deficiency anemia, unspecified; E55.9 Vitamin D deficiency, unspecified; Z79.4 Long term (current) use of insulin; Z79.899 Other long term (current) drug therapy; Z79.02 Long term (current) use of antithrombotics/antiplatelets
CPT/HCPCS: 36415; 51701; 76775; 76830; 76856; 80048; 80076; 81001; 82272; 82947; 85025; 85610; 85730; 86850; 86900; 86901; 87086; 87088; 87186; 93005; 96360; 96361; 99284; 99285

== ENCOUNTER → 2023-10-31 16:52 | Outpatient (BNV) | payer MEDICARE, MEDICAID, SELFPAY | PROVIDERS: Emergency Provider Student in an Organized Health Care Education/Training Program; PCP Family Medicine; Visit Provider Internal Medicine Cardiovascular Disease | DX: R94.31 Abnormal electrocardiogram [ECG] [EKG] (principal) | CPT/HCPCS: 93010 ==

== ENCOUNTER 2023-11-04 14:32 | Outpatient (AMB) | payer MEDICARE, MEDICAID, SELFPAY ==
--- NOTE | 2023-11-04 14:35 | A.OFFVIS_ITS ---
Intake Intake Visit Reasons: ER follow up/ Possible cysto Intake Note: Patient presents today in a stretcher for an ER follow-up: Large amounts of vaginal bleeding with clots and UTI Meds- Cefuroxime Allergies to Antibiotic- No Known Allergies Blood Thinner- None Database Management Specialist Required: No Accompanied by: Daughter Allergies No Known Allergies Allergy (Verified 11/04/23 14:50) Medication List - Last Reconciled 11/04/23 by Eren Pratt MD acetaminophen (Tylenol) 325 mg PO QID PRN amlodipine 2.5 mg See Protocol PO DAILY 30 days ascorbic acid (vitamin C) 500 mg PO BID atorvastatin 80 mg PO BEDTIME 30 days bisacodyl 10 mg MD DAILY PRN blood sugar diagnostic (Accu-Chek Carmen Plus test strips) USE 1 STRIP FOUR TIMES A DAY FOR DIABETES MELLITUS cefuroxime axetil 250 mg PO BID cholecalciferol (vitamin D3) 1 tab PO DAILY clopidogrel 75 mg PO DAILY 30 days clopidogrel 75 mg PO DAILY cyanocobalamin (vitamin B-12) 1 tab PO DAILY ferrous sulfate 1 tab PO BID insulin aspart U-100 (Novolog U-100 Insulin aspart) 1 sliding scale dose See Protocol subcut QIDACHS insulin detemir U-100 (Levemir FlexPen) 4 units subcut BEDTIME latanoprost 0.005% 1 drp ophthalmic (eye) BEDTIME levetiracetam 1 tab PO BID levothyroxine 137 mcg PO DAILY lisinopril 20 mg PO BID magnesium oxide 400 mg PO DAILY metformin 1 tab PO BIDWM metoprolol succinate ER 12.5 mg PO BID omeprazole 20 mg PO DAILY 90 days pantoprazole (Protonix) 20 mg PO DAILY sennosides (senna) 1 tab PO BEDTIME PRN sertraline (Zoloft) 25 mg PO DAILY 90 days walker As directed HPI HPI Comments History of Present Illness Details 11/04/2023--Cary Has been seen in th e past for UTIs. Last visit 08/06/2022. The patient resides in the assisted. The patient presents today in follow-up after a recent emergency room visit. ED visit on 10/31/23 for vaginal bleeding?. I have used the ED notes. The patient has a history of hysterectomy in pelvic and rectal exam was done by ED provider and noted to be WNL -- also urine c/s, renal and pelvic ultrasound exams were done. The patient was found to have UTI and started on antibiotics. Elsa is a 73-year-old female, presents with her sister, Araceli. The patient has a past medical history of hyperthyroidism, hypertension, CAD, diabetes, dementia, GERD, epilepsy, and hypertension, Patient is on Plavix. Results: 10/31/23--Renal ultrasound noted mass versus clot in the bladder. Pelvic ultrasound within normal limits Review of chart: Imaging--07/22/2022- CT imaging -pertinent findings: kidneys WNL, air in bladd er and vagina, artifact due to? hardware in hips limits pelvic evaluation on CT. Plan: FU office cysto PFSH Medical History Hypomagnesemia Epilepsy Atherosclerotic cardiovascular disease New onset seizure Hypothyroidism Overweight (BMI 25.0-29.9) Constipation Vitamin D deficiency Vitamin B12 deficiency GERD without esophagitis Iron deficiency anemia Acquired hypothyroidism Pure hypercholesterolemia Benign essential hypertension Diabetes mellitus CAD (coronary artery disease) Orthostasis Hypertension Dementia Syncope Surgical History History of hemiarthroplasty of left hip History of ankle surgery S/P [id number] (total abdominal hysterectomy and bilateral salpingo-oophorectomy) Family History Father Diabetes Hypertension Mother Hypertension Stroke Social History Household Members: Family Housing: Assisted Living Facility Housing Other:: [facility] PHONE: [phone] Do you presently have visiting nurse or other home services: No Alcohol intake: never Patient Tobacco Use Status: Never used Tobacco e-Cigarette/Vaping Use: Never Used Second Hand Smoke Exposure: No Advance Directives Date on File: 10/25/20 service: No Current occupational status: disabled Cognitive needs: Yes (walker, wheelchair) Hearing needs: No Vision needs: Yes Review of Systems Const All systems reviewed & are unremarkable except as noted in HPI and below Reports no additional complaints Eyes Reports no additional complaints ENT Denies neck pain Card Denies leg edema Resp Denies cough GI Denies constipation and Reports diarrhea Reports no additional complaints Musc Reports no additional complaints and Denies neck pain Skin/Breast Denies rash and Denies unusual bruising Neuro Reports no additional complaints Psych Details: Dementia Reports no additional complaints Endo Reports no additional complaints Rory/Lymph Reports no additional complaints Aller/Immun Reports no additional complaints Results Reviewed Results Reviewed: Date of Service: 10/31/23 EXAMINATION: US RETROPERITONEAL LIMITED (RENAL ONLY) CLINICAL INFORMATION: Hematuria. COMPARISON: None available. TECHNIQUE: Ultrasound of the kidneys and bladder was performed FINDINGS: RIGHT KIDNEY: 9.6 x 3.7 x 3.5 cm (SAG x AP x TRV). The kidney is normal in size, contour, and echogenicity. Renal cortical thickness is normal. No calculi or focal parenchymal lesions. No hydronephrosis. LEFT KIDNEY: 8.2 x 4.9 x 4.4 cm (SAG x AP x TRV). The kidney is normal in size, contour, and echogenicity. Renal cortical thickness is normal. No calculi or focal parenchymal lesions. No hydronephrosis. BLADDER: There is a solid-appearing mass in the bladder measuring 4.0 x 1.1 x 5.5 cm. It is difficult to ascertain whether this is clot versus a mass as the patient was demented and was not able to move. IMPRESSION: 1. Normal-appearing kidneys. 2. Mass versus clot in the bladder. Cystoscopy is recommended for further evaluation. Date of Service: 10/31/23 EXAMINATION: US PELVIS CLINICAL INFORMATION: Vaginal bleeding COMPARISON: None available. TECHNIQUE: Ultrasound of the pelvis is performed using both transabdominal and transvaginal transducers along with Doppler. Transvaginal imaging is performed due to inadequate visualization transabdominally. FINDINGS: Uterus: Surgically absent Adnexa: Neither ovary could be seen An abnormal adnexal mass is not seen. No free intraperitoneal fluid. IMPRESSION: Negative study. Assessment & Plan Assessment & Plan (1) Recurrent UTI: Code(s): N39.0 - Urinary tract infection, site not specified (2) Gross hematuria: Code(s): R31.0 - Gross hematuria (3) Abnormal finding on ultrasound: Code(s): R93.89 - Abnormal findings on diagnostic imaging of other specified body structures Plan FU office cysto Medications: Changed From levothyroxine 125 mcg PO DAILY 90 tabs 1RF 90 days To levothyroxine 137 mcg PO DAILY From metoprolol succinate ER 25 mg PO DAILY 30 tabs 6RF To metoprolol succinate ER 12.5 mg PO BID Coding Level of Care Code Est Pt Level 4 (49757) Diagnoses Recurrent UTI N39.0 Gross hematuria R31.0 Abnormal finding on ultrasound R93.89
== END 2023-11-04 15:17 | disposition home or self-care (01) ==
PROVIDERS: PCP Family Medicine; Visit Provider Urology
DX: N39.0 Urinary tract infection, site not specified (principal); R31.0 Gross hematuria; R93.89 Abnormal findings on diagnostic imaging of other specified body structures
CPT/HCPCS: 99214

== ENCOUNTER → 2023-11-04 14:32 | Outpatient (BNVA) | payer MEDICARE, MEDICAID, SELFPAY | PROVIDERS: PCP Family Medicine; Visit Provider Urology | DX: N39.0 Urinary tract infection, site not specified (principal); R31.0 Gross hematuria; R93.89 Abnormal findings on diagnostic imaging of other specified body structures | CPT/HCPCS: 99212 ==

== ENCOUNTER 2023-12-17 14:08 | Outpatient (REF) | payer MEDICARE, MEDICAID, SELFPAY ==
[2023-12-17 16:23] LABS: Urine Cytology See Pathology rpt
== END 2023-12-17 14:09 | disposition home or self-care (01) ==
LOC: HO.LAB 14:08
PROVIDERS: PCP Family Medicine; Visit Provider Urology
DX: N39.0 Urinary tract infection, site not specified (principal); R31.0 Gross hematuria; R93.89 Abnormal findings on diagnostic imaging of other specified body structures
CPT/HCPCS: 81003; 87086; 87088; 87186; 88112; 99212

== ENCOUNTER 2023-12-17 14:08 | Outpatient (AMB) | payer MEDICARE, MEDICAID, SELFPAY ==
--- NOTE | 2023-12-17 14:17 | A.OFFVIS_ITS ---
Intake Intake Visit Reasons: cysto Intake Note: Patient presents today for a CYSTOSCOPY Procedure: Cancelled Meds: None Allergies to Antibiotic: No Known Allergies Blood Thinner: None Urinalysis test clear for Cysto? NO Director Of Estate Required: No Accompanied by: Sister Allergies No Known Allergies Allergy (Verified 12/17/23 15:09) HPI HPI Comments History of Present Illness Details 12/17/23 Cary is being evaluated for gross hematuria she is here for office cystoscopy. [facility] She is here with her sister. The patient has recurrent UTIs. A year ago she had an outpatient cystoscopy which was within normal limits. She has recently had recurrent gross hematuria with ultrasound imaging noting a mass versus clot in the bladder. 10/31/23--renal US- normal-appearing hugh ys. 2. Mass versus clot in the bladder. Examination today the patient is unable to give a voided sample catheterized urine is blood-tinged. Urinalysis is nitrite positive. I will empirically place her on antibiotics and will defer office cystoscopy for today and reschedule for follow-up visit Review of chart: 11/04/2023--Cary Has been seen in th e past for UTIs. Last visit 08/06/2022. [facility] in [facility]. The patient presents today in follow- up after a recent emergency room visit. ED visit on 10/31/23 for vaginal bleeding?. I have used the ED notes. The patient has a history of hysterectomy in pelvic and rectal exam was done by ED provider and noted to be WNL -- also urine c/s, renal and pelvic ultrasound exams were done. The patient was found to have UTI and started on antibiotics. Elsa is a 73-year-old female, presents with her sister, Araceil. The patient has a past medical history of hyperthyroidism, hypertension, CAD, diabetes, dementia, GERD, epilepsy, and hypertension, Patient is on Plavix. Results: 10/31/23--Renal ultrasound noted mass versus clot in the bladder. Pelvic ultrasound within normal limits Review of chart: Imaging--07/22/2022- CT imaging -pertinent findings: kidneys WNL, air in bladder and vagina, artifact due to? hardware in hips limits pelvic evaluation on CT. 12/17/2023 Plan: Reschedule office cysto Levaquin pending urine culture PFSH Medical History Hypomagnesemia Epilepsy Atherosclerotic cardiovascular disease New onset seizure Hypothyroidism Overweight (BMI 25.0-29.9) Constipation Vitamin D deficiency Vitamin B12 deficiency GERD without esophagitis Iron deficiency anemia Acquired hypothyroidism Pure hypercholesterolemia Benign essential hypertension Diabetes mellitus CAD (coronary artery disease) Orthostasis Hypertension Dementia Syncope Surgical History History of hemiarthroplasty of left hip History of ankle surgery S/P [id number] (total abdominal hysterectomy and bilateral salpingo-oophorectomy) Family History Father Diabetes Hypertension Mother Hypertension Stroke Social History Household Members: Family Housing: Assisted Living Facility Housing Other:: [facility] PHONE: [phone] Do you presently have visiting nurse or other home services: No Alcohol intake: never Patient Tobacco Use Status: Never used Tobacco e-Cigarette/Vaping Use: Never Used Second Hand Smoke Exposure: No Advance Directives Date on File: 10/25/20 service: No Current occupational status: disabled Cognitive needs: Yes (walker, wheelchair) Hearing needs: No Vision needs: Yes Results AMB Urinalysis, Automated UA Leukoctes 500 Karen/uL Last Edit by BENNETT Lowry on 12/17/23 15:00 3+ Jaylene Hand 12/17/23 15:00 UA Nitrite Positive Last Edit by BENNETT Lowry on 12/17/23 15:00 UA Urobilinogen 0.2 mg/dL Last Edit by BENNETT Lowry on 12/17/23 15:0 0 UA Protein 100 mg/dL Last Edit by BENNETT Lowry on 12/17/23 15:00 2+ Jaylene Hand 12/17/23 15:00 UA pH 8.5 Last Edit by BENNETT Lowry on 12/17/23 15:00 UA Blood 200 Silvio/uL Last Edit by BENNETT Lowry on 12/17/23 15:00 3+ Jaylene Hand 12/17/23 15:00 UA Specific [place] 1.010 Last Edit by BENNETT Lowry on 12/17/23 15: 00 UA Ketone Negative Last Edit by BENNETT Lowry on 12/17/23 15:00 UA Bilirubin 0 mg/dL Last Edit by BENNETT Lowry on 12/17/23 15:00 UA Glucose 0 mg/dL Last Edit by BENNETT Lowry on 12/17/23 15:00 Results Reviewed Results Reviewed: Laboratory Last Values Urine pH (Auto) 8.5 12/17/23 14:48 Specific [place] (Auto) 1.010 12/17/23 14:48 Urine Protein (Auto) 100 mg/dL 12/17/23 14:48 Glucose (UA)(Auto) 0 mg/dL 12/17/23 14:48 Urine Ketones (Auto) Negative 12/17/23 14:48 Urine Blood (Auto) 200 Silvio/uL 12/17/23 14:48 Urine Nitrite (Auto) Positive 12/17/23 14:48 Urine Bilirubin (Auto) 0 mg/dL 12/17/23 14:48 Urine Urobilinogen (Auto) 0.2 mg/dL 12/17/23 14:48 Leukocyte Esterase (Auto) 500 Karen/uL 12/17/23 14:48 Date of Service: 10/31/23 EXAMINATION: US RETROPERITONEAL LIMITED (RENAL ONLY) CLINICAL INFORMATION: Hematuria. COMPARISON: None available. TECHNIQUE: Ultrasound of the kidneys and bladder was performed FINDINGS: RIGHT KIDNEY: 9.6 x 3.7 x 3.5 cm (SAG x AP x TRV). The kidney is normal in size, contour, and echogenicity. Renal cortical thickness is normal. No calculi or focal parenchymal lesions. No hydronephrosis. LEFT KIDNEY: 8.2 x 4.9 x 4.4 cm (SAG x AP x TRV). The kidney is normal in size, contour, and echogenicity. Renal cortical thickness is normal. No calculi or focal parenchymal lesions. No hydronephrosis. BLADDER: There is a solid-appearing mass in the bladder measuring 4.0 x 1.1 x 5.5 cm. It is difficult to ascertain whether this is clot versus a mass as the patient was demented and was not able to move. IMPRESSION: 1. Normal-appearing kidneys. 2. Mass versus clot in the bladder. Cystoscopy is recommended for further evaluation. Assessment & Plan Assessment & Plan (1) Recurrent UTI: Code(s): N39.0 - Urinary tract infection, site not specified (2) Gross hematuria: Code(s): R31.0 - Gross hematuria (3) Abnormal finding on ultrasound: Code(s): R93.89 - Abnormal findings on diagnostic imaging of other specified body structures Plan Reschedule office cysto Levaquin pending urine culture Orders: Orders Urine Cytology 12/17/23 R31.9 - Hematuria, unspecified AMB Bladder/Catheter Procedure 12/17/23 N39.0 - Urinary tract infection, site not specified AMB Urinalysis Automated 12/17/23 Z13.9 - Encounter for screening, unspecified Urine Culture 12/17/23 N39.0 - Urinary tract infection, site not specified Medications: New levofloxacin 500 mg PO DAILY 12 days 12 tabs 0RF Patient Instructions: The patient and her sister had an opportunity to ask questions regarding treatment plan. All questions were answered. Imaging, Laboratory studies and physical exam results were discussed and reviewed in detail. No major barriers to understanding were identified. The patient expressed understanding and agreement with the above treatment plan. The patient is aware they should contact our office by phone for worsening of their current condition or the appearance of new symptoms. Compliance is encouraged with any medications and followup testing that is ordered. It is a privilege to be allowed the opportunity to participate in the urologic care of your patient. If you have any questions or concerns regarding treatment for the above conditions please do not hesitate to contact me. The office telephone contact is [phone]. This note is constructed in part using voice recognition software. While every effort has been made to ensure accuracy hospice entrance attendant errors may have been included. Yours sincerely, Eren Pratt MD Coding Level of Care Code Est Pt Level 4 (08963) Diagnoses Recurrent UTI N39.0 Gross hematuria R31.0 Abnormal finding on ultrasound R93.89
== END 2023-12-17 14:59 | disposition home or self-care (01) ==
LOC: HO.HUSH 14:12
PROVIDERS: PCP Family Medicine; Visit Provider Urology
DX: N39.0 Urinary tract infection, site not specified (principal); R31.0 Gross hematuria; R93.89 Abnormal findings on diagnostic imaging of other specified body structures
CPT/HCPCS: 99214

== ENCOUNTER 2024-01-07 10:49 | Outpatient (AMB) | payer MEDICARE, MEDICAID, SELFPAY ==
--- NOTE | 2024-01-07 11:33 | MHC.OFFVIS ---
Intake Intake Visit Reasons: cysto Intake Note: Patient presents today for a CYSTOSCOPY Procedure: Meds: None Allergies to Antibiotic: No Known Allergies Blood Thinner: None Disposable Uro-G Cystoscope Cannula: Lot: [id number] Exp: 08/20/2026 Retail Client Solutions Analyst Required: No Accompanied by: Sister Allergies No Known Allergies Allergy (Verified 01/07/24 11:38) HPI HPI Comments History of Present Illness Details 01/07/2024--Cary is here for office cystoscopy. She was seen last in the office on 12/17/23, cystoscopy was reschedule. She was treated for a UTI. She is here with her sister. Cystoscopy performed today. No suspicious bladder lesions observed. Plan to continue Hiprex 1 g daily, vitamin-C 500 mg daily, Flomax 0.4 mg at bedtime, bethanechol 25 mg twice a day Review of chart: 12/17/23 Cary is being evaluated for gross hematuria she is here for office cystoscopy. She presents on a stretcher from the longterm. She is here with her sister. The patient has recurrent UTIs. A year ago she had an outpatient cystoscopy which was within normal limits. She has recently had recurrent gross hematuria with ultrasound imaging noting a mass versus clot in the bladder. 10/31/23--renal US- normal-appearing kidneys. 2. Mass versus clot in the bladder. Examination today the patient is unable to give a voided sample catheterized urine is blood-tinged. Urinalysis is nitrite positive. I will empirically place her on antibiotics and will defer office cystoscopy for today and reschedule for follow-up visit Plan--Reschedule office cysto; Levaquin 500mg prescribed, pending urine culture. 11/04/2023--Cary Has been seen in the past for UTIs. Last visit 08/06/2022. The patient resides in the longterm. The patient presents today in follow-up after a recent emergency room visit. ED visit on 10/31/23 for vaginal bleeding?. I have used the ED notes. The patient has a history of hysterectomy in pelvic and rectal exam was done by ED provider and noted to be WNL -- also urine c/s, renal and pelvic ultrasound exams were done. The patient was found to have UTI and started on antibiotics. Elas is a 73-year-old female, presents with her sister, Araceli. The patient has a past medical history of hyperthyroidism, hypertension, CAD, diabetes, dementia, GERD, epilepsy, and hypertension, Patient is on Plavix. Results: 10/31/23--Renal ultrasound noted mass versus clot in the bladder. Pelvic ultrasound within normal limits Imaging--07/22/2022- CT imaging -pertinent findings: kidneys WNL, air in bladder and vagina, artifact due to? hardware in hips limits pelvic evaluation on CT. 01/11/2024 Plan: Continue Hiprex 1 g daily, vitamin-C 500 mg daily, Flomax 0.4 mg at bedtime, bethanechol 25 mg twice a day PFSH Medical History Hypomagnesemia Epilepsy Atherosclerotic cardiovascular disease New onset seizure Hypothyroidism Overweight (BMI 25.0-29.9) Constipation Vitamin D deficiency Vitamin B12 deficiency GERD without esophagitis Iron deficiency anemia Acquired hypothyroidism Pure hypercholesterolemia Benign essential hypertension Diabetes mellitus CAD (coronary artery disease) Orthostasis Hypertension Dementia Syncope Surgical History History of hemiarthroplasty of left hip History of ankle surgery S/P [id number] (total abdominal hysterectomy and bilateral salpingo-oophorectomy) Family History Father Diabetes Hypertension Mother Hypertension Stroke Social History Household Members: Family Housing[facility] PHONE: [phone] Do you presently have visiting nurse or other home services: No Alcohol intake: never Patient Tobacco Use Status: Never used Tobacco e-Cigarette/Vaping Use: Never Used Second Hand Smoke Exposure: No Advance Directives Date on File: 10/25/20 service: No Current occupational status: disabled Cognitive needs: Yes (walker, wheelchair) Hearing needs: No Vision needs: Yes Review of Systems Const All systems reviewed & are unremarkable except as noted in HPI and below Reports no additional complaints Eyes Reports no additional complaints ENT Reports no additional complaints Card Reports no additional complaints Resp Reports no additional complaints GI Reports no additional complaints Reports as per HPI Musc Reports no additional complaints Skin/Breast Reports system reviewed and no additional complaints, except as documented Neuro Reports no additional complaints Psych Reports no additional complaints Endo Reports no additional complaints Rory/Lymph Reports no additional complaints Aller/Immun Reports no additional complaints Office Procedures Cystoscopy Consent Discussed risk and benefit or proposed procedure with the patient. Information consent for procedure given to the patient. Discussed technical aspects, risks, benefits and alternatives in full. Addressed all of the patient's questions and concerns regarding the procedure. The patient demonstrated knowledge and understanding. They wish to proceed with this procedure. Preparation The patient was prepped in the usual manner. A access services assistant was present and in the room. Genitalia was prepped with betadine solution in a sterile manner. Lidocaine Jelly 2% was placed into the urethra and 16Fr flexible Olympus cystoscope was inserted into the meatus after adequate lubrication. Procedure Time out per protocol performed. Bladder Inspection Bladder Inspection: The bladder was inspected in its entirety with utilization retroflexion displaying: Tumor(s): Nonvisualized Trabeculation: Not applicable Mucosal Erthema: Mild Orifices: normal shape and position Urethra: normal Cystoscopy findings: no suspicious bladder lesions visualized [id number] DISPOSABLE SCOPE URO-G FLEXIBLE SCOPE Procedure code (CPT) selection complete Office Meds lidocaine HCl 2 % mucosal jelly in applicator Performing Provider: Eren Pratt MD [facility] Administered by: Mikayla Mason RN on 01/07/24 11:44 Dose Route Admin Location Dispensed Lot Number Expiration Date [facility] Robotic Weld Technician 10 mL intra-urethral 20 mL naproxen 500 mg tablet Performing Provider: Eren Pratt MD Performing Location: [facility] Administered by: Mikayla Mason RN on 01/07/24 11:44 Dose Route Admin Location Dispensed Lot Number Expiration Date [place] Robotic Weld Technician 500 mg PO 1 tab ciprofloxacin HCl 500 mg tablet Performing Provider: Eren Pratt MD Performing Location: [facility] Administered by: Mikayla Mason RN on 01/07/24 11:44 Dose Route Admin Location Dispensed Lot Number Expiration Date [place] Robotic Weld Technician 500 mg PO 1 tab Results AMB Urinalysis, Automated UA Leukoctes 125 Karen/uL Last Edit by Jaylene Hnad Roly on 01/07/24 16:35 2+ Jaylene Hand 01/07/24 16:35 UA Nitrite Negative Last Edit by Jaylene Hand [facility] on 01/07/24 16:35 UA Urobilinogen 0.2 mg/dL Last Edit by Jaylene Hand [facility] on 01/07/24 16:35 UA Protein 6.0 mg/dL Last Edit by Jaylene Hand [facility] on 01/07/24 16:35 UA pH 6.0 Last Edit by Jaylene Hand [facility] on 01/07/24 16:35 UA Blood 10 Silvio/uL Last Edit by Jaylene Hand [facility] on 01/07/24 16:35 UA Specific Agness 1.015 Last Edit by Jaylene Hand [facility] on 01/07/24 16:35 UA Ketone Negative Last Edit by Jaylene Hand [facility] on 01/07/24 16:35 UA Bilirubin 0 mg/dL Last Edit by Jaylene Hand [facility] on 01/07/24 16:35 UA Glucose 1000 mg/dL Last Edit by Jaylene Hand [facility] on 01/07/24 16:35 3+ Jaylene Hand 01/07/24 16:35 Results Reviewed Results Reviewed: Laboratory Last Values Urine pH (Auto) 6.0 01/07/24 16:32 Specific Agness (Auto) 1.015 01/07/24 16:32 Urine Protein (Auto) 6.0 mg/dL 01/07/24 16:32 Glucose (UA)(Auto) 1000 mg/dL 01/07/24 16:32 Urine Ketones (Auto) Negative 01/07/24 16:32 Urine Blood (Auto) 10 Silvio/uL 01/07/24 16:32 Urine Nitrite (Auto) Negative 01/07/24 16:32 Urine Bilirubin (Auto) 0 mg/dL 01/07/24 16:32 Urine Urobilinogen (Auto) 0.2 mg/dL 01/07/24 16:32 Leukocyte Esterase (Auto) 125 Karen/uL 01/07/24 16:32 Date of Service: 10/31/23 EXAMINATION: US RETROPERITONEAL LIMITED (RENAL ONLY) CLINICAL INFORMATION: Hematuria. COMPARISON: None available. TECHNIQUE: Ultrasound of the kidneys and bladder was performed FINDINGS: RIGHT KIDNEY: 9.6 x 3.7 x 3.5 cm (SAG x AP x TRV). The kidney is normal in size, contour, and echogenicity. Renal cortical thickness is normal. No calculi or focal parenchymal lesions. No hydronephrosis. LEFT KIDNEY: 8.2 x 4.9 x 4.4 cm (SAG x AP x TRV). The kidney is normal in size, contour, and echogenicity. Renal cortical thickness is normal. No calculi or focal parenchymal lesions. No hydronephrosis. BLADDER: There is a solid-appearing mass in the bladder measuring 4.0 x 1.1 x 5.5 cm. It is difficult to ascertain whether this is clot versus a mass as the patient was demented and was not able to move. IMPRESSION: 1. Normal-appearing kidneys. 2. Mass versus clot in the bladder. Cystoscopy is recommended for further evaluation. Assessment & Plan Assessment & Plan (1) Recurrent UTI: Code(s): N39.0 - Urinary tract infection, site not specified (2) Gross hematuria: Code(s): R31.0 - Gross hematuria (3) Abnormal finding on ultrasound: Code(s): R93.89 - Abnormal findings on diagnostic imaging of other specified body structures Plan Follow-up in 4 months Hiprex 1 g daily, vitamin-C 500 mg daily, Flomax 0.4 mg at bedtime, bethanechol 25 mg twice a day Orders: Orders AMB Urinalysis Automated 01/07/24 Z13.9 - Encounter for screening, unspecified AMB Cystoscopy 01/07/24 R31.0 - Gross hematuria Medications: New methenamine hippurate 1 g PO ONCE 30 tabs 1RF 30 days N39.0 - Urinary tract infection, site not specified tamsulosin 0.4 mg PO BEDTIME 30 caps 1RF 30 days R31.0 - Gross hematuria, N39.0 - Urinary tract infection, site not specified bethanechol chloride 25 mg PO BID 60 tabs 1RF 30 days N39.0 - Urinary tract infection, site not specified, R31.0 - Gross hematuria ascorbate calcium (vitamin C) 1 g (2 x 500 mg) PO DAILY 60 tabs 1RF 30 days N39.0 - Urinary tract infection, site not specified, R31.0 - Gross hematuria levofloxacin 500 mg PO DAILY 7 tabs 0RF 7 days R31.0 - Gross hematuria, N39.0 - Urinary tract infection, site not specified Patient Instructions: The patient had an opportunity to ask questions regarding treatment plan. All questions were answered. The patient expressed understanding and agreement with the above treatment plan. The patient is aware they should contact our office by phone for worsening of their current condition or the appearance of new symptoms. Compliance is encouraged with any medications and followup testing that is ordered. It is a privilege to be allowed the opportunity to participate in the urologic care of your patient. If you have any questions or concerns regarding treatment for the above conditions please do not hesitate to contact me. The office telephone contact is [phone]. This note is constructed in part using voice recognition software. While every effort has been made to ensure accuracy director telehealth errors may have been included. Yours sincerely, Eren Pratt MD Coding Level of Care Code Procedure Only Diagnoses Recurrent UTI N39.0 Gross hematuria R31.0 Abnormal finding on ultrasound R93.89 CPT Codes Cystoscopy - CPT: 61335-[id number] ([id number])
== END 2024-01-07 12:30 | disposition home or self-care (01) ==
LOC: HO.HUSH 10:49
PROVIDERS: PCP Family Medicine; Visit Provider Urology
DX: R31.0 Gross hematuria (principal); Z13.9 Encounter for screening, unspecified
CPT/HCPCS: 52000

== ENCOUNTER → 2024-01-07 10:49 | Outpatient (BNVA) | payer MEDICARE, MEDICAID, SELFPAY | PROVIDERS: PCP Family Medicine; Visit Provider Urology | DX: R31.0 Gross hematuria (principal); R93.89 Abnormal findings on diagnostic imaging of other specified body structures; N39.0 Urinary tract infection, site not specified | CPT/HCPCS: 52000; 81003 ==